=== PATIENT | female | born 1955 | race Caucasian/White ===

== ENCOUNTER 2020-08-05 10:15 | Observation (INO) | payer OTHER, SELFPAY ==
[2020-08-05] VITALS (14 sets, daily range): BP systolic 95–113; BP diastolic 49–69; PULSE 75–100; RESP 16–27; TEMP 36.4–37.1; O2SAT 91–97; BMI 23.6
--- NOTE | ~2020-08-05 | XR_ITS ---
EXAMINATION: XR chest 1V portable INDICATION: Shortness of breath, COVID 19 positive TECHNIQUE: Portable AP chest at 1047 hours COMPARISON: 10/23/2014 FINDINGS: There are patchy opacities of the lung bases and right midlung zone. No pleural effusion or pneumothorax is identified. The cardiomediastinal silhouette is normal. There is levocurvature of th e thoracic spine. IMPRESSION: 1. Patchy opacities of the lung bases and right midlung zone, consistent with pneumonia versus atelec tasis. Reviewed, dictated and finalized at location A. IMPRESSION: 1. Patchy opacities of the lung bases and right midlung zone, consistent with p neumonia versus atelectasis.
--- NOTE | ~2020-08-05 | XR_ITS ---
EXAMINATION: XR chest 1V portable DATE: 08/07/2020 08:29 INDICATION: COVID 19 infection TECHNIQUE: frontal view of the chest was obtained. COMPARISON: Chest radiograph dated 08/05/2020 FINDINGS: No interval change in mild opacities at the lung bases and at the lateral right midlung zone. No pulm onary edema, pleural effusion or pneumothorax. The cardiomediastinal silhouette is normal. Mild lower thoracic levoscoliosis. IMPRESSION: 1. Unchanged mild opacities at the bilateral lung bases and right midlung zone which could represent atelectasis or pneumonia. Reviewed, dictated and finalized at location A. ING TECHNICIAN
[2020-08-05 10:50] LABS: Basophils Percent Auto 0.4 % (0.2-1.2); Eosinophils Percent Auto 0.2 % (0-4.4); Hematocrit 24.1 % (37.0-47.0); Hemoglobin 7.4 g/dL (12.0-15.0); Immature Granulocyte Absolute 0.02 K/mm3 (0.00-0.031); Immature Granulocyte Percent A 0.4 % (0-0.5); Lymphocytes Absolute Auto 0.74 K/mm3 (0.9-3.2); Lymphocytes Percent Auto 14.3 % (18.3-44.2); Mean Corpuscular HGB Conc 30.7 g/dl (32-36); Mean Corpuscular Hemoglobin 33.8 pg (26-34); Mean Platelet Volume 12.7 fl (7.4-10.4); Monocytes Absolute Auto 0.4 K/mm3 (0.1-0.6); Monocytes Percent Auto 7.3 % (2.6-8.5); Neutrophils Percent Auto 77.4 % (45.5-73.1); Platelet Count Result 173 k/mm3 (150-375); Red Blood Count 2.19 M/mm3 (4.2-5.4); Red Cell Distribution Width 15.3 % (11.5-14.5); White Blood Count 5.2 K/mm3 (4.5-10.0)
[2020-08-05 11:01] LABS: INR 1.1; Prothrombin Time 14.1 Seconds (11.1-14.7)
[2020-08-05 11:02] LABS: Lactic Acid Reflex 1.7 mmol/L (0.7-2.1); Partial Thromboplastin Time 27.1 SECONDS (22.3-36.8)
[2020-08-05 11:06] LABS: Alanine Aminotransferase 83 U/L (4-35); Albumin Level 4.1 g/dL (3.5-5.1); Alkaline Phosphatase 68 U/L (38-126); Anion Gap 8 mmol/L (8-16); Aspartate Amino Transferase 102 U/L (14-36); Bilirubin,Total 3.2 mg/dL (0.2-1.3); Blood Urea Nitrogen 16 mg/dL (7-17); CRP 0.6 mg/dL (<1.0); Calcium 8.5 mg/dL (8.4-10.2); Carbon Dioxide 27 mmol/L (22-30); Chloride 101 mmol/L (98-107); Estimated Glomerular Filt Rate > 60; Glucose 118 mg/dL (65-105); Potassium 3.8 mmol/L (3.4-5.0); Sodium 136 mmol/L (137-145)
--- NOTE | 2020-08-05 11:35 | ED.GENADULT ---
HPI - General Adult General Chief complaint: Syncope <BHARAT English Last Filed: 08/05/20 12:27> Stated complaint: Weakness, covid-19 <BHARAT English Last Filed: 08/05/20 12:27> Time Seen by Provider: 08/05/20 10:18 <BHARAT English Last Filed: 08/05/20 12:27> Source: patient <BHARAT English Last Filed: 08/05/20 12:27> Mode of arrival: ambulatory <BHARAT English Last Filed: 08/05/20 12:27> Limitations: no limitations <BHARAT English Last Filed: 08/05/20 12:27> History of Present Illness HPI narrative: Patient is a 65-year-old female who presents to emergency department for evaluation of weakness secondary to COVID-19 positive diagnosis positive for several days has had increasing weakness worse with any movement or activity patient has tried cold medicines with minimal improvement patient on arrival is ill-appearing appears uncomfortable but in no distress patient denying any pain on arrival no she has had some diarrhea productive cough fever chills <BHARAT English Last Filed: 08/05/20 12:27> Related Data Home medications: Home Medications Medication Instructions Recorded Confirmed ferrous sulfate 325 mg PO DAILY 02/07/20 07/19/20 cyanocobalamin (vitamin B-12) 1,000 mcg PO DAILY 04/03/20 07/19/20 [Vitamin B-12] <BHARAT English Last Filed: 08/05/20 12:27> Allergies/adverse reactions: Allergies Allergy/AdvReac Type Severity Reaction Status Date / Time red dye Allergy Unknown Nausea Verified 08/05/20 11:40 sulfanilamide Allergy Unknown Nausea Verified 08/05/20 11:40 Sulfa (Sulfonamide AdvReac Mild NAUSEA Verified 08/05/20 11:40 Antibiotics) RED COATING ON ERYTHROMYCIN AdvReac Mild NAUSEA Uncoded 07/19/20 10:30 TAB <BHARAT English Last Filed: 08/05/20 12:27> Review of Systems Review of Systems: All systems reviewed & are unremarkable except as noted in HPI and below <BHARAT English Last Filed: 08/05/20 12:27> [facility] Past Medical History Medical History: Medical History (Updated 08/05/20 @ 12:26 by Dimitri Adkins PA-C) Anemia Body mass index (BMI) 24.0-24.9, adult (06/29/19) Encounter for screening colonoscopy Hereditary essential tremor Hypovitaminosis D MDS (myelodysplastic syndrome) <Dimitri Adkins PA-C - Last Filed: 08/05/20 12:27> Family History Family History: Family History (Updated 07/01/19 @ 16:25 by DOCTOR UNKNOWN) Mother Hypertension Family history of malignant neoplasm of stomach Grandparent Diabetes mellitus Father Family history of congestive heart failure <Dimitri Adkins PA-C - Last Filed: 08/05/20 12:27> Social History Social History: Social History Smoking status: Never smoker Alcohol intake: never Gender identity (if verbalized by the patient): Female Spiritual care concerns: No <Dimitri Adkins PA-C - Last Filed: 08/05/20 12:27> Exam Narrative: Exam Narrative: GENERAL: Ill-appearing, well-nourished, and in no acute distress. HEAD: Normocephalic, atraumatic. EYES: PERRLA and EOMI. ENT: Nares clear, no rhinorrhea or epistaxis. Mucous membranes moist. CHEST: Diminished on auscultation. No respiratory distress. Slight crackles in the lung bases HEART: Regular rate and rhythm. No murmur heard. EXTREMITIES: Normal range of motion. No edema. SKIN: Warm, dry, no rash. NEURO: No focal deficits. Alert and oriented x3. Cranial nerves II through XII grossly intact PSYCH: Normal mood and affect. <Dimitri Adkins PA-C - Last Filed: 08/05/20 12:27> Course Course Emergency Course: Patient in the room at this time resting has been hydrated will be transfused placed in hospital managed by the hospitalist team with her fixed assets accountant as a consult <Dimitri Adkins PA-C - Last Filed: 08/05/20 12:27> PRESIDENT & FOUNDER/PA Physician Oswald
[2020-08-05] MEDS: SODIUM CHLORIDE 0.9% IV 1,000 ML 999 ML IV CONT (11:58)
[2020-08-05] MEDS: FAMOTIDINE 20 MG/2 ML VIAL IV PUSH (11:58)
--- NOTE | 2020-08-05 13:20 | ECG_ITS ---
Measurements Intervals [place] Rate: 85 P: 71 CO: 132 QRS: 77 QRSD: 92 T: 64 QT: 369 QTc: 440 Interpretive Statements SINUS RHYTHM BASELINE ARTIFACT- I, II, III, AVR, AVL, AVF, V6 NORMAL ECG Electronically Signed On 08-05-2020 13:49:46 CDT by Mario Alberto Rios D.O.
--- NOTE | 2020-08-05 14:27 | PC.NURSE ---
blood ban released blood product prior to leaving ed started blood and observed pt for product reaction pt left dept at 1410
--- NOTE | 2020-08-05 14:29 | ADMGEN ---
This patient, Mel Rinaldi, was admitted to [facility] Surg Room 324-01. Patient/family oriented to hospital policies and general routines including ID bracelet, bed and alarms, visiting hours, pain management, procedures, bathroom and other care routines, personal items, smoking policy, room service/diet, and visiting hours. Information on how to activate the Rapid Response Team has been discussed. Patient/Family are encouraged to report perceived risks to care and to ask questions if they do not understand what they are told or what they should do.
[2020-08-05] MEDS: TUBING, BLOOD PLUM PUMP TUBING 1 EACH XX (16:14)
--- NOTE | 2020-08-05 21:15 | PM.IMHP ---
H&P: HPI History of Present Illness Date/Time: 08/05/20 21:15 Chief complaint: Weakness and syncope. Narrative: Mel Rinaldi is a pleasant 65-year-old female with myelodysplastic syndrome who presented to the emergency department earlier today from home for evaluation of increasing weakness and after a syncopal episode. She has not been feeling well for a little over a week, with dry hacking cough, headache, and fevers. She tested positive for COVID-19, I believe this past Friday, and she has been progressively weak since that time. Her appetite has been poor and has been having episodes of diarrhea, and now feels quite dehydrated. This morning when she got up from the couch she began feeling lightheaded and apparently lost consciousness for a brief second. She sustained no injury in the fall and denies head trauma. She denies anosmia, dysgeusia, chest pain (although she has discomfort in her ribs due to coughing), nausea, and vomiting. No palpitations. Her had similar symptoms, and he is also COVID positive, which she assumes she contracted while they were out at the loading dock in [place]. Review of Systems Review of Systems: Narrative: Twelve systems were reviewed with pertinent positives and negatives as per HPI. She has not been sleeping well due to the cough and headaches. No significant sore throat. She is not short of breath. Her urine has been a bit darker, which she thinks is due to dehydration. No dysuria. No hematemesis, melena, or hematochezia. Except as documented, all other systems were reviewed and are negative. [facility] Past Medical History Medical History (Updated 08/05/20 @ 23:24 by Princess Dick PA-C) Anemia Hereditary essential tremor Myelodysplastic syndrome Osteoarthritis Osteoporosis Vitamin D deficiency Surgical History Surgical History (Updated 08/05/20 @ 23:21 by Princess Dick PA-C) History of hysterectomy History of tonsillectomy Family History Family History Mother Hypertension Family history of malignant neoplasm of stomach Grandparent Diabetes mellitus Father Family history of congestive heart failure Social History Social History (Updated 08/05/20 @ 23:21 by Princess Dick PA-C) Social History: Surrogate decision maker: Alessandro Rinaldi, spouse. Code status: Full code. Smoking status: Never smoker Second hand tobacco smoke exposure: No Alcohol intake: former Substance use: never Additional living arrangements comments: Resides with her in [place]. Additional occupation/education comments: Retired. Gender identity (if verbalized by the patient): Female Sexual Orientation (if Verbalized by the Patient): Straight or Heterosexual Spiritual care concerns: No Meds Home Medications and Allergies Home Medications Medication Instructions Recorded Confirmed Type ferrous sulfate 325 mg PO DAILY 02/07/20 08/05/20 History cyanocobalamin (vitamin B-12) 1,000 mcg PO DAILY 04/03/20 08/05/20 History [Vitamin B-12] gabapentin 100 mg capsule 100 mg PO BID 90 Days #180 cap 07/13/20 08/05/20 Rx Allergies Allergy/AdvReac Type Severity Reaction Status Date / Time red dye Allergy Unknown Nausea Verified 08/05/20 14:43 sulfanilamide Allergy Unknown Nausea Verified 08/05/20 14:43 Sulfa (Sulfonamide AdvReac Mild NAUSEA Verified 08/05/20 14:43 Antibiotics) RED COATING ON ERYTHROMYCIN AdvReac Mild NAUSEA Uncoded 07/19/20 10:30 TAB Vital Signs Vital Signs - 24 hr 08/05/20 11:35 08/05/20 11:39 08/05/20 12:15 Temperature 98.7 F Pulse Rate 100 94 87 Respiratory Rate 17 16 Blood Pressure 103/51 L 105/49 L Pulse Oximetry 96 96 08/05/20 13:30 08/05/20 13:49 08/05/20 14:00 Temperature 97.5 F L Pulse Rate 95 88 86 Respiratory Rate 17 18 17 Blood Pressure 95/68 L 95/57 L 104/61 Pulse Oximetry 96 97 96 08/05/20 14:04 08/05/20 14:25 08/05/20 14
[2020-08-06] VITALS: BP 110/55; PULSE 75; PULSE 79; RESP 18; TEMP 36.9; O2SAT 95
--- NOTE | 2020-08-06 01:48 | PC.NURSE ---
Daylight Savings Time For Daylight Savings Time Ending in the Fall - Clocks are moved back. For Daylight Savings Time Beginning in the Spring - Clocks are moved ahead. For [facility], the time of change occurs at 0200 hrs. Time is taken from the seismic prospecting observer helper. This entry on the patient's chart recognizes the change in time reflected during documentation. Example: 2 entries for vital signs may be charted for 0200 hrs.
[2020-08-06 04:00] VITALS: BP 101/55; PULSE 75; RESP 18; TEMP 36.9; O2SAT 96
[2020-08-06 06:28] LABS: Basophils Percent Auto 0.6 % (0.2-1.2); Eosinophils Percent Auto 0.6 % (0-4.4); Immature Granulocyte Absolute 0.02 K/mm3 (0.00-0.031); Immature Granulocyte Percent A 0.6 % (0-0.5); Lymphocytes Absolute Auto 0.86 K/mm3 (0.9-3.2); Lymphocytes Percent Auto 26.8 % (18.3-44.2); Mean Corpuscular Hemoglobin 33.2 pg (26-34); Mean Corpuscular Volume 103.7 fl (80-100); Mean Platelet Volume 12.5 fl (7.4-10.4); Monocytes Absolute Auto 0.3 K/mm3 (0.1-0.6); Monocytes Percent Auto 10.6 % (2.6-8.5); Neutrophils Percent Auto 60.8 % (45.5-73.1); Platelet Count Result 159 k/mm3 (150-375); Red Blood Count 2.41 M/mm3 (4.2-5.4); Red Cell Distribution Width 17.3 % (11.5-14.5); White Blood Count 3.2 K/mm3 (4.5-10.0)
[2020-08-06 06:41] LABS: D Dimer 2.19 ug/mL (<0.48)
[2020-08-06 06:43] LABS: Anion Gap 5 mmol/L (8-16); Blood Urea Nitrogen 11 mg/dL (7-17); CRP 0.9 mg/dL (<1.0); Calcium 8.3 mg/dL (8.4-10.2); Carbon Dioxide 27 mmol/L (22-30); Chloride 106 mmol/L (98-107); Estimated CRCL calculation 79 ml/min; Estimated Glomerular Filt Rate > 60; Glucose 92 mg/dL (65-105); Lactate Dehydrogenase 907 U/L (313-618); Magnesium 2.3 mg/dL (1.6-2.3); Potassium 3.5 mmol/L (3.4-5.0); Sodium 138 mmol/L (137-145)
[2020-08-06 08:00] VITALS: BP 115/60; PULSE 74; PULSE 77; RESP 18; TEMP 36.8; O2SAT 94; O2SAT 95
[2020-08-06] MEDS: CYANOCOBALAMIN 1,000 MCG TABLET 1000 MCG PO (09:01)
[2020-08-06] MEDS: PANTOPRAZOLE SODIUM IV 40 MG VIAL IV PUSH (09:01)
[2020-08-06] MEDS: ENOXAPARIN 40 MG/0.4 ML SYRINGE SUB-Q (09:01)
[2020-08-06] MEDS: GABAPENTIN 100 MG CAPSULE PO ×2 (09:01→17:29)
[2020-08-06 12:00] VITALS: BP 103/59; PULSE 77; RESP 18; TEMP 36.8; O2SAT 92
[2020-08-06 12:33] LABS: Hematocrit 24.6 % (37.0-47.0); Hemoglobin 7.9 g/dL (12.0-15.0)
--- NOTE | 2020-08-06 13:54 | PM.IMPN ---
Progress Note: A&P Assessment and Plan (1) Pneumonia due to COVID-19 virus: Code(s): U07.1 - COVID-19; J12.89 - Other viral pneumonia Status: Acute Assessment and Plan: Tested positive for COVID-19 on 07/30/2020. Chest x-ray showed patchy opacities in the lung bases and right midlung zone. She has remained afebrile. She is maintaining adequate oxygenation on room air. She is not a candidate for dexamethasone or remdesivir at this time as she has no oxygen requirement Supplemental O2 as needed with goal saturation 92% or above Supportive care with bronchodilators, antipyretics, and expectorants Trend acute phase reactants Continue isolation precautions (2) Anemia: Qualifiers: Anemia type: other cause Other causes of anemia: other cause, not classified Qualified Code(s): D64.89 - Other specified anemias Code(s): D64.9 - Anemia, unspecified Status: Acute Assessment and Plan: Upon presentation, her H&H was lower than her baseline. She received 1 unit of pRBCs per recommendation of her word processor technician, Dr. Bilyl on 08/05. H&H improved modestly following transfusion and remaining stable. Monitor H&H closely Transfuse as needed with Hgb threshold <7.0 (3) Myelodysplastic syndrome: Code(s): D46.9 - Myelodysplastic syndrome, unspecified Status: Inactive Assessment and Plan: She is established with Dr. Billy. She obtains outpatient lab work every 2 weeks for monitoring. Monitor CBC (4) Syncope: Code(s): R55 - Syncope and collapse Status: Acute Assessment and Plan: Upon rising from the couch, she felt lightheaded and briefly lost consciousness. She did not sustain any injuries. Her blood pressures have been soft, and suspect this episode of syncope was related to orthostasis. She has had poor oral intake and diarrhea, and is likely dehydrated. She received IV fluid bolus in the ED. Telemetry shows normal sinus rhythm Monitor orthostatics Encourage adequate p.o. intake Continue to monitor on telemetry Initiate fall precautions Subjective Date/time seen: 08/06/20 13:54 Interval history: Date of service: 08/06/2020 Mel Rinaldi is a 65 old female with a history of myelodysplastic syndrome who is seen in follow-up for COVID pneumonia. She states that she is feeling ?miserable? today and that this is the worst she has ever felt in her life. Her biggest complaint at this time is an all over headache that was initially relieved by Tylenol but has returned. She complains of productive cough. She states that she is swallowing her sputum rather than coughing it up. She denies shortness of breath, QUIGLEY, or chest pain. She denies anosmia or dysgeusia. She denies abdominal pain, nausea, or vomiting. She does endorse poor appetite. She has been having diarrhea for several days, but feels that this is starting to improve. She endorses body aches. She denies fever or chills. She denies dizziness or lightheadedness. She reports feeling more energy after receiving a blood transfusion. Review of Systems Review of Systems: All systems reviewed & are unremarkable except as noted in HPI and below Exam Narrative: Exam Narrative: Ms. Rinaldi is a well-nourished, well-appearing 65 year old female who is lying supine in bed. She appears comfortable and is in NARD. HR 75, BP 101/75, RR 18, T 98.5?, 96% on room air Neuro: awake, alert and oriented x4, speech clear, no focal neuro deficits noted HEENMT: normocephalic, atraumatic, EOMI, sclerae anicteric, moist oral mucosa, tongue midline, nares patent Neck: supple, no lymphadenopathy Respiratory: clear to auscultation bilaterally, no crackles, wheezes, or rhonchi, nonlabored breathing Cardio: regular rate, regular rhythm with S1-S2 Abdomen: nondistended, normoactive bowel sounds, soft, nontender to palpation, no rigidity or guarding Extremities: no edema, erythema, cyanosis, c
[2020-08-06] MEDS: ACETAMINOPHEN 325 MG TABLET 650 MG PO ×2 (14:20→21:48)
[2020-08-06 16:00] VITALS: BP 110/53; PULSE 74; RESP 16; TEMP 36.4; O2SAT 96
[2020-08-06 20:00] VITALS: BP 101/54; PULSE 81; PULSE 87; RESP 18; TEMP 37; O2SAT 93
[2020-08-06] MEDS: guaiFENesin 12 HR 600 MG TABCR PO (21:48)
[2020-08-07] VITALS: BP 103/54; PULSE 77; PULSE 84; RESP 18; TEMP 37.3; O2SAT 94
[2020-08-07 04:00] VITALS: BP 120/59; PULSE 77; PULSE 79; RESP 18; TEMP 36.6; O2SAT 93
[2020-08-07] MEDS: ACETAMINOPHEN 325 MG TABLET 650 MG PO (04:58)
[2020-08-07 06:34] LABS: Basophils Percent Auto 0.2 % (0.2-1.2); Hematocrit 25.8 % (37.0-47.0); Hemoglobin 8.2 g/dL (12.0-15.0); Immature Granulocyte Absolute 0.01 K/mm3 (0.00-0.031); Immature Granulocyte Percent A 0.2 % (0-0.5); Lymphocytes Percent Auto 16.5 % (18.3-44.2); Mean Corpuscular HGB Conc 31.8 g/dl (32-36); Mean Corpuscular Hemoglobin 33.3 pg (26-34); Mean Corpuscular Volume 104.9 fl (80-100); Mean Platelet Volume 12.1 fl (7.4-10.4); Monocytes Absolute Auto 0.3 K/mm3 (0.1-0.6); Monocytes Percent Auto 7.8 % (2.6-8.5); Neutrophils Absolute Auto 3.2 K/mm3 (1.3-6.7); Neutrophils Percent Auto 75.3 % (45.5-73.1); Platelet Count Result 196 k/mm3 (150-375); Red Blood Count 2.46 M/mm3 (4.2-5.4); Red Cell Distribution Width 16.9 % (11.5-14.5); White Blood Count 4.2 K/mm3 (4.5-10.0)
[2020-08-07 06:50] LABS: Alanine Aminotransferase 60 U/L (4-35); Albumin Level 3.6 g/dL (3.5-5.1); Alkaline Phosphatase 63 U/L (38-126); Anion Gap 7 mmol/L (8-16); Aspartate Amino Transferase 48 U/L (14-36); Blood Urea Nitrogen 11 mg/dL (7-17); CRP 1.4 mg/dL (<1.0); Calcium 8.5 mg/dL (8.4-10.2); Carbon Dioxide 28 mmol/L (22-30); Chloride 100 mmol/L (98-107); Estimated CRCL calculation 96 ml/min; Estimated Glomerular Filt Rate > 60; Glucose 104 mg/dL (65-105); Lactate Dehydrogenase 883 U/L (313-618); Potassium 3.3 mmol/L (3.4-5.0); Sodium 135 mmol/L (137-145)
[2020-08-07 08:00] VITALS: BP 128/54; PULSE 66; PULSE 75; RESP 22; TEMP 36.4; O2SAT 98
[2020-08-07] MEDS: GABAPENTIN 100 MG CAPSULE PO (08:10)
[2020-08-07] MEDS: CYANOCOBALAMIN 1,000 MCG TABLET 1000 MCG PO (08:10)
[2020-08-07] MEDS: PANTOPRAZOLE SODIUM IV 40 MG VIAL IV PUSH (08:10)
[2020-08-07] MEDS: ENOXAPARIN 40 MG/0.4 ML SYRINGE SUB-Q (08:10)
--- NOTE | 2020-08-07 11:00 | PM.DS ---
DS: Admitting Diagnosis Admitting Diagnosis Admitting Diagnosis: Weakness and syncope. Patient had been tested positive for Covid was feeling very weak was having dry hacking cough, poor appetite, had syncopal episode for which she presented to ED. Patient had lung opacities found on chest xr. She was placed on airborne isolation and monitored with tele bed. She was successfully weaned off of oxygen and remained on room air for the rest of her hospital stay. Inflammatory markers were downtrending. Repeat chest xr did not showed worsening of the lung infiltrates. Patient was discharged home in stable medical ondition. DS: Discharge Diagnosis Discharge Diagnosis (1) Elevated LFTs: Code(s): R79.89 - Other specified abnormal findings of blood chemistry Status: Acute Assessment and Plan: Likely secondary to Covid 19 infection Trending down (2) Anemia: Qualifiers: Anemia type: other cause Other causes of anemia: other cause, not classified Qualified Code(s): D64.89 - Other specified anemias Code(s): D64.9 - Anemia, unspecified Status: Acute Assessment and Plan: Patient known to have MDS Follows up in the outpatient setting with Hem/Onc (3) Pneumonia due to COVID-19 virus: Code(s): U07.1 - COVID-19; J12.89 - Other viral pneumonia Status: Acute Assessment and Plan: Stable Did not required supplemental O2. (4) Syncope: Code(s): R55 - Syncope and collapse Status: Acute Assessment and Plan: Likely secondary to dehydration and acute SIRS DS: Summary Time Spent with Patient Time attestation: Total time spent providing and/or coordinating discharge services: Exam Narrative: Exam Narrative: Well appearing, lying in bed. Const: General: cooperative, healthy appearing, comfortable, no acute distress, alert, awake, Physically active and well groomed Nutritional Appearance: average body habitus Orientation/consciousness: patient oriented x3 HENMT: Head: normal to inspection and normocephalic Ears: hearing grossly normal bilaterally General nose exam: Normal external nose present Face and sinus: normal facial exam Eyes: General: appearance normal, both eyes and all related structures EOM: EOMs intact bilaterally Neck: Neck: normal visual inspection, no lymphadenopathy and no JVD Resp: Effort & Inspection: normal respiratory effort Auscultation: clear to auscultation bilaterally Cardio: Jugular venous distension: no JVD Rate: regular rate Rhythm: regular rhythm Heart sounds: S1 normal heart sound present and S2 normal heart sound present GI: Inspection: normal to inspection GI Palp: Yes Soft to palpation and Yes No hepatosplenomegaly present Skin: General skin exam: normal color Lesions: no lesions Rashes: no rashes Wounds: no wounds Neuro: General: patient oriented x3 and CN's II-XI intact bilaterally Cranial nerves: Yes CN's II-XII intact bilaterally and Yes Equal, round and reactive pupils present Cognition (Neuro): normal cognition Speech: normal speech Gait exam (Neuro): Normal gait present Motor exam (neuro): 5/5 motor strength present throughout Extrem: General: normal to inspection and no pedal edema DS: Data Data Completed and Pending Labs on day of discharge: Labs from last 24 hours 08/07/20 08/07/20 08/07/20 06:19 06:19 06:19 WBC 4.2 L RBC 2.46 L Hgb 8.2 L Hct 25.8 L MCV 104.9 H MCH 33.3 MCHC 31.8 L RDW 16.9 H Plt Count 196 MPV 12.1 H Immature Gran % (Auto) 0.2 Neut % (Auto) 75.3 H Lymph % (Auto) 16.5 L [place] % (Auto) 7.8 Eos % (Auto) 0.0 Baso % (Auto) 0.2 Lymph # (Auto) 0.70 L [place] # (Auto) 0.3 Eos # (Auto) 0.0 Baso # (Auto) 0.0 Abs Immat Gran (auto) 0.01 Absolute Neuts (auto) 3.2 Absolute Nucleated RBC 0.0 Nucleated RBC % 0.0 Sodium 135 L Potassium 3.3 L Chloride 100 Carbon Dioxide 28 Anion Gap 7 L BUN
--- NOTE | 2020-08-07 12:20 | PC.NURSE ---
Pt is A&O x 4. Pt has been discharged. Pt had IV removed, tele removed, and discharge paperwork reviewed. pt Opportunities for questions provided. Pt exhibited good understanding of all discharge instructions. Pt was assisted to a wheelchair and taken to the front of the building by staff. pt was assisted to car, with no difficulties.
== END 2020-08-07 12:15 | disposition home or self-care (01) ==
LOC: ANHED 12:26 → ANH3MEDSUR 12:49
PROVIDERS: Emergency Medicine Emergency Medical Services; Physician Assistant; Admitting Provider Family Medicine; Emergency Provider Emergency Medicine; PCP Internal Medicine; Visit Provider Internal Medicine
DX: U07.1 COVID-19 (principal); J12.89 Other viral pneumonia; R55 Syncope and collapse; D46.9 Myelodysplastic syndrome, unspecified; R79.89 Other specified abnormal findings of blood chemistry
CPT/HCPCS: 36415; 36430; 71045; 80048; 80053; 82728; 83605; 83615; 83735; 85014; 85018; 85025; 85380; 85610; 85730; 86140; 86850; 86900; 86901; 86920; 87040; 93005; 96365; 96372; 96375; 96376; 99285; A9270; C9113; G0378; J0131; J1650; J7030; P9016

== ENCOUNTER 2020-09-20 12:27 | Outpatient (CLI) | payer OTHER, SELFPAY ==
--- NOTE | ~2020-09-20 | MM_ITS ---
EXAMINATION: MM screening nancy BI w pearl HISTORY: Screening mammogram TECHNIQUE: Craniocaudal and mediolateral oblique 3-D tomosynthesis images were obtained and synthetic 2-D images were generated. CAD analysis was submitted and interpreted. COMPARISON: No prior mammogram is available for comparison at this institution. BREAST PARENCHYMAL COMPOSITION: There are scattered areas of fibroglandular density. FINDINGS: There is no evidence of suspicious mass, calcification, or architectural distortion to sugg est malignancy in either breast. IMPRESSION: 1. No mammographic evidence of malignancy. 2. Recommend routine screening mammography in one year. BI-RADS Category 1: Negative Reviewed, dictated and finalized at location A. CITY ANALYST
== END 2020-09-20 12:28 | disposition home or self-care (01) ==
PROVIDERS: PCP Internal Medicine; Visit Provider Internal Medicine
DX: Z12.31 Encounter for screening mammogram for malignant neoplasm of breast (principal)
CPT/HCPCS: 77063; 77067

== ENCOUNTER 2020-10-09 09:14 | Outpatient (CLI) | payer OTHER, SELFPAY ==
--- NOTE | ~2020-10-09 | DEXA_ITS ---
Bone Density Report Name: Mel Rinaldi Age: 65 Sex: Female Ethnicity: White Date of : 1955 Indication: postmenopausal; prior fracture; Referring Provider: Francesco Vega Study: Bone densitometry was performed. Exam Date: October 09, 2020 Accession number: [id number] Bone Density: Region BMD T-score Z-score Classification AP Spine (L1-L4) 0.693 -3.2 -1.3 Osteoporosis Femoral Neck (Left) 0.598 -2.3 -0.6 Osteopenia Total Hip (Left) 0.730 -1.7 -0.4 Osteopenia Total Hip Bilateral Avg 0.736 -1.7 -0.4 Osteopenia Femoral Neck (Right) 0.577 -2.4 -0.8 Osteopenia Total Hip (Right) 0.741 -1.6 -0.3 Osteopenia World Health Organization criteria for BMD impression classify patients as: Normal (T-score at or above -1.0), Osteopenia (T-score between -1.0 and -2.5), or Osteoporosis (T-score at or below -2.5). 10-year Fracture Risk: FRAX not reported because: Some T-score for Spine Total or Hip Total or Femoral Neck at or below -2.5 Clinical Information Provided by Patient: Has had a low trauma fracture Has used the following medications: Vitamin D, Calcium Patient maximum height was 65 Menopause Age: 48 Does not regularly consume dairy products Onset of menses at age 11 Number of children 4 Impression: The patient has established osteoporosis, based on the Total Spine T-score and the existence of a prior fracture. The patient has risk factors, including: previous fracture. Discussion: HIGH RISK OF FRACTURE. BONE DENSITY IS UNDESIRABLY LOW AT ONE OR MORE SKELETAL SITES, CONSISTENT WITH POSTMENOPAUSAL OSTEOPOROSIS. This patient's lowest T-score, in a patient who has previously fractured, meets the World Health Organization's (WHO) criteria for severe osteoporosis. In untreated patients, the risk of osteoporotic fracture increases approximately two-fold for each 1.0 SD decrease in T-score. Low bone density is not the only risk factor for fracture; also consider factors such as patient's age, frailty or poor health, risk of falling, risk of injury, previous osteoporotic fracture, family history of osteoporosis, cigarette smoking, low body weight, etc. Not everyone with low bone mineral density has osteoporosis; osteomalacia and other metabolic bone disorders should also be considered. Patients who have osteoporosis should be evaluated for specific diseases and conditions (secondary causes) that may cause or contribute to bone loss. The [place] [employer] Endocrinologists (AACE) and National Osteoporosis Foundation (NOF) recommend pharmacologic intervention for all postmenopausal women whose T-score is in this range. The patient should follow a healthful lifestyle (good nutrition with adequate calcium and vitamin D, and appropriate weight-bearing exercise). Follow-Up: Consider a repeat BMD and Vertebral Fracture Assessme
== END 2020-10-09 09:15 | disposition home or self-care (01) ==
LOC: ANHIMG 09:18
PROVIDERS: PCP Internal Medicine
DX: N95.1 Menopausal and female climacteric states (principal); M85.89 Other specified disorders of bone density and structure, multiple sites; M81.0 Age-related osteoporosis without current pathological fracture
CPT/HCPCS: 77080

== ENCOUNTER 2021-01-09 11:38 | Outpatient (CLI) | payer OTHER, SELFPAY ==
[2021-01-09 12:24] LABS: Basophils Absolute Auto 0.1 K/mm3 (0.0-0.1); Basophils Percent Auto 1.4 % (0.2-1.2); Eosinophils Percent Auto 1.1 % (0-4.4); Hematocrit 33.9 % (37.0-47.0); Hemoglobin 10.3 g/dL (12.0-15.0); Lymphocytes Absolute Auto 1.86 K/mm3 (0.9-3.2); Lymphocytes Percent Auto 52.4 % (18.3-44.2); Mean Corpuscular HGB Conc 30.4 g/dl (32-36); Mean Corpuscular Hemoglobin 36.7 pg (26-34); Mean Corpuscular Volume 120.6 fl (80-100); Mean Platelet Volume 12.2 fl (7.4-10.4); Monocytes Absolute Auto 0.3 K/mm3 (0.1-0.6); Neutrophils Absolute Auto 1.4 K/mm3 (1.3-6.7); Neutrophils Percent Auto 38.1 % (45.5-73.1); Platelet Count Result 227 k/mm3 (150-375); Red Blood Count 2.81 M/mm3 (4.2-5.4); Red Cell Distribution Width 15.4 % (11.5-14.5); White Blood Count 3.6 K/mm3 (4.5-10.0)
[2021-01-09 12:28] LABS: Calcium 9.2 mg/dL (8.4-10.2)
[2021-01-09 13:37] LABS: Folic Acid > 20.0 ng/mL (2.76->20)
[2021-01-09 13:43] LABS: Iron 99 ug/dL (37-170)
[2021-01-09 13:46] LABS: Vitamin D 25 Hydroxy 47.2 ng/mL
[2021-01-09 13:52] LABS: Percent Iron Saturation 31 % (20-50)
== END 2021-01-09 11:39 | disposition home or self-care (01) ==
PROVIDERS: PCP Internal Medicine; Visit Provider Internal Medicine
DX: E55.9 Vitamin D deficiency, unspecified (principal); M81.0 Age-related osteoporosis without current pathological fracture; D64.9 Anemia, unspecified
CPT/HCPCS: 36415; 82306; 82310; 82607; 82728; 82746; 83540; 83550; 85025

== ENCOUNTER 2021-06-13 12:24 | Inpatient (IN) | payer OTHER, SELFPAY ==
--- NOTE | ~2021-06-13 | US_ITS ---
US abdomen limited INDICATION: Abdominal pain and vomiting PROCEDURE: Realtime right upper abdominal ultrasound. COMPARISON: No prior studies for comparison. FINDINGS: The pancreas is normal without focal mass or pancreatic ductal dilation. Liver echotexture is normal without focal mass or intrahepatic biliary dilatation. There is normal directional flow i n the portal vein. There is gallbladder wall thickening. There are gallbladder polyps measuring up to 6 mm. Common bile duct measures 8 mm. No sonographic Diamond's sign. There is a right renal cyst. IMPRESSION: 1: Gallbladder distention with wall thickening and gallbladder polyps. Mild biliary dilatation. No de finite gallstones. Consider acalculous cholecystitis in the appropriate clinical setting. Reviewed, dictated and finalized at location A. IMPRESSION: 1: Gallbladder distention with wall thickening and gallbladder polyps. Mild yue iary dilatation. No definite gallstones. Consider acalculous cholecystitis in t he appropriate clinical setting.
--- NOTE | ~2021-06-13 | CT_ITS ---
EXAMINATION: CT chest abdomen pelvis w con EXAM DATE: 06/13/2021 13:58 INDICATION: Severe chest pain, abd pain,jaundiced;cholangitis? TECHNIQUE: Spiral CT of the chest, abdomen and pelvis was performed following intravenous injection o f 100 mL Omnipaque 350. Axial, coronal and sagittal images chest, abdomen and pelvis were reviewed. Coronal maximum intensity pixel images of chest reviewed. The dose-length product (DLP) for this ex amination was 404.79 mGy-cm. The exposure was tailored according to patient size (auto mA exposure c ontrol), and iterative reconstruction (ASIR) was used as additional dose reduction technique. There is no prior study for comparison. FINDINGS: CHEST: There is mild emphysema. No central pulmonary emboli. Subsegmental dependent atelectasis. The re is no focal acute air space disease. There are no pleural or pericardial effusions. Tracheobr onchial tree is patent. There is no mediastinal, hilar or axillary lymphadenopathy. There is no p neumothorax. Heart normal in size. There is mild coronary arterial calcification, arterial sclero sis. ABDOMEN PELVIS: Gallbladder is distended with thickened wall and probably small pericholecystic fluid , appearance is consistent with acute cholecystitis. No calcified cholelithiasis or gallbladder emphy sema. Common bile duct measures 8 mm in diameter, mildly dilated. The liver, spleen, adrenal glands and pancreas are unremarkable. Portal and splenic veins are patent . Kidneys enhance symmetrically. There is no hydronephrosis. Bilateral renal lesions consistent wit h cysts, largest on the left measuring 4.5 cm. No obstructive nephropathy. The uterus is retroverted and morphologically normal. The bladder is unremarkable. There is no retroperitoneal or pelvic ly mphadenopathy. The appendix is not positively visualized. There is no pericecal inflammatory change to suggest appe ndicitis. The stomach and small bowel are unremarkable. There is expected amount of colonic stool. No free intraperitoneal gas. There are no osteoblastic or osteolytic lesions identified. IMPRESSION: Acute cholecystitis. Reviewed, dictated and finalized at location A. IMPRESSION: Acute cholecystitis.
--- NOTE | ~2021-06-13 | MR_ITS ---
EXAMINATION: MR MRCP wo/w con/w 3D wo ind DATE: 06/14/2021 09:50 INDICATION: Cholecystitis, hyperbilirubinemia TECHNIQUE: Magnetic resonance imaging (MRI) of the abdomen was performed without and with intravenous contrast. Sequences included coronal T2-weighted SS-FSE ARC, coronal T2-weighted FS SS-FSE, coronal T2-weighted 2D FS FIESTA, Water:Coronal LAVA-Flex, sagittal T2-weighted SS-FSE ARC, axial SSFSE ARC, axial 3D DualEcho, axial DWI B=600, axial T1-weighted LAVA, FAT:Coronal LAVA-Flex, and coronal in and opposed phase LAVA-Flex. Thick-slab T2-weighted FRFSE-XL images were obtained for magnetic resonance cholangiopancreatography (MRCP). Maximum intensity projection 3-D reconstructions of the volumetric data were created by the technologist. Postcontrast sequences included a time course of axial T1-weig hted LAVA, FAT:Coronal LAVA-Flex, coronal in and opposed phase LAVA-Flex, and Water:Coronal LAVA-Flex . COMPARISON: CT and ultrasound from yesterday CONTRAST: Multihance, 12 cc FINDINGS: ABDOMEN MRI: The spleen, and adrenal glands are normal. There is a 6 mm arterial enhancing lesion in liver segment which effaces isointense on rest weight only postcontrast images, consistent with a flash filling hemangioma or focal nodular hyperplasia. Cysts of the kidneys measure up to 4.4 cm on t he left. There are peripelvic cysts in both kidneys, left greater than right. The gallbladder is dist ended. There is a small amount of pericholecystic fluid. Gallbladder wall thickening is noted. There appears to be a 2 mm stone in the gallbladder near the neck. There are no pathologically enlarged abd ominal lymph nodes. There are no dilated loops of bowel. ABDOMEN MRCP: There is no intrahepatic or extrahepatic biliary dilatation. No biliary stones or stric ture are identified. Pancreas divisum is noted. The pancreas is otherwise unremarkable. IMPRESSION: 1. Findings consistent with acute cholecystitis. Possible small stone in the gallbladder. 2. No intrahepatic or extrahepatic biliary dilatation, stones, or stricture. Reviewed, dictated and finalized at location B. IMPRESSION: 1. Findings consistent with acute cholecystitis. Possible small stone in the ga llbladder. 2. No intrahepatic or extrahepatic biliary dilatation, stones, or stricture.
--- NOTE | ~2021-06-13 | XR_ITS ---
EXAMINATION: XR chest 2V DATE: 06/13/2021 13:30 INDICATION: Chest pain TECHNIQUE: PA and lateral views of the chest are obtained. COMPARISON: 08/07/2020 FINDINGS: The lungs are free of acute opacities. There is no pleural effusion or pneumothorax. The ca rdiomediastinal silhouette is normal. There is mild thoracic spondylosis. IMPRESSION: 1. No acute cardiopulmonary abnormality. Reviewed, dictated and finalized at location B.
--- NOTE | ~2021-06-13 | MR_ITS ---
EXAMINATION: MR MRCP wo/w con/w 3D wo ind DATE: 06/17/2021 07:30 INDICATION: Elevated liver enzymes. Jaundice. TECHNIQUE: Magnetic resonance imaging (MRI) of the abdomen was performed without and with 12 mL Multi marcela intravenous contrast. Sequences included coronal T2-weighted SS-FSE, coronal T2-weighted FS SS- FSE, coronal T2-weighted FS FIESTA, axial T2-weighted FS FIESTA, axial T2-weighted FIESTA, sagittal T 2-weighted SS-FSE, axial T1-weighted dual-echo FSPGR, axial T2-weighted SS-FSE, axial T1-weighted LAV A, axial T2-weighted STIR FSE. Thick-slab T2-weighted FRFSE-XL images were obtained for magnetic reso nance cholangiopancreatography (MRCP). Rotating maximum intensity projection 3-D reconstructions of [facility] volumetric data were created by the technologist. Postcontrast sequences included a time course of axial T1-weighted LAVA. COMPARISON: 06/14/2021 FINDINGS: ABDOMEN MRI: Small bilateral posteriorly layering pleural effusions with dependent consolidation in the bilateral lower lobes which could represent compressive atelectasis, aspiration or pneumonia. Heart size is nor mal. No pericardial effusion. Again seen is a 5 mm T2 hyperintense arterially enhancing lesion in seg ment 6 of the liver most likely a flash filling hemangioma or less likely focal nodular hyperplasia. There is both mild intrahepatic biliary ductal dilation as well as some periportal edema throughout [facility] liver. Gallbladder is no longer visualized consistent with provided history of interval cholecyste ctomy. There is stranding and edema in the fat, small amount of free fluid at the gallbladder fossa a nd in the region of the foramen of Maricel. Pancreas, spleen and bilateral adrenal glands are normal. There are parenchymal, exophytic and peripelvic cysts at both kidneys, the largest measuring up to 4 .8 cm maximal diameter on the left and 3.3 cm on the right. No hydronephrosis. Mild bilateral nonspec ific perirenal stranding. Visualized portions of the bowels are unremarkable with no obstruction. The dome of the bladder and fundus of uterus are seen on the sagittal image and appear normal. Additiona l small amount of ascites in the pelvis. No pathologically enlarged abdominal or upper pelvic lymphad enopathy. There is body wall edema. Visualized bones are unremarkable with normal marrow signal throu ghout. ABDOMEN MRCP: The common bile duct is dilated to 11 mm in maximal diameter which tapers in the distal duct with no evident stricture, choledocholithiasis or other obstructing lesions. IMPRESSION: 1. Postoperative changes consistent with recent cholecystectomy with edema and small amount of free f luid in the right upper quadrant centered at the gallbladder fossa. 2. Common bile duct dilated to 11 mm with no evident choledocholithiasis. 3. Additional small amount of ascites in the pelvis. 4. Small bilateral pleural effusions with dependent atelectasis and/or pneumonia bilateral lower lobe s. Reviewed, dictated and finalized at location A. IMPRESSION: 1. Postoperative changes consistent with recent cholecystectomy with edema and small amount of free fluid in the right upper quadrant centered at the gallblad jose manuel fossa. 2. Common bile duct dilated to 11 mm with no evident choledocholithiasis. 3. Additional small amount of ascites in the pelvis. 4. Small bilateral pleural effusions with dependent atelectasis and/or pneumoni a bilateral lower lobes.
[2021-06-13 12:28] VITALS: BP 125/45; PULSE 70; RESP 18; TEMP 36.5; O2SAT 100
--- NOTE | 2021-06-13 12:33 | ECG_ITS ---
Measurements Intervals [place] Rate: 69 P: 72 DE: 146 QRS: 81 QRSD: 89 T: 73 QT: 404 QTc: 434 Interpretive Statements SINUS RHYTHM BASELINE ARTIFACT- I, II, III, AVR, AVF, V1, V3-V6 NORMAL ECG Electronically Signed On 06-13-2021 13:56:18 CDT by Mario Alberto Rios D.O.
--- NOTE | 2021-06-13 12:37 | PC.NURSE ---
, pt daughter waiting in preethi Rinaldi
--- NOTE | 2021-06-13 12:41 | ED.WEAKNESS ---
HPI - Weakness General Chief complaint: Weakness Stated complaint: CP/Abd Pain /Vomiting/Diarrhea Time Seen by Provider: 06/13/21 12:41 Source: patient Mode of arrival: ambulatory Limitations: no limitations History of Present Illness HPI Narrative: Patient is a 66-year-old female who presents for evaluation of multiple complaints. Patient reports feeling unwell since very early this morning, approximately 2:58 in the morning she began to have sharp upper abdominal pain described as stabbing in nature. Radiation of pain to the middle back. She has associated discomfort in her chest which is described as a pressure in the chest. No associated jaw pain, shoulder pain or arm pain. No current shortness of breath. No cough. No neck pain. Also reporting nausea, vomiting and diarrhea. No flank pain. No dysuria or hematuria. Patient states symptoms occurred previously 2 weeks ago but then resolved overnight and patient felt well the next morning. Patient does report history of mild dysplasia, states that she is monitored by a oncologist at [facility], is not currently undergoing any treatment. She has a history of Covid in July 2020, did require a short hospitalization for her symptoms, but has no longstanding symptoms at this point. She denies any fever with her symptoms, does report chills. She denies rhinorrhea, congestion, loss of sense of taste or smell. Patient is vaccinated. She denies any rash. No recent travel. Related Data Home Medications Medication Instructions Recorded Confirmed cyanocobalamin (vitamin B-12) 1,000 mcg PO DAILY 04/03/20 03/14/21 [Vitamin B-12] zinc 100 mg PO DAILY 10/11/20 03/14/21 ferrous sulfate 325 mg PO BID 12/06/20 03/14/21 Allergies Allergy/AdvReac Type Severity Reaction Status Date / Time red dye Allergy Unknown Nausea Verified 03/14/21 14:56 sulfanilamide Allergy Unknown Nausea Verified 03/14/21 14:56 Sulfa (Sulfonamide AdvReac Mild NAUSEA Verified 03/14/21 14:56 Antibiotics) RED COATING ON ERYTHROMYCIN AdvReac Mild NAUSEA Uncoded 03/14/21 14:56 TAB Review of Systems Review of Systems: CONSTITUTIONAL: Reports fever and chills EYES: Denies visual changes, redness, or discharge. ENT: Denies rhinorrhea, congestion, sore throat, or otalgia. CARDIOVASCULAR: Reports chest pain without palpitations RESPIRATORY: Denies cough or dyspnea. GASTROINTESTINAL: Reports abdominal pain, nausea, vomiting and diarrhea GENITOURINARY: Denies dysuria or hematuria. SKIN: Denies rash or itching. MUSCULOSKELETAL: Denies back pain, joint pain, or myalgia. NEUROLOGIC: Denies headache, numbness, or weakness. PSYCHIATRIC: Denies anxiety or depression. [facility] Past Medical History Medical History Anemia Hereditary essential tremor Myelodysplastic syndrome Osteoarthritis Osteoporosis Vitamin D deficiency Surgical History Surgical History History of hysterectomy History of tonsillectomy Family History Family History Mother Hypertension Family history of malignant neoplasm of stomach Grandparent Diabetes mellitus Father Family history of congestive heart failure Social History Social History Social History: Surrogate decision maker: Alessandro Gentry, spouse. Code status: Full code. Second hand tobacco smoke exposure: No Alcohol intake: former Substance use: never Additional living arrangements comments: Resides with her in [place]. Additional occupation/education comments: Retired. Gender identity (if verbalized by the patient): Female Sexual Orientation (if Verbalized by the Patient): Straight or Heterosexual Spiritual care concerns: No Exam Narrative: GENERAL: Awake, alert, conversant, ill-appearing HEAD: Normocephalic,
[2021-06-13] MEDS: ASPIRIN 81 MG CHEWABLE TABLET 324 MG PO (13:18)
[2021-06-13] MEDS: MORPHINE SULFATE (*CRX) 4 MG/ML INJ IV PUSH (13:19)
[2021-06-13] MEDS: ONDANSETRON INJ 4 MG/2 ML VIAL IV PUSH (13:20)
[2021-06-13 13:25] LABS: Basophils Percent Auto 0.4 % (0.2-1.2); Eosinophils Percent Auto 0.2 % (0-4.4); Hematocrit 26.5 % (37.0-47.0); Hemoglobin 8.2 g/dL (12.0-15.0); Immature Granulocyte Absolute 0.02 K/mm3 (0.00-0.031); Immature Granulocyte Percent A 0.4 % (0-0.5); Lymphocytes Absolute Auto 0.54 K/mm3 (0.9-3.2); Lymphocytes Percent Auto 11.4 % (18.3-44.2); Mean Corpuscular HGB Conc 30.9 g/dl (32-36); Mean Corpuscular Hemoglobin 37.3 pg (26-34); Mean Corpuscular Volume 120.5 fl (80-100); Mean Platelet Volume 12.6 fl (7.4-10.4); Monocytes Absolute Auto 0.3 K/mm3 (0.1-0.6); Monocytes Percent Auto 6.1 % (2.6-8.5); Neutrophils Absolute Auto 3.9 K/mm3 (1.3-6.7); Neutrophils Percent Auto 81.5 % (45.5-73.1); Platelet Count Result 195 k/mm3 (150-375); Red Cell Distribution Width 15.9 % (11.5-14.5); White Blood Count 4.8 K/mm3 (4.5-10.0)
[2021-06-13 13:38] LABS: Alanine Aminotransferase 286 U/L (4-35); Alkaline Phosphatase 78 U/L (38-126); Anion Gap 5 mmol/L (8-16); Aspartate Amino Transferase 426 U/L (14-36); Bilirubin,Total 6.8 mg/dL (0.2-1.3); Blood Urea Nitrogen 13 mg/dL (7-17); Calcium 8.3 mg/dL (8.4-10.2); Carbon Dioxide 25 mmol/L (22-30); Chloride 105 mmol/L (98-107); Estimated CRCL calculation 69 ml/min; Estimated Glomerular Filt Rate > 60; Glucose 103 mg/dL (65-110); Potassium 3.8 mmol/L (3.4-5.0); Sodium 135 mmol/L (137-145)
[2021-06-13 13:43] LABS: Lactic Acid Reflex 0.8 mmol/L (0.7-2.1)
[2021-06-13 13:47] LABS: Add Urine Microscopic? YES; Appearance Urine Clear (Clear); Bilirubin Urine 1+ (Negative); Color Urine Amber (Yellow); Glucose Urine UA Negative (Negative); Ketones Urine 1+ mg/dL (Negative); Leukocyte Esterase Ur 1+ LEU/UL (Negative); Mucus Urine Heavy /lpf; Nitrate Urine Negative (Negative); Protein Urine 1+ mg/dL (Negative); Specific Grav Ur 1.023 (1.001-1.035); Squamous Epithelial Cell Urine Few /hpf (Few)
[2021-06-13 13:48] LABS: Troponin I < 0.012 ng/mL (0.000-0.034)
[2021-06-13 13:49] LABS: Blood Urine Negative (Negative)
[2021-06-13 13:52] LABS: INR 0.9; Prothrombin Time 12.5 Seconds (11.1-14.7)
[2021-06-13 13:53] LABS: Partial Thromboplastin Time 29.1 SECONDS (22.3-36.8)
[2021-06-13 14:57] LABS: Lipase 80 U/L (23-300)
[2021-06-13 15:00] VITALS: BP 120/50; PULSE 72; RESP 18; O2SAT 95
--- NOTE | 2021-06-13 15:02 | PM.CNGS ---
Assessment and Plan Assessment and plan (1) Choledocholithiasis with acute cholecystitis: Code(s): K80.42 - Calculus of bile duct with acute cholecystitis without obstruction Status: Acute Assessment and Plan: will get MRCP for further eval of CBD, get GI consult, NPO, IV abx, will need interval cholecystectomy (2) Myelodysplastic syndrome: Code(s): D46.9 - Myelodysplastic syndrome, unspecified Status: Acute Assessment and Plan: following oncologist at [facility] History of Present Illness Consult details Consult date: 06/13/21 Reason for consult: gallstones Requesting physician: Manju Mireles MD Narrative: Pt is a 66 y/o F presenting to ED c/o severe upper abd pain waking her from sleep this am. Pt reports pain is severe in RUQ/epigastrium c radiation up to her chest. Pt reports associated N/V, diarrhea. Pt reports she has had previous symptoms but not this severe or long-lasting. Pt is also noted to be quite jaundiced. Review of Systems Constitutional: Constitutional: Reports anorexia, Denies chills, Reports fatigue, Denies fever(s), Denies headache(s), Denies lethargy, Reports malaise, Reports poor appetite, Denies weakness, Denies weight gain and Denies weight loss Eyes: Eyes: Reports no additional eye complaints ENT: Reports system reviewed and no additional complaints, except as documented Cardiovascular: Cardiovascular: Reports no additional cardiovascular complaints Respiratory: Respiratory: Reports no additional respiratory complaints Gastrointestinal: Gastrointestinal: Reports as per HPI, Reports abdominal pain, Reports bloating, Reports early satiety, Reports heartburn, Reports diarrhea, Reports loose stools, Reports nausea and Reports vomiting Genitourinary: Genitourinary: Reports no additional female genitourinary complaints Musculoskeletal: Musculoskeletal: Reports no additional musculoskeletal complaints Integumentary/Breasts: Skin/Breast: Reports system reviewed and no additional complaints, except as docu Neurologic: Reports system reviewed and no additional complaints, except as documented Psychiatric: Psychiatric: Reports no additional psychiatric complaints Endocrine: Endocrine: Reports no additional endocrine complaints Hematologic/Lymphatic: Hematologic/Lymphatic: Reports no additional hematologic/lymphatic complaints Allergic/Immunologic: Allergic/Immunologic: Reports no additional allergic/immunologic complaints [facility] Past Medical History Medical History Anemia Hereditary essential tremor Myelodysplastic syndrome Osteoarthritis Osteoporosis Vitamin D deficiency Surgical History Surgical History History of hysterectomy History of tonsillectomy Family History Family History Mother Hypertension Family history of malignant neoplasm of stomach Grandparent Diabetes mellitus Father Family history of congestive heart failure Social History Social History Social History: Surrogate decision maker: Alessandro Gentry, spouse. Code status: Full code. Second hand tobacco smoke exposure: No Alcohol intake: former Substance use: never Additional living arrangements comments: Resides with her in [place]. Additional occupation/education comments: Retired. Gender identity (if verbalized by the patient): Female Sexual Orientation (if Verbalized by the Patient): Straight or Heterosexual Spiritual care concerns: No Meds Home Medications and Allergies Home Medications Medication Instructions Recorded Confirmed Type cyanocobalamin (vitamin B-12) 1,000 mcg PO DAILY 04/03/20 03/14/21 History [Vitamin B-12] zinc 100 mg PO DAILY 10/11/20 03/14/21 History ferrous sulfate 325 mg PO BID 12/06/20 03/14/21 Histor
--- NOTE | 2021-06-13 16:00 | PM.IMHP ---
H&P: HPI History of Present Illness Date/Time: 06/13/21 16:00 Chief Complaint: Chest and abdominal pain. Narrative: This is a very pleasant 66-year-old female with mild dysplastic syndrome and essential tremor who presented to the emergency department earlier today from home for evaluation of chest and abdominal pain. She was wakened from sleep at 03:00 with sudden, severe pain from her mid chest down to the periumbilical region. The pain is described as sharp and stabbing in nature and radiated somewhat into the middle of the back. She also felt as though she had some pressure up in her chest. Additionally she had pretty significant nausea with several episodes of emesis and diarrhea. She had similar symptoms several weeks ago which resolved within several hours but unfortunately today her pain remained and she came in for evaluation. Labs done in the emergency department showed elevated bilirubin, AST, and ALT at 6.8, 42.6, and [address] of the chest, abdomen, and pelvis showed findings of acute cholecystitis and abdominal ultrasound showed mild biliary dilatation and she is being admitted in this setting. She is much more comfortable now after receiving morphine. She denies fever, chills, and sweats. She has not had exertional chest pain or shortness of breath. No hematemesis, melena, or hematochezia. Review of Systems Review of Systems: Twelve systems were reviewed with pertinent positives and negatives as per HPI. No recent cold or flu symptoms. She had COVID in July 2020 and was vaccinated for the same. She has never had exertional chest pain or shortness of breath. Except as documented, all other systems were reviewed and are negative. [facility] Past Medical History Medical History (Updated 06/13/21 @ 23:53 by Princess Dick PA-C) Anemia COVID-19 (07/2020) Hereditary essential tremor Myelodysplastic syndrome Followed by claim benefit specialist at [facility]. Osteoarthritis Osteoporosis Vitamin D deficiency Surgical History Surgical History History of hysterectomy History of tonsillectomy Family History Family History Mother Hypertension Family history of malignant neoplasm of stomach Grandparent Diabetes mellitus Father Family history of congestive heart failure Social History Social History (Updated 06/13/21 @ 23:54 by Princess Dick PA-C) Social History: Surrogate decision maker: Alessandro Rinaldi, spouse. Code status: Full code. Smoking status: Never smoker Second hand tobacco smoke exposure: No Alcohol intake: former Substance use: never Additional living arrangements comments: Resides with her in [place]. They enjoy [employer] baseball and work the [employer] on game days. Additional occupation/education comments: Retired. Meds Home Medications and Allergies Home Medications Medication Instructions Recorded Confirmed Type cyanocobalamin (vitamin B-12) 1,000 mcg PO DAILY 04/03/20 06/13/21 History [Vitamin B-12] zinc 100 mg PO DAILY 10/11/20 06/13/21 History ferrous sulfate 325 mg PO BID 12/06/20 06/13/21 History propranolol 40 mg PO Q12H 06/13/21 06/13/21 History Allergies Allergy/AdvReac Type Severity Reaction Status Date / Time red dye Allergy Unknown Nausea Verified 03/14/21 14:56 sulfanilamide Allergy Unknown Nausea Verified 03/14/21 14:56 Sulfa (Sulfonamide AdvReac Mild NAUSEA Verified 03/14/21 14:56 Antibiotics) RED COATING ON ERYTHROMYCIN AdvReac Mild NAUSEA Uncoded 03/14/21 14:56 TAB Vital Signs Vital Signs - 24 hr 06/13/21 12:28 06/13/21 15:00 06/13/21 17:19 Temperature 97.7 F 97.8 F Pulse Rate 70 72 64 Respiratory Rate 18 18 18 Blood Pressure 125/45 L 120/50 L 104/46 L Pulse Oximetry 100 95 98 06/13/21 20:00 06/13/21 20:22 Temperature 97.2 F L Pulse Rate 66 67 Respiratory Rate 18 Blood Pressure 93/48
[2021-06-13 16:30] LABS: Troponin I < 0.012 ng/mL (0.000-0.034)
[2021-06-13 16:55] LABS: CRP < 0.5 mg/dL (<1.0)
[2021-06-13 17:19] VITALS: BP 104/46; PULSE 64; RESP 18; TEMP 36.6; O2SAT 98
--- NOTE | 2021-06-13 17:22 | ADMGEN ---
This patient, Mel Rinaldi, was admitted to Medical Room 349-01. Patient/family oriented to hospital policies and general routines including ID bracelet, bed and alarms, visiting hours, pain management, procedures, bathroom and other care routines, personal items, smoking policy, room service/diet, and visiting hours. Information on how to activate the Rapid Response Team has been discussed. Patient/Family are encouraged to report perceived risks to care and to ask questions if they do not understand what they are told or what they should do.
[2021-06-13 17:23] VITALS: BMI 23.1
[2021-06-13] MEDS: SODIUM CHLORIDE 0.9% IV 1,000 ML 125 ML IV CONT (17:36)
[2021-06-13 18:56] LABS: Troponin I < 0.012 ng/mL (0.000-0.034)
[2021-06-13 20:00] VITALS: PULSE 66
[2021-06-13 20:22] VITALS: BP 93/48; PULSE 67; RESP 18; TEMP 36.2; O2SAT 95
[2021-06-14] VITALS (24 sets, daily range): BP systolic 95–120; BP diastolic 49–62; PULSE 56–88; RESP 12–18; TEMP 36.6–36.9; O2SAT 92–100
[2021-06-14] MEDS: SODIUM CHLORIDE 0.9% IV 1,000 ML 75 ML IV CONT (03:47)
[2021-06-14 06:56] LABS: Hematocrit 26.4 % (37.0-47.0); Hemoglobin 7.7 g/dL (12.0-15.0); Mean Corpuscular HGB Conc 29.2 g/dl (32-36); Mean Corpuscular Hemoglobin 36.7 pg (26-34); Mean Corpuscular Volume 125.7 fl (80-100); Mean Platelet Volume 12.7 fl (7.4-10.4); Platelet Count Result 167 k/mm3 (150-375); White Blood Count 5.2 K/mm3 (4.5-10.0)
[2021-06-14 07:04] LABS: INR 1.1; Prothrombin Time 13.8 Seconds (11.1-14.7)
[2021-06-14 07:05] LABS: Partial Thromboplastin Time 28.6 SECONDS (22.3-36.8)
[2021-06-14 07:44] LABS: Alanine Aminotransferase 302 U/L (4-35); Albumin Level 3.5 g/dL (3.5-5.1); Alkaline Phosphatase 76 U/L (38-126); Anion Gap 7 mmol/L (8-16); Aspartate Amino Transferase 236 U/L (14-36); Bilirubin,Total 3.5 mg/dL (0.2-1.3); Blood Urea Nitrogen 7 mg/dL (7-17); Calcium 7.4 mg/dL (8.4-10.2); Carbon Dioxide 21 mmol/L (22-30); Chloride 110 mmol/L (98-107); Estimated CRCL calculation 69 ml/min; Estimated Glomerular Filt Rate > 60; Glucose 106 mg/dL (65-110); Magnesium 2.1 mg/dL (1.6-2.3); Potassium 3.3 mmol/L (3.4-5.0); Sodium 138 mmol/L (137-145)
--- NOTE | 2021-06-14 08:52 | PM.PNGS ---
Progress Note: A&P Assessment and Plan (1) Choledocholithiasis with acute cholecystitis: Code(s): K80.42 - Calculus of bile duct with acute cholecystitis without obstruction Status: Acute Assessment and Plan: better, LFTs trending down, will get MRCP to further eval CBD, cont Zosyn, will need interval cholecystectomy Subjective Subjective Date/Time Seen: 06/14/21 08:52 feels better this am, reports minimal to no pain, hungry Review of Systems Review of Systems: All systems reviewed & are unremarkable except as noted in HPI and below Exam Const: General: cooperative, comfortable and no acute distress Nutritional Appearance: average body habitus Orientation/consciousness: patient oriented x3 Resp: Effort & Inspection: normal respiratory effort Auscultation: clear to auscultation bilaterally Cardio: Rate: regular rate Rhythm: regular rhythm GI: Inspection: normal to inspection and non-distended GI Palp: Yes Soft to palpation, No Tenderness to palpation present (GI) and No Guarding due to palpation present (GI) Objective Data Vital Signs Vital Signs: Vital Signs - 24 hr 06/13/21 12:28 06/13/21 15:00 06/13/21 17:19 Temperature 36.5 C 36.6 C Pulse Rate 70 72 64 Respiratory Rate 18 18 18 Blood Pressure 125/45 L 120/50 L 104/46 L Pulse Oximetry 100 95 98 06/13/21 20:00 06/13/21 20:22 06/14/21 00:00 Temperature 36.2 C L Pulse Rate 66 67 70 Respiratory Rate 18 Blood Pressure 93/48 L Pulse Oximetry 95 06/14/21 04:13 06/14/21 05:29 Temperature 36.8 C Pulse Rate 71 78 Respiratory Rate 18 Blood Pressure 103/49 L Pulse Oximetry 98 Intake/Output Intake/Output: Intake & Output 06/11/21 06/12/21 06/13/21 06/14/21 23:59 23:59 23:59 23:59 Intake Total 2050 1200 Output Total 300 150 Balance 1750 1050 Meds/Results Medications: Active Medications Generic Name Dose Route Start Last Admin Trade Name Freq PRN Reason Stop Dose Admin Ferrous Sulfate 324 mg 06/14/21 08:00 Ferrous Sulfate 324 Mg Tablet PO BIDWM YARON Sodium Chloride 1,000 mls @ 75 mls/hr 06/13/21 15:10 06/14/21 05:54 Normal Saline Iv IV CONT 75 mls/hr .[id number] YARON Infusion Piperacillin/Tazobactam/Dextrose 3.375 gm in 50 mls @ 100 mls/hr 06/14/21 00:00 06/14/21 05:54 Zosyn 3.375 Gm/D5w 50ml Pm IVPB Infused Q6H YARON Infusion Morphine Sulfate 4 mg 06/13/21 15:07 Morphine Sulfate (*Crx) 4 Mg/Ml Inj IV PUSH Q2H PRN Pain Rated 7-10 Ondansetron HCl 4 mg 06/13/21 15:07 Ondansetron Inj 4 Mg/2 Ml Vial IV PUSH Q4H PRN Nausea Propranolol HCl 40 mg 06/14/21 09:00 Propranolol Hcl 40 Mg Tablet PO Q12HR [facility] Radiology Results: ITS Impressions Chest X-Ray 06/13/21 13:31 IMPRESSION: 1. No acute cardiopulmonary abnormality. Chest/Abdomen/Pelvis CT 06/13/21 14:10 IMPRESSION: Acute cholecystitis. Abdomen Ultrasound 06/13/21 14:52 IMPRESSION: 1: Gallbladder distention with wall thickening and gallbladder polyps. Mild biliary dilatation. No definite gallstones. Consider acalculous cholecystitis in the appropriate clinical setting. Labs Labs: Laboratory Results - last 24 hr 06/13/21 06/13/21 06/13/21 13:05 13:05 13:05 WBC 4.8 RBC 2.20 L Hgb 8.2 L Hct 26.5 L MCV 120.5 H MCH 37.3 H MCHC 30.9 L RDW 15.9 H Plt Count 195 MPV 12.6 H Immature Gran % (Auto) 0.4 Neut % (Auto) 81.5 H Lymph % (Auto) 11.4 L [place] % (Auto) 6.1 Eos % (Auto) 0.2 Baso % (Auto) 0.4 Lymph # (Auto) 0.54 L [place] # (Auto) 0.3 Eos # (Auto) 0.0 Baso # (Auto) 0.0 Abs Immat Gran (auto) 0.02 Absolute Neuts (auto) 3.9 Absolute Nucleated RBC 0.0 Nucleated RBC % 0.0 PT Cancelled INR Cancelled APTT Sodium Potassium Chloride Carbon Dioxide Anion Gap BUN Creatinine Estim Creat Clear Calc Estimated GFR Glucose
[2021-06-14] MEDS: FERROUS SULFATE 324 MG TABLET PO ×2 (10:23→17:13)
[2021-06-14] MEDS: PROPRANOLOL HCL 40 MG TABLET PO ×2 (10:23→21:23)
--- NOTE | 2021-06-14 11:42 | WPDGICN ---
Assessment and Plan Assessment and plan (1) Cholecystitis: Code(s): K81.9 - Cholecystitis, unspecified Status: Acute Assessment and Plan: here with acute cholecystitis, also noted elevated liver enzymes, wonder if she could have choledocholithiasis but bili down today, could have passed stone but we need to await on final MRCP- if stones in bile duct then ercp, if clear then will need lap iram surgery on board, also antibiotics (2) Transaminitis: Code(s): R74.01 - Elevation of levels of liver transaminase levels Status: Acute Assessment and Plan: continue to monitor (3) Hyperbilirubinemia: Code(s): E80.6 - Other disorders of bilirubin metabolism Status: Acute (4) Myelodysplastic syndrome: Code(s): D46.9 - Myelodysplastic syndrome, unspecified Status: Acute (5) Upper abdominal pain: Code(s): R10.10 - Upper abdominal pain, unspecified Status: Acute Assessment and Plan: better with medical management GI Consult Note Consult date/time: 06/14/21 11:42 Reason for consult: upper abdominal pain, n/v, elevated liver enzymes, cholecystitis HPI: Mel Rinaldi is a 66 year old female with history of myelodysplastic syndrome who about 2 weeks ago had upper abdominal pain and diarrhea that resolved but day before admission with much worse pain with nausea and vomiting, again had diarrhea, finally came to ER. Had elevated liver enzymes with bilirubin 6.8, transaminases 300-400. A CT of the chest, abdomen, and pelvis reviewed and showed findings of acute cholecystitis then had abdominal ultrasound that showed gallbladder distention with wall thickening and gallbladder polyps. Mild biliary dilatation. No definite gallstones. Pain is better after meds. Bili today down to 3.5. Denies alcohol use, history of hepatitis. MRCP done this morning. Review of Systems Constitutional: Constitutional: Denies chills Eyes: Eyes: Denies blurry vision ENT: Reports Normal hearing present Cardiovascular: Cardiovascular: Reports chest pain Respiratory: Respiratory: Denies dyspnea Gastrointestinal: Gastrointestinal: Reports abdominal pain, Reports nausea and Reports vomiting Genitourinary: Genitourinary: Denies hematuria Musculoskeletal: Musculoskeletal: Denies neck pain Integumentary/Breasts: Skin/Breast: Reports system reviewed and no additional complaints, except as docu Neurologic: Denies confusion Psychiatric: Psychiatric: Denies behavioral changes [facility] Past Medical History Medical History (Updated 06/14/21 @ 11:48 by Jayson Smith MD) Anemia Cholecystitis COVID-19 (07/2020) Hereditary essential tremor Myelodysplastic syndrome Followed by layout former at [facility]. Osteoarthritis Osteoporosis Upper abdominal pain Vitamin D deficiency Surgical History Surgical History History of hysterectomy History of tonsillectomy Family History Family History Mother Hypertension Family history of malignant neoplasm of stomach Grandparent Diabetes mellitus Father Family history of congestive heart failure Social History Social History (Updated 06/13/21 @ 23:54 by Princess Dick PA-C) Social History: Surrogate decision maker: Alessandro Rinaldi, spouse. Code status: Full code. Smoking status: Never smoker Second hand tobacco smoke exposure: No Alcohol intake: former Substance use: never Additional living arrangements comments: Resides with her in [place]. They enjoy [employer] baseball and work the [employer] on game days. Additional occupation/education comments: Retired. Meds Home Medications and Allergies Home Medications Medication Instructions Recorded Confirmed Type cyanocobalamin (vitamin B-12) 1,000 mcg PO DAILY 04/03/20 06/13/21 History [Vitamin B-12] zinc 100 mg PO YADIRA
--- NOTE | 2021-06-14 11:49 | WPDHPUPDATE1 ---
History and Physical Update Update Date/Time: 06/14/21 11:49 History and Physical has been reviewed, including an updated exam of the patient. There are NO changes in the patient's condition. Risks, benefits, and alternatives have been discussed and questions answered. Patient agrees to proceed with procedure. After reviewing labs and MRCP, decision to proceed with interval cholecystectomy.
--- NOTE | 2021-06-14 12:54 | PC.NURSE ---
pt down in OR
--- NOTE | 2021-06-14 13:01 | WPDANESEPPF ---
Anes - Initial Pre Proc Eval Procedure: Operation Date: 06/14/21 14:00 Proposed Procedures p Laparoscopic Cholecystectomy - Kay Murguia MD Date/Time: 06/14/21 13:01 Surgeon: Florence Marmolejo MD Pre Op Diagnosis: cholangitis Patient Data Age: 66 Gender: F Height: 1.65 m Weight: 58.4 kg Last Vital Signs Temp 36.8 C 06/14/21 05:29 Pulse 66 06/14/21 10:23 Resp 18 06/14/21 05:29 BP 103/49 L 06/14/21 05:29 Pulse Ox 98 06/14/21 05:29 Allergies Allergy/AdvReac Type Severity Reaction Status Date / Time red dye Allergy Unknown Nausea Verified 03/14/21 14:56 sulfanilamide Allergy Unknown Nausea Verified 03/14/21 14:56 Sulfa (Sulfonamide AdvReac Mild NAUSEA Verified 03/14/21 14:56 Antibiotics) RED COATING ON ERYTHROMYCIN AdvReac Mild NAUSEA Uncoded 03/14/21 14:56 TAB Home Medications Medication Instructions Recorded Confirmed Type cyanocobalamin (vitamin B-12) 1,000 mcg PO DAILY 04/03/20 06/13/21 History [Vitamin B-12] zinc 100 mg PO DAILY 10/11/20 06/13/21 History ferrous sulfate 325 mg PO BID 12/06/20 06/13/21 History propranolol 40 mg PO Q12H 06/13/21 06/13/21 History Laboratory Tests 06/13/21 06/13/21 06/13/21 13:05 13:05 13:05 WBC 4.8 K/mm3 K/mm3 (4.5-10.0) RBC 2.20 M/mm3 L M/mm3 (4.2-5.4) Hgb 8.2 g/dL L g/dL (12.0-15.0) Hct 26.5 % L % (37.0-47.0) MCV 120.5 fl H fl (80-100) MCH 37.3 pg H pg (26-34) MCHC 30.9 g/dl L g/dl (32-36) RDW 15.9 % H % (11.5-14.5) Plt Count 195 k/mm3 k/mm3 (150-375) MPV 12.6 fl H fl (7.4-10.4) Immature Gran % (Auto) 0.4 % % (0-0.5) Neut % (Auto) 81.5 % H % (45.5-73.1) Lymph % (Auto) 11.4 % L % (18.3-44.2) [place] % (Auto) 6.1 % % (2.6-8.5) Eos % (Auto) 0.2 % % (0-4.4) Baso % (Auto) 0.4 % % (0.2-1.2) Lymph # (Auto) 0.54 K/mm3 L K/mm3 (0.9-3.2) [place] # (Auto) 0.3 K/mm3 K/mm3 (0.1-0.6) Eos # (Auto) 0.0 K/mm3 K/mm3 (0-0.3) Baso # (Auto) 0.0 K/mm3 K/mm3 (0.0-0.1) Abs Immat Gran (auto) 0.02 K/mm3 K/mm3 (0.00-0.031) Absolute Neuts (auto) 3.9 K/mm3 K/mm3 (1.3-6.7) Absolute Nucleated RBC 0.0 K/mm3 K/mm3 (0.0-0.012) Nucleated RBC % 0.0 % % (0.0-0.2) PT Cancelled INR Cancelled APTT Sodium Potassium Chloride Carbon Dioxide Anion Gap BUN Creatinine Estim Creat Clear Calc Estimated GFR Glucose Lactic Acid Calcium Magnesium Total Bilirubin AST ALT Alkaline Phosphatase Troponin I < 0.012 ng/mL ng/mL (0.000-0.034) C-Reactive Protein Total Protein Albumin Lipase Urine Color Urine Appearance Urine pH Ur Specific [place] Urine Protein Urine Glucose (UA) Urine Ketones Ur Blood (Man) Urine Nitrate Urine Bilirubin Urine Urobilinogen Leukocyte Esterase Rfl Urine RBC Urine WBC Ur Squamous Epith Cells Urine Mucus Blood Type Antibody Screen 06/13/21 06/13/21 06/13/21 13:05 13:05 13:05 WBC RBC Hgb Hct MCV MCH MCHC RDW Plt Count MPV Immature Gran % (Auto) Neut % (Auto) Lymph % (Auto) [place] % (Auto) Eos % (Auto) Baso % (Auto) Lymph # (Auto) [place] # (Aut
[2021-06-14] MEDS: LACTATED RINGERS 1,000 ML 30 ML IV CONT (13:15)
--- NOTE | 2021-06-14 14:03 | PM.IMPN ---
Progress Note: A&P Assessment and Plan (1) Choledocholithiasis with acute cholecystitis: Code(s): K80.42 - Calculus of bile duct with acute cholecystitis without obstruction Status: Acute Assessment and Plan: Sudden onset of pain noted on 06/13/2021 [address] of chest abdomen pelvis showed acute cholecystitis with the common bile duct of 8 mm ERCP did show acute cholecystitis with possible small stone obstruction Dr. Pickard consulted appreciate your recommendations Dr. Murguia consulted from General surgery appreciate your recommendations Cholecystectomy to be managed by surgery Post care to be managed by surgery (2) Transaminitis: Code(s): R74.01 - Elevation of levels of liver transaminase levels Status: Acute Assessment and Plan: AST/ALT 426/286 upon admission Trending downward Abdominal ultrasound shows cholecystitis with wall thickening Liver enzymes trending down Cholecystectomy planned and scheduled Continue to trend (3) Myelodysplastic syndrome: Code(s): D46.9 - Myelodysplastic syndrome, unspecified Status: Acute Assessment and Plan: H/H 7.7/26.4 Trend H&H H&H in the a.m. Transfuse if below 7 Continue ferrous sulfate 325 b.i.d. when patient able to take p.o. (4) Hereditary essential tremor: Code(s): G25.0 - Essential tremor Status: Acute Assessment and Plan: Monitor (5) Cholecystitis: Code(s): K81.9 - Cholecystitis, unspecified Status: Acute Time Spent With Patient Time with patient: 25 - 35 minutes Subjective Date/time seen: 06/14/21 10;35 Interval history: Patient is a 66 year old female here for acute cholecystectomy. Patient states that she is feeling better and that her pain has reduced significantly since she has been here. She does have a headache that started this morning and she currently has an ice pack on it which she says is helping. She is weak and fatigued. She did denied nausea, vomiting, shortness of breath, chest pain, cough. She also had a BM yesterday which she said was fine. She also mentioned that she is ready for a surgical procedure to get the gallbladder taken out. She did have an MRCP to done today which just showed possible stone but did show acute cholecystitis. Review of Systems Review of Systems: All systems reviewed & are unremarkable except as noted in HPI and below Exam Const: General: cooperative, healthy appearing, comfortable, no acute distress, well developed, alert, awake, ill appearing and tired appearing Nutritional Appearance: well nourished Orientation/consciousness: oriented to person, oriented to place, oriented to time and patient oriented x3 Limitations: no limitations HENMT: Head: normal to inspection Ears: hearing grossly normal bilaterally General nose exam: Normal external nose present Mouth: Yes Normal oral and palatal mucosa present, Yes lip normal and Yes tongue normal Teeth and gingiva: abnormal tooth and associated gingiva and poor dentition Eyes: General: appearance normal, both eyes and all related structures Neck: Neck: normal visual inspection, full ROM, trachea midline and supple Chest: Chest palpation & inspection: normal inspection of the chest Resp: Effort & Inspection: normal respiratory effort and able to speak in complete sentences Auscultation: clear to auscultation bilaterally Cardio: Jugular venous distension: no JVD Rate: regular rate Rhythm: regular rhythm Heart sounds: S1 normal heart sound present and S2 normal heart sound present Peripheral pulses: Peripheral pulses 2+ throughout GI: Inspection: normal to inspection GI Palp: Yes Soft to palpation and No Tenderness to palpation present (GI) Auscultation: normal bowel sounds Skin: General skin exam: normal color and no rashes or lesions noted Lesions: no lesions Rashes: no rashes Trauma: no lacerations or abrasions Wounds: no w
--- NOTE | 2021-06-14 14:21 | P.OP_ITS ---
Procedure Note - Detailed Date of Procedure 06/14/21 Pre-op Diagnosis choledocholithiasis with acute cholecystitis Post-op Diagnosis same Procedure Performed laparoscopic cholecystectomy Surgeon Kay Murguia MD Anesthesia general Indications 66 y/o F presenting c choledocholithiasis c acute cholecystitis confirmed by labs and imaging. Pt c transient passage of CBD stone per MRCP and trending of LFTs. Pt now setup for urgent cholecystectomy. Findings acute cholecystitis Description of Procedure The patient was taken to the operating room placed in the supine position. After adequate induction of general anesthesia, the patient was prepped and draped in normal sterile fashion. A time-out was then performed to verify the patient's identity as well as the procedure being performed. I then made a 5 mm incision in the infraumbilical region. Through this, a Veress needle was placed into the peritoneal cavity and CO2 gas was then insufflated. After adequate pneumoperitoneum was achieved, the Veress needle was removed and a 5 mm optiview trocar was placed through this incision under direct visualization. I then placed the laparoscope through this trocar site and under direct visualization placed a further 12 mm subxiphoid port as well as 2 additional 5 mm ports in the right upper abdomen. The gallbladder was then identified and was noted to be very inflamed and distended. I was able to place a grasper at the dome of the gallbladder and this was retracted anterior and cephalad up over the liver. A 2nd retractor was then placed at the infundibulum and retracted laterally, this allowed visualization of the triangle of [place]. I then was able to visualize the cystic duct in its entirety from its proximal insertion into the gallbladder, to its distal junction with the common hepatic/common bile duct junction. At this point, I carefully skeletonized the proximal cystic duct with the [place] dissector. I then clipped and transected the proximal cystic duct. Next I visualized the cystic artery. Again the artery was skeletonized, clipped, and transected. I then used the Bovie cautery to take down the peritoneal attachments of the gallbladder off the liver bed. This was somewhat difficult given the amount of inflammation in the posterior space. Once the gallbladder specimen was completely detached, an endo-pouch was placed through the 12 mm port site. I then placed the gallbladder specimen into the Endo pouch and removed the endo-pouch from the 12 mm port site. The specimen will now be sent to pathology for further review. I then copiously irrigated the right up per quadrant. Hemostasis was noted in the liver bed, the clips were noted to be in good position on both the cystic duct stump and the cystic artery stump. No other pathology was noted in the right upper quadrant. I then moved the laparoscope to the subxiphoid port. No iatrogenic injury or other pathology was noted in the lower abdomen. I then closed the 12 mm trocar site under direct visualization using the Max cone and 0 Vicryl suture. At this point, the abdomen was desufflated and all ports removed. All port sites were then closed with 4.O Monocryl subcuticular sutures. Dermabond was placed on each incision. The patient tolerated the procedure well, was extubated in the operating room postoperative and will be transferred to the recovery room in stable condition Estimated Blood Loss 10 Urine Output 150 Drains No Packing No Pathology yes Complications No immediate complications Condition stable Disposition PACU
[2021-06-14] MEDS: HYDROcodone/acetaminophen (*CRX) 5-325 MG TABLET 1 TAB PO (17:12)
[2021-06-14] MEDS: DOCUSATE SODIUM 100 MG CAPSULE PO (21:24)
[2021-06-14] MEDS: MORPHINE SULFATE (*CRX) 4 MG/ML INJ IV PUSH (21:24)
[2021-06-15] VITALS (18 sets, daily range): BP systolic 98–128; BP diastolic 48–68; PULSE 63–78; RESP 14–18; TEMP 36.1–36.8; O2SAT 93–100
[2021-06-15] MEDS: SODIUM CHLORIDE 0.9% IV 1,000 ML 75 ML IV CONT ×2 (01:45→21:49)
[2021-06-15 06:10] LABS: Basophils Percent Auto 0.2 % (0.2-1.2); Eosinophils Percent Auto 0.2 % (0-4.4); Hematocrit 24.3 % (37.0-47.0); Hemoglobin 7.2 g/dL (12.0-15.0); Immature Granulocyte Absolute 0.03 K/mm3 (0.00-0.031); Immature Granulocyte Percent A 0.5 % (0-0.5); Lymphocytes Absolute Auto 0.63 K/mm3 (0.9-3.2); Lymphocytes Percent Auto 11.4 % (18.3-44.2); Mean Corpuscular HGB Conc 29.6 g/dl (32-36); Mean Corpuscular Hemoglobin 36.7 pg (26-34); Mean Platelet Volume 12.4 fl (7.4-10.4); Monocytes Absolute Auto 0.5 K/mm3 (0.1-0.6); Monocytes Percent Auto 8.9 % (2.6-8.5); Neutrophils Absolute Auto 4.4 K/mm3 (1.3-6.7); Neutrophils Percent Auto 78.8 % (45.5-73.1); Platelet Count Result 189 k/mm3 (150-375); Red Blood Count 1.96 M/mm3 (4.2-5.4); Red Cell Distribution Width 16.1 % (11.5-14.5); White Blood Count 5.5 K/mm3 (4.5-10.0)
[2021-06-15 06:22] LABS: Alanine Aminotransferase 589 U/L (4-35); Albumin Level 3.5 g/dL (3.5-5.1); Alkaline Phosphatase 145 U/L (38-126); Anion Gap 6 mmol/L (8-16); Aspartate Amino Transferase 585 U/L (14-36); Bilirubin,Total 10.1 mg/dL (0.2-1.3); Blood Urea Nitrogen 7 mg/dL (7-17); Calcium 7.1 mg/dL (8.4-10.2); Carbon Dioxide 23 mmol/L (22-30); Chloride 107 mmol/L (98-107); Estimated CRCL calculation 69 ml/min; Estimated Glomerular Filt Rate > 60; Glucose 118 mg/dL (65-110); Magnesium 2.2 mg/dL (1.6-2.3); Potassium 3.8 mmol/L (3.4-5.0); Sodium 136 mmol/L (137-145)
[2021-06-15 07:55] LABS: Anisocytosis 1+ (NORMAL); Macrocytosis 1+ (NORMAL); Platelet Estimate Adequate (Adequate); Target Cells 1+ (NORMAL)
[2021-06-15] MEDS: FERROUS SULFATE 324 MG TABLET PO ×2 (09:22→17:56)
[2021-06-15] MEDS: PROPRANOLOL HCL 40 MG TABLET PO ×2 (09:22→21:49)
[2021-06-15] MEDS: DOCUSATE SODIUM 100 MG CAPSULE PO ×2 (09:23→21:49)
[2021-06-15] MEDS: HYDROcodone/acetaminophen (*CRX) 5-325 MG TABLET 1 TAB PO (10:10)
[2021-06-15] MEDS: ONDANSETRON INJ 4 MG/2 ML VIAL IV PUSH (10:18)
--- NOTE | 2021-06-15 10:31 | PM.PNGS ---
Progress Note: A&P Assessment and Plan (1) Cholecystitis: Code(s): K81.9 - Cholecystitis, unspecified Status: Acute Assessment and Plan: doing well, cont routine postop care, ADAT (2) Hyperbilirubinemia: Code(s): E80.6 - Other disorders of bilirubin metabolism Status: Acute Assessment and Plan: likely transient from surgery, will need to have repeat labs in am Subjective Subjective Date/Time Seen: 06/15/21 10:31 feels ok, some incisional pain Review of Systems Review of Systems: All systems reviewed & are unremarkable except as noted in HPI and below Exam Const: General: cooperative, comfortable and no acute distress Other: + jaundice Resp: Effort & Inspection: normal respiratory effort Auscultation: clear to auscultation bilaterally Cardio: Rate: regular rate Rhythm: regular rhythm GI: Inspection: normal to inspection, non-distended and incision GI Palp: Yes Soft to palpation and Yes Tenderness to palpation present (GI) Other: soft, sl dist, cristi TTP, incisions C/D/I Objective Data Vital Signs Vital Signs: Vital Signs - 24 hr 06/14/21 12:00 06/14/21 13:33 06/14/21 14:27 Temperature 36.6 C 36.7 C Pulse Rate 66 61 59 L Respiratory Rate 14 14 Blood Pressure 111/56 L 95/51 L Pulse Oximetry 96 99 06/14/21 14:35 06/14/21 14:39 06/14/21 14:45 Temperature Pulse Rate 59 L 58 L 57 L Respiratory Rate 14 12 15 Blood Pressure 97/53 L 97/53 L 105/62 Pulse Oximetry 100 100 100 06/14/21 14:50 06/14/21 15:00 06/14/21 15:10 Temperature Pulse Rate 57 L 59 L 56 L Respiratory Rate 14 14 14 Blood Pressure 108/60 110/59 L 109/57 L Pulse Oximetry 96 96 96 06/14/21 15:20 06/14/21 15:30 06/14/21 15:50 Temperature 36.7 C Pulse Rate 58 L 57 L 58 L Respiratory Rate 14 14 14 Blood Pressure 110/56 L 105/57 L 106/51 L Pulse Oximetry 97 94 93 06/14/21 16:00 06/14/21 16:06 06/14/21 16:36 Temperature 36.7 C 36.6 C Pulse Rate 58 L 59 L 62 Respiratory Rate 14 16 Blood Pressure 109/55 L 115/52 L Pulse Oximetry 93 93 06/14/21 17:30 06/14/21 20:10 06/14/21 21:21 Temperature 36.9 C 36.6 C Pulse Rate 66 68 68 Respiratory Rate 16 18 Blood Pressure 120/56 L 110/58 L Pulse Oximetry 92 92 06/14/21 21:23 06/15/21 00:00 06/15/21 04:15 Temperature Pulse Rate 88 65 71 Respiratory Rate Blood Pressure Pulse Oximetry 06/15/21 05:41 06/15/21 08:00 06/15/21 09:22 Temperature 36.6 C Pulse Rate 66 63 66 Respiratory Rate 14 Blood Pressure 108/48 L Pulse Oximetry 93 Intake/Output Intake/Output: Intake & Output 06/12/21 06/13/21 06/14/21 06/15/21 23:59 23:59 23:59 23:59 Intake Total 2050 1900 1220 Output Total 300 800 350 Balance 1750 1100 870 Meds/Results Medications: Active Medications Generic Name Dose Route Start Last Admin Trade Name Freq PRN Reason Stop Dose Admin Hydrocodone Bitart/Acetaminophen 1 tab 06/14/21 15:33 06/15/21 10:10 Hydrocodone/Acetaminophen (*Crx) 5-325 Mg Tablet PO 1 tab Q4H PRN Administration Pain Rated 4-6 Docusate Sodium 100 mg 06/14/21 21:00 06/15/21 09:23 Docusate Sodium 100 Mg Capsule PO 100 mg Q12HR YARON Administration Ferrous Sulfate 324 mg 06/14/21 08:00 06/15/21 09:22 Ferrous Sulfate 324 Mg Tablet PO 324 mg BIDWM YARON Administration Sodium Chloride 1,000 mls @ 75 mls/hr 06/13/21 15:10 06/15/21 01:46 Normal Saline Iv IV CONT Not Given .[id number] YARON Morphine Sulfate 4 mg 06/13/21 15:07 06/14/21 21:24 Morphine Sulfate (*Crx) 4 Mg/Ml Inj IV PUSH 4 mg Q2H PRN Administration Pain Rated 7-10 Ondansetron HCl 4 mg 06/13/21 15:07 06/15/21 10:18 Ondansetron Inj 4 Mg/2 Ml Vial IV PUSH 4 mg Q4H PRN Administration Nausea Ondansetron HCl 4 mg 06/14/21 14:07 Ondansetron Inj 4 Mg/2 Ml Vial IV PUSH ONCE PRN Nausea Propranolol HCl 40 mg 06/14/21 09:00 06/15/21 09:22 Propranolol Hcl 40 Mg
--- NOTE | 2021-06-15 14:35 | WPDGIPROGNO ---
Progress Note: A&P Assessment and Plan (1) Cholecystitis: Code(s): K81.9 - Cholecystitis, unspecified Status: Acute Assessment and Plan: lap iram yesterday but noted today even more elevated bilirubin however recent MRCP showed normal bile duct repeat again tomorrow, if going up or still significantly elevated may need to repeat another MRCP with possibility to do ERCP (discussed with Dr Murguia) (2) Upper abdominal pain: Code(s): R10.10 - Upper abdominal pain, unspecified Status: Acute Assessment and Plan: better but not gone surgical care supportive care (3) Hyperbilirubinemia: Code(s): E80.6 - Other disorders of bilirubin metabolism Status: Acute Assessment and Plan: repeat cmp in am (4) Transaminitis: Code(s): R74.01 - Elevation of levels of liver transaminase levels Status: Acute Subjective Date/time seen: 06/15/21 14:35 Interval history: had lap iram yesterday, still with abdominal pain but improved since admission but not back to herself Review of Systems Review of Systems: All systems reviewed & are unremarkable except as noted in HPI and below Exam Const: General: cooperative, comfortable and no acute distress Other: + jaundice HENMT: General nose exam: Normal nares present Eyes: Pupils: Equal, round and reactive pupils present Neck: Neck: supple Resp: Effort & Inspection: normal respiratory effort Auscultation: clear to auscultation bilaterally Cardio: Rate: regular rate Rhythm: regular rhythm GI: Inspection: normal to inspection, non-distended and incision GI Palp: Yes Soft to palpation and Yes Tenderness to palpation present (GI) Auscultation: normal bowel sounds Other: soft, sl dist, cristi TTP, incisions C/D/I Skin: Other: jaundice Neuro: Speech: normal speech Motor exam (neuro): Normal motor muscle tone present throughout Extrem: General: normal to inspection Psych: Mental Status: mental status grossly normal Objective Data Vital Signs Vital Signs: Vital Signs - 24 hr 06/14/21 14:39 06/14/21 14:45 06/14/21 14:50 Temperature Pulse Rate 58 L 57 L 57 L Respiratory Rate 12 15 14 Blood Pressure 97/53 L 105/62 108/60 Pulse Oximetry 100 100 96 06/14/21 15:00 06/14/21 15:10 06/14/21 15:20 Temperature Pulse Rate 59 L 56 L 58 L Respiratory Rate 14 14 14 Blood Pressure 110/59 L 109/57 L 110/56 L Pulse Oximetry 96 96 97 06/14/21 15:30 06/14/21 15:50 06/14/21 16:00 Temperature 98.0 F Pulse Rate 57 L 58 L 58 L Respiratory Rate 14 14 Blood Pressure 105/57 L 106/51 L Pulse Oximetry 94 93 06/14/21 16:06 06/14/21 16:36 06/14/21 17:30 Temperature 98.0 F 97.9 F 98.4 F Pulse Rate 59 L 62 66 Respiratory Rate 14 16 16 Blood Pressure 109/55 L 115/52 L 120/56 L Pulse Oximetry 93 93 92 06/14/21 20:10 06/14/21 21:21 06/14/21 21:23 Temperature 97.8 F Pulse Rate 68 68 88 Respiratory Rate 18 Blood Pressure 110/58 L Pulse Oximetry 92 06/15/21 00:00 06/15/21 04:15 06/15/21 05:41 Temperature 97.9 F Pulse Rate 65 71 66 Respiratory Rate 14 Blood Pressure 108/48 L Pulse Oximetry 93 06/15/21 08:00 06/15/21 09:22 Temperature Pulse Rate 63 66 Respiratory Rate Blood Pressure Pulse Oximetry Intake/Output Intake/Output: Intake & Output 06/12/21 06/13/21 06/14/21 06/15/21 23:59 23:59 23:59 23:59 Intake Total 2050 1900 1340 Output Total 300 800 350 Balance 1750 1100 990 Meds/Results Medications: Active Medications Generic Name Dose Route Start Last Admin Trade Name Freq PRN Reason Stop Dose Admin Hydrocodone Bitart/Acetaminophen 1 tab 06/14/21 15:33 06/15/21 10:10 Hydrocodone/Acetaminophen (*Crx) 5-325 Mg Tablet PO 1 tab Q4H PRN Administration Pain Rated 4-6 Docusate Sodium 100 mg 06/14/21 21:00 06/15/21 09:23 Docusate Sodium 100 Mg Capsule PO 100 mg Q12HR YARON Administration Ferrous Sulfate 324 mg 06/14/21 08:00
--- NOTE | 2021-06-15 15:19 | PM.IMPN ---
Progress Note: A&P Assessment and Plan (1) Choledocholithiasis with acute cholecystitis: Code(s): K80.42 - Calculus of bile duct with acute cholecystitis without obstruction Status: Acute Assessment and Plan: Sudden onset of pain noted on 06/13/2021 and [address] of chest abdomen pelvis showed acute cholecystitis with the common bile duct of 8 mm ERCP did show acute cholecystitis with possible small stone obstruction Dr. Pickard consulted appreciate your recommendations Dr. Murguia consulted from General surgery appreciate your recommendations Cholecystectomy to be managed by surgery Post care to be managed by surgery (2) Transaminitis: Code(s): R74.01 - Elevation of levels of liver transaminase levels Status: Acute Assessment and Plan: AST/ALT 426/286 upon admission up right now AST is 585 ALT is 589 Abdominal ultrasound shows cholecystitis with wall thickening Liver enzymes trending down Cholecystectomy On 06/14/2021 Continue to trend (3) Myelodysplastic syndrome: Code(s): D46.9 - Myelodysplastic syndrome, unspecified Status: Acute Assessment and Plan: H/H 7.2/24.3 Trend H&H H&H in the a.m. Transfuse if below 7 Continue ferrous sulfate 325 b.i.d. when patient able to take p.o. will transfuse one unit (4) Hereditary essential tremor: Code(s): G25.0 - Essential tremor Status: Acute Assessment and Plan: Monitor Subjective Date/time seen: 06/15/21 15:00 Interval history: Patient is a 66-year-old female who is here for acute cholecystitis. Patient went down had her surgery done yesterday. Today patient states she is very weak tired she has a headache. She is also very pale. She also has a lot of nausea and vomiting. She stated everything she tries to eat comes right back up after she eats it. Patient denies chest pain, shortness of breath, fevers, sweats chills. Patient does look very pale and jaundice hemoglobin came back today at 7.2 AST is elevated at 585 ALT is elevated at 589. Will give the patient 1 unit of blood and see if that helps with her weakness and fatigue. Will treat continue to trend monitor H&H and liver enzymes. Review of Systems Review of Systems: All systems reviewed & are unremarkable except as noted in HPI and below Exam Const: General: cooperative, healthy appearing, comfortable, no acute distress, well developed, alert, awake, ill appearing and tired appearing Nutritional Appearance: well nourished Orientation/consciousness: oriented to person, oriented to place, oriented to time and patient oriented x3 Limitations: no limitations HENMT: Head: normal to inspection Ears: hearing grossly normal bilaterally General nose exam: Normal external nose present Mouth: Yes Normal oral and palatal mucosa present, Yes lip normal and Yes tongue normal Teeth and gingiva: abnormal tooth and associated gingiva and poor dentition Eyes: General: appearance normal, both eyes and all related structures Neck: Neck: normal visual inspection, full ROM, trachea midline and supple Chest: Chest palpation & inspection: normal inspection of the chest Resp: Effort & Inspection: normal respiratory effort and able to speak in complete sentences Auscultation: clear to auscultation bilaterally Cardio: Jugular venous distension: no JVD Rate: regular rate Rhythm: regular rhythm Heart sounds: S1 normal heart sound present and S2 normal heart sound present Peripheral pulses: Peripheral pulses 2+ throughout GI: Inspection: normal to inspection Auscultation: normal bowel sounds Skin: General skin exam: no rashes or lesions noted and pallor Lesions: no lesions Rashes: no rashes Trauma: no lacerations or abrasions Wounds: wounds noted (from surgery) Hair: normal Nails: normal Neuro: General: oriented to person, oriented to place, oriented to time, patient oriented x3, moves all extrem
[2021-06-15] MEDS: SODIUM CHLORIDE 0.9% IV 250 ML 30 ML IV CONT (17:03)
[2021-06-16] VITALS (11 sets, daily range): BP systolic 114–123; BP diastolic 55–62; PULSE 58–77; RESP 16–18; TEMP 35.7–36.6; O2SAT 90–100
[2021-06-16 05:51] LABS: Basophils Percent Auto 0.4 % (0.2-1.2); Eosinophils Percent Auto 0.5 % (0-4.4); Hematocrit 28.2 % (37.0-47.0); Hemoglobin 8.6 g/dL (12.0-15.0); Immature Granulocyte Absolute 0.06 K/mm3 (0.00-0.031); Immature Granulocyte Percent A 0.8 % (0-0.5); Lymphocytes Absolute Auto 1.26 K/mm3 (0.9-3.2); Lymphocytes Percent Auto 16.5 % (18.3-44.2); Mean Corpuscular HGB Conc 30.5 g/dl (32-36); Mean Corpuscular Hemoglobin 36.1 pg (26-34); Mean Corpuscular Volume 118.5 fl (80-100); Mean Platelet Volume 12.2 fl (7.4-10.4); Monocytes Absolute Auto 0.7 K/mm3 (0.1-0.6); Monocytes Percent Auto 9.4 % (2.6-8.5); Neutrophils Absolute Auto 5.5 K/mm3 (1.3-6.7); Neutrophils Percent Auto 72.4 % (45.5-73.1); Nucleated Red Blood Cells Perc 0.3 % (0.0-0.2); Platelet Count Result 168 k/mm3 (150-375); Red Blood Count 2.38 M/mm3 (4.2-5.4); White Blood Count 7.6 K/mm3 (4.5-10.0)
[2021-06-16 06:00] LABS: Alanine Aminotransferase 685 U/L (4-35); Albumin Level 3.4 g/dL (3.5-5.1); Alkaline Phosphatase 182 U/L (38-126); Anion Gap 11 mmol/L (8-16); Aspartate Amino Transferase 540 U/L (14-36); Bilirubin Direct 5.8 mg/dL (0-0.3); Blood Urea Nitrogen 7 mg/dL (7-17); Calcium 7.3 mg/dL (8.4-10.2); Carbon Dioxide 22 mmol/L (22-30); Chloride 107 mmol/L (98-107); Estimated CRCL calculation 81 ml/min; Estimated Glomerular Filt Rate > 60; Glucose 100 mg/dL (65-110); Lipase 44 U/L (23-300); Magnesium 2.4 mg/dL (1.6-2.3); Phosphorus 1.3 mg/dL (2.5-4.5); Potassium 3.4 mmol/L (3.4-5.0); Sodium 140 mmol/L (137-145)
[2021-06-16] MEDS: DOCUSATE SODIUM 100 MG CAPSULE PO ×2 (08:37→20:50)
[2021-06-16] MEDS: PROPRANOLOL HCL 40 MG TABLET PO ×2 (08:37→20:49)
[2021-06-16] MEDS: FERROUS SULFATE 324 MG TABLET PO (08:37)
[2021-06-16] MEDS: SODIUM CHLORIDE 0.9% IV 1,000 ML 75 ML IV CONT (08:44)
[2021-06-16] MEDS: ONDANSETRON INJ 4 MG/2 ML VIAL IV PUSH (10:46)
[2021-06-16] MEDS: HYDROcodone/acetaminophen (*CRX) 5-325 MG TABLET 1 TAB PO ×3 (12:05→22:38)
[2021-06-16] MEDS: POTASSIUM PHOS,M-BASIC-D-BASIC 40 MMOL in SODIUM CHLORIDE 0.9% IV 250 ML 43.89 MMOL IVPB (12:25)
--- NOTE | 2021-06-16 12:46 | PM.PNGS ---
Progress Note: A&P Assessment and Plan (1) Cholecystitis: Code(s): K81.9 - Cholecystitis, unspecified Status: Acute Assessment and Plan: doing well except for mild nausea and the elevated LFTs. cont routine postop care, ADAT (2) Hyperbilirubinemia: Code(s): E80.6 - Other disorders of bilirubin metabolism Status: Acute Assessment and Plan: will need to have repeat labs in am As per GI note from yesterday and as Dr. Madrigal and Dr. Pickard agreed will proceed to MRCP today if possible to look for the possibility of a retained bile duct stone. Additional Plan Discussed with hospitalist KASANDRA Gaines. Patient also had me talk to her on the phone. He understands that we are proceeding with further studies and she may need further intervention if the common bile duct stone is seen. She also has a history of Myelodysplasia and if necessary we will involve Dr. Billy who is her director of physician practices. Subjective Subjective Date/Time Seen: 06/16/21 12:46 Post Op day: 2 (Status post laparoscopic cholecystectomy) Patient reports: no new complaints, bowel movement and nausea Interval history: patient states she was able to eat some christie and some hot cereal this morning. However afterwards she did become somewhat nauseated. She has been passing flatus. Review of Systems Constitutional: Constitutional: Reports no additional constitutional complaints ENT: Reports other (Mucous Membranes moist.) Cardiovascular: Cardiovascular: Denies dyspnea Respiratory: Respiratory: Denies pain on inspiration and Denies dyspnea Gastrointestinal: Gastrointestinal: Denies abdominal pain, Reports early satiety and Reports nausea Genitourinary: Genitourinary: Reports no additional female genitourinary complaints Musculoskeletal: Musculoskeletal: Reports other (No calf swelling or edema) Integumentary/Breasts: Skin/Breast: Reports system reviewed and no additional complaints, except as docu Exam Const: General: cooperative, comfortable, no acute distress, acute distress mild, ill appearing and tired appearing Nutritional Appearance: average body habitus Orientation/consciousness: patient oriented x3 Limitations: no limitations Other: + jaundice Eyes: Eyelids: eyelids normal Sclera: scleral abnormality ( Scleral icterus present.) bilateral Pupils: Equal, round and reactive pupils present Resp: Effort & Inspection: normal respiratory effort Auscultation: clear to auscultation bilaterally GI: Inspection: normal to inspection and incision ( clean and dry with surgical glue in place) GI Palp: No Tenderness to palpation present (GI) Other: soft, sl dist, cristi TTP, incisions C/D/I Psych: Appearance: grossly normal Objective Data Vital Signs Vital Signs: Vital Signs - 24 hr 06/15/21 15:40 06/15/21 15:49 06/15/21 16:00 Temperature 36.8 C Pulse Rate 69 69 Respiratory Rate 18 Blood Pressure 103/55 L Pulse Oximetry 95 95 06/15/21 16:58 06/15/21 17:17 06/15/21 18:17 Temperature 36.3 C L 36.4 C 36.4 C L Pulse Rate 69 67 64 Respiratory Rate 14 16 16 Blood Pressure 116/55 L 108/50 L 106/51 L Pulse Oximetry 95 95 99 06/15/21 18:34 06/15/21 19:17 06/15/21 20:00 Temperature 36.4 C Pulse Rate 66 68 Respiratory Rate 16 Blood Pressure 118/56 L Pulse Oximetry 93 100 06/15/21 20:17 06/15/21 21:17 06/15/21 21:49 Temperature 36.4 C 36.1 C L Pulse Rate 69 70 78 Respiratory Rate 16 18 Blood Pressure 98/68 L 126/65 Pulse Oximetry 96 98 06/16/21 00:48 06/16/21 04:07 06/16/21 04:49 Temperature 36.6 C Pulse Rate 59 L 58 L 71 Respiratory Rate 16 Blood Pressure 123/55 L Pulse Oximetry 100 06/16/21 08:00 06/16/21 08:37 Temperature Pulse Rate 72 77 Respiratory Rate Blood Pressure Pulse Oximetry Intake/Output Intake/Output: Intake & Output 06/13/21 06/14/21 06/15/21 06/16/21 23:59 23:59 23:59 23:59 Intake Total 20490 3170 1350 Output Total
--- NOTE | 2021-06-16 15:50 | P.PNIM_ITS ---
Progress Note: A&P Assessment and Plan (1) Choledocholithiasis with acute cholecystitis: Code(s): K80.42 - Calculus of bile duct with acute cholecystitis without obstruction Status: Acute Assessment and Plan: * Sudden onset of pain noted on 06/13/2021 and 2 weeks prior * CT of chest abdomen pelvis showed acute cholecystitis with the common bile duct of 8 mm * ERCP did show acute cholecystitis with possible small stone obstruction 06/14/21 * MRCP ordered and pending * Dr. Pickard consulted appreciate your recommendations * Dr. Murguia consulted from General surgery appreciate your recommendations * Cholecystectomy to be managed by surgery * Post care to be managed by surgery (2) Transaminitis: Code(s): R74.01 - Elevation of levels of liver transaminase levels Status: Acute Assessment and Plan: * AST/ALT 426/286 upon admission * up right now AST is 540 ALT is 685 * Abdominal ultrasound shows cholecystitis with wall thickening 06/13/21 * Liver enzymes trending up * MRCP ordered, and pending * Cholecystectomy On 06/14/2021 * Continue to trend (3) Myelodysplastic syndrome: Code(s): D46.9 - Myelodysplastic syndrome, unspecified Status: Acute Assessment and Plan: * H/H 8.6/28.2 * Trend H&H * H&H in the a.m. * Transfuse if below 7 * Continue ferrous sulfate 325 b.i.d. when patient able to take p.o. * transfuse one unit 06/15/21 * Dr. Billy was contacted on 06/15/21 which stated that treatment was appropriate at this time * Consider consulting Dr. Billy if H/H remains unstable (4) Hereditary essential tremor: Code(s): G25.0 - Essential tremor Status: Acute Assessment and Plan: * Monitor Time Spent With Patient Time with patient: Greater than 35 minutes Subjective Date/time seen: 06/16/21 14:00 Interval history: Patient is a 66 year old female here for acute cholecys tectomy. Today she stated that she was a little better. Her H/H is better today. She is still jaundice. She stated that he headache is better. She also stated that she was not having any nausea or vomiting. She denies sweats, fevers, or chills. She did complain of weakness and fatigue. She denies having any pain. Dr. Gates agrees that the patient should have an MRCP which has been ordered. Patient's bilirubin is trending up along with ast/alt. Dr. Billy has been contacted about patient drop in H/H. Which he agrees with getting blood. He may need to be consulted if it continues to not remain stable. Review of Systems Review of Systems: All systems reviewed & are unremarkable except as noted in HPI and below Exam Const: General: cooperative, healthy appearing, comfortable, no acute distress, well developed, alert, awake, ill appearing and tired appearing Nutritional Appearance: well nourished Orientation/consciousness: oriented to person, oriented to place, oriented to time and patient oriented x3 Limitations: no limitations HENMT: Head: normal to inspection Ears: hearing grossly normal bilaterally General nose exam: Normal external nose present Mouth: Yes Normal oral and palatal mucosa present, Yes lip normal and Yes tongue normal Teeth and gingiva: abnormal tooth and associated gingiva and poor dentition Eyes: General: appearance normal, both eyes and all related structures Neck: Neck: normal visual inspection, full ROM, trachea midline and supple Chest: Chest palpation & in
--- NOTE | 2021-06-16 15:50 | PM.IMPN ---
Progress Note: A&P Assessment and Plan (1) Choledocholithiasis with acute cholecystitis: Code(s): K80.42 - Calculus of bile duct with acute cholecystitis without obstruction Status: Acute Assessment and Plan: Sudden onset of pain noted on 06/13/2021 and [address] of chest abdomen pelvis showed acute cholecystitis with the common bile duct of 8 mm ERCP did show acute cholecystitis with possible small stone obstruction 06/14/21 MRCP ordered and pending Dr. Pickard consulted appreciate your recommendations Dr. Murguia consulted from General surgery appreciate your recommendations Cholecystectomy to be managed by surgery Post care to be managed by surgery (2) Transaminitis: Code(s): R74.01 - Elevation of levels of liver transaminase levels Status: Acute Assessment and Plan: AST/ALT 426/286 upon admission up right now AST is 540 ALT is 685 Abdominal ultrasound shows cholecystitis with wall thickening 06/13/21 Liver enzymes trending up MRCP ordered, and pending Cholecystectomy On 06/14/2021 Continue to trend (3) Myelodysplastic syndrome: Code(s): D46.9 - Myelodysplastic syndrome, unspecified Status: Acute Assessment and Plan: H/H 8.6/28.2 Trend H&H H&H in the a.m. Transfuse if below 7 Continue ferrous sulfate 325 b.i.d. when patient able to take p.o. transfuse one unit 06/15/21 Dr. Billy was contacted on 06/15/21 which stated that treatment was appropriate at this time Consider consulting Dr. Billy if H/H remains unstable (4) Hereditary essential tremor: Code(s): G25.0 - Essential tremor Status: Acute Assessment and Plan: Monitor Time Spent With Patient Time with patient: Greater than 35 minutes Subjective Date/time seen: 06/16/21 14:00 Interval history: Patient is a 66 year old female here for acute cholecystectomy. Today she stated that she was a little better. Her H/H is better today. She is still jaundice. She stated that he headache is better. She also stated that she was not having any nausea or vomiting. She denies sweats, fevers, or chills. She did complain of weakness and fatigue. She denies having any pain. Dr. Gates agrees that the patient should have an MRCP which has been ordered. Patient's bilirubin is trending up along with ast/alt. Dr. Billy has been contacted about patient drop in H/H. Which he agrees with getting blood. He may need to be consulted if it continues to not remain stable. Review of Systems Review of Systems: All systems reviewed & are unremarkable except as noted in HPI and below Exam Const: General: cooperative, healthy appearing, comfortable, no acute distress, well developed, alert, awake, ill appearing and tired appearing Nutritional Appearance: well nourished Orientation/consciousness: oriented to person, oriented to place, oriented to time and patient oriented x3 Limitations: no limitations HENMT: Head: normal to inspection Ears: hearing grossly normal bilaterally General nose exam: Normal external nose present Mouth: Yes Normal oral and palatal mucosa present, Yes lip normal and Yes tongue normal Teeth and gingiva: abnormal tooth and associated gingiva and poor dentition Eyes: General: appearance normal, both eyes and all related structures Neck: Neck: normal visual inspection, full ROM, trachea midline and supple Chest: Chest palpation & inspection: normal inspection of the chest Resp: Effort & Inspection: normal respiratory effort and able to speak in complete sentences Auscultation: clear to auscultation bilaterally Cardio: Jugular venous distension: no JVD Rate: regular rate Rhythm: regular rhythm Heart sounds: S1 normal heart sound present and S2 normal heart sound present Peripheral pulses: Peripheral pulses 2+ throughout GI: Inspection: normal to inspection Auscultation: normal bowel sounds Skin: General skin exam:
[2021-06-17] VITALS (17 sets, daily range): BP systolic 119–131; BP diastolic 56–74; PULSE 57–88; RESP 16–18; TEMP 35.9–37; O2SAT 93–100
[2021-06-17 06:25] LABS: Basophils Percent Auto 0.7 % (0.2-1.2); Eosinophils Absolute Auto 0.1 K/mm3 (0-0.3); Eosinophils Percent Auto 1.6 % (0-4.4); Hematocrit 26.2 % (37.0-47.0); Hemoglobin 7.9 g/dL (12.0-15.0); Immature Granulocyte Absolute 0.03 K/mm3 (0.00-0.031); Immature Granulocyte Percent A 0.7 % (0-0.5); Lymphocytes Absolute Auto 1.15 K/mm3 (0.9-3.2); Lymphocytes Percent Auto 27.1 % (18.3-44.2); Mean Corpuscular HGB Conc 30.2 g/dl (32-36); Mean Corpuscular Hemoglobin 35.7 pg (26-34); Mean Corpuscular Volume 118.6 fl (80-100); Mean Platelet Volume 12.6 fl (7.4-10.4); Monocytes Absolute Auto 0.5 K/mm3 (0.1-0.6); Monocytes Percent Auto 12.7 % (2.6-8.5); Neutrophils Absolute Auto 2.4 K/mm3 (1.3-6.7); Neutrophils Percent Auto 57.2 % (45.5-73.1); Nucleated Red Blood Cells Perc 0.5 % (0.0-0.2); Platelet Count Result 151 k/mm3 (150-375); Red Blood Count 2.21 M/mm3 (4.2-5.4); Red Cell Distribution Width 22.2 % (11.5-14.5); White Blood Count 4.3 K/mm3 (4.5-10.0)
--- NOTE | 2021-06-17 06:48 | PC.NURSE ---
PT OFF FLOOR TO RADIOLOGY
[2021-06-17] MEDS: PROPRANOLOL HCL 40 MG TABLET PO ×2 (08:54→21:03)
[2021-06-17] MEDS: FERROUS SULFATE 324 MG TABLET PO ×2 (08:54→17:08)
[2021-06-17] MEDS: DOCUSATE SODIUM 100 MG CAPSULE PO ×2 (08:54→21:03)
--- NOTE | 2021-06-17 09:32 | PM.IMPN ---
Progress Note: A&P Assessment and Plan (1) Choledocholithiasis with acute cholecystitis: Code(s): K80.42 - Calculus of bile duct with acute cholecystitis without obstruction Status: Acute Assessment and Plan: Sudden onset of pain noted on 06/13/2021 and [address] of chest abdomen pelvis showed acute cholecystitis with the common bile duct of 8 mm ERCP did show acute cholecystitis with possible small stone obstruction 06/14/[address] Pickard consulted appreciate your recommendations Dr. Murguia consulted from General surgery appreciate your recommendations Cholecystectomy to be managed by surgery Post care to be managed by surgery (2) Transaminitis: Code(s): R74.01 - Elevation of levels of liver transaminase levels Status: Acute Assessment and Plan: AST/ALT 426/286 upon admission continues to trend up AST is 420 ALT is 647 Abdominal ultrasound shows cholecystitis with wall thickening 06/13/21 MRCP Pending Cholecystectomy On 06/14/2021 Continue to trend (3) Myelodysplastic syndrome: Code(s): D46.9 - Myelodysplastic syndrome, unspecified Status: Acute Assessment and Plan: H/H 7.9/26.2 Trend H&H seems baseline is above slightly above 9 H&H in the a.m. Transfuse if below 7 Continue ferrous sulfate 325 b.i.d. when patient able to take p.o. transfuse one unit 06/15/21, will transfuse another unit today (06/17/21) anemia labs: Iron 40, TIBC is 267,% saturation 15%, transferrin 167, ferritin 431, B12 is greater than a 1000 folate is greater than [address] Billy was contacted on 06/15/21 which stated that treatment was appropriate at this time Consult Dr. Billy for further recommendation (4) Hereditary essential tremor: Code(s): G25.0 - Essential tremor Status: Acute Assessment and Plan: Monitor Subjective Date/time seen: 06/17/21 09:32 Interval history: 06/16/21 14:30 Patient is a 66 year old female here for acute cholecystectomy. Today she stated that she was a little better. Her H/H is better today. She is still jaundice. She stated that he headache is better. She also stated that she was not having any nausea or vomiting. She denies sweats, fevers, or chills. She did complain of weakness and fatigue. She denies having any pain. Dr. Gates agrees that the patient should have an MRCP which has been ordered. Patient's bilirubin is trending up along with ast/alt. Dr. Billy has been contacted about patient drop in H/H. Which he agrees with getting blood. He may need to be consulted if it continues to not remain stable. 06/17/21 09:30 Today patient states she is feeling will better however she is concerned about what is going on with her. She has about the results of the MRCP which I explained to her would not be read tomorrow. It was also brought to our attention that the patient is lactose and gluten free at home. She stated that when she eats food here that she gets diarrhea and nausea. that is when we found out she had these dietary restrictions. She does have some pain in the right upper quadrant where the incision is. AST and ALT are slightly down from yesterday. The bilirubin is up by 1 today. H&H is trending down and was 7.9 today she was transfused 1 unit of blood. Patient is jaundice. Patient denies chest pain, shortness of breath, constipation, fevers, sweats, chills. patient was also concerned about her need for oxygen patient is currently satting 94% on 2 L. Review of Systems Review of Systems: All systems reviewed & are unremarkable except as noted in HPI and below Exam Const: General: cooperative, healthy appearing, comfortable, no acute distress, well developed, alert, awake, ill appearing and tired appearing Nutritional Appearance: well nourished Orientation/consciousness: oriented to person, oriented to place, oriented to time and patie
--- NOTE | 2021-06-17 09:58 | PM.PNGS ---
Progress Note: A&P Assessment and Plan (1) Cholecystitis: Code(s): K81.9 - Cholecystitis, unspecified Status: Acute Assessment and Plan: doing well except for mild nausea and the elevated LFTs. --- Two days still pending at this time. cont routine postop care, ADAT. But stick with a low-fat for now. because of her concerns convert to gluten free (2) Hyperbilirubinemia: Code(s): E80.6 - Other disorders of bilirubin metabolism Status: Acute Assessment and Plan: As per GI note from Friday and as Dr. Murguia and Dr. Pickard agreed will proceed to MRCP today if possible to look for the possibility of a retained bile duct stone. To my reading no enlarged common bile duct or intrahepatic radicles. However, final report from Radiology not yet completed. Additional Plan Discussed with hospitalist KASANDRA Gaines. She also has a history of Myelodysplasia and if necessary we will involve Dr. Billy who is her manager creative services. We noticed on her labs from today that everything is slightly low including hemoglobin hematocrit white cell count and platelets. Therefore Dr. Billy will be consulted. Subjective Subjective Date/Time Seen: 06/17/21 09:58 Patient reports: no new complaints, feels better and nausea (Still mild after eating.) Interval history: Patient states she has a known intolerance an wishes to be gluten free. She thinks maybe this is why she is getting nauseated after eating. She did fine through the MRCP but report is not yet back. Review of Systems Review of Systems: All systems reviewed & are unremarkable except as noted in HPI and below Constitutional: Constitutional: Reports no additional constitutional complaints, Denies chills, Reports fatigue, Denies fever(s), Denies headache(s), Denies lethargy, Reports poor appetite, Reports weakness (some), Denies weight gain and Denies weight loss Eyes: Eyes: Reports no additional eye complaints ENT: Reports system reviewed and no additional complaints, except as documented, Denies headache(s) and Reports other (Mucous Membranes moist.) Cardiovascular: Cardiovascular: Reports no additional cardiovascular complaints and Denies dyspnea Respiratory: Respiratory: Reports no additional respiratory complaints, Denies pain on inspiration and Denies dyspnea Gastrointestinal: Gastrointestinal: Reports as per HPI, Denies abdominal pain, Reports bloating, Reports early satiety, Reports loose stools, Reports nausea and Denies vomiting Genitourinary: Genitourinary: Reports no additional female genitourinary complaints Musculoskeletal: Musculoskeletal: Reports no additional musculoskeletal complaints and Reports other (No calf swelling or edema) Integumentary/Breasts: Skin/Breast: Reports system reviewed and no additional complaints, except as docu Neurologic: Reports system reviewed and no additional complaints, except as documented, Denies headache(s) and Denies weakness Psychiatric: Psychiatric: Reports no additional psychiatric complaints Endocrine: Endocrine: Reports no additional endocrine complaints and Reports fatigue Hematologic/Lymphatic: Hematologic/Lymphatic: Reports no additional hematologic/lymphatic complaints Allergic/Immunologic: Allergic/Immunologic: Reports no additional allergic/immunologic complaints Exam Const: General: cooperative, comfortable, no acute distress, acute distress mild, ill appearing and tired appearing Nutritional Appearance: average body habitus Orientation/consciousness: patient oriented x3 Limitations: no limitations Other: + jaundice HENMT: Head: normal to inspection, normocephalic and atraumatic Ears: hearing grossly normal bilaterally General nose exam: Normal external nose present Face and sinus: normal facial exam Mouth: Yes Normal oral and palatal mucosa present and Yes moist mucous membranes Eyes: General: appearance normal, both eyes and all related structures Eyelids: eyelids normal Sclera
[2021-06-17 10:00] LABS: Alanine Aminotransferase 647 U/L (4-35); Alkaline Phosphatase 193 U/L (38-126); Anion Gap 6 mmol/L (8-16); Aspartate Amino Transferase 420 U/L (14-36); Blood Urea Nitrogen 5 mg/dL (7-17); Calcium 6.9 mg/dL (8.4-10.2); Carbon Dioxide 24 mmol/L (22-30); Chloride 109 mmol/L (98-107); Estimated CRCL calculation 98 ml/min; Estimated Glomerular Filt Rate > 60; Glucose 81 mg/dL (65-110); Lipase 29 U/L (23-300); Magnesium 2.3 mg/dL (1.6-2.3); Phosphorus 1.8 mg/dL (2.5-4.5); Potassium 3.4 mmol/L (3.4-5.0); Sodium 139 mmol/L (137-145)
[2021-06-17 10:01] LABS: Immature Reticulocyte Fraction 31.1 % (3.0-15.9); Reticulocyte Hemoglobin Conten 38.4 pg (28.2-35.7); Reticulocyte Percent 13.33 % (0.7-4.3); Reticulocytes Absolute 0.29 B/L (32.2-175.7)
[2021-06-17 10:03] LABS: Lactate Dehydrogenase 750 U/L (313-618)
[2021-06-17 10:11] LABS: Transferrin 167 mg/dL (206-381)
[2021-06-17] MEDS: ONDANSETRON INJ 4 MG/2 ML VIAL IV PUSH (11:21)
[2021-06-17] MEDS: SODIUM CHLORIDE 0.9% IV 250 ML 30 ML IV CONT (11:22)
[2021-06-17 11:25] LABS: Iron 40 ug/dL (37-170)
[2021-06-17 11:30] LABS: Folic Acid > 20.0 ng/mL (2.76->20); Vitamin B12 > 1000.0 pg/mL (239-931)
[2021-06-17 11:35] LABS: Percent Iron Saturation 15 % (20-50)
--- NOTE | 2021-06-17 13:12 | PCPTNOTE ---
Attempted PT evaluation. Pt getting blood; RN requested to hold until tomorrow. Will attempt eval at a later date/time.
--- NOTE | 2021-06-17 13:47 | PCOTNOTE ---
Attempted OT evaluation. Pt getting blood and RN requests to hold until tomorrow. Will continue to attempt.
[2021-06-17 14:22] LABS: IFOB Positive Control Positive; Immunochemical Fecal Occult Bl Negative (N)
[2021-06-17] MEDS: POTASSIUM PHOS,M-BASIC-D-BASIC 40 MMOL in SODIUM CHLORIDE 0.9% IV 250 ML 43.89 MMOL IVPB (17:08)
[2021-06-17 17:43] LABS: Hematocrit 30.3 % (37.0-47.0); Hemoglobin 9.4 g/dL (12.0-15.0)
[2021-06-18] VITALS (12 sets, daily range): BP systolic 123–136; BP diastolic 65–72; PULSE 55–76; RESP 18; TEMP 36.2–37.2; O2SAT 94–97
[2021-06-18] MEDS: SODIUM CHLORIDE 0.9% IV 1,000 ML 75 ML IV CONT (03:24)
[2021-06-18 06:34] LABS: Alanine Aminotransferase 515 U/L (4-35); Albumin Level 3.3 g/dL (3.5-5.1); Alkaline Phosphatase 193 U/L (38-126); Anion Gap 6 mmol/L (8-16); Aspartate Amino Transferase 180 U/L (14-36); Bilirubin,Total 4.2 mg/dL (0.2-1.3); Blood Urea Nitrogen 2 mg/dL (7-17); Calcium 7.2 mg/dL (8.4-10.2); Carbon Dioxide 24 mmol/L (22-30); Chloride 109 mmol/L (98-107); Estimated CRCL calculation 98 ml/min; Estimated Glomerular Filt Rate > 60; Glucose 97 mg/dL (65-110); Lipase 58 U/L (23-300); Magnesium 2.2 mg/dL (1.6-2.3); Potassium 3.6 mmol/L (3.4-5.0); Sodium 139 mmol/L (137-145)
[2021-06-18 06:43] LABS: Basophils Percent Auto 0.8 % (0.2-1.2); Eosinophils Absolute Auto 0.1 K/mm3 (0-0.3); Eosinophils Percent Auto 1.8 % (0-4.4); Hematocrit 30.6 % (37.0-47.0); Hemoglobin 9.4 g/dL (12.0-15.0); Immature Granulocyte Absolute 0.02 K/mm3 (0.00-0.031); Immature Granulocyte Percent A 0.4 % (0-0.5); Lymphocytes Absolute Auto 0.99 K/mm3 (0.9-3.2); Lymphocytes Percent Auto 19.5 % (18.3-44.2); Mean Corpuscular HGB Conc 30.7 g/dl (32-36); Mean Corpuscular Hemoglobin 34.1 pg (26-34); Mean Corpuscular Volume 110.9 fl (80-100); Mean Platelet Volume 12.5 fl (7.4-10.4); Monocytes Absolute Auto 0.4 K/mm3 (0.1-0.6); Monocytes Percent Auto 8.5 % (2.6-8.5); Neutrophils Absolute Auto 3.5 K/mm3 (1.3-6.7); Platelet Count Result 156 k/mm3 (150-375); Red Blood Count 2.76 M/mm3 (4.2-5.4); White Blood Count 5.1 K/mm3 (4.5-10.0)
[2021-06-18] MEDS: FERROUS SULFATE 324 MG TABLET PO ×2 (09:20→18:18)
[2021-06-18] MEDS: PROPRANOLOL HCL 40 MG TABLET PO ×2 (09:20→20:49)
[2021-06-18] MEDS: DOCUSATE SODIUM 100 MG CAPSULE PO ×2 (09:20→20:49)
[2021-06-18 09:26] LABS: Platelet Estimate Adequate (Adequate)
[2021-06-18 09:27] LABS: Anisocytosis 2+ (NORMAL); Hypochromasia 1+ (NORMAL); Large Platelets Present; Macrocytosis 1+ (NORMAL); Microcytosis 2+ (NORMAL)
--- NOTE | 2021-06-18 10:47 | PM.PNGS ---
Progress Note: A&P Assessment and Plan (1) Cholecystitis: Code(s): K81.9 - Cholecystitis, unspecified Status: Acute Assessment and Plan: POD#4 and improving. Total bilirubin trending down from 13 to 4.2 today. MRCP shows no choledocholithiasis with mild CBD dilatation. Okay to advance patient to low fat diet if okay with other services. Continue routine post-op care. Okay from a surgical standpoint to discharge the patient when okay with other services. F/u in [address] Murguia. (2) Hyperbilirubinemia: Code(s): E80.6 - Other disorders of bilirubin metabolism Status: Acute Assessment and Plan: MRCP with no evident choledocholithiasis. Tbili down to 4.2 today. Hematology/Oncology consulted today d/t her hx of myelodysplasia. Additional Plan I have discussed the patient's case and plan of care with Dr. Murguia. Subjective Subjective Date/Time Seen: 06/18/21 10:47 Post Op day: 4 Patient reports: feels better and bowel movement Interval history: Patient reports that she is feeling well today. Denies nausea or vomiting. Reports incisional pain is controlled. Bowels are moving normally over the past 24 hours. No other complaints at this time. Review of Systems Constitutional: Constitutional: Denies chills and Denies fever(s) Gastrointestinal: Gastrointestinal: Reports as per HPI, Reports no additional gastrointestinal complaints, Denies change in bowel habits, Denies nausea and Denies vomiting Exam Const: General: cooperative, no acute distress and alert Orientation/consciousness: patient oriented x3 Resp: Auscultation: clear to auscultation bilaterally Cardio: Rate: regular rate Rhythm: regular rhythm Peripheral pulses: dorsalis pedis present GI: Inspection: normal to inspection and incision (Incisions clean/dry, minimal bruising) GI Palp: Yes abdominal tenderness (incisional), Yes Soft to palpation and No Guarding due to palpation present (GI) Auscultation: normal bowel sounds Skin: General skin exam: jaundice, no petechiae and no purpura Extrem: General: normal to inspection and no edema Psych: Mental Status: mental status grossly normal Insight: Good insight present (Psych) Judgement: Good judgement present (Psych) Objective Data Vital Signs Vital Signs: Vital Signs - 24 hr 06/17/21 12:00 06/17/21 13:10 06/17/21 13:25 Temperature 97.9 F 97.6 F Pulse Rate 61 70 64 Respiratory Rate 16 16 Blood Pressure 129/61 121/67 Pulse Oximetry 95 95 06/17/21 14:00 06/17/21 14:25 06/17/21 15:25 Temperature 98.1 F 98.1 F 98.6 F Pulse Rate 67 67 60 Respiratory Rate 18 18 18 Blood Pressure 119/63 119/63 131/65 Pulse Oximetry 94 93 94 06/17/21 16:00 06/17/21 16:05 06/17/21 20:00 Temperature 98 F Pulse Rate 62 78 60 Respiratory Rate 16 Blood Pressure 125/74 Pulse Oximetry 100 06/17/21 20:53 06/17/21 21:03 06/17/21 21:10 Temperature 96.7 F L Pulse Rate 63 70 Respiratory Rate 18 Blood Pressure 129/69 Pulse Oximetry 97 97 06/18/21 00:00 06/18/21 04:00 06/18/21 05:47 Temperature 97.1 F L Pulse Rate 64 62 65 Respiratory Rate 18 Blood Pressure 130/70 Pulse Oximetry 97 06/18/21 06:52 06/18/21 09:20 Temperature Pulse Rate 55 L Respiratory Rate Blood Pressure Pulse Oximetry 96 Intake/Output Intake/Output: Intake & Output 06/15/21 06/16/21 06/17/21 06/18/21 23:59 23:59 23:59 23:59 Intake Total 3170 1600 2450 200 Output Total 550 650 3 Balance 2620 950 2447 200 Meds/Results Medications: Active Medications Generic Name Dose Route Start Last Admin Trade Name Freq PRN Reason Stop Dose Admin Hydrocodone Bitart/Acetaminophen 1 tab 06/14/21 15:33 06/16/21 22:38 Hydrocodone/Acetaminophen (*Crx) 5-325 Mg Tablet PO 1 tab Q4H PRN Administration Pain Rated 4-6 Docusate Sodium 100 mg 06/14/21 21:00 06/18/21 09:20 Docusate Sodium 100 Mg Capsule PO 100 mg Q12HR YARON Administration F
[2021-06-18 12:01] LABS: Reticulocyte Hemoglobin Conten 37.8 pg (28.2-35.7); Reticulocyte Percent 11.34 % (0.7-4.3); Reticulocytes Absolute 0.32 B/L (32.2-175.7)
[2021-06-18 12:17] LABS: Lactate Dehydrogenase 566 U/L (313-618)
--- NOTE | 2021-06-18 14:19 | PCDIET ---
Dietitian consult for low fat,gluten free, lactose free diet. See Nutritional Teaching Intervention. Thank you for the consult.
--- NOTE | 2021-06-18 14:46 | WPDGIPROGNO ---
Progress Note: A&P Assessment and Plan (1) Cholecystitis: Code(s): K81.9 - Cholecystitis, unspecified Status: Acute Assessment and Plan: repeat MRCP yesterday reviewed, no signs of leak or choledocholithiasis bili today trending down and could be multifactorial from recent cholecystitis and surgery, also ? component of hemolysis (had elevated ldh, worsening anemia and retic) in a patient with underlying myelodysplastic syndrome (hematology to see)- pending hemolysis work up and trend lft's she is recovering from cholecystitis ok to advance low fat diet (2) Hyperbilirubinemia: Code(s): E80.6 - Other disorders of bilirubin metabolism Status: Acute Assessment and Plan: trending down continue to monitor (3) Transaminitis: Code(s): R74.01 - Elevation of levels of liver transaminase levels Status: Acute (4) Acute on chronic anemia: Code(s): D64.9 - Anemia, unspecified Status: Acute Assessment and Plan: ? hemolysis, etc no signs of gib (5) Myelodysplastic syndrome: Code(s): D46.9 - Myelodysplastic syndrome, unspecified Status: Acute (6) Elevated LFTs: Code(s): R79.89 - Other specified abnormal findings of blood chemistry Status: Acute Subjective Date/time seen: 06/18/21 14:46 Interval history: she did not have a good weekend but today feeling much better, less nausea Review of Systems Review of Systems: All systems reviewed & are unremarkable except as noted in HPI and below Exam Const: General: cooperative, no acute distress, alert and other (appears mildly jaundiced ) HENMT: General nose exam: Normal nares present Eyes: Other: icteric sclerae Neck: Neck: supple Resp: Auscultation: clear to auscultation bilaterally Cardio: Rate: regular rate Rhythm: regular rhythm Peripheral pulses: dorsalis pedis present GI: Inspection: normal to inspection and incision (All appear to be healing well without erythema or edema; some bruising) GI Palp: Yes abdominal tenderness (around incision sites ), Yes Soft to palpation, No Tenderness to palpation present (GI) and No Guarding due to palpation present (GI) Auscultation: normal bowel sounds Skin: General skin exam: jaundice (mild), no petechiae and no purpura Neuro: Speech: normal speech Motor exam (neuro): Normal motor muscle tone present throughout Extrem: General: normal to inspection and no edema Psych: Mental Status: mental status grossly normal Insight: Good insight present (Psych) Judgement: Good judgement present (Psych) Objective Data Vital Signs Vital Signs: Vital Signs - 24 hr 06/17/21 15:25 06/17/21 16:00 06/17/21 16:05 Temperature 98.6 F 98 F Pulse Rate 60 62 78 Respiratory Rate 18 16 Blood Pressure 131/65 125/74 Pulse Oximetry 94 100 06/17/21 20:00 06/17/21 20:53 06/17/21 21:03 Temperature 96.7 F L Pulse Rate 60 63 70 Respiratory Rate 18 Blood Pressure 129/69 Pulse Oximetry 97 06/17/21 21:10 06/18/21 00:00 06/18/21 04:00 Temperature Pulse Rate 64 62 Respiratory Rate Blood Pressure Pulse Oximetry 97 06/18/21 05:47 06/18/21 06:52 06/18/21 08:00 Temperature 97.1 F L Pulse Rate 65 66 Respiratory Rate 18 Blood Pressure 130/70 Pulse Oximetry 97 96 06/18/21 09:20 06/18/21 12:00 06/18/21 14:26 Temperature 98.7 F Pulse Rate 55 L 76 64 Respiratory Rate 18 Blood Pressure 123/65 Pulse Oximetry 96 94 Intake/Output Intake/Output: Intake & Output 06/15/21 06/16/21 06/17/21 06/18/21 23:59 23:59 23:59 23:59 Intake Total 3170 1600 2450 440 Output Total 550 650 3 Balance 2620 950 2447 440 Meds/Results Medications: Active Medications Generic Name Dose Route Start Last Admin Trade Name Freq PRN Reason Stop Dose Admin Hydrocodone Bitart/Acetaminophen 1 tab 06/14/21 15:33 06/16/21 22:38 Hydrocodone/Acetaminophen (*Crx) 5-325 Mg Tablet PO 1 tab Q4H PRN Administration
--- NOTE | 2021-06-18 16:15 | P.PNIM_ITS ---
Progress Note: A&P Assessment and Plan (1) Choledocholithiasis with acute cholecystitis: Code(s): K80.42 - Calculus of bile duct with acute cholecystitis without obstruction Status: Acute Assessment and Plan: * Sudden onset of pain noted on 06/13/2021 and 2 weeks prior * CT of chest abdomen pelvis showed acute cholecystitis with the common bile duct of 8 mm * ERCP did show acute cholecystitis with possible small stone obstruction 06/14/21 * MRCP surgical changes noted with Common bile duct dilated to 11 mm with no evident choledocholithiasis. * Dr. Pickard consulted appreciate your recommendations * Dr. Murguia consulted from General surgery appreciate your recommendations * Cholecystectomy to be managed by surgery * Post care to be managed by surgery (2) Transaminitis: Code(s): R74.01 - Elevation of levels of liver transaminase levels Status: Acute Assessment and Plan: * AST/ALT 426/286 upon admission * continues to trend up AST is 180 ALT is 515 * Abdominal ultrasound shows cholecystitis with wall thickening 06/13/21 * MRCP surgical changes noted with Common bile duct dilated to 11 mm with no evident choledocholithiasis. * Cholecystectomy On 06/14/2021 * Continue to trend (3) Myelodysplastic syndrome: Code(s): D46.9 - Myelodysplastic syndrome, unspecified Status: Acute Assessment and Plan: * H/H 9.4/38.6 * Trend H&H * seems baseline is above slightly above 9 * H&H in the a.m. * Transfuse if below 7 * Continue ferrous sulfate 325 b.i.d. when patient able to take p.o. * transfuse one unit 06/15/21, will transfuse another unit today (06/17/21) * anemia labs: Iron 40, TIBC is 267,% saturation 15%, transferrin 167, ferritin 431, B12 is greater than a 1000 folate is greater than 20 TSH is 3.61 0 * Dr. Billy was contacted on 06/15/21 which stated that treatment was appropriate at this time * Consult Dr. Billy for further recommendation (4) Hereditary essential tremor: Code(s): G25.0 - Essential tremor Status: Acute Assessment and Plan: * Monitor Subjective Date/time seen: 06/18/21 16:00 Interval history: 06/16/21 14:30 Patient is a 66 year old female here for acute cholecystectomy. Today she stated that she was a little better. Her H/H is better today. She is still jaundice. She stated that he headache is better. She also stated that she was not having any nausea or vomiting. She denies sweats, fevers, or chills. She did complain of weakness and fatigue. She denies having any pain. Dr. Gates agrees that the patient should have an MRCP which has been ordered. Patient's bilirubin is trending up along with ast/alt. Dr. Billy has been contacted about patient drop in H/H. Which he agrees with getting blood. He may need to be consulted if it continues to not remain stable. 06/17/21 09:30 Today patient states she is feeling will better however she is concerned about what is going on with her. She has about the results of the MRCP which I explained to her would not be read tomorrow. It was also brought to our attention that the patient is lactose and gluten free at home. She stated that when she eats food here that she gets diarrhea and nausea. that is when we found out she had these dietary restrictions. She does have some pain in the right upper quadrant where the incision is. AST and ALT are slightly down from yesterday. The bilirubin is up by 1 today. H&H is trending down and was 7.9 today she was transfused 1 unit of blood. P
--- NOTE | 2021-06-18 16:15 | PM.IMPN ---
Progress Note: A&P Assessment and Plan (1) Choledocholithiasis with acute cholecystitis: Code(s): K80.42 - Calculus of bile duct with acute cholecystitis without obstruction Status: Acute Assessment and Plan: Sudden onset of pain noted on 06/13/2021 and [address] of chest abdomen pelvis showed acute cholecystitis with the common bile duct of 8 mm ERCP did show acute cholecystitis with possible small stone obstruction 06/14/21 MRCP surgical changes noted with Common bile duct dilated to 11 mm with no evident choledocholithiasis. Dr. Pickard consulted appreciate your recommendations Dr. Murguia consulted from General surgery appreciate your recommendations Cholecystectomy to be managed by surgery Post care to be managed by surgery (2) Transaminitis: Code(s): R74.01 - Elevation of levels of liver transaminase levels Status: Acute Assessment and Plan: AST/ALT 426/286 upon admission continues to trend up AST is 180 ALT is 515 Abdominal ultrasound shows cholecystitis with wall thickening 06/13/21 MRCP surgical changes noted with Common bile duct dilated to 11 mm with no evident choledocholithiasis. Cholecystectomy On 06/14/2021 Continue to trend (3) Myelodysplastic syndrome: Code(s): D46.9 - Myelodysplastic syndrome, unspecified Status: Acute Assessment and Plan: H/H 9.4/38.6 Trend H&H seems baseline is above slightly above 9 H&H in the a.m. Transfuse if below 7 Continue ferrous sulfate 325 b.i.d. when patient able to take p.o. transfuse one unit 06/15/21, will transfuse another unit today (06/17/21) anemia labs: Iron 40, TIBC is 267,% saturation 15%, transferrin 167, ferritin 431, B12 is greater than a 1000 folate is greater than [address] Billy was contacted on 06/15/21 which stated that treatment was appropriate at this time Consult Dr. Billy for further recommendation (4) Hereditary essential tremor: Code(s): G25.0 - Essential tremor Status: Acute Assessment and Plan: Monitor Subjective Date/time seen: 06/18/21 16:00 Interval history: 06/16/21 14:30 Patient is a 66 year old female here for acute cholecystectomy. Today she stated that she was a little better. Her H/H is better today. She is still jaundice. She stated that he headache is better. She also stated that she was not having any nausea or vomiting. She denies sweats, fevers, or chills. She did complain of weakness and fatigue. She denies having any pain. Dr. Gates agrees that the patient should have an MRCP which has been ordered. Patient's bilirubin is trending up along with ast/alt. Dr. Billy has been contacted about patient drop in H/H. Which he agrees with getting blood. He may need to be consulted if it continues to not remain stable. 06/17/21 09:30 Today patient states she is feeling will better however she is concerned about what is going on with her. She has about the results of the MRCP which I explained to her would not be read tomorrow. It was also brought to our attention that the patient is lactose and gluten free at home. She stated that when she eats food here that she gets diarrhea and nausea. that is when we found out she had these dietary restrictions. She does have some pain in the right upper quadrant where the incision is. AST and ALT are slightly down from yesterday. The bilirubin is up by 1 today. H&H is trending down and was 7.9 today she was transfused 1 unit of blood. Patient is jaundice. Patient denies chest pain, shortness of breath, constipation, fevers, sweats, chills. patient was also concerned about her need for oxygen patient is currently satting 94% on 2 L. 06/18/21 1600 patient stated that she had a better day today. She did talk to the dietitian about her diet that she can have. She did say that she was feeling lot better and was ready to go home. surgery has okayed t
[2021-06-19] VITALS: PULSE 66
[2021-06-19] MEDS: SODIUM CHLORIDE 0.9% IV 1,000 ML 75 ML IV CONT ×2 (02:39→08:54)
[2021-06-19 04:00] VITALS: PULSE 69
[2021-06-19 05:44] VITALS: BP 131/64; PULSE 60; RESP 16; TEMP 36; O2SAT 95
[2021-06-19 06:08] LABS: Basophils Percent Auto 0.8 % (0.2-1.2); Eosinophils Absolute Auto 0.1 K/mm3 (0-0.3); Eosinophils Percent Auto 1.4 % (0-4.4); Hematocrit 30.9 % (37.0-47.0); Hemoglobin 9.4 g/dL (12.0-15.0); Immature Granulocyte Absolute 0.02 K/mm3 (0.00-0.031); Immature Granulocyte Percent A 0.4 % (0-0.5); Lymphocytes Percent Auto 17.8 % (18.3-44.2); Mean Corpuscular HGB Conc 30.4 g/dl (32-36); Mean Corpuscular Hemoglobin 33.5 pg (26-34); Mean Platelet Volume 12.5 fl (7.4-10.4); Monocytes Absolute Auto 0.4 K/mm3 (0.1-0.6); Monocytes Percent Auto 8.7 % (2.6-8.5); Neutrophils Absolute Auto 3.6 K/mm3 (1.3-6.7); Neutrophils Percent Auto 70.9 % (45.5-73.1); Platelet Count Result 165 k/mm3 (150-375); Red Blood Count 2.81 M/mm3 (4.2-5.4); White Blood Count 5.1 K/mm3 (4.5-10.0)
[2021-06-19 06:16] LABS: Alanine Aminotransferase 348 U/L (4-35); Albumin Level 3.2 g/dL (3.5-5.1); Alkaline Phosphatase 160 U/L (38-126); Anion Gap 7 mmol/L (8-16); Aspartate Amino Transferase 82 U/L (14-36); Bilirubin,Total 3.8 mg/dL (0.2-1.3); Blood Urea Nitrogen 3 mg/dL (7-17); Calcium 7.8 mg/dL (8.4-10.2); Carbon Dioxide 25 mmol/L (22-30); Chloride 108 mmol/L (98-107); Estimated CRCL calculation 98 ml/min; Estimated Glomerular Filt Rate > 60; Glucose 92 mg/dL (65-110); Magnesium 2.1 mg/dL (1.6-2.3); Potassium 3.4 mmol/L (3.4-5.0); Sodium 140 mmol/L (137-145)
[2021-06-19 07:42] LABS: Anisocytosis 1+ (NORMAL); Atypical Lymphocytes Present; Hypochromasia 1+ (NORMAL); Platelet Estimate Adequate (Adequate); Poikilocytosis 1+ (NORMAL)
[2021-06-19 08:00] VITALS: PULSE 71
[2021-06-19 08:54] VITALS: PULSE 71
[2021-06-19] MEDS: PROPRANOLOL HCL 40 MG TABLET PO (08:54)
[2021-06-19] MEDS: DOCUSATE SODIUM 100 MG CAPSULE PO (08:54)
[2021-06-19] MEDS: FERROUS SULFATE 324 MG TABLET PO (08:54)
--- NOTE | 2021-06-19 10:49 | PM.DS ---
DS: Admitting Diagnosis Discharge Date 06/19/21 Admitting Diagnosis Cholecystitis DS: Discharge Diagnosis Discharge Diagnosis (1) Myelodysplastic syndrome: Code(s): D46.9 - Myelodysplastic syndrome, unspecified Status: Acute (2) Hereditary essential tremor: Code(s): G25.0 - Essential tremor Status: Acute (3) Choledocholithiasis with acute cholecystitis: Code(s): K80.42 - Calculus of bile duct with acute cholecystitis without obstruction Status: Acute (4) Transaminitis: Code(s): R74.01 - Elevation of levels of liver transaminase levels Status: Acute DS: Summary Hospital Course Hospital Course: date of service June 19, 2021 Patient is a 66-year-old female who presented emergency room on June 13, 2021 for abdominal pain and fatigue. Vitals in the ER were temperature 36.5? C, pulse 70, respiratory 18, blood pressure 125/45, pulse ox 100 on room air. Initial white blood cell count 4.8, hemoglobin 8.2, hematocrit 26.5, platelets 195. BMP within normal limits. liver enzymes significantly elevated total bilirubin 6.8, AST 426, ALT to 86, alk phos 78. Abdominal ultrasound showed gallbladder distention with thickening and chest abdomen pelvis CT showed acute cholecystitis. she was admitted to the hospitalist service and underwent an MRCP which showed acute cholecystitis with possible small stone in the gallbladder but no intrahepatic or extrahepatic biliary dilation, stones or strictures. She underwent a cholecystectomy 06/14/2021 without any acute complications. the patient had a prolonged postoperative. Due to rising LFTs and bilirubin after surgery. MRCP was repeated 06/17/2021 which showed postop worsened changes with a dilated common bile duct but no evidence of choledocholithiasis. It also did show bilateral pleural effusions or pneumonia. The patient had absolutely no symptoms of pneumonia such as cough, shortness of breath, wheezing, fever or leukocytosis. I suspect this is likely pleural effusions from IV fluids and dependent atelectasis due to her prolonged hospital stay. The pt also has a hx of MDS and hgb was 8.2 on admission and dropped to 7.2 and she received 2 units of blood and her hgb was stable at d/c at 9.4. She has plans to f/u with Dr. Billy outpt later this week. No signs of blood loss. Dr. Billy was contacted on 06/15/21 by previous provider which stated that treatment was appropriate at this time and okay for follow up. Hemolytic anemia is to be considered if pt continues to have anemia. LDH was high on admission but normalized. No mccoy test was performed as pts hgb stabolized and she had f/u with Dr. billy. The day of discharge she was feeling much better and her liver enzymes had improved. She is going to follow up with her primary care physician next week and she will call them or come back to the ER if she has any signs or symptoms of pneumonia. I called 's office spoke to him about the repeat liver enzymes and he agreed to follow-up. Patient was discharged in stable condition Time Spent with Patient Time attestation: Total time spent providing and/or coordinating discharge services:38 min Exam Narrative: General: Well developed well nourished patient in NAD slightly jaundice on exam HEENT: normocephalic Neck: supple Neuro: Alert and oriented x4 CV:RRR Resp:Crackles to the bases Abd: Soft, non distended. incision sites clean and dry without discharge, dehiscence, or erythema. Extremities: No swelling, erythema, or pain to palpation. DS: Data Data Completed and Pending Completed studies during hospitalization: Pending at discharge 06/14/21 14:10 Surgical [PTH] Routine Labs on day of discharge: Labs from last 24 hours 06/19/21 06/19/21 06/18/21 05:34 05:34 11:53 WBC 5.1 RBC 2.81 L Hgb 9.4 L Hct 30.9 L MCV 110.0 H MCH 33.5 MCHC 30.4 L RDW TNP Plt Count 165 MPV 12.5 H Immature G
[2021-06-21 11:24] LABS: Haptoglobin 176 mg/dL (43-212)
== END 2021-06-19 11:49 | disposition home or self-care (01) | DRG 419 ==
LOC: ANHED 15:16 → ANH3MED 17:53
PROVIDERS: Internal Medicine Gastroenterology; Nurse Practitioner; Physician Assistant; Surgery; Admitting Provider Hospitalist; Emergency Provider Emergency Medicine; PCP Internal Medicine; Visit Provider Physician Assistant
PROC: 0FT44ZZ Resection of Gallbladder, Percutaneous Endoscopic Approach (ICD-10-PCS; CPT 47562; principal; 2021-06-14 14:00)
DX: K80.42 Calculus of bile duct with acute cholecystitis without obstruction (principal); G25.0 Essential tremor; D46.9 Myelodysplastic syndrome, unspecified; M19.90 Unspecified osteoarthritis, unspecified site; M81.0 Age-related osteoporosis without current pathological fracture; E55.9 Vitamin D deficiency, unspecified; Z86.16 Personal history of COVID-19; R51.9 Headache, unspecified; E80.6 Other disorders of bilirubin metabolism
CPT/HCPCS: 36415; 36430; 71046; 71260; 74177; 74183; 76376; 76705; 80053; 80069; 80076; 81001; 82248; 82607; 82728; 82746; 83010; 83540; 83550; 83605; 83615; 83690; 83735; 84100; 84443; 84466; 84484; 85014; 85018; 85025; 85027; 85046; 85610; 85730; 86140; 86850; 86900; 86901; 86920; 87040; 87086; 87088; 88304; 93005; 96361; 96365; 96375; 97161; 97165; 99285; A9270; A9577; G0378; J1100; J2001; J2270; J2405; J2543; J2704; J2710; J3010; J7030; J7050; J7120; P9016; Q9967

== ENCOUNTER 2021-06-26 12:05 | Outpatient (CLI) | payer OTHER, SELFPAY ==
[2021-06-26 12:29] LABS: Alanine Aminotransferase 79 U/L (4-35); Albumin Level 4.4 g/dL (3.5-5.1); Alkaline Phosphatase 111 U/L (38-126); Aspartate Amino Transferase 37 U/L (14-36); Bilirubin,Total 2.9 mg/dL (0.2-1.3)
== END 2021-06-26 12:06 | disposition home or self-care (01) ==
LOC: ANHLAB 12:07
PROVIDERS: PCP Internal Medicine; Visit Provider Internal Medicine
DX: R79.89 Other specified abnormal findings of blood chemistry (principal)
CPT/HCPCS: 36415; 80076

== ENCOUNTER 2022-02-26 14:17 | Outpatient (CLI) | payer OTHER, SELFPAY ==
--- NOTE | ~2022-02-26 | MM_ITS ---
EXAMINATION: MM screening nancy BI w [facility]l HISTORY: Screening mammogram TECHNIQUE: Craniocaudal and mediolateral oblique 3-D tomosynthesis images were obtained and synthetic 2-D images were generated. Bilateral rotated lateral CC views. CAD analysis was submitted and interp reted. COMPARISON: No prior mammogram is available for comparison at this institution. BREAST PARENCHYMAL COMPOSITION: There are scattered areas of fibroglandular density. FINDINGS: There is no evidence of suspicious mass, calcification, or architectural distortion to sugg est malignancy in either breast. There has been no suspicious interval change. IMPRESSION: 1. No mammographic evidence of malignancy. 2. Recommend routine screening mammography in one year. BI-RADS Category 1: Negative Reviewed, dictated and finalized at location A.
== END 2022-02-26 14:18 | disposition home or self-care (01) ==
PROVIDERS: PCP Internal Medicine; Visit Provider Internal Medicine
DX: Z12.31 Encounter for screening mammogram for malignant neoplasm of breast (principal)
CPT/HCPCS: 77063; 77067

== ENCOUNTER 2022-03-29 10:02 | Emergency (ER) | payer OTHER, SELFPAY ==
[2022-03-29 10:23] VITALS: BP 111/66; PULSE 75; RESP 17; TEMP 36.2; O2SAT 98
--- NOTE | 2022-03-29 11:00 | ED.URI ---
HPI - URI/Sore Throat General Chief Complaint: Upper Respiratory Infection Stated Complaint: cough,congestion Time Seen by Provider: 03/29/22 10:13 Source: patient and family Mode of arrival: ambulatory Limitations: no limitations History of Present Illness HPI Narrative: 58-year-old female presents to [facility] with complaints of productive cough of yellow-colored phlegm, nasal congestion, sinus pressure and intermittent diarrhea for the past 5 to 6 days. Patient has been taking [id number] Mucinex with minimal relief. Patient is non-smoker. Patient denies sick contacts. Patient denies recent travel. Patient reports that she did recently travel to [place]. Patient denies shortness of breath, wheezing, fever, bodies, chills, nausea or vomiting. MD elicited complaint: cough, nasal congestion and sinus pain Onset (ago): day(s) (6) Consistency: constant Able to tolerate fluids by mouth: Yes Relieving factors: nothing Treatments prior to arrival: cold medicine Related Data Home Medications Medication Instructions Recorded Confirmed darbepoetin adonay in polysorbat 500 1 syr DIRECTED 03/29/22 03/29/22 mcg/mL in polysorbate injection syringe (Aranesp) propranolol 40 mg tablet 40 tablet BID 03/29/22 03/29/22 Allergies Allergy/AdvReac Type Severity Reaction Status Date / Time red dye Allergy Unknown Nausea Verified 03/29/22 10:34 sulfanilamide Allergy Unknown Nausea Verified 03/29/22 10:34 Sulfa (Sulfonamide AdvReac Mild NAUSEA Verified 03/29/22 10:34 Antibiotics) RED COATING ON ERYTHROMYCIN AdvReac Mild NAUSEA Uncoded 03/29/22 10:34 TAB Review of Systems Constitutional: Constitutional: Denies chills, Denies fatigue, Denies fever(s) and Denies weakness ENT: Denies dysphagia, Denies vertigo, Denies dizziness and Reports nasal congestion Cardiovascular: Cardiovascular: Denies chest pain and Denies rapid heart rate Respiratory: Respiratory: Reports chest congestion, Reports cough, Denies dyspnea and Denies wheezing Gastrointestinal: Gastrointestinal: Denies abdominal pain, Denies bloating, Denies constipation and Denies heartburn Integumentary/Breasts: Skin/Breast: Denies rash PMFSH Past Medical History Medical History Acute cholangitis Acute on chronic anemia Anemia Cholecystitis Choledocholithiasis with acute cholecystitis COVID-19 (07/2020) Elevated LFTs Hereditary essential tremor Myelodysplastic syndrome Followed by chief physical therapist at [facility]. Osteoarthritis Osteoporosis Upper abdominal pain Vitamin D deficiency Surgical History Surgical History History of tonsillectomy Hx laparoscopic cholecystectomy 06/14/21 Family History Family History Mother Hypertension Family history of malignant neoplasm of stomach Grandparent Diabetes mellitus Father Family history of congestive heart failure Social History Social History Social History: Surrogate decision maker: Alessandro Rinaldi, spouse. Code status: Full code. Gluten Free and Lactose Free Smoking status: Never smoker Second hand tobacco smoke exposure: No Alcohol intake: current Substance use: never Additional living arrangements comments: Resides with her in [place]. They enjoy [employer] baseball and work the [employer] on game days. Additional occupation/education comments: Retired. Exam Const: General: healthy appearing, no acute distress and alert Nutritional Appearance: well nourished Orientation/consciousness: patient oriented x3 HENMT: Ears: external ears normal General nose exam: Normal external nose present and Normal nares present Face and sinus: sinus tenderness frontal Mouth: Yes lip normal and Yes moist mucous membranes Teeth and gingiva: dentition normal Throat: uvu
== END 2022-03-29 11:14 | disposition home or self-care (01) ==
PROVIDERS: Emergency Provider Nurse Practitioner Family; PCP Internal Medicine
DX: J06.9 Acute upper respiratory infection, unspecified (principal); Z20.822 Contact with and (suspected) exposure to COVID-19; M19.90 Unspecified osteoarthritis, unspecified site; M81.0 Age-related osteoporosis without current pathological fracture; D46.9 Myelodysplastic syndrome, unspecified; Z86.16 Personal history of COVID-19
CPT/HCPCS: 87426; 87804; 99213; C9803; G0463

== ENCOUNTER 2022-07-31 00:43 | Day surgery (SDC) | payer OTHER, SELFPAY ==
[2022-07-11 16:08] VITALS: BMI 24.0
--- NOTE | 2022-07-30 12:59 | PM.HPGS ---
History of Present Illness History of Present Illness Consent: Risks, benefits, and alternatives have been discussed and questions answered. Patient agrees to proceed with procedure. Chief complaint: neoplasm screening Narrative: Mel Rinaldi is a 67 year old female referred for colon cancer screening. Her last colonoscopy 10 years ago was unremarkable. 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 Osteoarthritis Osteoporosis Upper abdominal pain Vitamin D deficiency Surgical History Surgical History History of tonsillectomy Hx laparoscopic cholecystectomy 06/14/21 Family History Family History Mother Hypertension Family history of malignant neoplasm of stomach Grandparent Diabetes mellitus Father Family history of congestive heart failure Social History Social History Social History: Surrogate decision maker: Alessadnro Rinaldi, spouse. Code status: Full code. Gluten Free and Lactose Free Smoking status: Never smoker Second hand tobacco smoke exposure: No Alcohol intake: current Alcohol use details: occasional glass of wine Substance use: never Substance use type: does not use Living arrangements: with family Additional living arrangements comments: Resides with her in [place]. They enjoy [employer] baseball and work the [employer] on game days. Additional occupation/education comments: Retired. Spiritual care concerns: No Meds Home Medications and Allergies Home Medications Medication Instructions Recorded Confirmed Type darbepoetin adonay in polysorbat 500 1 syr DIRECTED 03/29/22 07/11/22 History mcg/mL in polysorbate injection syringe (Aranesp) cholestyramine-aspartame 4 gram 4 g PO DAILY #210 grams 07/22/22 07/31/22 Rx oral powder (Questran Light) propranolol 40 mg tablet 40 mg PO BID 90 days #180 tabs 07/22/22 07/31/22 Rx Allergies Allergy/AdvReac Type Severity Reaction Status Date / Time Sulfa (Sulfonamide AdvReac Mild NAUSEA Verified 07/31/22 08:58 Antibiotics) RED COATING ON ERYTHROMYCIN AdvReac Mild NAUSEA Uncoded 07/31/22 08:58 TAB Exam Resp: Auscultation: clear to auscultation bilaterally Cardio: Rate: regular rate Rhythm: regular rhythm GI: GI Palp: Yes Soft to palpation and No Tenderness to palpation present (GI) Assessment and Plan Assessment and plan (1) Colon cancer screening: Code(s): Z12.11 - Encounter for screening for malignant neoplasm of colon Status: Acute Assessment and Plan: Colonoscopy with possible biopsy or polypectomy or cautery or injection of substances.
[2022-07-31 09:00] VITALS: BP 127/59; PULSE 76; RESP 16; TEMP 36.2; O2SAT 98
--- NOTE | 2022-07-31 09:01 | WPDANESEPPF ---
Anes - Initial Pre Proc Eval Procedure: Operation Date: 07/31/22 10:00 Proposed Procedures p Screening Colonoscopy - Dannie Yi MD Date/Time: 07/31/22 09:01 Surgeon: Dannie Yi MD Pre Op Diagnosis: neoplasm screening Patient Data Age: 67 Gender: F Height: 1.63 m Weight: 66.1 kg Last Vital Signs Temp 97.2 F L 07/31/22 09:00 Pulse 76 07/31/22 09:00 Resp 16 07/31/22 09:00 BP 127/59 L 07/31/22 09:00 Pulse Ox 98 07/31/22 09:00 O2 Del Method Room Air 07/31/22 09:00 Allergies Allergy/AdvReac Type Severity Reaction Status Date / Time Sulfa (Sulfonamide AdvReac Mild NAUSEA Verified 07/31/22 08:58 Antibiotics) RED COATING ON ERYTHROMYCIN AdvReac Mild NAUSEA Uncoded 07/31/22 08:58 TAB Home Medications Medication Instructions Recorded Confirmed Type darbepoetin adonay in polysorbat 500 1 syr DIRECTED 03/29/22 07/11/22 History mcg/mL in polysorbate injection syringe (Aranesp) cholestyramine-aspartame 4 gram 4 g PO DAILY #210 grams 07/22/22 07/31/22 Rx oral powder (Questran Light) propranolol 40 mg tablet 40 mg PO BID 90 days #180 tabs 07/22/22 07/31/22 Rx Patient hx anesthesia problems: none Family hx anesthesia problems: none Results Review: All pre-operative results and documents have been reviewed as part of the pre-operative evaluation. [facility] Past Medical History Medical History Acute cholangitis Acute on chronic anemia Anemia Cholecystitis Choledocholithiasis with acute cholecystitis COVID-19 (07/2020) Elevated LFTs Hereditary essential tremor Myelodysplastic syndrome Followed by maxillofacial surgeon at [facility]. Osteoarthritis Osteoporosis Upper abdominal pain Vitamin D deficiency Surgical History Surgical History History of tonsillectomy Hx laparoscopic cholecystectomy 06/14/21 Family History Family History Mother Hypertension Family history of malignant neoplasm of stomach Grandparent Diabetes mellitus Father Family history of congestive heart failure Social History Social History Social History: Surrogate decision maker: Alessandro Rinaldi, spouse. Code status: Full code. Gluten Free and Lactose Free Smoking status: Never smoker Second hand tobacco smoke exposure: No Alcohol intake: current Alcohol use details: occasional glass of wine Substance use: never Substance use type: does not use Living arrangements: with family Additional living arrangements comments: Resides with her in [place]. They enjoy [employer] baseball and work the [employer] on game days. Additional occupation/education comments: Retired. Spiritual care concerns: No Anes - Eval Final PreProcedure Day of Procedure 07/31/22 09:01 Patient weight: normal Heart: regular rate and rhythm Lungs: clear to auscultation Airway: Mallampati scale class II Neurological: alert and oriented Last oral intake: >/= 8 hours ASA classification: II Emergent: no Anesthetic plan: proceed Anesthesia type and monitoring: general GIVS and standard monitoring Results Review: All pre-operative results and documents have been reviewed as part of the pre-operative evaluation. Informed Consent: The patient's anesthetic plan and its attendant risks and benefits were discussed with the patient/family/POA. Questions were solicited and answers provided to the satisfaction of the patient/family/POA.
[2022-07-31] MEDS: LACTATED RINGERS 1,000 ML 150 ML IV CONT (09:02)
[2022-07-31 09:52] VITALS: BP 99/59; PULSE 76; RESP 20; O2SAT 96
[2022-07-31 10:02] VITALS: BP 97/56; PULSE 68; RESP 20; O2SAT 96
[2022-07-31 10:12] VITALS: BP 115/71; PULSE 61; RESP 18; O2SAT 100
== END 2022-07-31 11:00 | disposition home or self-care (01) ==
PROVIDERS: PCP Internal Medicine; Visit Provider Internal Medicine Gastroenterology
PROC: 0DJD8ZZ Inspection of Lower Intestinal Tract, Via Natural or Artificial Opening Endoscopic (ICD-10-PCS; CPT 45378; principal; 2022-07-31 10:00)
DX: Z12.11 Encounter for screening for malignant neoplasm of colon (principal); K57.30 Diverticulosis of large intestine without perforation or abscess without bleeding; K64.8 Other hemorrhoids; D46.9 Myelodysplastic syndrome, unspecified; G25.0 Essential tremor; M81.0 Age-related osteoporosis without current pathological fracture
CPT/HCPCS: G0121; J2704; J7120

== ENCOUNTER 2022-10-14 08:48 | Outpatient (CLI) | payer OTHER, SELFPAY ==
--- NOTE | ~2022-10-14 | DEXA_ITS ---
Bone Density Report Name: LUCIANO CROCKER Age: 67 Sex: Female Ethnicity: White Date of : 1955 Indication: postmenopausal osteoporosis; monitoring treatment; prior fracture; Referring Provider: CRISTIANA CHAVIS Study: Bone densitometry was performed. Exam Date: October 14, 2022 Accession number: [id number] Bone Density: Region BMD T-score Z-score Classification AP Spine(L1-L4) 0.682 -3.3 -1.3 Osteoporosis Femoral Neck (Left) 0.632 -2.0 -0.2 Osteopenia Total Hip (Left) 0.703 -2.0 -0.5 Osteopenia Femoral Neck (Right) 0.606 -2.2 -0.4 Osteopenia Total Hip (Right) 0.731 -1.7 -0.3 Osteopenia Total Hip Mean 0.717 -1.9 -0.4 Osteopenia World Health Organization criteria for BMD impression classify patients as: Normal (T-score at or above -1.0), Osteopenia (T-score between -1.0 and -2.5), or Osteoporosis (T-score at or below -2.5). 10-year Fracture Risk: FRAX not reported because: Some T-score for Spine Total or Hip Total or Femoral Neck at or below -2.5 Treated for osteoporosis Previous Exams: Region Exam Age BMD T-score BMD Change BMD Change Date g/cm2 vs Baseline vs Previous AP Spine (L1-L4) 10/14/2022 67 0.682 -3.3 -0.011 (-1.6%) -0.011 (-1.6%) 10/09/2020 65 0.693 -3.2 Total Hip(Left) 10/14/2022 67 0.703 -2.0 -0.027 (-3.7%) -0.027 (-3.7%) 10/09/2020 65 0.730 -1.7 Total Hip(Right) 10/14/2022 67 0.731 -1.7 -0.010 (-1.4%) -0.010 (-1.4%) 10/09/2020 65 0.741 -1.6 *Denotes significance at 95% confidence level, LSC for AP Spine = 0.022 g/cm2, LSC for Total Hip = 0.027 g/cm2 # Denotes dissimilar scan types or analysis methods Clinical Information Provided by Patient: Has had a low trauma fracture Is being treated for osteoporosis Has used the following medications: Prolia (i.e. denosumab), Vitamin D, Calcium Patient maximum height was 64 Menopause Age: 48 Onset of menses at age 10 Number of children 4 Impression: The patient has established osteoporosis, based on the Total Spine T-score and the existence of a prior fracture. The patient has risk factors, including: previous fracture. No significant bone loss was observed. Discussion: PATIENT UNDER TREATMENT WITH NO SIGNIFICANT BMD LOSS SINCE LAST EXAM. In an untreated patient, BMD typically declines with age. A lack of decline or gain is usually a sign that treatment is efficacious and fracture risk is reduced. It is important to ask patients whether they are taking
== END 2022-10-14 08:49 | disposition home or self-care (01) ==
LOC: ANHIMG 08:58
PROVIDERS: PCP Internal Medicine; Visit Provider Internal Medicine Hematology & Oncology
DX: M81.0 Age-related osteoporosis without current pathological fracture (principal); M85.852 Other specified disorders of bone density and structure, left thigh; M85.851 Other specified disorders of bone density and structure, right thigh
CPT/HCPCS: 77080

== ENCOUNTER 2023-07-02 14:34 | Outpatient (CLI) | payer OTHER, SELFPAY ==
[2023-07-02 16:28] LABS: Cholesterol 159 mg/dL (0-200); HDL Direct 43 mg/dL; Triglycerides 189 mg/dL (<150)
[2023-07-02 16:40] LABS: LDL Cholesterol Direct 83 mg/dL
== END 2023-07-02 14:35 | disposition home or self-care (01) ==
LOC: ANHLAB 14:36
PROVIDERS: PCP Family Medicine; Visit Provider Internal Medicine Hematology & Oncology
DX: Z00.00 Encounter for general adult medical examination without abnormal findings (principal)
CPT/HCPCS: 36415; 80061

== ENCOUNTER 2023-10-22 15:17 | Outpatient (CLI) | payer OTHER, SELFPAY ==
--- NOTE | ~2023-10-22 | MM_ITS ---
EXAMINATION: MM screening [facility] BI w [facility]l HISTORY: Screening TECHNIQUE: Craniocaudal and mediolateral oblique 3-D tomosynthesis images were obtained and synthetic 2-D images were generated. CAD analysis was submitted and interpreted. COMPARISON: Comparison to multiple prior studies sequentially, with oldest reviewed study dated 09/05. BREAST PARENCHYMAL COMPOSITION: There are scattered areas of fibroglandular density. FINDINGS: There is no evidence of suspicious mass, calcification, or architectural distortion to sugg est malignancy in either breast. There has been no suspicious interval change. IMPRESSION: 1. No mammographic evidence of malignancy. 2. Recommend routine screening mammography in one year. BI-RADS Category 1: Negative Reviewed, dictated and finalized at location A. ING MACHINE FEEDER
== END 2023-10-22 15:18 | disposition home or self-care (01) ==
LOC: ANHIMG 15:18
PROVIDERS: PCP Family Medicine; Visit Provider Family Medicine
DX: Z12.31 Encounter for screening mammogram for malignant neoplasm of breast (principal)
CPT/HCPCS: 77063; 77067

== ENCOUNTER 2023-11-25 12:22 | Outpatient (CLI) | payer OTHER, SELFPAY ==
[2023-11-25 12:36] LABS: Basophils Absolute Auto 0.1 K/mm3 (0.0-0.1); Basophils Percent Auto 1.1 % (0.2-1.2); Eosinophils Absolute Auto 0.1 K/mm3 (0-0.3); Eosinophils Percent Auto 1.7 % (0-4.4); Hematocrit 31.5 % (37.0-47.0); Hemoglobin 9.5 g/dL (12.0-15.0); Immature Granulocyte Absolute 0.01 K/mm3 (0.00-0.031); Immature Granulocyte Percent A 0.2 % (0-0.5); Lymphocytes Absolute Auto 1.79 K/mm3 (0.9-3.2); Lymphocytes Percent Auto 38.2 % (18.3-44.2); Mean Corpuscular HGB Conc 30.2 g/dl (32-36); Mean Corpuscular Hemoglobin 35.7 pg (26-34); Mean Corpuscular Volume 118.4 fl (80-100); Mean Platelet Volume 10.9 fl (7.4-10.4); Monocytes Absolute Auto 0.3 K/mm3 (0.1-0.6); Monocytes Percent Auto 7.3 % (2.6-8.5); Neutrophils Absolute Auto 2.4 K/mm3 (1.3-6.7); Neutrophils Percent Auto 51.5 % (45.5-73.1); Platelet Count Result 252 k/mm3 (150-375); Red Blood Count 2.66 M/mm3 (4.2-5.4); Red Cell Distribution Width 15.3 % (11.5-14.5); White Blood Count 4.7 K/mm3 (4.5-10.0)
[2023-11-25 16:27] LABS: Iron 156 ug/dL (37-170)
[2023-11-25 16:40] LABS: Percent Iron Saturation 51 % (20-50)
== END 2023-11-25 12:23 | disposition home or self-care (01) ==
LOC: ANHLAB 12:24
PROVIDERS: PCP Family Medicine; Visit Provider Internal Medicine Hematology & Oncology
DX: D64.9 Anemia, unspecified (principal)
CPT/HCPCS: 36415; 82728; 83540; 83550; 85025

== ENCOUNTER 2023-12-15 13:48 | Outpatient (CLI) | payer OTHER, SELFPAY ==
[2023-12-15 14:01] LABS: Basophils Percent Auto 1.1 % (0.2-1.2); Eosinophils Percent Auto 1.1 % (0-4.4); Hematocrit 32.8 % (37.0-47.0); Lymphocytes Absolute Auto 1.49 K/mm3 (0.9-3.2); Lymphocytes Percent Auto 40.4 % (18.3-44.2); Mean Corpuscular HGB Conc 30.5 g/dl (32-36); Mean Corpuscular Hemoglobin 36.6 pg (26-34); Mean Corpuscular Volume 120.1 fl (80-100); Mean Platelet Volume 11.2 fl (7.4-10.4); Monocytes Absolute Auto 0.3 K/mm3 (0.1-0.6); Monocytes Percent Auto 8.7 % (2.6-8.5); Neutrophils Absolute Auto 1.8 K/mm3 (1.3-6.7); Neutrophils Percent Auto 48.7 % (45.5-73.1); Platelet Count Result 191 k/mm3 (150-375); Red Blood Count 2.73 M/mm3 (4.2-5.4); Red Cell Distribution Width 14.7 % (11.5-14.5); White Blood Count 3.7 K/mm3 (4.5-10.0)
== END 2023-12-15 13:49 | disposition home or self-care (01) ==
PROVIDERS: PCP Family Medicine; Visit Provider Internal Medicine Hematology & Oncology
DX: D64.9 Anemia, unspecified (principal)
CPT/HCPCS: 36415; 85025

== ENCOUNTER 2024-01-05 09:29 | Outpatient (CLI) | payer OTHER, SELFPAY ==
[2024-01-05 09:48] LABS: Basophils Percent Auto 0.9 % (0.2-1.2); Eosinophils Percent Auto 0.9 % (0-4.4); Hematocrit 31.3 % (37.0-47.0); Hemoglobin 9.5 g/dL (12.0-15.0); Immature Granulocyte Absolute 0.01 K/mm3 (0.00-0.031); Immature Granulocyte Percent A 0.3 % (0-0.5); Lymphocytes Absolute Auto 1.21 K/mm3 (0.9-3.2); Lymphocytes Percent Auto 37.6 % (18.3-44.2); Mean Corpuscular HGB Conc 30.4 g/dl (32-36); Mean Corpuscular Hemoglobin 36.5 pg (26-34); Mean Corpuscular Volume 120.4 fl (80-100); Mean Platelet Volume 11.3 fl (7.4-10.4); Monocytes Absolute Auto 0.3 K/mm3 (0.1-0.6); Monocytes Percent Auto 8.4 % (2.6-8.5); Neutrophils Absolute Auto 1.7 K/mm3 (1.3-6.7); Neutrophils Percent Auto 51.9 % (45.5-73.1); Platelet Count Result 186 k/mm3 (150-375); Red Cell Distribution Width 14.6 % (11.5-14.5); White Blood Count 3.2 K/mm3 (4.5-10.0)
== END 2024-01-05 09:30 | disposition home or self-care (01) ==
LOC: ANHLAB 09:32
PROVIDERS: PCP Family Medicine; Visit Provider Internal Medicine Hematology & Oncology
DX: D64.9 Anemia, unspecified (principal)
CPT/HCPCS: 36415; 84443; 85025

== ENCOUNTER 2024-02-05 09:40 | Outpatient (CLI) | payer OTHER, SELFPAY ==
--- NOTE | ~2024-02-05 | CT_ITS ---
Non-contrast Head CT History: Essential tremor Technique: Axial non-contrast imaging of the brain was performed. Dose reduction technique was used on this scan by utilizing automated exposure control and iterative reconstruction technique. The dose -length product (DLP) was 605.33 mGy-cm. Findings: There is no evidence of intracranial hemorrhage, mass lesion, or acute infarct. Brain par enchyma appears normal. The ventricles and subarachnoid spaces are normal in size. The calvarium ap pears normal. The visualized paranasal sinuses and mastoid air cells are clear. Impression: No significant abnormality seen. Reviewed, dictated and finalized at location . Impression: No significant abnormality seen.
== END 2024-02-05 09:41 | disposition home or self-care (01) ==
PROVIDERS: PCP Family Medicine; Visit Provider Family Medicine
DX: G25.0 Essential tremor (principal)
CPT/HCPCS: 36415; 70450

== ENCOUNTER 2024-11-05 11:15 | Emergency (ER) | payer OTHER, SELFPAY ==
--- OUTSIDE RECORDS SUMMARY | 2024-11-05 11:19 | XMS_ITS | Clinical Summary ---
[facility] Organization [facility] Address [address] [place] [address] Care Team Providers Care Salsa Dance Instructor Name Role Phone Zeyad Moreno MD Primary Care Provider [phone] Allergies Active Allergy Reactions Criticality Noted Date Comments Red Dye Unknown 08/05/2019 Red dye from erythromycin Sulfamethoxazole-Tr imethoprim Nausea and Vomiting Low 08/05/2019 Medications propranoloL (INDERAL) 40 mg tablet TAKE 1 TABLET BY MOUTH EVERY 12 HOURS 01/10/20 21 Active predniSONE (DELTASONE) 20 mg tablet TAKE 2 TABLETS BY MOUTH EVERY DAY FOR 5 DAYS 03/29/20 22 Active doxycycline hyclate (VIBRAMYCIN) 100 mg capsule TAKE 1 CAPSULE BY MOUTH TWICE A DAY FOR 10 DAYS 03/29/20 22 Active benzonatate (TESSALON) 100 mg capsule TAKE 1 CAPSULE BY MOUTH TWICE A DAY NEEDED FOR COUGH 03/29/20 22 Active temazepam (RESTORIL) 15 mg capsuleIndicat ions:Insomnia, unspecified type TAKE 1 CAPSULE BY MOUTH NIGHTLY NEEDED FOR INSOMNIA. 30 Capsule 09/25/20 23 Active carbidopa-levo dopa (SINEMET) 25-100 mg tablet Take 1 Tablet by mouth. 05/17/20 24 Active primidone (MYSOLINE) 50 mg tablet Take 50 mg by mouth. 05/17/20 24 Active darbepoetin adonay (Aranesp, Polysorbate,) 500 mcg/mL Syringe Inject 1 mL (500 mcg) by subcutaneous injection every 21 days. 5 mL 2 09/13/20 24 Active temazepam (RESTORIL) 15 mg capsuleIndicat ions:Insomnia, unspecified type TAKE 1 CAPSULE BY MOUTH NIGHTLY NEEDED FOR INSOMNIA. 30 Capsule 10/12/19 25 Active temazepam (RESTORIL) 15 mg capsuleIndicat ions:Insomnia, unspecified type TAKE 1 CAPSULE BY MOUTH NIGHTLY NEEDED FOR INSOMNIA. 30 Capsule 07/29/20 24 025 Discontinued Active Problems Problem Noted Date Diagnosed Date Myelodysplastic syndrome, low grade 09/09/2019 Macrocytic anemia 08/17/2019 Encounters Date Type Department Care Team Description 10/28/2024 External Device Data STL ABSTRACTION Provider, Abstract 10/13/2024 Orders Only [facility] [place] [address] [address] [place] [address] Lowell Billy MD 10/12/2024 Refill [facility] [address] [place] [address] Lowell Billy MD Insomnia, unspecified type 09/13/2024 11:00 AM ICT SUPPORT ENGINEER Office Visit [facility] [place] [address] [place] [address] Lowell Billy MD Chronic anemia (Primary Dx) 09/07/2024 Orders Only [facility] H[facility] [address] [place] [address] Lowell Billy MD 08/11/2024 Orders Only [facility] Hematology [place] [address] [address] [place] [address] Lowell Billy MD 08/10/2024 External Device Data STL ABSTRACTION Provider, Abstract from Last 3 Months Family History Medical History Relation Name Comments Heart Disease Father Cancer Mother Relation Name Status Comments Brother 1 Alive Brother 2 Alive Brother 3 Alive Father Mother Sister 1 Alive Sister 2 Alive Sister 3 Alive Social History Tobacco Use Types Packs/Day Years Used Date Smoking Tobacco: Never Smokeless Tobacco: Never Tobacco Cessation:Counseling Given: Not Answered Alcohol Use Standard Drinks/Week Comments Yes 0 (1 standard drink = 0.6 oz pur e alcohol) Comments No Sex and Gender Information Value Date Recorded Sex Assigned at Not on file Legal Sex Female 3:59 PM CDT Gender Identity Not on file Sexual Orientation Not on file Last Filed Vital Signs Vital Sign Reading Time Taken Comments Blood Pressure 129/75 09/13/2024 10:57 AM ICT SUPPORT ENGINEER Pulse 64 09/13/2024 10:57 AM ICT SUPPORT ENGINEER Temperature 36.6 ??C (97.8 ??F) 09/13/2024 10:[address] Respiratory Rate 16 09/13/2024 10:57 AM ICT SUPPORT ENGINEER Oxygen Saturation 95% 09/13/2024 10:57 AM ICT SUPPORT ENGINEER Inhaled Oxygen Concentration - - Weight 69.2 kg (152 lb 9.6 oz) 09/13/2024 10:57 AM ICT SUPPORT ENGINEER Height 162.6 cm (5' 4 ) 05/15/2022 9:40 AM CDT Body Mass Index 26.19 05/15/2022 9:40 AM CDT Plan of Treatment Upcoming Encounters Date Type Department Care Team (Late st Contact Info) Description 12/27/2024 9:45 AM CDT Office Visit [facility] - [place] [address] [place] [address] [address] [place] [address] Lowell Billy MD [address] [place] [address] Health Maintenance Due Date Last Done Comments DTAP/TDAP/TD VACCINES (1 - Tdap) 1972 COLORECTAL SCREENING 1998 Colorectal Cancer Screening 1998 FIT-DNA Q 3 years 1998 FIT/FOBT Q 1 year 1998 Flex Sig/CT Colonography Q 5 years 1998 PNEUMOCOCCAL VACCINE 65+ YEA RS (1 of 1 - PCV) 2003 ZOSTER VACCINE (1 of 2) 2003 OSTEOPOROSIS SCREENING 2018 BREAST CANCER SCREENING 08/11/2019 08/11/20 18, 07/28/2017, 07/18/2016, Additional history exists INFLUENZA VACCINE (#1) 2024 COVID-19 Vaccine (2 - 2023-2 5 season) 2024 10/10/2021 RSV VACCINE (60+ or ) (1 - 1-dose 75+ series) 2028 Procedures Procedure Name Priority Date/Time Associated Diagnosis Comments CBC WITH DIFFERENTIAL Routine 10/05/2024 4:22 PM ICT SUPPORT ENGINEER COMPREHENSIVE METABOLIC PANEL Routine 09/06/2024 11:43 AM ICT SUPPORT ENGINEER CBC WITH DIFFERENTIAL Routine 09/06/2024 11:08 AM ICT SUPPORT ENGINEER CBC WITH DIFFERENTIAL Routine 08/10/2024 8:50 AM ICT SUPPORT ENGINEER from Last 3 Months Results * CBC WITH DIFFERENTIAL (10/05/2024 4:22 PM ICT SUPPORT ENGINEER) Only the most recent of3 resultswithin the time period is included. Blood us Lowell Billy MD HEMATOLOGY ORDERABLES Final Res ult * COMPREHENSIVE METABOLIC PANEL (09/06/2024 11:43 AM ICT SUPPORT ENGINEER) Blood us Lowell Billy MD CHEMISTRY ORDERABLES Final Resu lt from Last 3 Months Insurance [facility] Address: [address] [address] Care Teams Salsa Dance Instructor Relationship Specialty Start Date End Date Zeyad Moreno MD PCP - General Family Practice 02/26/23
--- OUTSIDE RECORDS SUMMARY | 2024-11-05 11:19 | XMS_ITS | Encounter Summary ---
Author Organization [facility] Address [address] [facility] [place] [address] Care Team Providers Care Patient Access Name Role Phone Darian Cueto MD Primary Care Provider Zeyad Moreno MD Primary Care Provider [phone] Encounter Details Date Type Department Care Team (Late st Contact Info) Description 08/30/2019 Lab Requisition [facility]ology [facility] [address] [place] [address] Romero Barraza MD [address] [address] Social History Tobacco Use Types Packs/Day Years Used Date Smoking Tobacco: Never Assessed Sex and Gender Information Value Date Recorded Sex Assigned at Not on file Gender Identity Not on file Sexual Orientation Not on file documented as of this encounter Plan of Treatment Upcoming Encounters Date Type Department Care Team (Late Contact Info) Description 03/17/2025 9:00 AM CDT Office Visit [facility] - Neurology [address] [facility], [place] [address] Brandyn Fischer APRN-ASHLEY [address] [place] [address] documented as of this encounter Procedures Procedure Name Priority Date/Time Associated Diagnosis Comments BONE MARROW BIOPSY (STL) Routine 08/26/2019 10:00 AM LOSS CONTROL REPRESENTATIVE documented in this encounter Results * BONE MARROW BIOPSY (STL) (08/26/2019 10:00 AM LOSS CONTROL REPRESENTATIVE) Case Report Bone Marrow Patholog y Report ?Case: [id number] ? Authorizing Provider: ??Romero Barraza MD ?Collected: ? 08/26/2019 10:00 AM ? Ordering Location: ? [facility] Care Pathology [facility] ? Received: ?08/30/2019 10:08 AM ? Pathologist: ? Crissy Carlson MD ? Specimens: ?? A) - Bone Marrow Core, [id number] ? B) - Bone Marrow Clot, [id number] ? C) - Blood Peripheral, [id number] ? D) - Bone Marrow Aspirate, [id number] ? 08/30/2019 3:12 PM [facility] Final Diagnosis Bone marrow, aspirate, clot section, and core biopsy: - Hypercellular marrow with maturing trilineage hematopoiesis and trilineage dyspoiesis - No evidence of lymphoma or high-grade myeloid neoplasm. - See description. Peripheral blood smear: - Leukopenia. - Hypochromic, macrocytic anemia. - See description. 08/30/2019 3:12 PM [facility] Comment Overall, the bone marrow is hypercellular with trilineage hematopoiesis and trilineage dyspoiesis with no increased blasts both by morphology and concurrent flow cytometry ([id number]). In the correct clinical context it could represent low grade Myelodysplastic syndrome (MDS), however rule out other causes of dyspoiesis such as infection, vitamin deficiency and medication induced toxicity is ruled out. Correlation with clinical findings and any previous bone marrow biopsy results is required. AQ/NK 08/30/2019 3:12 PM [facility] Peripheral Smear Description Manual Differential Count (100 cells): 48 % neutrophils, 44 % lymphocytes, 3 % metamyelocytes, 2 % bands. 1 nRBCs / 100 WBCs. Leukocyte number: decreased. Granulocyte morphology: mild shift to immaturity. Lymphocyte morphology: normal. Erythrocyte number: decreased. Erythrocyte morphology: macrocytic. Anisopoikilocytosis: mild. Polychromasia: not significant. Platelet number: normal. Platelet morphology: normal. 08/30/2019 3:12 PM [facility] Bone Marrow Aspirate Differential count (200 cells): 1 % blasts, 38 % maturing myeloid precursors, 34 % erythroid progenitors, 1 % eosinophils, 15.5 % lymphocytes, 10.5 % neutrophils. Specimen quality: adequate. Spicules: present. Trilineage Hematopoiesis: present. Myeloid:Erythroid ratio: mildly decreased (1.4:1). Myeloid Maturation: dyspoietic (large azurophilic granules seen in myeloid cells). Erythroid Maturation: dyspoietic (binucleate and megaloblastic erythroid cells). Megakaryocyte morphology: hypolobate. Storage iron (by special stain): decreased. Sideroblastic iron (by special stain): decreased, no ring sideroblasts seen. Controls worked appropriately. 08/30/2019 3:12 PM [facility] Bone Marrow Core Biopsy and Clot Section Description Specimen quality: adequate. Cellularity: 60 %, hypercellular Trilineage Hematopoiesis: adequate. Myeloid to Erythroid ratio: mildly decreased (1.4:1). Myeloid maturation and localization: normal Erythroid maturation and localization: normal Megakaryocyte number: dyspoietic (hypolobate megakaryocytes). Megakaryocyte distribution: normal. Lymphoid aggregates: absent. Bone trabeculae: normal. Blood vessels: normal. Clot section marrow particles: present. Clot section morphology: similar to core biopsy. Iron stain performed on clot section shows adequate reticuloendothelial storage iron 08/30/2019 3:12 PM [facility] Clinical History 08/30/2019 3:12 PM [facility] Materials Received Received are 15 slides and 2 blocks labeled as [id number] along with the outside pathology report. [place] [address]. All materials are returned to the referring institution, along with a copy of our final report. 08/30/2019 3:12 PM [facility] Disclaimer The performance characteristics of all immunohistochemical and indirect immunofluorescence stains (if any) cited in this report were determined by the Histopathology Laboratory of [facility]. Some of these tests were developed by our own laboratory and have not been cleared or approved by the US Food and Drug Administration. The FDA does not require this test to go through premarket FDA review. These tests are used for clinical purposes. They should not be regarded as investigational or for research. This laboratory is certified under the Clinical Laboratory Improvement Amendments (CLIA) as qualified to perform high complexity clinical laboratory testing. This case has been personally reviewed and interpreted by the attending (teaching) pathologist. 08/30/2019 3:12 PM [facility] Embedded Images 08/30/2019 3:12 PM [facility] Pathology/Cytology SPECIMEN FROM BONE MARROW OBTAINED BY ASPIRATION / Unknown 08/26/2019 10:00 AM LOSS CONTROL REPRESENTATIVE 08/30/2019 10:08 AM LOSS CONTROL REPRESENTATIVE Miscellaneous samples (specimen) BONE MARROW CLOT SPECIMEN / Unknown 08/26/2019 10:00 AM LOSS CONTROL REPRESENTATIVE 08/30/2019 10:08 AM LOSS CONTROL REPRESENTATIVE Miscellaneous samples (specimen) PERIPHERAL BLOOD / Unknown 08/26/2019 10:00 AM LOSS CONTROL REPRESENTATIVE 08/30/2019 10:08 AM LOSS CONTROL REPRESENTATIVE Miscellaneous samples (specimen) SPECIMEN FROM BONE MARROW OBTAINED BY ASPIRATION / Unknown 08/26/2019 10:00 AM LOSS CONTROL REPRESENTATIVE 08/30/2019 10:08 AM LOSS CONTROL REPRESENTATIVE Romero Barraza MD LAB - PATHOLOGY/CYTO LOGY ORDERABLES Performing Organization Address City/State/[facility] Co de Phone Number [facility] [address] [phone] documented in this encounter Visit Diagnoses Not on filedocumented in this encounter Care Teams Patient Access Relationship Specialty Start Date End Date Darian Cueto MD [address] [place] [place] [id number] PCP - General 06/22/21 06/15/24 Zeyad Moreno MD [address] [id number] PCP - General Family Medicine 06/16/24 documented as of this encounter
--- OUTSIDE RECORDS SUMMARY | 2024-11-05 11:19 | XMS_ITS | Encounter Summary ---
Author Organization [facility] Address [address] [facility] [place] [address] Care Team Providers Care Inspector Repairer Sandstone Name Role Phone Darian Cueto MD Primary Care Provider [phone] Zeyad Moreno MD Primary Care Provider [phone] Encounter Details Date Type Department Care Team (Late st Contact Info) Description 08/26/2019 Lab Requisition [facility] Pathology Lab [address] [place] [address] Romero Barraza MD [address] [address] Anemia, unspecified Social History Tobacco Use Types Packs/Day Years [...] Visit [facility] - Neurology [address] [facility], [place] [phone] Brandyn Fischer APRN-ASHLEY [address] [place] [address] [place] [phone] documented as of this encounter Procedures Procedure Name Priority Date/Time Associated Diagnosis Comments FLOW CYTOMETRY BONE MARROW Routine 08/26/2019 9:00 AM BUSINESS DEVELOPMENT CONSULTANT Anemia, unspecified documented in this encounter Results * FLOW CYTOMETRY BONE MARROW (08/26/2019 9:00 AM [facility]) Case Report Flow Cytometry ?Case: [id number] ? Authorizing Provider: ??Romero Barraza MD ?Collected: ? 08/26/2019 09:00 AM ? Ordering Location: ? [facility] Pathology [facility] ? Received: ?08/26/2019 01:26 PM ? Pathologist: ? Millicent Dawson Mai, DO ? Specimen: ?Bone Marrow ? 08/26/2019 6:38 PM [facility] Final Diagnosis Bone marrow, flow cytometric immunophenotypic analysis: - No evidence of non-Hodgkin lymphoma or high-grade myeloid neoplasm. - See interpretation. 08/26/2019 6:38 PM [facility] Flow Cytometry Interpretation The bone marrow specimen has a viability of 97%. The lymphocyte, dim CD45, monocyte, and granulocyte newell are normal in relative proportion. Within the lymphocyte gate, there is no monotypic B-cell population identified (kappa: lambda ratio= 1.2:1). There is no expanded T-cell population seen. By CD34, 1.9% of all events analyzed are blasts and B-hematogones. A bone marrow aspirate smear prepared from the flow cytometry specimen is reviewed for senior quality assurance engineer purposes. The bone marrow aspirate specimen shows no evidence of involvement by non-Hodgkin lymphoma or a high-grade myeloid neoplasm. Correlation with clinical findings, the concurrent bone marrow core biopsy, and relevant cytogenetic/molecu lar studies is required. 08/26/2019 6:38 PM [facility] Flow Cytometry Results Differential Result Comment Flow Cell Count /uL 10,800 Total Viability % 97.0 Lymphocytes % 38 Dim CD45 Region % 8 Monocytes % 5 Granulocytes % 48 08/26/2019 6:38 PM [facility] Reason for test Anemia, unspecified 285.9 08/26/2019 6:38 PM [facility] Client Specimen ID # [id number] 08/26/2019 6:38 PM [facility] Number of markers 10 were performed. A-2 Flow CD10 A-3 Flow CD13 A-5 Flow CD20 A-1 Flow CD5 A-4 Flow CD19 A-6 Flow CD33 A-7 Flow CD34 A-8 Flow CD45 A-9 Lucan+CD19+ A-10 Lambda+CD19+ 08/26/2019 6:38 PM [facility] Disclaimer Test performed at [facility], [address] [place] [address], [id number]. *The established laboratory minimum viability is 70%. Values below the minimum may result in the failure to find an abnormal population of cells. This test was developed and its performance characteristics determined by the Flow Cytometry Laboratory. It has not been cleared by the [place] Food and Drug Administration (FDA). The FDA has determined that such clearance or approval is not necessary. This test is used for clinical purposes. It should not be regarded as investigational or for research. This laboratory is regulated under the Clinical Laboratory Improvement Amendments of 1998 (CLIA) as a qualified to perform high complexity clinical testing. 08/26/2019 6:38 PM [facility] Embedded Images 9 6:38 PM [facility] Pathology/Cytolo gy BONE MARROW SPECIMEN / Unknown 08/26/2019 9:00 AM BUSINESS DEVELOPMENT CONSULTANT 08/26/2019 1:26 PM BUSINESS DEVELOPMENT CONSULTANT Romero Barraza MD LAB - PATHOLOGY/CYTO LOGY ORDERABLES [facility] [address] [phone] documented in this encounter Visit Diagnoses Diagnosis Anemia, unspecified documented in this encounter Care Teams Inspector Repairer Sandstone Relationship Specialty Start Date End Date Darian Cueto MD [address] [place] [phone] PCP - General 06/22/21 06/15/24 Zeyad Moreno MD [address] [place] [address] PCP - General Family Medicine 06/16/24 documented as of this encounter
--- OUTSIDE RECORDS SUMMARY | 2024-11-05 11:19 | XMS_ITS | Patient Health Summary ---
Author Organization [facility] Address [address] [place] [address] Care Team Providers Care [employer] Science Teacher Name Role Phone Zeyad Moreno MD Primary Care Provider [phone] [facility],non-owned Affiliates and Associated Physician Practices is amultiple site organization consisting of ambulatory clinics and hospital sitesin [place], [place], [place] and [place]. This disclosure is being madepursuant to the Care Everywhere program and may not contain all information available regarding this patient. Last updated 18.[facility] Allergies * Red Dye(Unknown) * Sulfamethoxazole W-Trimethoprim(Nausea and/or Vomiting) -Low Criticality Medications * Be aware that medications may not be up to date on this document. Alwaysverify current medications with the patient. * temazepam (Restoril) 15 MG capsule(Started 09/25/2023) Take 1 (one) capsule by mouth nightly as needed * propranolol (Inderal) 40 MG tablet(Started 12/26/2023) TAKE 1 TABLET BY MOUTH TWICE A DAY FOR 90 DAYS * cholestyramine light (Questran Light) 4 GM/DOSE powder(Started 04/06/2024) PLEASE SEE ATTACHED FOR DETAILED DIRECTIONS * Aranesp, Albumin Free, 500 MCG/ML prefilled syringe(Started 09/11/2023) INJECT 500MCG SUBCUTANEOUSLY EVERY 3 WEEKS * primidone (Mysoline) 50 MG tablet(Started 05/17/2024) Take 1 (one) tablet by mouth at bedtime 3 refills by 05/17/2025 * carbidopa-levodopa (Sinemet) 25-100 MG tablet(Started 05/17/2024) Take 1 (one) tablet by mouth 3 times daily 3 refills by 05/17/2025 Active Problems No known active problems Social History Tobacco Use Types Packs/Day Years Used Date Smoking Tobacco: Never Assessed Sex and Gender Information Value Date Recorded Sex Assigned at Not on file Gender Identity Not on file Sexual Orientation Not on file Last Filed Vital Signs Vital Sign Reading Time Taken Comments Blood Pressure 139/73 09/16/2024 8:57 AM TESTS SUPERINTENDENT Pulse 76 09/16/2024 8:57 AM TESTS SUPERINTENDENT Temperature 35.8 ??C (96.5 ??F) 05/17/2024 8:07 AM CD T Respiratory Rate - - Oxygen Saturation 95% 06/16/2024 1:37 PM CDT Inhaled Oxygen Concentration - - Weight 68 kg (150 lb) 09/16/2024 8:57 AM TESTS SUPERINTENDENT Height 162.6 cm (5' 4 ) 06/16/2024 1:37 PM CDT Body Mass Index 25.75 06/16/2024 1:37 PM CDT Procedures * NM BRAIN IMAGING JORGE L SCAN(Performed 06/16/2024) Performed for Tremor, essential, Preop examination * CT HEAD WO CONTRAST(Performed 06/16/2024) Performed for Tremor, essential, Preop examination * MRI BRAIN WWO CONTRAST(Performed 06/14/2024) Performed for Tremor, essential, Preop examination * CREATININE - POCT INTERFACED(Performed 06/14/2024) * BONE MARROW BIOPSY (STL)(Performed 08/26/2019) * FLOW CYTOMETRY BONE MARROW(Performed 08/26/2019) Performed for Anemia, unspecified Results * NM Brain Imaging Jorge L Scan (06/16/2024 1:45 PM CDT) Anatomical Region Laterality Modality Head Nuclear Medicine 06/16/2024 11:2 8 AM CDT Impressions 06/16/2024 5:09 PM CDT Impression: Normal DaTscan study, ??findings not supportive of parkinsonian syndromes. > Dictated by Surjit Faust MD (Conference Service Coordinator) 06/16/2024 11:28 AM Venkat Oliva DO have personally reviewed and interpreted this examination/study. > Interpreting Provider: Venkat Huynh DO on 06/16/2024 5:09 PM Narrative 06/16/2024 5:09 PM CDT PROCEDURE: ??NM BRAIN IMAGING JORGE L SCAN DATE/TIME OF EXAM: ??06/16/2024 9:20 AM CLINICAL INFORMATION: None relevant/not provided if blank. Indication: G25.0: Tremor, essential Z01.818: Preop examination Procedure: Dopamine transporter (DaTscan) brain SPECT/CT History: 69-year-old female patient presented with tremors involving the upper extremity. Technique: 45 minutes after oral administration of SSKI for thyroid blockade, 5.5 mCi I-123 Ioflupane was administered intravenously. Three hours later, tomographic whole brain SPECT/CT imaging was performed. Patient's BMI is25.4 kg/m??. Findings: ??No prior study is available for comparison. Uptake in the striatum appears as follows: Left caudate nucleus head: Normal Right caudate nucleus head: Normal Left putamen: Normal Right putamen: Normal Procedure Note Venkat Huynh DO - 06/16/2024 PROCEDURE: NM BRAIN IMAGING JORGE L SCAN DATE/TIME OF EXAM: 06/16/2024 9:20 AM CLINICAL INFORMATION: None relevant/not provided if blank. Indication: G25.0: Tremor, essential Z01.818: Preop examination Procedure: Dopamine transporter (DaTscan) brain SPECT/CT History: 69-year-old female patient presented with tremors involving the upper extremity. Technique: 45 minutes after oral administration of SSKI for thyroid blockade, 5.5 mCi I-123 Ioflupane was administered intravenously. Three hours later, tomographic whole brain SPECT/CT imaging was performed. Patient's BMI is25.4 kg/m??. Findings: No prior study is available for comparison. Uptake in the striatum appears as follows: Left caudate nucleus head: Normal Right caudate nucleus head: Normal Left putamen: Normal Right putamen: Normal Impression: Normal DaTscan study, findings not supportive of parkinsonian syndromes. > Dictated by Surjit Faust MD (Conference Service Coordinator) 06/16/2024 11:28AM Venkat Oliva DO have personally reviewed and interpreted this examination/study. > Interpreting Provider: Venkat Huynh DO on 06/16/2024 5:09 PM Brandyn Fischer APRN-[employer] NM ORDERABLES * CT HEAD STEREOTACTIC WO CONTRAST (06/16/2024 7:24 AM CDT) Anatomical Region Laterality Modality Head Computed Tomogra phy 06/16/2024 9:36 AM CDT Impressions 06/16/2024 10:56 AM CDT IMPRESSION: 1. CT performed for stereotactic localization purpose. > Dictated by Deo Wall MD, (pharmacy resident). I, Gustavo Brooks MD have personally reviewed and interpreted this examination/study. > Interpreting Provider: Gustavo Brooks MD on 06/16/2024 10:56 AM Narrative 06/16/2024 10:56 AM CDT PROCEDURE: ??CT HEAD WO CONTRAST DATE/TIME OF EXAM: ??06/16/2024 7:24 AM CLINICAL INFORMATION: None relevant/not provided if blank. Indication: G25.0: Tremor, essential Z01.818: Preop examination Additional History: 69-year-old woman with Parkinson's preop evaluation for deep brain stimulator placement. TECHNIQUE: CT of the head was performed without contrast according to stereotactic protocol. COMPARISON: MRI brain 06/14/2024. FINDINGS: No acute intracranial hemorrhage or intra- or extra-axial fluid collections are identified. There is mild cerebral volume loss with associated ex vacuo ventricular dilatation. The basal cisterns are patent. No mass effect or midline shift is seen. The maddox-white matter differentiation is normal. There is vascular calcification of the carotid siphons. Mild opacification of the left greater than right mastoid air cells, the otherwise visualized portions of the orbits and paranasal sinuses appear normal. No acute calvarial fracture is identified. Procedure Note Gustavo Brooks MD - 06/16/2024 PROCEDURE: CT HEAD WO CONTRAST DATE/TIME OF EXAM: 06/16/2024 7:24 AM CLINICAL INFORMATION: None relevant/not provided if blank. Indication: G25.0: Tremor, essential Z01.818: Preop examination Additional History: 69-year-old woman with Parkinson's preop evaluationfor deep brain stimulator placement. TECHNIQUE: CT of the head was performed without contrast according to stereotactic protocol. COMPARISON: MRI brain 06/14/2024. FINDINGS: No acute intracranial hemorrhage or intra- or extra-axial fluidcollections are identified. There is mild cerebral volume loss with associated exvacuo ventricular dilatation. The basal cisterns are patent. No mass effect or midline shift is seen. The maddox-white matter differentiation is normal. There is vascular calcification of the carotid siphons. Mild opacification of the left greater than right mastoid air cells, the otherwise visualized portions of the orbits and paranasal sinuses appear normal. No acute calvarial fracture is identified. IMPRESSION: 1. CT performed for stereotactic localization purpose. > Dictated by Deo Wall MD, (pharmacy resident). I, Gustavo Brooks MD have personally reviewed and interpreted this examination/study. > Interpreting Provider: Gustavo Brooks MD on 06/16/2024 10:56 AM Tiprameshharjinder Aaliyah [employer]-[facility] CT ORDERABLES * MRI Brain Wwo Contrast (06/14/2024 5:24 PM CDT) Anatomical Region Laterality Modality Head Magnetic Resonan ce 06/17/2024 2:04 PM CDT Impressions 06/17/2024 2:08 PM CDT IMPRESSION: 1. No acute intracranial process. Specifically, no acute infarct or acute intracranial hemorrhage. 2. Incidental note is of a small developmental venous anomaly in the anterior left base ganglia/montes de oca radiata. > Interpreting Provider: Gustavo Brooks MD on 06/17/2024 2:08 PM Narrative 06/17/2024 2:08 PM CDT PROCEDURE: ??MRI BRAIN WWO CONTRAST, DATE/TIME OF EXAM: ??06/14/2024 5:25 PM, LOCATION ??[facility] INDICATION: G25.0: Tremor, essential Z01.818: Preop examination ADDITIONAL CLINICAL INFORMATION: Ordering Provider Reason For Exam: ??[facility] Protocol Technologist Note: Additional: TECHNIQUE: MRI of the brain was performed without and with intravenous contrast according to standard protocol. CONTRAST: GADOBUTROL 1 MMOL/ML IV SSM SO:6 mL COMPARISON: No prior study is available for comparison at the time of this dictation. FINDINGS: No evidence of acute cerebral infarction is seen. No evidence of acute or chronic hemorrhage is identified. There is mild cerebral volume loss with associated ex vacuo ventricular dilatation. No mass effect or midline shift is seen. A small focus of FLAIR hyperintensity in the left side of the andrea is a nonspecific finding that could represent chronic small vessel ischemic disease. A small developmental venous anomaly in the anterior left base ganglia/montes de oca radiata. No other enhancing lesions are identified. The corpus callosum and sella appear normal. The posterior fossa, brainstem, and craniocervical junction appear normal. The visualized portions of the orbits, paranasal sinuses, and mastoids appear normal. Normal flow voids are demonstrated in the carotid arteries and basilar artery. The calvarium and visualized cervical spine appear normal. Procedure Note Gustavo Brooks MD - 06/17/2024 PROCEDURE: MRI BRAIN WWO CONTRAST, DATE/TIME OF EXAM: 06/14/2024 5:25PM, LOCATION [facility] INDICATION: G25.0: Tremor, essential Z01.818: Preop examination ADDITIONAL CLINICAL INFORMATION: Ordering Provider Reason For Exam: DBS Protocol Technologist Note: Additional: TECHNIQUE: MRI of the brain was performed without and with intravenous contrast according to standard protocol. CONTRAST: GADOBUTROL 1 MMOL/ML IV SSM SO:6 mL COMPARISON: No prior study is available for comparison at the time ofthis dictation. FINDINGS: No evidence of acute cerebral infarction is seen. No evidence of acuteor chronic hemorrhage is identified. There is mild cerebral volume losswith associated ex vacuo ventricular dilatation. No mass effect or midlineshift is seen. A small focus of FLAIR hyperintensity in the left side of thepons is a nonspecific finding that could represent chronic small vesselischemic disease. A small developmental venous anomaly in the anterior left base ganglia/montes de oca radiata. No other enhancing lesions are identified. The corpus callosum and sella appear normal. The posterior fossa, brainstem, and craniocervical junction appear normal. The visualized portions of the orbits, paranasal sinuses, and mastoids appear normal. Normal flow voids are demonstrated in the carotidarteries and basilar artery. The calvarium and visualized cervical spine appear normal. IMPRESSION: 1. No acute intracranial process. Specifically, no acute infarct oracute intracranial hemorrhage. 2. Incidental note is of a small developmental venous anomaly in the anterior left base ganglia/montes de oca radiata. > Interpreting Provider: Gustavo Brooks MD on 06/17/2024 2:08 PM Brandyn Fischer [employer] MR ORDERABLES * (ABNORMAL) CREATININE - POCT INTERFACED (06/14/2024 4:31 PM CDT) [facility] Creatinine POCT 0.77 0.30 - 1.30 mg/dL 06/14/2024 4:33 PM CDT [facility] eGFR 82(L) >=90 mL/min/1.7 3 m2 06/14/2024 4:33 PM CDT [facility] Blood BLOOD SPECIMEN / Unknown 06/14/2024 4:31 PM CDT 06/14/2024 4:33 PM CDT Brandyn Fischer [employer] [facility] - POINT OF C ARE ORDERABLES Performing Organization Address [facility] Co de Phone Number [facility] [address] [place] [id number], [facility] [phone] * BONE MARROW BIOPSY (STL) (08/26/2019 10:00 AM TESTS SUPERINTENDENT) [facility] Case Report Bone Marrow Patholog y Report ?Case: [id number] ? Authorizing Provider: ??Romero Barraza MD ?Collected: ? 08/26/2019 10:00 AM ? Ordering Location: ? [facility] ? Received: ?08/30/2019 10:08 AM ? Pathologist: ? Crissy Carlson MD ? Specimens: ?? A) - Bone Marrow Core, [id number] ? B) - Bone Marrow Clot, [id number] ? C) - Blood Peripheral, [id number] ? D) - Bone Marrow Aspirate, [id number] ? 08/30/2019 3:12 PM [facility] Final Diagnosis Bone marrow, aspirate, clot section, and core biopsy: - Hypercellular marrow with maturing trilineage hematopoiesis and trilineage dyspoiesis - No evidence of lymphoma or high-grade myeloid neoplasm. - See description. Peripheral blood smear: - Leukopenia. - Hypochromic, macrocytic anemia. - See description. 08/30/2019 3:12 PM [facility] Comment Overall, the bone marrow is hypercellular with trilineage hematopoiesis and trilineage dyspoiesis with no increased blasts both by morphology and concurrent flow cytometry ([id number]). In the correct clinical context it could represent low grade Myelodysplastic syndrome (MDS), however rule out other causes of dyspoiesis such as infection, vitamin deficiency and medication induced toxicity is ruled out. Correlation with clinical findings and any previous bone marrow biopsy results is required. AQ/NK 08/30/2019 3:12 PM [facility] Peripheral Smear Description Manual Differential Count (100 cells): 48 % neutrophils, 44 % lymphocytes, 3 % metamyelocytes, 2 % bands. 1 nRBCs / 100 WBCs. Leukocyte number: decreased. Granulocyte morphology: mild shift to immaturity. Lymphocyte morphology: normal. Erythrocyte number: decreased. Erythrocyte morphology: macrocytic. Anisopoikilocytosis: mild. Polychromasia: not significant. Platelet number: normal. Platelet morphology: normal. 08/30/2019 3:12 PM [facility] Bone Marrow Aspirate Differential count [...] seen. Controls worked appropriately. 08/30/2019 3:12 PM [facility] Bone Marrow Core Biopsy and [...] adequate reticuloendothelial storage iron 08/30/2019 3:12 PM [facility] Clinical History 08/30/2019 3:12 PM [facility] Materials Received Received are 15 slides and 2 blocks labeled as [id number] along with the outside pathology report. [place] [address]. All materials are returned to the referring institution, along with a copy of our final report. 08/30/2019 3:12 PM [facility] Disclaimer The performance characteristics of all immunohistochemical and indirect immunofluorescence stains (if any) cited in this report were determined by the Histopathology Laboratory of [facility]. Some of these tests were developed by [...] the attending (teaching) pathologist. 08/30/2019 3:12 PM [facility] Embedded Images 08/30/2019 3:12 PM [facility] Pathology/Cytology SPECIMEN FROM BONE MARROW OBTAINED BY ASPIRATION / Unknown 08/26/2019 10:00 AM TESTS SUPERINTENDENT 08/30/2019 10:08 AM TESTS SUPERINTENDENT Miscellaneous samples (specimen) BONE MARROW CLOT SPECIMEN / Unknown 08/26/2019 10:00 AM TESTS SUPERINTENDENT 08/30/2019 10:08 AM TESTS SUPERINTENDENT Miscellaneous samples (specimen) PERIPHERAL BLOOD / Unknown 08/26/2019 10:00 AM TESTS SUPERINTENDENT 08/30/2019 10:08 AM TESTS SUPERINTENDENT Miscellaneous samples (specimen) SPECIMEN FROM BONE MARROW OBTAINED BY ASPIRATION / Unknown 08/26/2019 10:00 AM TESTS SUPERINTENDENT 08/30/2019 10:08 AM TESTS SUPERINTENDENT Romero Barraza MD LAB - PATHOLOGY/CYTO LOGY ORDERABLES Performing Organization Address [facility] Co de Phone Number [facility] [address] [phone] * FLOW CYTOMETRY BONE MARROW (08/26/2019 9:00 AM TESTS SUPERINTENDENT) Case Report Flow Cytometry ?Case: [id number] ? Authorizing Provider: ??Romero Barraza MD ?Collected: ? 08/26/2019 09:00 AM ? Ordering Location: ? [facility] ? Received: ?08/26/2019 01:26 PM ? Pathologist: ? Millicent Dawson Mai, DO ? Specimen: ?Bone Marrow ? 08/26/2019 6:38 PM [facility] Final Diagnosis Bone marrow, flow cytometric immunophenotypic analysis: - No evidence of non-Hodgkin lymphoma or high-grade myeloid neoplasm. - See interpretation. 08/26/2019 6:38 PM [facility] Flow Cytometry Interpretation The bone [...] the flow cytometry specimen is reviewed for training and quality manager purposes. The bone marrow aspirate specimen shows no evidence of involvement by non-Hodgkin lymphoma or a high-grade myeloid neoplasm. Correlation with clinical findings, the concurrent bone marrow core biopsy, and relevant cytogenetic/molecu lar studies is required. 08/26/2019 6:38 PM [facility] Flow Cytometry Results Differential Result Comment Flow Cell Count /uL 10,800 Total Viability % 97.0 Lymphocytes % 38 Dim CD45 Region % 8 Monocytes % 5 Granulocytes % 48 08/26/2019 6:[address] [facility] Reason for test Anemia, unspecified 285.9 08/26/2019 6:38 PM [facility] Client Specimen ID # [id number] 08/26/2019 6:38 PM [facility] Number of markers 10 were performed. A-2 Flow CD10 A-3 Flow CD13 A-5 Flow CD20 A-1 Flow CD5 A-4 Flow CD19 A-6 Flow CD33 A-7 Flow CD34 A-8 Flow CD45 A-9 Rampart+CD19+ A-10 Lambda+CD19+ 08/26/2019 6:38 PM [facility] Disclaimer Test performed at [facility], [address] [place] [address], [facility]. *The established laboratory minimum viability is 70%. [...] high complexity clinical testing. 08/26/2019 6:38 PM [facility] Embedded Images 6:38 PM [facility] Pathology/Cytolo gy BONE MARROW SPECIMEN / Unknown 08/26/2019 9:00 AM TESTS SUPERINTENDENT 08/26/2019 1:26 PM TESTS SUPERINTENDENT Romero Barraza MD LAB - PATHOLOGY/CYTO LOGY ORDERABLES [facility] [address] [place] [address] Care Teams [employer] Science Teacher Relationship Specialty Start Date End Date Zeyad Moreno MD [address] [place] [address] PCP - General Family Medicine 06/16/24
--- OUTSIDE RECORDS SUMMARY | 2024-11-05 11:19 | XMS_ITS | Clinical Summary ---
Author Organization [facility] Address [address] [place] [address] Care Team Providers Care Type Copyist Name Role Phone Unavailable Primary Care Provider Unavailabl e Immunizations Immunization Administration Dates Next Due Covid-19, Mrna, Lnp-s, Pf, 30 Mcg/0.3 Ml Dose (P fizer) 10/10/2021 Social History Tobacco Use Types Packs/Day Years Used Date Smoking Tobacco: Never Assessed Comments Unknown Sex and Gender Information Value Date Recorded Sex Assigned at Not on file Legal Sex Female 7:11 PM PHLEBOTOMY TECH Gender Identity Not on file Sexual Orientation Not on file Plan of Treatment Health Maintenance Due Date Last Done Comments DEXA Bone Density 1955 Hepatitis C Virus (HCV) Screening 1955 TdaP Immunization 1955 Colonoscopy 1998 Colorectal Cancer Screening 1998 Cologuard 2003 Immunochemical Fecal Occult Blood 2003 Mammogram 2003 Pneumococcal Immunization (5 0+ years) (1 of 1 - PCV) 2003 Zoster Immunization (1 of 2) 2003 Influenza Immunization (#1) 2024 SARS-COV-2 Immunization (2023- season) 2024 10/10/2021, 12/21/2020, 11/28/2020 Respiratory Syncytial Virus (RSV) Immunization (Adult) (1 - 1-dose 75+ series) 2028 Hepatitis B Immunization Aged Out No longer eligible based on patient's age to complete this topic Meningococcal Immunization (ACWY) Aged Out No longer eligible b ased on patient's age to complete this topic Rotavirus Immunization Aged Out No lo nger eligible based on patient's age to complete this topic
--- OUTSIDE RECORDS SUMMARY | 2024-11-05 11:19 | XMS_ITS | Clinical Summary ---
Author Organization [facility] Address [address] [place] [address] Care Team Providers Care Hook And Eye Machine Operator Name Role Phone Zeyad Moreno MD Primary Care Provider [phone] Source Comments [facility],non-owned Affiliates and Associated Physician Practices is amultiple site organization consisting of ambulatory clinics and hospital sitesin [place], [place], [place] and [place]. This disclosure is being madepursuant to the Care Everywhere program and may not contain all information available regarding this patient. Last updated 18.[facility] Allergies Active Allergy Reactions Criticality Noted Date Comments Red Dye Unknown 08/05/2019 Red dye from erythromycin Sulfamethoxazole W-Trimethoprim Nausea and/or Vomiting Low 08/05/2019 Medications * Be aware that medications may not be up to date on this document. Alwaysverify current medications with the patient. Medication Sig Dispensed Refills Start Date End Date Status temazepam (Restoril) 15 MG capsule Take 1 (one) capsule by mouth nightly as needed 09/25/2023 Active propranolol (Inderal) 40 MG tablet TAKE 1 TABLET BY MOUTH TWICE A DAY FOR 90 DAYS 12/26/2023 Active cholestyramine light (Questran Light) 4 GM/DOSE powder PLEASE SEE ATTACHED FOR DETAILED DIRECTIONS 04/06/2024 Active Aranesp, Albumin Free, 500 MCG/ML prefilled syringe INJECT 500MCG SUBCUTANEOUSLY EVERY 3 WEEKS 09/11/2023 Active primidone (Mysoline) 50 MG tabletIndications :Tremor, essential Take 1 (one) tablet by mouth at bedtime 270 tablet 3 05/17/2024 Active carbidopa-levodop a (Sinemet) 25-100 MG tabletIndications :Tremor, essential Take 1 (one) tablet by mouth 3 times daily 270 tablet 3 05/17/2024 Active Additional Information Patient not taking.Reported on 06/16/2024 Active Problems No known active problems Encounters Date Type Department Care Team Description 09/16/2024 9:00 AM ENDOSCOPY RN Office Visit [facility] - Neurology [address] [place] [phone] Brandyn Fischer APRN-CNP Tremor, essential (Primary Dx) 09/16/2024 Travel from Last 3 Months Social History Tobacco Use Types Packs/Day Years Used Date Smoking Tobacco: Never Assessed Sex and Gender Information Value Date Recorded Sex Assigned at Not on file Gender Identity Not on file Sexual Orientation Not on file Last Filed Vital Signs Vital Sign Reading Time Taken Comments Blood Pressure 139/73 09/16/2024 8:57 AM ENDOSCOPY RN Pulse 76 09/16/2024 8:57 AM ENDOSCOPY RN Temperature 35.8 ??C (96.5 ??F) 05/17/2024 8:07 AM CD T Respiratory Rate - - Oxygen Saturation 95% 06/16/2024 1:37 PM CDT Inhaled Oxygen Concentration - - Weight 68 kg (150 lb) 09/16/2024 8:57 AM ENDOSCOPY RN Height 162.6 cm (5' 4 ) 06/16/2024 1:37 PM CDT Body Mass Index 25.75 06/16/2024 1:37 PM CDT Plan of Treatment Upcoming Encounters Date Type Department Care Team (Late st Contact Info) Description 03/17/2025 9:00 AM CDT Office Visit [facility] - Neurology [address] [place] [phone] Brandyn Fischer APRN-CNP [address] [place] [phone] Health Maintenance Due Date Last Done Comments BONE DENSITY TESTING 1955 COLOGUARD (AGES 45-75) - COL ON CA SCREENING 1953 COLON MONITORING 1953 COLONOSCOPY - COLON CA SCREENING 1953 CT COLONOGRAPHY - COLON CA SCREENING 1955 Colorectal Cancer Screening 1955 FIT - COLON CA SCREENING 1953 FLEX SIG - COLON CA SCREENING 1953 LIPID TESTING 1953 MAMMOGRAM 1953 HEPATITIS C SCREENING 05/03/1971 DTAP/TDAP/TD VACCINES (1 - Tdap) 1972 PNEUMOCOCCAL VACCINE 50+ (1 of 1 - PCV) 2003 ZOSTER VACCINE (1 of 2) 2003 COVID-19 VACCINE (2 - 2023-2 5 season) 2024 10/10/2021 INFLUENZA VACCINE (#1) 2024 DEPRESSION SCREENING 10/06/2024 MEDICARE AWV ? CALENDAR YEAR 2024 Respiratory Syncytial Virus (RSV) Vaccine Pt: or over 60 yrs (1 - 1-dose 75+ series) 2028 HEPATITIS B VACCINE Aged Out No longe r eligible based on patient's age to complete this topic HIB VACCINE Aged Out No longer eligi ble based on patient's age to complete this topic HPV VACCINE Aged Out No longer eligi ble based on patient's age to complete this topic MENINGOCOCCAL (Group B) VACCINE Aged Out No longer eligible based on patient's age to complete this topic MENINGOCOCCAL VACCINE Aged Out No bj brendon eligible based on patient's age to complete this topic Care Teams Hook And Eye Machine Operator Relationship Specialty Start Date End Date Zeyad Moreno MD [address] [place] [address] PCP - General Family Medicine 06/16/24
--- OUTSIDE RECORDS SUMMARY | 2024-11-05 11:19 | XMS_ITS | Referral Summary ---
Author Organization [facility] Address [address] [facility] [place] [address] Care Team Providers Care Manager Therapy Name Role Phone Zeyad Moreno MD Primary Care Provider [phone] Source Comments [facility],non-owned Affiliates and Associated Physician Practices is amultiple site organization consisting of ambulatory clinics and hospital sitesin [place], [place], [place]. This disclosure is being madepursuant to the Care Everywhere program and may not contain all information available regarding this patient. 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 Office Visit [facility] - Neurology [address] [place] [phone] Brandyn Fischer APRN-CNP Tremor, essential (Primary Dx) from Last 3 Months Allergies Active Allergy Reactions Criticality Noted Date [...] 06/16/2024 Active Problems No known active problems Social History Tobacco Use Types Packs/Day Years Used Date Smoking Tobacco: Never Assessed Sex and Gender Information Value Date Recorded Sex Assigned at Not on file Gender Identity Not on file Sexual Orientation Not on file Last Filed Vital Signs Vital Sign Reading Time Taken Comments Blood Pressure 139/73 09/16/2024 8:57 AM 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 [place] [phone] Brandyn Fischer APRN-ASHLEY [address] [place] [phone] Care Teams Manager Therapy Relationship Specialty Start Date End Date Zeyad Moreno MD [address] [place] [address] PCP - General Family Medicine 06/16/24
--- NOTE | 2024-11-05 11:23 | ED.GENADULT ---
HPI - General Adult General Chief complaint: Upper Respiratory Infection Stated complaint: lethargic, no appetite, and sore throat Time Seen by Provider: 11/05/24 11:31 Source: patient, RN notes reviewed and old records reviewed Mode of arrival: ambulatory Limitations: no limitations History of Present Illness HPI narrative: 69-year-old female presents to the [facility] with complaints of increased fatigue, generalized weakness, no appetite, generalized body aches, abnormal sleep patterns. Had done a virtual visit with her primary care provider on 12 October, was prescribed antibiotics. States the symptoms have never improved, reports that the antibiotics just gave her diarrhea. Has been reports symptoms just have gradually gotten worse. History of myelodysplastic syndrome, anemia. Per medical record last labs were done on the 05 of October. Does receive Aranesp. Onset (ago): week(s) (3.5) Treatments prior to arrival: other (Antibiotics) Related Data Home Medications ?Medication ?Instructions ?Recorded ?Confirmed ?Last Taken ?Type darbepoetin adonay in polysorbat 500 1 syr DIRECTED 03/29/22 10/12/24 Unknown History mcg/mL in polysorbate injection syringe (Aranesp) carbidopa 25 mg-levodopa 100 mg tablet PO 09/07/24 10/12/24 Unknown History tablet primidone 50 mg tablet mg PO 09/07/24 10/12/24 Unknown History Allergies Allergy/AdvReac Type Severity Reaction Status Date / Time Sulfa (Sulfonamide AdvReac Mild NAUSEA Verified 11/05/24 12:11 Antibiotics) RED COATING ON ERYTHROMYCIN AdvReac Mild NAUSEA Uncoded 11/05/24 12:11 TAB Review of Systems Review of Systems: All systems reviewed & are unremarkable except as noted in HPI and below Constitutional: Constitutional: Reports as per HPI, Reports body ache(s), Reports fatigue, Reports lethargy, Reports malaise, Reports poor appetite and Reports weakness ENT: Reports system reviewed and no additional complaints, except as documented Cardiovascular: Cardiovascular: Reports no additional cardiovascular complaints, Denies chest pain and Denies dyspnea Respiratory: Respiratory: Reports no additional respiratory complaints, Denies chest congestion, Denies cough and Denies dyspnea Musculoskeletal: Musculoskeletal: Reports no additional musculoskeletal complaints Integumentary/Breasts: Skin/Breast: Reports system reviewed and no additional complaints, except as docu PMFSH Past Medical History Medical History Essential tremor Acute on chronic anemia Upper abdominal pain Cholecystitis Choledocholithiasis with acute cholecystitis Acute cholangitis Age related osteoporosis Elevated LFTs Osteoporosis Osteoarthritis Myelodysplastic syndrome Followed by career services representative at [facility]. Vitamin D deficiency COVID-19 (07/2020) Anemia Hereditary essential tremor Surgical History Surgical History Hx laparoscopic cholecystectomy 06/14/21 History of tonsillectomy Family History Family History Mother Hypertension Family history of malignant neoplasm of stomach Grandparent Diabetes mellitus Father Family history of congestive heart failure Social History Social History Social History: Surrogate decision maker: Alessandro Rinaldi, spouse. Code status: Full code. Gluten Free and Lactose Free Smoking status: Never smoker Second hand tobacco smoke exposure: No Alcohol intake: current Alcohol use details: occasional glass of wine Substance use: never Substance use type: does not use Lack of Transportation: No Lack of Food: Never True Current Housing: I Have Housing Concerned About Future Housing: No Difficulty Paying Gas/Electric Bills: No Difficulty Paying for Meds: No Currently Unemployed: No Living arrangements: with family Additional living arrangements comments: Resides with her in [place]. They enjoy [employer] baseball and work the [employer] on game days. Additional occupation/education comments: Retired. Spiritual care concerns: No Comments At the time of my signature, I reviewed and agree with the nursing past medical, surgical, social, and family history. There is no relevant family history pertinent to the patient complaint. Exam Const: General: cooperative, no acute distress, well developed, alert, ill appearing chronically, tired appearing, uncomfortable and well nourished Orientation/consciousness: patient oriented x3 Limitations: no limitations HENMT: Head: normal to inspection Mouth: Yes dry mucous membranes Eyes: General: appearance normal, both eyes and all related structures Alignment and Position: alignment normal Neck: Neck: normal visual inspection, full ROM, no lymphadenopathy and no meningeal signs Chest: Chest palpation & inspection: normal inspection of the chest Resp: Effort & Inspection: normal respiratory effort and able to speak in complete sentences Cardio: Rate: regular rate Skin: General skin exam: no rashes or lesions noted, dry skin and pallor Neuro: General: patient oriented x3, gait normal, moves all extremities and no meningeal signs Cognition (Neuro): normal cognition Speech: normal speech Gait exam (Neuro): Normal gait present Extrem: General: normal to inspection, full ROM, capillary refill normal and normal gait Psych: Appearance: grossly normal and well kempt Mental Status: mental status grossly normal Speech and movement: Normal speech and movement present and Clear speech present Affect: normal affect Attitude: cooperative Course Course Level of Care: Express Care Visit Vital Signs Vital signs: Vital Signs Temperature 98.3 F 11/05/24 11:25 Pulse Rate 69 11/05/24 11:25 Respiratory Rate 16 11/05/24 11:25 Blood Pressure 108/53 L 11/05/24 11:25 Pulse Oximetry 100 11/05/24 11:25 Oxygen Delivery Room Air 11/05/24 11:25 Temperature 98.3 F 11/05/24 11:25 Pulse Rate 69 11/05/24 11:25 Respiratory Rate 16 11/05/24 11:25 Blood Pressure 108/53 L 11/05/24 11:25 Pulse Oximetry 100 11/05/24 11:25 Oxygen Delivery Room Air 11/05/24 11:25 Reviewed Transfer Transfered to: [place] Transportation: Other (POV, being driven by ) Transfer rationale: Patient with a history of MDS, anemia presents with increasing fatigue, pale, generalized weakness. Symptoms for over 3 weeks that have progressively getting worse. Had been treated for pneumonia with antibiotics, states symptoms got worse Accepting physician: Dr Palmer Medical Decision Making [facility] Narrative Medical decision making narrative: Patient sitting in exam room. Has been by her side. Patient appears tired, chronically ill, pale Patient presents with increasing symptoms of generalized weakness for over 3 weeks. Had been evaluated by PCM on 12 October via telehealth,, was prescribed antibiotics. Patient symptoms no improvement. Rapid flu, rapid COVID negative in clinic Referring patient for higher level of care rule out anemia. Transfer instructions reviewed with patient to go directly to the ER. Also discussed with . will drive All questions have been answered, and the patient deny any further questions Some parts of this dictation were generated by voice recognition software and may contain typographical and/or grammatical inaccuracies. Differential Diagnosis Differential Diagnosis: Anemia, chronic illness, T, URI, flu, COVID Medical Records Medical records reviewed: Yes I reviewed the external patient's medical records. Vital Signs Vital Signs: Vital Signs Temperature 98.3 F 11/05/24 11:25 Pulse Rate 69 11/05/24 11:25 Respiratory Rate 16 11/05/24 11:25 Blood Pressure 108/53 L 11/05/24 11:25 Pulse Oximetry 100 11/05/24 11:25 Oxygen Delivery Room Air 11/05/24 11:25 Temperature 98.3 F 11/05/24 11:25 Pulse Rate 69 11/05/24 11:25 Respiratory Rate 16 11/05/24 11:25 Blood Pressure 108/53 L 11/05/24 11:25 Pulse Oximetry 100 11/05/24 11:25 Oxygen Delivery Room Air 11/05/24 11:25 Reviewed Lab Data Lab results reviewed: Yes I reviewed the patient's lab results. Labs: Lab Results 11/05/24 11/05/24 Range/Units 11:48 11:49 POC Influenza A Ag Negative (Negative) POC Influenza B Ag Negative (Negative) POC SARS CoV-2 Ag Negative (Negative) Reviewed Critical Care Time Critical Care Time Critical Care Time: No Discharge Plan Discharge Clinical Impression: Generalized weakness Patient Disposition: Acute Care Hospital Condition: Stable Patient Language: Trinidadian Prescriptions: No Action Aranesp (in polysorbate) 500 mcg/mL syringe 1 syr DIRECTED Rx Instructions: every 3 weeks carbidopa-levodopa 25-100 mg tablet PO primidone 50 mg tablet PO temazepam 15 mg capsule 15 mg PO QHS Qty: 30 0RF propranolol 60 mg tablet See Rx Instructions .ROUTE .COMPLEX Qty: 180 1RF Dose Instruction: 60 MG ORALLY EVERY 12 HOURS Rx Instructions: 60 MG ORALLY EVERY 12 HOURS Follow-up/Referrals: Zeyad Moreno MD [Primary Care Provider] -
[2024-11-05 11:25] VITALS: BP 108/53; PULSE 69; RESP 16; TEMP 36.8; O2SAT 100
[2024-11-05 11:51] LABS: EDCOVIDSCREEN Negative (Negative)
[2024-11-05 11:51] LABS: EDINFLUASCREEN Negative (Negative); EDINFLUBSCREEN Negative (Negative)
== END 2024-11-05 11:49 | disposition short-term general hospital (02) ==
PROVIDERS: Emergency Provider Nurse Practitioner; PCP Family Medicine
DX: R53.1 Weakness (principal); Z20.822 Contact with and (suspected) exposure to COVID-19; M81.0 Age-related osteoporosis without current pathological fracture; D46.9 Myelodysplastic syndrome, unspecified
CPT/HCPCS: 87426; 87804; 99212; G0463

== ENCOUNTER 2024-11-05 12:09 | Emergency (ER) | payer OTHER, SELFPAY ==
--- NOTE | ~2024-11-05 | XR_ITS ---
EXAMINATION: XR chest 2V 11/05/2024 14:01 INDICATION: Weakness PROCEDURE: 2 view chest COMPARISON: Comparison to multiple prior studies sequentially, with oldest reviewed study dated 10/23. FINDINGS: The lungs are clear. The cardiomediastinal silhouette is within normal limits. There are no pleural effusions. There is no pneumothorax suspected. IMPRESSION: 1: NO ACUTE CARDIOPULMONARY DISEASE. Reviewed, dictated and finalized at location A. WARE DESIGN ENGINEER
[2024-11-05 12:32] VITALS: BP 120/52; PULSE 80; RESP 16; TEMP 36.8; O2SAT 97
--- NOTE | 2024-11-05 13:48 | ED_ITS ---
HPI - Weakness General Chief complaint: Weakness <Nabila Colin PA-C - Last Filed: 11/06/24 16:31> Stated complaint: weakness, no appetite <Nabila Colin PA-C - Last Filed: 11/06/24 16:31> Time Seen by Provider: 11/05/24 13:48 <Nabila Colin PA-C - Last Filed: 11/06/24 16:31> Focused HPI: This is a 69 year old female that presents to the ER for generalized weakness. Reports no energy. Reports chills, decreased appetite. Ongoing over the last several days. GENERAL: Well-appearing, well-nourished, and in no acute distress. HEAD: Normocephalic, atraumatic. CHEST: Clear to auscultation. ?No respiratory distress. HEART: Regular rate and rhythm.? NEURO: ?Alert and oriented x3. Patient screened in triage and initial orders placed.? ?Additional care and disposition to be based upon?diagnostic testing and treatment. <Nabila Colin PA-C - Last Filed: 11/06/24 16:31> History of Present Illness HPI Narrative: Agree with the above note. Patient reports decreased appetite, abnormal sleep patterns, increased sleepiness during the day with inability to sleep at night, generalized weakness. States she had a cough several weeks ago but this is has since resolved after using Mucinex. She denies current cough, chest pain or shortness of breath, abdominal pain, N/V/D, dysuria or hematuria. She has a history of myelodysplastic syndrome and follows with Dr. Billy. She has been taking her medications as directed. She is endorsing some lightheadedness when going from sitting to standing position. Denies melena or hematochezia. <Nadege Rodriguez PA-C - Last Filed: 11/05/24 21:55> Related Data Home medications: Home Medications ?Medication ?Instructions ?Recorded ?Confirmed ?Last Taken ?Type darbepoetin adonay in polysorbat 500 1 syr DIRECTED 03/29/22 10/12/24 Unknown History mcg/mL in polysorbate injection syringe (Aranesp) carbidopa 25 mg-levodopa 100 mg tablet PO 09/07/24 10/12/24 Unknown History tablet primidone 50 mg tablet mg PO 09/07/24 10/12/24 Unknown History <Nabila Colin PA-C - Last Filed: 11/06/24 16:31> Allergies/Adverse reactions: Allergies Allergy/AdvReac Type Severity Reaction Status Date / Time red dye AdvReac Mild Nausea Verified 11/05/24 12:28 Sulfa (Sulfonamide AdvReac Mild NAUSEA Verified 11/05/24 12:11 Antibiotics) <Nabila Colin PA-C - Last Filed: 11/06/24 16:31> Review of Systems 2 Review of Systems: All systems reviewed & are unremarkable except as noted in HPI and below <Nadege Rodriguez PA-C - Last Filed: 11/05/24 21:55> [facility] Past Medical History Medical History: Medical History Essential tremor Acute on chronic anemia Upper abdominal pain Cholecystitis Choledocholithiasis with acute cholecystitis Acute cholangitis Age related osteoporosis Elevated LFTs Osteoporosis Osteoarthritis Myelodysplastic syndrome Followed by government instructor at [facility]. Vitamin D deficiency COVID-19 (07/2020) Anemia Hereditary essential tremor <Nabila Colin PA-C - Last Filed: 11/06/24 16:31> Surgical History Surgical History: Surgical History Hx laparoscopic cholecystectomy 06/14/21 History of tonsillectomy <Nabila Colin PA-C - Last Filed: 11/06/24 16:31> Family History Family History: Family History Mother Hypertension Family history of malignant neoplasm of stomach Grandparent Diabetes mellitus Father Family history of congestive heart failure <Nabila Colin PA-C - Last Filed: 11/06/24 16:31> Social History Social History: Social History Social History: Surrogate decision maker: Alessandro Rinaldi, spouse. Code status: Full code. Gluten Free and Lactose Free Smoking status: Never smoker Second hand tobacco smoke exposure: No Alcohol intake: current Alcohol use details: occasional glass of wine Substance use: never Substance use type: does not use Lack of Transportation: No Lack of Food: Never True Current Housing: I Have Housing Concerned About Future Housing: No Difficulty Paying Gas/Electric Bills: No Difficulty Paying for Meds: No Currently Unemployed: No Living arrangements: with family Additional living arrangements comments: Resides with her in [place]. They enjoy [employer] baseball and work the [employer] on game days. Additional occupation/education comments: Retired. Spiritual care concerns: No <Nabila Colin PA-C - Last Filed: 11/06/24 16:31> Exam 2 Narrative: GENERAL: Well-appearing, well-nourished, and in no acute distress. HEAD: Normocephalic, atraumatic. EYES: EOMI. ENT: Nares clear, no rhinorrhea or epistaxis. Mucous membranes moist. NECK: Supple. CHEST: Clear to auscultation. No respiratory distress. HEART: Regular rate and rhythm. No murmur heard. Normal peripheral pulses. ABDOMEN: Soft, nontender, nondistended, normal active bowel sounds. No rebound, guarding or rigidity. No CVA tenderness EXTREMITIES: Normal range of motion. No edema. SKIN: Warm, dry, no rash. NEURO: No focal deficits. Alert and oriented x3 <Nadege Rodriguez PA-C - Last Filed: 11/05/24 21:55> Course Vital Signs Vital signs: Vital Signs Temperature 98.2 F 11/05/24 12:32 Pulse Rate 80 11/05/24 12:32 Respiratory Rate 16 11/05/24 12:32 Blood Pressure 120/52 L 11/05/24 12:32 Pulse Oximetry 97 11/05/24 12:32 Oxygen Delivery Room Air 11/05/24 12:32 Temperature 97.9 F 11/05/24 22:20 Pulse Rate 70 11/05/24 22:20 Respiratory Rate 18 11/05/24 22:20 Blood Pressure 131/78 11/05/24 22:20 Pulse Oximetry 98 11/05/24 22:20 Oxygen Delivery Room Air 11/05/24 12:32 <BHARAT Nassar Last Filed: 11/06/24 16:31> Vital Signs Temperature 98.2 F 11/05/24 12:32 Pulse Rate 80 11/05/24 12:32 Respiratory Rate 16 11/05/24 12:32 Blood Pressure 120/52 L 11/05/24 12:32 Pulse Oximetry 97 11/05/24 12:32 Oxygen Delivery Room Air 11/05/24 12:32 Temperature 97.9 F 11/05/24 22:20 Pulse Rate 70 11/05/24 22:20 Respiratory Rate 18 11/05/24 22:20 Blood Pressure 131/78 11/05/24 22:20 Pulse Oximetry 98 11/05/24 22:20 Oxygen Delivery Room Air 11/05/24 12:32 <Nadege Rodriguez PA-C - Last Filed: 11/05/24 21:55> MDM - Weakness MDM Narrative Medical decision making narrative: 69-year-old female with history of myelodysplastic syndrome presents to the ED for generalized weakness, decreased appetite, increased daytime sleepiness for the past few days. Vitals are stable. Exam significant for the above. Lab work shows no leukocytosis. Patient has chronic anemia with hemoglobin of 8.5 and a MCV of 124.7, this is consistent with prior labs. Chemistries reveal chronic hyperbilirubinemia, otherwise unremarkable. BNP within normal limits when age adjusted. COVID, flu RSV are negative. Chest x-ray shows no acute cardiopulmonary findings. EKG reveals normal sinus rhythm with rate of 66 ppm, normal WI interval, normal QRS duration, normal QTC, no ischemic changes. Troponin is undetectable. Urinalysis consistent with UTI with 20-50 wbc's, 2+ leuk esterase, 610 RBCs. Urine culture pending. Patient and at bedside updated on workup. Suspect symptoms secondary to UTI. She was started on Keflex in the ED. She received IV fluids and is ambulatory and feels significantly better. She is requesting to be discharged home. Advised rest, increase fluid intake and follow-up with PCP. Return precautions discussed. She and her are agreeable with the plan verbalized understanding. Discharged in stable condition. <Nadege Rodriguez PA-C - Last Filed: 11/05/24 21:55> Lab Data Result diagrams: 11/05/24 15:37 11/05/24 15:37 <Nabila Colin PA-C - Last Filed: 11/06/24 16:31> Labs: Lab Results 11/05/24 11/05/24 11/05/24 Range/Units 15:37 15:37 19:56 WBC 5.4 (4.5-10.0) K/mm3 RBC 2.23 L (4.2-5.4) M/mm3 Hgb 8.5 L (12.0-15.0) g/dL Hct 27.8 L (37.0-47.0) % MCV 124.7 H (80-100) fl MCH 38.1 H (26-34) pg MCHC 30.6 L (32-36) g/dl RDW 17.3 H (11.5-14.5) % Plt Count 209 (150-375) k/mm3 MPV 12.1 H (7.4-10.4) fl Immature Gran % (Auto) 0.4 (0-0.5) % Neut % (Auto) 57.3 (45.5-73.1) % Lymph % (Auto) 33.3 (18.3-44.2) % [place] % (Auto) 7.4 (2.6-8.5) % Eos % (Auto) 0.7 (0-4.4) % Baso % (Auto) 0.9 (0.2-1.2) % Lymph # (Auto) 1.80 (0.9-3.2) K/mm3 [place] # (Auto) 0.4 (0.1-0.6) K/mm3 Eos # (Auto) 0.0 (0-0.3) K/mm3 Baso # (Auto) 0.1 (0.0-0.1) K/mm3 Abs Immat Gran (auto) 0.02 (0.00-0.031) K/mm3 Absolute Neuts (auto) 3.1 (1.3-6.7) K/mm3 Absolute Nucleated RBC 0.050 H (0.0-0.012) K/mm3 Nucleated RBC % 0.9 H (0.0-0.2) % Platelet Estimate Adequate (Adequate) Polychromasia 1+ Hypochromasia 1+ Macrocytosis 1+ (NORMAL) Schistocytes None seen Sodium 138 (137-145) mmol/L Potassium 3.8 (3.4-5.0) mmol/L Chloride 101 (98-107) mmol/L Carbon Dioxide 25 (22-30) mmol/L Anion Gap 12 (4-12) mmol/L BUN 12 (7-17) mg/dL Creatinine 0.69 L (0.7-1.0) mg/dL Estim Creat Clear Calc 56 ml/min Estimated GFR > 60 (59 - ) Glucose 130 H (65-110) mg/dL Calcium 9.6 (8.4-10.2) mg/dL Total Bilirubin 2.5 H (0.2-1.3) mg/dL AST 28 (14-36) U/L ALT 17 (6-35) U/L Alkaline Phosphatase 86 (38-126) U/L Troponin I < 0.012 (0.000-0.034) ng/mL NT-Pro-B Natriuret Pep 371 H (19.9-100) pg/mL Total Protein 8.0 (6.3-8.2) g/dL Albumin 4.3 (3.5-5.1) g/dL Urine Color (Yellow) Urine Appearance (Clear) Urine pH (5.0-9.0) Ur Specific [place] (1.001-1.035) Urine Protein (Negative) mg/dL Urine Glucose (UA) (Negative) mg/dL Urine Ketones (Negative) mg/dL Ur Blood (Man) (Negative) Urine Nitrate (Negative) Urine Bilirubin (Negative) Urine Urobilinogen (<2.0) mg/dL Add Ur Microanalysis Leukocyte Esterase Rfl (Negative) MELI/UL Urine RBC (0-2) /hpf Urine WBC (0-3) /hpf Ur Squamous Epith Cells (Few) /hpf Calcium Oxalate Crystal (None) /hpf Urine Bacteria /hpf Urine Casts Hyaline Casts (None) /lpf Urine Mucus /lpf Influenza A (RT-PCR) Negative (Negative) Influenza B (RT-PCR) Negative (Negative) RSV (RT-PCR) Cancelled Negative SARS-CoV-2 RNA (RT-PCR) Negative (Negative) 11/05/24 Range/Units 19:56 WBC (4.5-10.0) K/mm3 RBC (4.2-5.4) M/mm3 Hgb (12.0-15.0) g/dL Hct (37.0-47.0) % MCV (80-100) fl MCH (26-34) pg MCHC (32-36) g/dl RDW (11.5-14.5) % Plt Count (150-375) k/mm3 MPV (7.4-10.4) fl Immature Gran % (Auto) (0-0.5) % Neut % (Auto) (45.5-73.1) % Lymph % (Auto) (18.3-44.2) % [place] % (Auto) (2.6-8.5) % Eos % (Auto) (0-4.4) % Baso % (Auto) (0.2-1.2) % Lymph # (Auto) (0.9-3.2) K/mm3 [place] # (Auto) (0.1-0.6) K/mm3 Eos # (Auto) (0-0.3) K/mm3 Baso # (Auto) (0.0-0.1) K/mm3 Abs Immat Gran (auto) (0.00-0.031) K/mm3 Absolute Neuts (auto) (1.3-6.7) K/mm3 Absolute Nucleated RBC (0.0-0.012) K/mm3 Nucleated RBC % (0.0-0.2) % Platelet Estimate (Adequate) Polychromasia Hypochromasia Macrocytosis (NORMAL) Schistocytes Sodium (137-145) mmol/L Potassium (3.4-5.0) mmol/L Chloride (98-107) mmol/L Carbon Dioxide (22-30) mmol/L Anion Gap (4-12) mmol/L BUN (7-17) mg/dL Creatinine (0.7-1.0) mg/dL Estim Creat Clear Calc ml/min Estimated GFR (59 - ) Glucose (65-110) mg/dL Calcium (8.4-10.2) mg/dL Total Bilirubin (0.2-1.3) mg/dL AST (14-36) U/L ALT (6-35) U/L Alkaline Phosphatase (38-126) U/L Troponin I (0.000-0.034) ng/mL NT-Pro-B Natriuret Pep Cancelled (19.9-100) pg/mL Total Protein (6.3-8.2) g/dL Albumin (3.5-5.1) g/dL Urine Color Dark yellow (Yellow) Urine Appearance Cloudy H (Clear) Urine pH 5.0 (5.0-9.0) Ur Specific [place] 1.023 (1.001-1.035) Urine Protein Trace (Negative) mg/dL Urine Glucose (UA) Negative (Negative) mg/dL Urine Ketones Trace H (Negative) mg/dL Ur Blood (Man) Negative (Negative) Urine Nitrate Negative (Negative) Urine Bilirubin 1+ H (Negative) Urine Urobilinogen 0.2 (<2.0) mg/dL Add Ur Microanalysis Reviewed Leukocyte Esterase Rfl 2+ H (Negative) MELI/UL Urine RBC 6-10 H (0-2) /hpf Urine WBC 21-50 H (0-3) /hpf Ur Squamous Epith Cells Moderate (Few) /hpf Calcium Oxalate Crystal Present (None) /hpf Urine Bacteria None seen /hpf Urine Casts 6-10 Hyaline Casts Present (None) /lpf Urine Mucus Present /lpf Influenza A (RT-PCR) (Negative) Influenza B (RT-PCR) (Negative) RSV (RT-PCR) SARS-CoV-2 RNA (RT-PCR) (Negative) <Nabila Colin PA-C - Last Filed: 11/06/24 16:31> Lab Results 11/05/24 11/05/24 11/05/24 Range/Units 15:37 15:37 19:56 WBC 5.4 (4.5-10.0) K/mm3 RBC 2.23 L (4.2-5.4) M/mm3 Hgb 8.5 L (12.0-15.0) g/dL Hct 27.8 L (37.0-47.0) % MCV 124.7 H (80-100) fl MCH 38.1 H (26-34) pg MCHC 30.6 L (32-36) g/dl RDW 17.3 H (11.5-14.5) % Plt Count 209 (150-375) k/mm3 MPV 12.1 H (7.4-10.4) fl Immature Gran % (Auto) 0.4 (0-0.5) % Neut % (Auto) 57.3 (45.5-73.1) % Lymph % (Auto) 33.3 (18.3-44.2) % [place] % (Auto) 7.4 (2.6-8.5) % Eos % (Auto) 0.7 (0-4.4) % Baso % (Auto) 0.9 (0.2-1.2) % Lymph # (Auto) 1.80 (0.9-3.2) K/mm3 [place] # (Auto) 0.4 (0.1-0.6) K/mm3 Eos # (Auto) 0.0 (0-0.3) K/mm3 Baso # (Auto) 0.1 (0.0-0.1) K/mm3 Abs Immat Gran (auto) 0.02 (0.00-0.031) K/mm3 Absolute Neuts (auto) 3.1 (1.3-6.7) K/mm3 Absolute Nucleated RBC 0.050 H (0.0-0.012) K/mm3 Nucleated RBC % 0.9 H (0.0-0.2) % Platelet Estimate Adequate (Adequate) Polychromasia 1+ Hypochromasia 1+ Macrocytosis 1+ (NORMAL) Schistocytes None seen Sodium 138 (137-145) mmol/L Potassium 3.8 (3.4-5.0) mmol/L Chloride 101 (98-107) mmol/L Carbon Dioxide 25 (22-30) mmol/L Anion Gap 12 (4-12) mmol/L BUN 12 (7-17) mg/dL Creatinine 0.69 L (0.7-1.0) mg/dL Estim Creat Clear Calc 56 ml/min Estimated GFR > 60 (59 - ) Glucose 130 H (65-110) mg/dL Calcium 9.6 (8.4-10.2) mg/dL Total Bilirubin 2.5 H (0.2-1.3) mg/dL AST 28 (14-36) U/L ALT 17 (6-35) U/L Alkaline Phosphatase 86 (38-126) U/L Troponin I < 0.012 (0.000-0.034) ng/mL NT-Pro-B Natriuret Pep 371 H (19.9-100) pg/mL Total Protein 8.0 (6.3-8.2) g/dL Albumin 4.3 (3.5-5.1) g/dL Urine Color (Yellow) Urine Appearance (Clear) Urine pH (5.0-9.0) Ur Specific [place] (1.001-1.035) Urine Protein (Negative) mg/dL Urine Glucose (UA) (Negative) mg/dL Urine Ketones (Negative) mg/dL Ur Blood (Man) (Negative) Urine Nitrate (Negative) Urine Bilirubin (Negative) Urine Urobilinogen (<2.0) mg/dL Add Ur Microanalysis Leukocyte Esterase Rfl (Negative) MELI/UL Urine RBC (0-2) /hpf Urine WBC (0-3) /hpf Ur Squamous Epith Cells (Few) /hpf Calcium Oxalate Crystal (None) /hpf Urine Bacteria /hpf Urine Casts Hyaline Casts (None) /lpf Urine Mucus /lpf Influenza A (RT-PCR) Negative (Negative) Influenza B (RT-PCR) Negative (Negative) RSV (RT-PCR) Cancelled Negative SARS-CoV-2 RNA (RT-PCR) Negative (Negative) 11/05/24 Range/Units 19:56 WBC (4.5-10.0) K/mm3 RBC (4.2-5.4) M/mm3 Hgb (12.0-15.0) g/dL Hct (37.0-47.0) % MCV (80-100) fl MCH (26-34) pg MCHC (32-36) g/dl RDW (11.5-14.5) % Plt Count (150-375) k/mm3 MPV (7.4-10.4) fl Immature Gran % (Auto) (0-0.5) % Neut % (Auto) (45.5-73.1) % Lymph % (Auto) (18.3-44.2) % [place] % (Auto) (2.6-8.5) % Eos % (Auto) (0-4.4) % Baso % (Auto) (0.2-1.2) % Lymph # (Auto) (0.9-3.2) K/mm3 [place] # (Auto) (0.1-0.6) K/mm3 Eos # (Auto) (0-0.3) K/mm3 Baso # (Auto) (0.0-0.1) K/mm3 Abs Immat Gran (auto) (0.00-0.031) K/mm3 Absolute Neuts (auto) (1.3-6.7) K/mm3 Absolute Nucleated RBC (0.0-0.012) K/mm3 Nucleated RBC % (0.0-0.2) % Platelet Estimate (Adequate) Polychromasia Hypochromasia Macrocytosis (NORMAL) Schistocytes Sodium (137-145) mmol/L Potassium (3.4-5.0) mmol/L Chloride (98-107) mmol/L Carbon Dioxide (22-30) mmol/L Anion Gap (4-12) mmol/L BUN (7-17) mg/dL Creatinine (0.7-1.0) mg/dL Estim Creat Clear Calc ml/min Estimated GFR (59 - ) Glucose (65-110) mg/dL Calcium (8.4-10.2) mg/dL Total Bilirubin (0.2-1.3) mg/dL AST (14-36) U/L ALT (6-35) U/L Alkaline Phosphatase (38-126) U/L Troponin I (0.000-0.034) ng/mL NT-Pro-B Natriuret Pep Cancelled (19.9-100) pg/mL Total Protein (6.3-8.2) g/dL Albumin (3.5-5.1) g/dL Urine Color Dark yellow (Yellow) Urine Appearance Cloudy H (Clear) Urine pH 5.0 (5.0-9.0) Ur Specific [place] 1.023 (1.001-1.035) Urine Protein Trace (Negative) mg/dL Urine Glucose (UA) Negative (Negative) mg/dL Urine Ketones Trace H (Negative) mg/dL Ur Blood (Man) Negative (Negative) Urine Nitrate Negative (Negative) Urine Bilirubin 1+ H (Negative) Urine Urobilinogen 0.2 (<2.0) mg/dL Add Ur Microanalysis Reviewed Leukocyte Esterase Rfl 2+ H (Negative) MELI/UL Urine RBC 6-10 H (0-2) /hpf Urine WBC 21-50 H (0-3) /hpf Ur Squamous Epith Cells Moderate (Few) /hpf Calcium Oxalate Crystal Present (None) /hpf Urine Bacteria None seen /hpf Urine Casts 6-10 Hyaline Casts Present (None) /lpf Urine Mucus Present /lpf Influenza A (RT-PCR) (Negative) Influenza B (RT-PCR) (Negative) RSV (RT-PCR) SARS-CoV-2 RNA (RT-PCR) (Negative) <Nadege Rodriguez PA-C - Last Filed: 11/05/24 21:55> Imaging Data Radiologist's impression: ITS Impressions Chest X-Ray 11/05/24 14:02 IMPRESSION: 1: NO ACUTE CARDIOPULMONARY DISEASE. <Nabila Colin PA-C - Last Filed: 11/06/24 16:31> Critical Care Time Critical Care Time Critical Care Time: No <Nabila Colin PA-C - Last Filed: 11/06/24 16:31> Discharge Plan Discharge Clinical Impression: Anemia, macrocytic Urinary tract infection Qualifiers: Urinary tract infection type: acute cystitis Hematuria presence: without hematuria Qualified Code(s): N30.00 - Acute cystitis without hematuria <BHARAT Nassar Last Filed: 11/06/24 16:31> Patient Disposition: Home, Self-Care <BHARAT Nassar Last Filed: 11/06/24 16:31> Condition: Stable <BHARAT Nassar Last Filed: 11/06/24 16:31> Instructions: Antibiotic Form, Urinary Tract Infection in Women (DC) <BHARAT Nassar Last Filed: 11/06/24 16:31> Additional Instructions: Take antibiotics as directed. Rest, increase fluid intake. Follow up with her primary care provider. Return to the emergency department if you develop abdominal pain, fever, vomiting or other concerning symptoms. <Nabila Colin PA-C - Last Filed: 11/06/24 16:31> Patient Language: Spanish <BHARAT Nassar Last Filed: 11/06/24 16:31> Prescriptions: New cephalexin 500 mg capsule 500 mg PO Q6H Qty: 28 0RF No Action Aranesp (in polysorbate) 500 mcg/mL syringe 1 syr DIRECTED Rx Instructions: every 3 weeks carbidopa-levodopa 25-100 mg tablet PO primidone 50 mg tablet PO temazepam 15 mg capsule 15 mg PO QHS Qty: 30 0RF propranolol 60 mg tablet See Rx Instructions .ROUTE .COMPLEX Qty: 180 1RF Dose Instruction: 60 MG ORALLY EVERY 12 HOURS Rx Instructions: 60 MG ORALLY EVERY 12 HOURS <Nabila Colin PA-C - Last Filed: 11/06/24 16:31> Follow-up/Referrals: Zeyad Moreno MD [Primary Care Provider] - <Nabila Colin PA-C - Last Filed: 11/06/24 16:31>
--- NOTE | 2024-11-05 13:49 | ECG_ITS ---
Test Date: 2024-11-05 14:06:56 Measurements Intervals [place] Rate: 66 P: 58 [place]: 175 QRS: 48 QRSD: 86 T: 59 QT: 404 QTc: 426 Interpretive Statements SINUS RHYTHM No previous ECG available for comparison Electronically Signed On 11-05-2024 14:49:14 GRAVEDIGGER by Yolie Alvarado M.D.
--- OUTSIDE RECORDS SUMMARY | 2024-11-05 14:02 | XMS_ITS | Encounter Summary ---
Author Organization [facility] Address [address] [place] [address] Care Team Providers Care Finishing Range Supervisor Name Role Phone Darian Cueto MD Primary Care Provider [phone] Zeyad Moreno MD Primary Care Provider [phone] Encounter Details Date Type Department Care Team (Late st Contact Info) Description 08/30/2019 Lab Requisition [facility] Care Pathology Lab [address] [place] [address] Romero Barraza MD [id number] [address] Social History Tobacco Use Types [...] Visit [facility] - [facility]rology [address] [facility] [place] [address] Brandyn Fischer APRN-ASHLEY [address] [place] [address] documented as of this encounter Procedures Procedure Name Priority Date/Time Associated Diagnosis Comments BONE MARROW BIOPSY (STL) Routine 08/26/2019 10:00 AM [employer] EMPLOYMENT documented in this encounter Results * BONE MARROW BIOPSY (STL) (08/26/2019 10:00 AM DIRECTOR EMPLOYMENT) Case Report Bone Marrow Patholog y Report ?Case: [id number] ? Authorizing Provider: ??Romero Barraza MD ?Collected: ? 08/26/2019 10:00 AM ? Ordering Location: ? [facility] Care Pathology Lab ? Received: ?08/30/2019 10:08 AM ? Pathologist: ? Crissy Carlson MD ? Specimens: ?? A) - Bone Marrow Core, [id number] ? B) - Bone Marrow Clot, [id number] ? C) - Blood Peripheral, [id number] ? D) - Bone Marrow Aspirate, [id number] ? 08/30/2019 3:12 PM [facility] Final Diagnosis Bone marrow, aspirate, clot section, and core biopsy: - Hypercellular marrow with maturing trilineage hematopoiesis and trilineage dyspoiesis - No evidence of lymphoma or high-grade myeloid neoplasm. - See description. Peripheral blood smear: - Leukopenia. - Hypochromic, macrocytic anemia. - See description. 08/30/2019 3:12 PM [facility] Comment Overall, the bone marrow is hypercellular with trilineage hematopoiesis and trilineage dyspoiesis with no increased blasts both by morphology and concurrent flow cytometry ([id number]). In the correct clinical context it could represent low grade Myelodysplastic syndrome (MDS), however rule out other causes of dyspoiesis such as infection, vitamin deficiency and medication induced toxicity is ruled out. Correlation with clinical findings and any previous bone marrow biopsy results is required. AQ/NK 08/30/2019 3:12 PM [facility] Peripheral Smear Description Manual Differential Count (100 cells): 48 % neutrophils, 44 % lymphocytes, 3 % metamyelocytes, 2 % bands. 1 nRBCs / 100 WBCs. Leukocyte number: decreased. Granulocyte morphology: mild shift to immaturity. Lymphocyte morphology: normal. Erythrocyte number: decreased. Erythrocyte morphology: macrocytic. Anisopoikilocytosis: mild. Polychromasia: not significant. Platelet number: normal. Platelet morphology: normal. 08/30/2019 3:12 PM [facility] Bone Marrow Aspirate Differential [...] seen. Controls worked appropriately. 08/30/2019 3:12 PM [facility] Bone Marrow Core Biopsy [...] adequate reticuloendothelial storage iron 08/30/2019 3:12 PM [facility] Clinical History 08/30/2019 3:12 PM [facility] Materials Received Received are 15 slides and 2 blocks labeled as [id number] along with the outside pathology report. [place] [address]. All materials are returned to the referring institution, along with a copy of our final report. 08/30/2019 3:12 PM [facility] Disclaimer The performance characteristics of all immunohistochemical and indirect immunofluorescence stains (if any) cited in this report were determined by the Histopathology Laboratory of [facility]. Some of these tests were developed by [...] the attending (teaching) pathologist. 08/30/2019 3:12 PM [facility] Embedded Images 08/30/2019 3:12 PM [facility] Pathology/Cytology SPECIMEN FROM BONE MARROW OBTAINED BY ASPIRATION / Unknown 08/26/2019 10:00 AM DIRECTOR EMPLOYMENT 08/30/2019 10:08 AM DIRECTOR EMPLOYMENT Miscellaneous samples (specimen) BONE MARROW CLOT SPECIMEN / Unknown 08/26/2019 10:00 AM DIRECTOR EMPLOYMENT 08/30/2019 10:08 AM DIRECTOR EMPLOYMENT Miscellaneous samples (specimen) PERIPHERAL BLOOD / Unknown 08/26/2019 10:00 AM DIRECTOR EMPLOYMENT 08/30/2019 10:08 AM DIRECTOR EMPLOYMENT Miscellaneous samples (specimen) SPECIMEN FROM BONE MARROW OBTAINED BY ASPIRATION / Unknown 08/26/2019 10:00 AM DIRECTOR EMPLOYMENT 08/30/2019 10:08 AM DIRECTOR EMPLOYMENT Romero Barraza MD LAB - PATHOLOGY/CYTO LOGY ORDERABLES Performing Organization Address City/State/[facility] Co de Phone Number [facility] [address] [phone] documented in this encounter Visit Diagnoses Not on filedocumented in this encounter Care Teams Finishing Range Supervisor Relationship Specialty Start Date End Date Darian Cueto MD [address] [place] [id number] PCP - General 06/22/21 06/15/24 Zeyad Moreno MD [address] [id number] PCP - General Family Medicine 06/16/24 documented as of this encounter
--- OUTSIDE RECORDS SUMMARY | 2024-11-05 14:02 | XMS_ITS | Patient Health Summary ---
Author Organization [facility] [employer] Address [address] [place] [address] Care Team Providers Care Head Golf Professional Name Role Phone Zeyad Moreno MD Primary Care Provider [phone] Note from [facility],non-owned Affiliates and Associated Physician Practices is amultiple site organization consisting of ambulatory clinics and hospital sitesin [place], [place], [place] and [place]. This disclosure is being madepursuant to the Care Everywhere program and may not contain all information available regarding this patient. Last updated 18.[facility] [employer] Allergies * Red Dye(Unknown) * Sulfamethoxazole W-Trimethoprim(Nausea [...] Comments Blood Pressure 139/73 09/16/2024 8:57 AM TECHNOLOGY RISK INTERN Pulse 76 09/16/2024 8:57 AM TECHNOLOGY RISK INTERN Temperature 35.8 ??C (96.5 ??F) 05/17/2024 8:07 AM CD T Respiratory Rate - - Oxygen Saturation 95% 06/16/2024 1:37 PM CDT Inhaled Oxygen Concentration - - Weight 68 kg (150 lb) 09/16/2024 8:57 AM TECHNOLOGY RISK INTERN Height 162.6 cm (5' 4 ) 06/16/2024 [...] syndromes. > Dictated by Surjit Faust MD (Tromper) 06/16/2024 11:28 AM Venkat Oliva DO have [...] syndromes. > Dictated by Surjit Faust MD (Tromper) 06/16/2024 11:28AM Venkat Oliva DO have personally reviewed and interpreted this examination/study. > Interpreting Provider: Venkat Huynh DO on 06/16/2024 5:09 PM Brandyn Fischer APRN-HEAVY DUTY MECHANIC NM ORDERABLES * CT HEAD STEREOTACTIC WO CONTRAST (06/16/2024 7:24 AM CDT) Anatomical Region Laterality Modality Head Computed Tomogra phy 06/16/2024 9:36 AM CDT Impressions 06/16/2024 10:56 AM CDT IMPRESSION: 1. CT performed for stereotactic localization purpose. > Dictated by Deo Wall MD, (executive vice president and chief financial officer). I, Gustavo Brooks MD have personally reviewed [...] purpose. > Dictated by Deo Wall MD, (executive vice president and chief financial officer). I, Gustavo Brooks MD have personally reviewed and interpreted this examination/study. > Interpreting Provider: Gustavo Brooks MD on 06/16/2024 10:56 AM Tiprameshharjinder Aaliyah [facility] CT ORDERABLES * MRI Brain Wwo [...] DATE/TIME OF EXAM: ??06/14/2024 5:25 PM, LOCATION ??[facility] INDICATION: G25.0: Tremor, essential Z01.818: Preop examination ADDITIONAL CLINICAL INFORMATION: Ordering Provider Reason For Exam: ??[facility] Protocol Technologist Note: Additional: TECHNIQUE: MRI of [...] CONTRAST, DATE/TIME OF EXAM: 06/14/2024 5:25PM, LOCATION [facility] INDICATION: G25.0: Tremor, essential Z01.818: Preop examination [...] MD on 06/17/2024 2:08 PM Brandyn Fischer [employer]-HEAVY DUTY MECHANIC MR ORDERABLES * (ABNORMAL) CREATININE - POCT INTERFACED (06/14/2024 4:31 PM CDT) [facility] Creatinine POCT 0.77 0.30 - 1.30 mg/dL 06/14/2024 4:33 PM CDT [facility] eGFR 82(L) >=90 mL/min/1.7 3 m2 06/14/2024 4:33 PM CDT [facility] Blood BLOOD SPECIMEN / Unknown 06/14/2024 4:31 PM CDT 06/14/2024 4:33 PM CDT Brandyn Fischer [employer]-HEAVY DUTY MECHANIC LAB - POINT OF C ARE ORDERABLES Performing Organization Address [facility] Co de Phone Number [facility] [address] [place] [phone], [facility] [phone] * BONE MARROW BIOPSY (STL) (08/26/2019 10:00 AM TECHNOLOGY RISK INTERN) [facility] Case Report Bone Marrow Patholog y Report ?Case: [id number] ? Authorizing Provider: ??Romero Barraza MD ?Collected: ? 08/26/2019 10:00 AM ? Ordering Location: ? [facility] ? Received: ?08/30/2019 10:08 AM ? Pathologist: ? Crissy Carlson MD ? Specimens: ?? A) - Bone Marrow Core, [id number] ? B) - Bone Marrow Clot, [id number] ? C) - Blood Peripheral, [id number] ? D) - Bone Marrow Aspirate, [id number] ? 08/30/2019 3:[address] [facility] Final Diagnosis Bone marrow, aspirate, clot section, and core biopsy: - Hypercellular marrow with maturing trilineage hematopoiesis and trilineage dyspoiesis - No evidence of lymphoma or high-grade myeloid neoplasm. - See description. Peripheral blood smear: - Leukopenia. - Hypochromic, macrocytic anemia. - See description. 08/30/2019 3:[address] [facility] Comment Overall, the bone marrow is hypercellular with trilineage hematopoiesis and trilineage dyspoiesis with no increased blasts both by morphology and concurrent flow cytometry ([id number]). In the correct clinical context it could represent low grade Myelodysplastic syndrome (MDS), however rule out other causes of dyspoiesis such as infection, vitamin deficiency and medication induced toxicity is ruled out. Correlation with clinical findings and any previous bone marrow biopsy results is required. AQ/NK 08/30/2019 3:[address] [facility] Peripheral Smear Description Manual Differential Count (100 cells): 48 % neutrophils, 44 % lymphocytes, 3 % metamyelocytes, 2 % bands. 1 nRBCs / 100 WBCs. Leukocyte number: decreased. Granulocyte morphology: mild shift to immaturity. Lymphocyte morphology: normal. Erythrocyte number: decreased. Erythrocyte morphology: macrocytic. Anisopoikilocytosis: mild. Polychromasia: not significant. Platelet number: normal. Platelet morphology: normal. 08/30/2019 3:[address] [facility] Bone Marrow Aspirate [...] seen. Controls worked appropriately. 08/30/2019 3:[address] [facility] Bone Marrow Core [...] adequate reticuloendothelial storage iron 08/30/2019 3:[address] [facility] Clinical History 08/30/2019 3:[address] [facility] Materials Received Received are 15 slides and 2 blocks labeled as [id number] along with the outside pathology report. [place] [address]. All materials are returned to the referring institution, along with a copy of our final report. 08/30/2019 3:[address] [facility] Disclaimer The performance characteristics of all immunohistochemical and indirect immunofluorescence stains (if any) cited in this report were determined by the [facility]. Some of these tests were developed [...] the attending (teaching) pathologist. 08/30/2019 3:[address] [facility] Embedded Images 08/30/2019 3:[address] [facility] Pathology/Cytology SPECIMEN FROM BONE MARROW OBTAINED BY ASPIRATION / Unknown 08/26/2019 10:00 AM TECHNOLOGY RISK INTERN 08/30/2019 10:08 AM TECHNOLOGY RISK INTERN Miscellaneous samples (specimen) BONE MARROW CLOT SPECIMEN / Unknown 08/26/2019 10:00 AM TECHNOLOGY RISK INTERN 08/30/2019 10:08 AM TECHNOLOGY RISK INTERN Miscellaneous samples (specimen) PERIPHERAL BLOOD / Unknown 08/26/2019 10:00 AM TECHNOLOGY RISK INTERN 08/30/2019 10:08 AM TECHNOLOGY RISK INTERN Miscellaneous samples (specimen) SPECIMEN FROM BONE MARROW OBTAINED BY ASPIRATION / Unknown 08/26/2019 10:00 AM TECHNOLOGY RISK INTERN 08/30/2019 10:08 AM TECHNOLOGY RISK INTERN Romero Barraza MD LAB - PATHOLOGY/CYTO LOGY ORDERABLES Performing Organization Address [facility] Co de Phone Number [facility] [address] [phone] * FLOW CYTOMETRY BONE MARROW (08/26/2019 9:00 AM TECHNOLOGY RISK INTERN) Case Report Flow Cytometry ?Case: [id number] ? Authorizing Provider: ??Romero Barraza MD ?Collected: ? 08/26/2019 09:00 AM ? Ordering Location: ? [facility] ? Received: ?08/26/2019 01:26 PM ? Pathologist: ? Millicent Dawson Mai, DO ? Specimen: ?Bone Marrow ? 08/26/2019 6:[address] [facility] Final Diagnosis Bone marrow, flow cytometric immunophenotypic analysis: - No evidence of non-Hodgkin lymphoma or high-grade myeloid neoplasm. - See interpretation. 08/26/2019 6:[address] [facility] Flow Cytometry Interpretation The [...] the flow cytometry specimen is reviewed for quality assurance nurse purposes. The bone marrow aspirate specimen shows no evidence of involvement by non-Hodgkin lymphoma or a high-grade myeloid neoplasm. Correlation with clinical findings, the concurrent bone marrow core biopsy, and relevant cytogenetic/molecu lar studies is required. 08/26/2019 6:[address] [facility] Flow Cytometry Results Differential Result Comment Flow Cell Count /uL 10,800 Total Viability % 97.0 Lymphocytes % 38 Dim CD45 Region % 8 Monocytes % 5 Granulocytes % 48 08/26/2019 6:38 PM [facility] Reason for test Anemia, unspecified 285.9 08/26/2019 6:[address] [facility] Client Specimen ID # [id number] 08/26/2019 6:[address] [facility] Number of markers 10 were performed. A-2 Flow CD10 A-3 Flow CD13 A-5 Flow CD20 A-1 Flow CD5 A-4 Flow CD19 A-6 Flow CD33 A-7 Flow CD34 A-8 Flow CD45 A-9 [place]+CD19+ A-10 Lambda+CD19+ 08/26/2019 6:[address] [facility] Disclaimer Test performed at [facility], [address] [place] [address], [facility]. *The established laboratory minimum viability is 70%. [...] high complexity clinical testing. 08/26/2019 6:[address] [facility] Embedded Images 6:[address] [facility] Pathology/Cytolo gy BONE MARROW SPECIMEN / Unknown 08/26/2019 9:00 AM TECHNOLOGY RISK INTERN 08/26/2019 1:26 PM TECHNOLOGY RISK INTERN Romero Barraza MD LAB - PATHOLOGY/CYTO LOGY ORDERABLES [facility] [address] [place] [address] Care Teams Head Golf Professional Relationship Specialty Start Date End Date Zeyad Moreno MD [address] [place] [address] PCP - General Family Medicine 06/16/24
--- OUTSIDE RECORDS SUMMARY | 2024-11-05 14:02 | XMS_ITS | Referral Summary ---
Author Organization [facility] [employer] Address [address] [place] [address] Care Team Providers Care Bead Maker Name Role Phone Zeyad Moreno MD Primary Care Provider [phone] Source Comments [facility] [employer],non-owned Affiliates and Associated Physician Practices is amultiple site organization consisting of ambulatory clinics and hospital sitesin [place], [place], [place]. This disclosure is being madepursuant to the Care Everywhere program and may not contain all information available regarding this patient. Last updated 18.[facility] [employer] Encounters Date Type Department Care Team Description 09/16/2024 Travel 09/16/2024 9:00 AM SCARF GLUER Office Visit [facility] - Neurology [address] [place] [phone] Brandyn Fischer APRN-CNP Tremor, essential (Primary Dx) [...] Comments Blood Pressure 139/73 09/16/2024 8:57 AM SCARF GLUER Pulse 76 09/16/2024 8:57 AM SCARF GLUER Temperature 35.8 ??C (96.5 ??F) 05/17/2024 8:07 AM CD T Respiratory Rate - - Oxygen Saturation 95% 06/16/2024 1:37 PM CDT Inhaled Oxygen Concentration - - Weight 68 kg (150 lb) 09/16/2024 8:57 AM SCARF GLUER Height 162.6 cm (5' 4 ) 06/16/2024 1:37 PM CDT Body Mass Index 25.75 06/16/2024 1:37 PM CDT Plan of Treatment Upcoming Encounters Date Type Department Care Team (Late st Contact Info) Description 03/17/2025 9:00 AM CDT Office Visit [facility]rology [facility] [facility], [place] [phone] Brandyn Fischer APRN-ASHLEY [address] [place] [phone] Care Teams Bead Maker Relationship Specialty Start Date End Date Zeyad Moreno MD [address] [place] [address] PCP - General Family Medicine 06/16/24
--- OUTSIDE RECORDS SUMMARY | 2024-11-05 14:02 | XMS_ITS | Clinical Summary ---
Author Organization [facility] Address [address] [place] [address] Care Team Providers Care Cap Jewel Plate Assembler Name Role Phone Unavailable Primary Care Provider Unavailabl e Immunizations Immunization Administration Dates Next Due Covid-19, Mrna, Lnp-s, Pf, 30 Mcg/0.3 Ml Dose (P fizer) 10/10/2021 Social History Tobacco Use Types Packs/Day Years Used Date Smoking Tobacco: Never Assessed Comments Unknown Sex and Gender Information Value Date Recorded Sex Assigned at Not on file Legal Sex Female 7:11 PM CORSAGE MAKER Gender Identity Not on file Sexual Orientation [...]
--- OUTSIDE RECORDS SUMMARY | 2024-11-05 14:02 | XMS_ITS | Encounter Summary ---
Author Organization [facility] Address [address] [place] [address] Care Team Providers Care Health Analyst Name Role Phone Darian Cueto MD Primary Care Provider [phone] Zeyad Moreno MD Primary Care Provider [phone] Encounter Details Date Type Department Care Team (Late st Contact Info) Description 08/26/2019 Lab Requisition [facility] [address] [place] [address] Romero Barraza MD [address] [address] Anemia, unspecified Social History Tobacco [...] Visit [facility] - Neurology [address] [facility], [place] [phone] Brandyn Fischer APRN-ASHLEY [address] [place] [address] [place] [phone] documented as of this encounter Procedures Procedure Name Priority Date/Time Associated Diagnosis Comments FLOW CYTOMETRY BONE MARROW Routine 08/26/2019 9:00 AM OFFICE CLIN ASST Anemia, unspecified documented in this encounter Results * FLOW CYTOMETRY BONE MARROW (08/26/2019 9:00 AM [facility] Case Report Flow Cytometry ?Case: [id number] ? Authorizing Provider: ??Romero Barraza MD ?Collected: ? 08/26/2019 09:00 AM ? Ordering Location: ? [facility] ? Received: ?08/26/2019 01:26 PM ? Pathologist: ? Millicent Dawson Mai, DO ? Specimen: ?Bone Marrow ? 08/26/2019 6:38 PM [facility] Final Diagnosis Bone marrow, flow cytometric immunophenotypic analysis: - No evidence of non-Hodgkin lymphoma or high-grade myeloid neoplasm. - See interpretation. 08/26/2019 6:38 PM [facility] Flow Cytometry Interpretation [...] the flow cytometry specimen is reviewed for chemistry quality control technician purposes. The bone marrow aspirate specimen shows no evidence of involvement by non-Hodgkin lymphoma or a high-grade myeloid neoplasm. Correlation with clinical findings, the concurrent bone marrow core biopsy, and relevant cytogenetic/molecu lar studies is required. 08/26/2019 6:38 PM [facility] Flow Cytometry Results Differential Result Comment Flow Cell Count /uL 10,800 Total Viability % 97.0 Lymphocytes % 38 Dim CD45 Region % 8 Monocytes % 5 Granulocytes % 48 08/26/2019 6:38 PM [facility] Reason for test Anemia, unspecified 285.9 08/26/2019 6:38 PM [facility] Client Specimen ID # [id number] 08/26/2019 6:38 PM [facility] Number of markers 10 were performed. A-2 Flow CD10 A-3 Flow CD13 A-5 Flow CD20 A-1 Flow CD5 A-4 Flow CD19 A-6 Flow CD33 A-7 Flow CD34 A-8 Flow CD45 A-9 [place]+CD19+ A-10 Lambda+CD19+ 08/26/2019 6:38 PM [facility] Disclaimer Test performed at [facility], [address] [place] [address], [id number]. *The established laboratory minimum viability is 70%. [...] high complexity clinical testing. 08/26/2019 6:38 PM [facility] Embedded Images 9 6:38 PM [facility] Pathology/Cytolo gy BONE MARROW SPECIMEN / Unknown 08/26/2019 9:00 AM OFFICE CLIN ASST 08/26/2019 1:26 PM OFFICE CLIN ASST Romero Barraza MD LAB - PATHOLOGY/CYTO LOGY ORDERABLES [facility] [address] [phone] documented in this encounter Visit Diagnoses Diagnosis Anemia, unspecified documented in this encounter Care Teams Health Analyst Relationship Specialty Start Date End Date Darian Cueto MD [address] [place] [phone] PCP - General 06/22/21 06/15/24 Zeyad Moreno MD [address] [place] [address] PCP - General Family Medicine 06/16/24 documented as of this encounter
--- OUTSIDE RECORDS SUMMARY | 2024-11-05 14:02 | XMS_ITS | Clinical Summary ---
Author Organization [facility] [employer] Address [address] [facility] [place] [address] Care Team Providers Care Cement Fittings Maker Name Role Phone Zeyad Moreno MD Primary Care Provider [phone] Source Comments [facility] [employer],non-owned Affiliates and Associated Physician Practices is amultiple site organization consisting of ambulatory clinics and hospital sitesin [place], [place], [place] and [place]. This disclosure is being madepursuant to the Care Everywhere program and may not contain all information available regarding this patient. Last updated 18.[facility] [employer] Allergies Active Allergy Reactions Criticality Noted Date [...] Department Care Team Description 09/16/2024 9:00 AM DIE OPERATOR [facility] [address] [place] [phone] Brandyn Fischer APRN-CNP Tremor, essential (Primary Dx) [...] Comments Blood Pressure 139/73 09/16/2024 8:57 AM DIE OPERATOR Pulse 76 09/16/2024 8:57 AM DIE OPERATOR Temperature 35.8 ??C (96.5 ??F) 05/17/2024 8:07 AM CD T Respiratory Rate - - Oxygen Saturation 95% 06/16/2024 1:37 PM CDT Inhaled Oxygen Concentration - - Weight 68 kg (150 lb) 09/16/2024 8:57 AM DIE OPERATOR Height 162.6 cm (5' 4 ) 06/16/2024 1:37 PM CDT Body Mass Index 25.75 06/16/2024 1:37 PM CDT Plan of Treatment Upcoming Encounters Date Type Department Care Team (Late st Contact Info) Description 03/17/2025 9:00 AM CDT Office Visit [facility] - Neurology [address] [place] [phone] Brandyn Fischer APRN-CNP [address] [place] [phone] Health Maintenance Due Date Last Done Comments [...] age to complete this topic Care Teams Cement Fittings Maker Relationship Specialty Start Date End Date Zeyad Moreno MD [address] [place] [id number] PCP - General Family Medicine 06/16/24
--- OUTSIDE RECORDS SUMMARY | 2024-11-05 14:02 | XMS_ITS | Clinical Summary ---
Author Organization [facility] Address [address] [place] [address] Care Team Providers Care Slipman Name Role Phone Zeyad Moreno MD Primary Care Provider [phone] Allergies Active Allergy Reactions Criticality Noted Date [...] STL ABSTRACTION Provider, Abstract 10/13/2024 Orders Only [facility] Oncology and Hematology [place] [address] [place] [address] Lowell Billy MD 10/12/2024 Refill [facility] Oncology and Hematology [facility] [address] [place] [address] Lowell Billy MD Insomnia, unspecified type 09/13/2024 11:00 AM FINANCIAL REPORT SERVICE SALES AGENT Office Visit [facility] Oncology and Hematology [place] [address] [place] [address] Lowell Billy MD Chronic anemia (Primary Dx) 09/07/2024 Orders Only [facility] Oncology and Hematology [facility] [address] [place] [address] Lowell Billy MD 08/11/2024 Orders Only [facility] Oncology [facility] Hematology [place] [address] [address] [place] [address] Lowell Billy MD 08/10/2024 External Device Data [...] Comments Blood Pressure 129/75 09/13/2024 10:57 AM FINANCIAL REPORT SERVICE SALES AGENT Pulse 64 09/13/2024 10:57 AM FINANCIAL REPORT SERVICE SALES AGENT Temperature 36.6 ??C (97.8 ??F) 09/13/2024 10:[address] Respiratory Rate 16 09/13/2024 10:57 AM FINANCIAL REPORT SERVICE SALES AGENT Oxygen Saturation 95% 09/13/2024 10:57 AM FINANCIAL REPORT SERVICE SALES AGENT Inhaled Oxygen Concentration - - Weight 69.2 kg (152 lb 9.6 oz) 09/13/2024 10:57 AM FINANCIAL REPORT SERVICE SALES AGENT Height 162.6 cm (5' 4 ) 05/15/2022 9:40 AM CDT Body Mass Index 26.19 05/15/2022 9:40 AM CDT Plan of Treatment Upcoming Encounters Date Type Department Care Team (Late st Contact Info) Description 12/27/2024 9:45 AM CDT Office Visit [facility] Oncology and Hematology [place] [address] [place] [address] [address] [place] [address] Lowell Billy MD [address] [facility] [facility] [address] [place] [address] Health Maintenance Due Date Last [...] CBC WITH DIFFERENTIAL Routine 10/05/2024 4:22 PM FINANCIAL REPORT SERVICE SALES AGENT COMPREHENSIVE METABOLIC PANEL Routine 09/06/2024 11:43 AM FINANCIAL REPORT SERVICE SALES AGENT CBC WITH DIFFERENTIAL Routine 09/06/2024 11:08 AM FINANCIAL REPORT SERVICE SALES AGENT CBC WITH DIFFERENTIAL Routine 08/10/2024 8:50 AM FINANCIAL REPORT SERVICE SALES AGENT from Last 3 Months Results * CBC WITH DIFFERENTIAL (10/05/2024 4:22 PM FINANCIAL REPORT SERVICE SALES AGENT) Only the most recent of3 resultswithin the time period is included. Blood us Lowell Billy MD HEMATOLOGY ORDERABLES Final Res ult * COMPREHENSIVE METABOLIC PANEL (09/06/2024 11:43 AM FINANCIAL REPORT SERVICE SALES AGENT) Blood us Lowell Billy MD CHEMISTRY ORDERABLES Final Resu lt from Last 3 Months Insurance [facility] MCR Care Teams Slipman Relationship Specialty Start Date End Date Zeyad Moreno MD PCP - General Family Practice 02/26/23
[2024-11-05 15:45] LABS: Basophils Absolute Auto 0.1 K/mm3 (0.0-0.1); Basophils Percent Auto 0.9 % (0.2-1.2); Eosinophils Percent Auto 0.7 % (0-4.4); Hematocrit 27.8 % (37.0-47.0); Hemoglobin 8.5 g/dL (12.0-15.0); Immature Granulocyte Absolute 0.02 K/mm3 (0.00-0.031); Immature Granulocyte Percent A 0.4 % (0-0.5); Lymphocytes Percent Auto 33.3 % (18.3-44.2); Mean Corpuscular HGB Conc 30.6 g/dl (32-36); Mean Corpuscular Hemoglobin 38.1 pg (26-34); Mean Corpuscular Volume 124.7 fl (80-100); Mean Platelet Volume 12.1 fl (7.4-10.4); Monocytes Absolute Auto 0.4 K/mm3 (0.1-0.6); Monocytes Percent Auto 7.4 % (2.6-8.5); Neutrophils Absolute Auto 3.1 K/mm3 (1.3-6.7); Neutrophils Percent Auto 57.3 % (45.5-73.1); Nucleated Red Blood Cells Perc 0.9 % (0.0-0.2); Platelet Count Result 209 k/mm3 (150-375); Red Blood Count 2.23 M/mm3 (4.2-5.4); Red Cell Distribution Width 17.3 % (11.5-14.5); White Blood Count 5.4 K/mm3 (4.5-10.0)
[2024-11-05 15:58] LABS: Alanine Aminotransferase 17 U/L (6-35); Albumin Level 4.3 g/dL (3.5-5.1); Alkaline Phosphatase 86 U/L (38-126); Anion Gap 12 mmol/L (4-12); Aspartate Amino Transferase 28 U/L (14-36); Bilirubin,Total 2.5 mg/dL (0.2-1.3); Blood Urea Nitrogen 12 mg/dL (7-17); Calcium 9.6 mg/dL (8.4-10.2); Carbon Dioxide 25 mmol/L (22-30); Chloride 101 mmol/L (98-107); Estimated CRCL calculation 56 ml/min; Estimated Glomerular Filt Rate > 60; Glucose 130 mg/dL (65-110); Potassium 3.8 mmol/L (3.4-5.0); Sodium 138 mmol/L (137-145)
[2024-11-05 16:19] LABS: Macrocytosis 1+ (NORMAL); Platelet Estimate Adequate (Adequate)
[2024-11-05 16:20] LABS: Hypochromasia 1+; Polychromasia 1+; Schistocytes None Seen
[2024-11-05 16:30] LABS: Influenza A QL RT-PCR Negative (Negative); Influenza B QL RT-PCR Negative (Negative); RSV RNA, RT-PCR Negative (Negative); SARS-CoV-2 RNA PCR Negative (Negative)
[2024-11-05 19:46] VITALS: BP 115/71; PULSE 73; RESP 20; O2SAT 97
[2024-11-05] MEDS: SODIUM CHLORIDE 0.9% IV 1,000 ML 999 ML IV CONT (19:54)
[2024-11-05 20:28] LABS: Add Urine Microscopic? YES; Appearance Urine Cloudy (Clear); Bacteria Urine None Seen /hpf; Bilirubin Urine 1+ (Negative); Blood Urine Negative (Negative); Calcium Oxalate Crystals Urine Present /hpf; Color Urine Dark Yellow (Yellow); Glucose Urine UA Negative (Negative); Hyaline Casts Urine Present /lpf; Ketones Urine Trace mg/dL (Negative); Leukocyte Esterase Ur 2+ LEU/UL (Negative); Mucus Urine Present /lpf; Need Manual Microscopic Reviewed; Nitrate Urine Negative (Negative); Protein Urine Trace mg/dL (Negative); Specific Grav Ur 1.023 (1.001-1.035); Squamous Epithelial Cell Urine Moderate /hpf (Few); Urobilinogen Urine 0.2 mg/dL (<2.0); WBC Urine 21-50 /hpf (0-3)
[2024-11-05 20:33] LABS: NT Pro B Type Natriuretic Pept 371 pg/mL (19.9-100); Troponin I < 0.012 ng/mL (0.000-0.034)
[2024-11-05 22:20] VITALS: BP 131/78; PULSE 70; RESP 18; TEMP 36.6; O2SAT 98
[2024-11-05] MEDS: CEPHALEXIN 500 MG CAPSULE PO (22:23)
== END 2024-11-05 22:28 | disposition home or self-care (01) ==
PROVIDERS: Physician Assistant; Emergency Provider Physician Assistant; PCP Family Medicine
DX: D64.9 Anemia, unspecified (principal); N30.00 Acute cystitis without hematuria; M81.0 Age-related osteoporosis without current pathological fracture; E55.9 Vitamin D deficiency, unspecified; Z20.822 Contact with and (suspected) exposure to COVID-19
CPT/HCPCS: 36415; 71046; 80053; 81001; 83880; 84484; 85025; 87426; 87637; 87804; 93005; 96360; 99284; A9270; J7030

== ENCOUNTER 2024-11-22 10:56 | Outpatient (CLI) | payer OTHER, SELFPAY ==
[2024-11-22 11:31] LABS: Add Urine Microscopic? YES; Appearance Urine Clear (Clear); Bilirubin Urine Negative (Negative); Blood Urine Negative (Negative); Glucose Urine UA Negative (Negative); Ketones Urine Negative (Negative); Leukocyte Esterase Ur 1+ LEU/UL (Negative); Nitrate Urine Negative (Negative); Protein Urine Negative (Negative); Urobilinogen Urine 0.2 mg/dL (<2.0); pH Urine 5.5 (5.0-9.0)
[2024-11-22 11:33] LABS: Color Urine Dark Yellow (Yellow)
[2024-11-22 11:52] LABS: Bacteria Urine None Seen /hpf; Mucus Urine Present /lpf; Need Manual Microscopic Reviewed; RBC Urine 0-2 /hpf (0-2); Squamous Epithelial Cell Urine Occasional /hpf (Few)
--- OUTSIDE RECORDS SUMMARY | 2024-11-22 14:02 | XMS_ITS | Clinical Summary ---
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
--- OUTSIDE RECORDS SUMMARY | 2024-11-22 14:02 | XMS_ITS | Encounter Summary ---
Author Organization [facility] Address [address] [facility] [place] [address] Care Team Providers Care Oil Burner Technician Name Role Phone Darian Cueto MD Primary Care Provider [phone] Zeyad Moreno MD Primary Care Provider [phone] Encounter Details Date Type Department Care Team (Late st Contact Info) Description 08/30/2019 Lab Requisition [facility] [address] [place] [address] Romero Barraza MD [address] [address] Social History Tobacco Use Types [...] Visit [facility] - Neurology [address] [facility], [place] [address] Brandyn Fischer APRN-ASHLEY [address] [place] [address] documented as of this encounter Procedures Procedure Name Priority Date/Time Associated Diagnosis Comments BONE MARROW BIOPSY (STL) Routine 08/26/2019 10:00 AM LEASING COORDINATOR documented in this encounter Results * BONE MARROW BIOPSY (STL) (08/26/2019 10:00 AM [facility]) Case Report Bone Marrow Patholog y Report Case: [id number] Authorizing Provider: Romero Barraza MD Collected: 08/26/2019 10:00 AM Ordering Location: [facility] Lab Received: 08/30/2019 10:08 AM Pathologist: Crissy Carlson MD Specimens: A) - Bone Marrow Core, AB19-46 B) - Bone Marrow Clot, AB19-46 C) - Blood Peripheral, AB19-46 D) - Bone Marrow Aspirate, AB 19-46 08/30/2019 3:12 PM [facility] Final Diagnosis Bone marrow, aspirate, clot section, and core biopsy: - Hypercellular marrow with maturing trilineage hematopoiesis and trilineage dyspoiesis - No evidence of lymphoma or high-grade myeloid neoplasm. - See description. Peripheral blood smear: - Leukopenia. - Hypochromic, macrocytic anemia. - See description. 08/30/2019 3:12 PM [facility] Comment Overall, the bone marrow is hypercellular with trilineage hematopoiesis and trilineage dyspoiesis with no increased blasts both by morphology and concurrent flow cytometry ([id number]). In the correct clinical context it could represent low grade Myelodysplastic syndrome (MDS), however rule out other causes of dyspoiesis such as infection, vitamin deficiency and medication induced toxicity is ruled out. Correlation with clinical findings and any previous bone marrow biopsy results is required. AQ/NK 08/30/2019 3:12 PM [facility] Peripheral Smear Description Manual Differential Count (100 cells): 48 % neutrophils, 44 % lymphocytes, 3 % metamyelocytes, 2 % bands. 1 nRBCs / 100 WBCs. Leukocyte number: decreased. Granulocyte morphology: mild shift to immaturity. Lymphocyte morphology: normal. Erythrocyte number: decreased. Erythrocyte morphology: macrocytic. Anisopoikilocytosis: mild. Polychromasia: not significant. Platelet number: normal. Platelet morphology: normal. 08/30/2019 3:12 PM [facility] Bone Marrow Aspirate [...] seen. Controls worked appropriately. 08/30/2019 3:12 PM [facility] Bone Marrow Core [...] adequate reticuloendothelial storage iron 08/30/2019 3:12 PM [facility] Clinical History 08/30/2019 3:12 PM [facility] Materials Received Received are 15 slides and 2 blocks labeled as [id number] along with the outside pathology report. [place] [address]. All materials are returned to the referring institution, along with a copy of our final report. 08/30/2019 3:12 PM [facility] Disclaimer The performance characteristics of all immunohistochemical and indirect immunofluorescence stains (if any) cited in this report were determined by the Histopathology Laboratory of [facility]. Some of these tests [...] the attending (teaching) pathologist. 08/30/2019 3:12 PM LEASING COORDINATOR [facility] Embedded Images 08/30/2019 3:12 PM LEASING COORDINATOR [facility] Pathology/Cytology SPECIMEN FROM BONE MARROW OBTAINED BY ASPIRATION / Unknown 08/26/2019 10:00 AM LEASING COORDINATOR 08/30/2019 10:08 AM LEASING COORDINATOR Miscellaneous samples (specimen) BONE MARROW CLOT SPECIMEN / Unknown 08/26/2019 10:00 AM LEASING COORDINATOR 08/30/2019 10:08 AM LEASING COORDINATOR Miscellaneous samples (specimen) PERIPHERAL BLOOD / Unknown 08/26/2019 10:00 AM LEASING COORDINATOR 08/30/2019 10:08 AM LEASING COORDINATOR Miscellaneous samples (specimen) SPECIMEN FROM BONE MARROW OBTAINED BY ASPIRATION / Unknown 08/26/2019 10:00 AM LEASING COORDINATOR 08/30/2019 10:08 AM LEASING COORDINATOR Romero Barraza MD LAB - PATHOLOGY/CYTO LOGY ORDERABLES Performing Organization Address City/State/[facility] de Phone Number [facility] [address] [phone] documented in this encounter Visit Diagnoses Not on filedocumented in this encounter Care Teams Oil Burner Technician Relationship Specialty Start Date End Date Darian Cueto MD [address] [place] [phone] PCP - General 06/22/21 06/15/24 Zeyad Moreno MD [address] [place] [address] PCP - General Family Medicine 06/16/24 documented as of this encounter
--- OUTSIDE RECORDS SUMMARY | 2024-11-22 14:02 | XMS_ITS | Clinical Summary ---
Author Organization [facility] Address [address] [place] [address] Care Team Providers Care Construction Equipment Mechanic Helper Name Role Phone Zeyad Moreno MD Primary Care Provider [phone] Allergies Active Allergy Reactions Criticality Noted Date Comments Red Dye Unknown 08/05/2019 Red dye from erythromycin Sulfamethoxazole-Tr imethoprim Nausea and Vomiting Low 08/05/2019 Medications propranoloL (INDERAL) 40 mg tablet TAKE 1 TABLET BY MOUTH EVERY 12 HOURS 1 Active predniSONE (DELTASONE) 20 mg tablet TAKE 2 TABLETS BY MOUTH EVERY DAY FOR 5 DAYS 2 Active doxycycline hyclate (VIBRAMYCIN) 100 mg capsule TAKE 1 CAPSULE BY MOUTH TWICE A DAY FOR 10 DAYS 2 Active benzonatate (TESSALON) 100 mg capsule TAKE 1 CAPSULE BY MOUTH TWICE A DAY NEEDED FOR COUGH 2 Active temazepam (RESTORIL) 15 mg capsuleIndicati ons:Insomnia, unspecified type TAKE 1 CAPSULE BY MOUTH NIGHTLY NEEDED FOR INSOMNIA. 30 Capsule 3 Active carbidopa-levod opa (SINEMET) 25-100 mg tablet Take 1 Tablet by mouth. 4 Active primidone (MYSOLINE) 50 mg tablet Take 50 mg by mouth. 4 Active darbepoetin adonay (Aranesp, Polysorbate,) 500 mcg/mL Syringe Inject 1 mL (500 mcg) by subcutaneous injection every 21 days. 5 mL 2 4 Active temazepam (RESTORIL) 15 mg capsuleIndicati ons:Insomnia, unspecified type TAKE 1 CAPSULE BY MOUTH NIGHTLY NEEDED FOR INSOMNIA. 30 Capsule 5 Active zolpidem (AMBIEN) 5 mg tabletIndicatio ns:Insomnia, unspecified type Take 1 Tablet (5 mg) by mouth nightly as needed for Insomnia. 30 Tablet 5 Active Active Problems Problem Noted Date Diagnosed Date Myelodysplastic syndrome, low grade 09/09/2019 Macrocytic anemia 08/17/2019 Encounters Date Type Department Care Team Description 11/10/2024 Telephone [facility] Oncology and Hematology [facility] Essence Keller [address] Lowell Billy MD Medication Problem 11/09/2024 Orders Only [facility] Oncology and Hematology [facility] Essence [facility] [address] [place] [phone] Lowell Billy MD Insomnia, unspecified type (Primary Dx) 10/28/2024 External Device Data STL ABSTRACTION Provider, Abstract 10/13/2024 Orders Only [facility] Oncology and Hematology [facility] Essence [address] [place] [address] Lowell Billy MD 10/12/2024 Refill [facility] Oncology and Hematology [facility] Essence Keller [address] [place] [phone] Lowell Billy MD Insomnia, unspecified type 09/13/2024 11:00 AM RACING SECRETARY Office Visit [facility] Oncology and Hematology [facility] Essence Keller [address] [place] [address] Lowell Billy MD Chronic anemia (Primary Dx) 09/07/2024 Orders Only [facility] Oncology and Hematology [facility] Essence Keller [address] Lowell Billy MD from Last 3 Months Family History Medical [...] Comments Blood Pressure 129/75 09/13/2024 10:57 AM RACING SECRETARY Pulse 64 09/13/2024 10:57 AM RACING SECRETARY Temperature 36.6 C (97.8 F) 09/13/2024 10:57 AM RACING SECRETARY Respiratory Rate 16 09/13/2024 10:57 AM RACING SECRETARY Oxygen Saturation 95% 09/13/2024 10:57 AM RACING SECRETARY Inhaled Oxygen Concentration - - Weight 69.2 kg (152 lb 9.6 oz) 09/13/2024 10:57 AM RACING SECRETARY Height 162.6 cm (5' 4 ) 05/15/2022 9:40 AM CDT Body Mass Index 26.19 05/15/2022 9:40 AM CDT Plan of Treatment Upcoming Encounters Date Type Department Care Team (Late st Contact Info) Description 12/27/2024 9:45 AM CDT Office Visit [facility] Oncology and Hematology - [place] [address] [facility] [address] [place] [address] Lowell Billy MD [address] [facility] [address] [place] [address] Health Maintenance Due Date Last [...] (2 - 2023-2 5 season) 2024 10/10/2021 Medicare [place] ([place]) Preventative Visit/Annual Wellness Visit 10/06/2024 RSV VACCINE (60+ or ) (1 - 1-dose 75+ series) 2028 Procedures Procedure Name Priority Date/Time Associated Diagnosis Comments CBC WITH DIFFERENTIAL Routine 10/05/2024 4:22 PM RACING SECRETARY COMPREHENSIVE METABOLIC PANEL Routine 09/06/2024 11:43 AM RACING SECRETARY CBC WITH DIFFERENTIAL Routine 09/06/2024 11:08 AM RACING SECRETARY from Last 3 Months Results * CBC WITH DIFFERENTIAL (10/05/2024 4:22 PM RACING SECRETARY) Only the most recent of2 resultswithin the time period is included. Blood us Lowell Billy MD HEMATOLOGY ORDERABLES Final Res ult * COMPREHENSIVE METABOLIC PANEL (09/06/2024 11:43 AM RACING SECRETARY) Blood us Lowell Billy MD CHEMISTRY ORDERABLES Final Resu lt from Last 3 Months Insurance [facility] Address: [address] [address] Care Teams Construction Equipment Mechanic Helper Relationship Specialty Start Date End Date Zeyad Moreno MD PCP - General Family Practice 5/24/23
--- OUTSIDE RECORDS SUMMARY | 2024-11-22 14:02 | XMS_ITS | Patient Health Summary ---
Author Organization [facility] Address [address] [place] [address] Care Team Providers Care Building Mechanic Name Role Phone Zeyad Moreno MD Primary Care Provider [phone] Note from [facility],non-owned Affiliates and Associated Physician Practices is amultiple site organization consisting of ambulatory clinics and hospital sitesin [place], [place], [place] and [place]. This disclosure is being madepursuant to the Care Everywhere program and may not contain all information available regarding this patient. Last updated 18.[facility] Allergies * Red Dye(Unknown) * Sulfamethoxazole W-Trimethoprim(Nausea [...] Comments Blood Pressure 139/73 09/16/2024 8:57 AM ROUNDHOUSE FIRER/FIREMAN Pulse 76 09/16/2024 8:57 AM ROUNDHOUSE FIRER/FIREMAN Temperature 35.8 C (96.5 F) 05/17/2024 8:07 AM CDT Respiratory Rate - - Oxygen Saturation 95% 06/16/2024 1:37 PM CDT Inhaled Oxygen Concentration - - Weight 68 kg (150 lb) 09/16/2024 8:57 AM ROUNDHOUSE FIRER/FIREMAN Height 162.6 cm (5' 4 ) 06/16/2024 1:37 PM CDT Body Mass Index 25.75 06/16/2024 1:37 PM CDT Procedures * NM BRAIN IMAGING JAYCE SCAN(Performed 06/16/2024) Performed for Tremor, essential, Preop examination * CT HEAD WO CONTRAST(Performed 06/16/2024) Performed for Tremor, essential, Preop examination * MRI BRAIN WWO CONTRAST(Performed 06/14/2024) Performed for Tremor, essential, Preop examination * CREATININE - POCT INTERFACED(Performed 06/14/2024) * BONE MARROW BIOPSY (STL)(Performed 08/26/2019) * FLOW CYTOMETRY BONE MARROW(Performed 08/26/2019) Performed for Anemia, unspecified Results * NM Brain Imaging Jayce Scan (06/16/2024 1:45 PM CDT) Anatomical Region Laterality Modality Head Nuclear Medicine 06/16/2024 11:2 8 AM CDT Impressions 06/16/2024 5:09 PM CDT Impression: Normal DaTscan study, findings not supportive of parkinsonian syndromes. > Dictated by Surjit Faust MD (Olive Knocker) 06/16/2024 11:28 AM Venkat Oliva DO have personally reviewed and interpreted this examination/study. > Interpreting Provider: Venkat Huynh DO on 06/16/2024 5:09 PM Narrative 06/16/2024 5:09 PM CDT PROCEDURE: NM BRAIN IMAGING JAYCE SCAN DATE/TIME OF EXAM: 06/16/2024 9:20 AM [...] SPECT/CT imaging was performed. Patient's BMI is25.4 kg/m . Findings: No prior study is available for comparison. Uptake in the striatum appears as follows: Left caudate nucleus head: Normal Right caudate nucleus head: Normal Left putamen: Normal Right putamen: Normal Procedure Note Venkat Huynh DO - 06/16/2024 PROCEDURE: NM BRAIN IMAGING JAYCE SCAN DATE/TIME OF EXAM: 06/16/2024 9:20 AM [...] SPECT/CT imaging was performed. Patient's BMI is25.4 kg/m . Findings: No prior study is available for comparison. Uptake in the striatum appears as follows: Left caudate nucleus head: Normal Right caudate nucleus head: Normal Left putamen: Normal Right putamen: Normal Impression: Normal DaTscan study, findings not supportive of parkinsonian syndromes. > Dictated by Surjit Faust MD (Olive Knocker) 06/16/2024 11:28AM Venkat Oliva DO have personally reviewed and interpreted this examination/study. > Interpreting Provider: Venkat Huynh DO on 06/16/2024 5:09 PM Brandyn Fischer APRN-RESTAURANT FRONT MANAGER NM ORDERABLES * CT HEAD STEREOTACTIC WO CONTRAST (06/16/2024 7:24 AM CDT) Anatomical Region Laterality Modality Head Computed Tomogra phy 06/16/2024 9:36 AM CDT Impressions 06/16/2024 10:56 AM CDT IMPRESSION: 1. CT performed for stereotactic localization purpose. > Dictated by Deo Wall MD, (residential real estate assistant). I, Gustavo Brooks MD have personally reviewed and interpreted this examination/study. > Interpreting Provider: Gustavo Brooks MD on 06/16/2024 10:56 AM Narrative 06/16/2024 10:56 AM CDT PROCEDURE: CT HEAD WO CONTRAST DATE/TIME OF [...] purpose. > Dictated by Deo Wall MD, (residential real estate assistant). I, Gustavo Brooks MD have personally reviewed and interpreted this examination/study. > Interpreting Provider: Gustavo Brooks MD on 06/16/2024 10:56 AM Brandyn Fischer DIANETICIST-[facility] CT ORDERABLES * MRI Brain Wwo [...] PM Narrative 06/17/2024 2:08 PM CDT PROCEDURE: MRI BRAIN WWO CONTRAST, DATE/TIME OF EXAM: 06/14/2024 5:25 PM, LOCATION [facility] INDICATION: G25.0: Tremor, essential Z01.818: Preop examination ADDITIONAL CLINICAL INFORMATION: Ordering Provider Reason For Exam: [facility] Protocol Technologist Note: Additional: TECHNIQUE: MRI of [...] CONTRAST, DATE/TIME OF EXAM: 06/14/2024 5:25PM, LOCATION [facility] INDICATION: G25.0: Tremor, essential Z01.818: Preop [...] MD on 06/17/2024 2:08 PM Brandyn Fischer DIANETICIST-RESTAURANT FRONT MANAGER MR ORDERABLES * (ABNORMAL) CREATININE - POCT INTERFACED (06/14/2024 4:31 PM CDT) Creatinine POCT 0.77 0.30 - 1.30 mg/dL 06/14/2024 4:33 PM CDT [facility] eGFR 82(L) >=90 mL/min/1.7 3 m2 06/14/2024 4:33 PM CDT [facility] Blood BLOOD SPECIMEN / Unknown 06/14/2024 4:31 PM CDT 06/14/2024 4:33 PM CDT Brandyn Fischer DIANETICIST-RESTAURANT FRONT MANAGER LAB - POINT OF C ARE ORDERABLES [address] [address], [facility] [phone] * BONE MARROW BIOPSY (STL) (08/26/2019 10:00 AM ROUNDHOUSE FIRER/FIREMAN) Case Report Bone Marrow Patholog y Report Case: [id number] Authorizing Provider: Romero Barraza MD Collected: 08/26/2019 10:00 AM Ordering Location: [facility] Lab Received: 08/30/2019 10:08 AM Pathologist: Crissy Carlson MD Specimens: A) - Bone Marrow Core, AB19-46 B) - Bone Marrow Clot, AB19-46 C) - Blood Peripheral, AB19-46 D) - Bone Marrow Aspirate, AB 19-46 08/30/2019 3:12 PM ROUNDHOUSE FIRER/FIREMAN [facility] PATHOLOGY LAB Final Diagnosis Bone marrow, aspirate, clot section, and core biopsy: - Hypercellular marrow with maturing trilineage hematopoiesis and trilineage dyspoiesis - No evidence of lymphoma or high-grade myeloid neoplasm. - See description. Peripheral blood smear: - Leukopenia. - Hypochromic, macrocytic anemia. - See description. 08/30/2019 3:12 PM ROUNDHOUSE FIRER/FIREMAN [facility] Comment Overall, the bone marrow is hypercellular with trilineage hematopoiesis and trilineage dyspoiesis with no increased blasts both by morphology and concurrent flow cytometry ([id number]). In the correct clinical context it could represent low grade Myelodysplastic syndrome (MDS), however rule out other causes of dyspoiesis such as infection, vitamin deficiency and medication induced toxicity is ruled out. Correlation with clinical findings and any previous bone marrow biopsy results is required. AQ/NK 08/30/2019 3:12 PM [facility] Peripheral Smear Description Manual Differential Count (100 cells): 48 % neutrophils, 44 % lymphocytes, 3 % metamyelocytes, 2 % bands. 1 nRBCs / 100 WBCs. Leukocyte number: decreased. Granulocyte morphology: mild shift to immaturity. Lymphocyte morphology: normal. Erythrocyte number: decreased. Erythrocyte morphology: macrocytic. Anisopoikilocytosis: mild. Polychromasia: not significant. Platelet number: normal. Platelet morphology: normal. 08/30/2019 3:12 PM [facility] Bone Marrow Aspirate Differential count [...] seen. Controls worked appropriately. 08/30/2019 3:12 PM [facility] Bone Marrow Core Biopsy and [...] adequate reticuloendothelial storage iron 08/30/2019 3:12 PM [facility] Clinical History 08/30/2019 3:12 PM [facility] Materials Received Received are 15 slides and 2 blocks labeled as [id number] along with the outside pathology report. [place] [address]. All materials are returned to the referring institution, along with a copy of our final report. 08/30/2019 3:12 PM [facility] Disclaimer The performance characteristics of all immunohistochemical and indirect immunofluorescence stains (if any) cited in this report were determined by the Histopathology Laboratory of [facility]. Some of these tests were developed by [...] the attending (teaching) pathologist. 08/30/2019 3:12 PM [facility] Embedded Images 08/30/2019 3:12 PM [facility] Pathology/Cytology SPECIMEN FROM BONE MARROW OBTAINED BY ASPIRATION / Unknown 08/26/2019 10:00 AM ROUNDHOUSE FIRER/FIREMAN 08/30/2019 10:08 AM ROUNDHOUSE FIRER/FIREMAN Miscellaneous samples (specimen) BONE MARROW CLOT SPECIMEN / Unknown 08/26/2019 10:00 AM ROUNDHOUSE FIRER/FIREMAN 08/30/2019 10:08 AM ROUNDHOUSE FIRER/FIREMAN Miscellaneous samples (specimen) PERIPHERAL BLOOD / Unknown 08/26/2019 10:00 AM ROUNDHOUSE FIRER/FIREMAN 08/30/2019 10:08 AM ROUNDHOUSE FIRER/FIREMAN Miscellaneous samples (specimen) SPECIMEN FROM BONE MARROW OBTAINED BY ASPIRATION / Unknown 08/26/2019 10:00 AM ROUNDHOUSE FIRER/FIREMAN 08/30/2019 10:08 AM ROUNDHOUSE FIRER/FIREMAN Romero Barraza MD LAB - PATHOLOGY/CYTO LOGY ORDERABLES [facility] [address] [place], [place] [id number] [place] [address] * FLOW CYTOMETRY BONE MARROW (08/26/2019 9:00 AM ROUNDHOUSE FIRER/FIREMAN) Case Report Flow Cytometry Case: [id number] Authorizing Provider: Romero Barraza MD Collected: 08/26/2019 09:00 AM Ordering Location: [facility] Pathology Lab Received: 08/26/2019 01:26 PM Pathologist: Millicent Dawson Mai, DO Specimen: Bone Marrow 08/26/2019 6:38 PM [facility] Final Diagnosis Bone marrow, flow cytometric immunophenotypic analysis: - No evidence of non-Hodgkin lymphoma or high-grade myeloid neoplasm. - See interpretation. 08/26/2019 6:38 PM [facility] Flow Cytometry Interpretation The bone [...] flow cytometry specimen is reviewed for quality engineer medical device purposes. The bone marrow aspirate specimen shows no evidence of involvement by non-Hodgkin lymphoma or a high-grade myeloid neoplasm. Correlation with clinical findings, the concurrent bone marrow core biopsy, and relevant cytogenetic/molecu lar studies is required. 08/26/2019 6:38 PM [facility] Flow Cytometry Results Differential Result Comment Flow Cell Count /uL 10,800 Total Viability % 97.0 Lymphocytes % 38 Dim CD45 Region % 8 Monocytes % 5 Granulocytes % 48 08/26/2019 6:38 PM [facility] Reason for test Anemia, unspecified 285.9 08/26/2019 6:38 PM [facility] Client Specimen ID # [id number] 08/26/2019 6:38 PM [facility] Number of markers 10 were performed. A-2 Flow CD10 A-3 Flow CD13 A-5 Flow CD20 A-1 Flow CD5 A-4 Flow CD19 A-6 Flow CD33 A-7 Flow CD34 A-8 Flow CD45 A-9 Diamondhead+CD19+ A-10 Lambda+CD19+ 08/26/2019 6:38 PM [facility] Disclaimer Test performed at [facility], [address] [place] [address], [address]. *The established laboratory minimum viability is 70%. [...] high complexity clinical testing. 08/26/2019 6:38 PM ROUNDHOUSE FIRER/FIREMAN [facility] Embedded Images 9 6:38 PM ROUNDHOUSE FIRER/FIREMAN [facility] Pathology/Cytolo gy BONE MARROW SPECIMEN / Unknown 08/26/2019 9:00 AM ROUNDHOUSE FIRER/FIREMAN 08/26/2019 1:26 PM ROUNDHOUSE FIRER/FIREMAN Romero Barraza MD LAB - PATHOLOGY/CYTO LOGY ORDERABLES Performing Organization Address City/State/[place] de Phone Number [facility] [address] [phone] Care Teams Building Mechanic Relationship Specialty Start Date End Date Zeyad Moreno MD [address] [place] [address] PCP - General Family Medicine 06/16/24
--- OUTSIDE RECORDS SUMMARY | 2024-11-22 14:02 | XMS_ITS | Encounter Summary ---
Author Organization [facility] Address [address] [address] Care Team Providers Care Transmitter Engineer In Charge Name Role Phone Darian Cueto MD Primary Care Provider [phone] Zeyad Moreno MD Primary Care Provider [phone] Encounter Details Date Type Department Care Team (Late st Contact Info) Description 08/26/2019 Lab Requisition [facility] Pathology Lab [address] [place] [address] Romero Barraza MD [address] [address] Anemia, unspecified Social History Tobacco [...] Visit [facility] - Neurology [address] [facility], [place] [phone] Brandyn Fischer APRN-ASHLEY [address] [place] [address] [place] [phone] documented as of this encounter Procedures Procedure Name Priority Date/Time Associated Diagnosis Comments FLOW CYTOMETRY BONE MARROW Routine 08/26/2019 9:00 AM SYSTEMS SECURITY CONSULTANT Anemia, unspecified documented in this encounter Results * FLOW CYTOMETRY BONE MARROW (08/26/2019 9:00 AM [facility]) Case Report Flow Cytometry Case: [id number] Authorizing Provider: Romero Barraza MD Collected: 08/26/2019 09:00 AM Ordering Location: [facility] Pathology Lab Received: 08/26/2019 01:26 PM Pathologist: Millicent Dawson Mai, DO Specimen: Bone Marrow 08/26/2019 6:38 PM [facility] PATHOLOGY LAB Final Diagnosis Bone marrow, flow cytometric immunophenotypic analysis: - No evidence of non-Hodgkin lymphoma or high-grade myeloid neoplasm. - See interpretation. 08/26/2019 6:38 PM [facility] PATH[facility]Y [facility] Flow Cytometry Interpretation The bone [...] flow cytometry specimen is reviewed for quality control analyst purposes. The bone marrow aspirate specimen shows no evidence of involvement by non-Hodgkin lymphoma or a high-grade myeloid neoplasm. Correlation with clinical findings, the concurrent bone marrow core biopsy, and relevant cytogenetic/molecu lar studies is required. 08/26/2019 6:38 PM [facility]Y LAB Flow Cytometry Results Differential Result Comment Flow Cell Count /uL 10,800 Total Viability % 97.0 Lymphocytes % 38 Dim CD45 Region % 8 Monocytes % 5 Granulocytes % 48 08/26/2019 6:38 PM [facility] Reason for test Anemia, unspecified 285.9 08/26/2019 6:38 PM [facility] Client Specimen ID # [id number] 08/26/2019 6:38 PM [facility] Number of markers 10 were performed. A-2 Flow CD10 A-3 Flow CD13 A-5 Flow CD20 A-1 Flow CD5 A-4 Flow CD19 A-6 Flow CD33 A-7 Flow CD34 A-8 Flow CD45 A-9 Darling+CD19+ A-10 Lambda+CD19+ 08/26/2019 6:38 PM [facility] PATH[facility] LAB Disclaimer Test performed at [facility], [address] [facility], [place], [place], [address]. *The established laboratory minimum viability is 70%. [...] high complexity clinical testing. 08/26/2019 6:38 PM [facility] PATH[facility] LAB Embedded Images 9 6:38 PM [facility] LAB Pathology/Cytolo gy BONE MARROW SPECIMEN / Unknown 08/26/2019 9:00 AM SYSTEMS SECURITY CONSULTANT 08/26/2019 1:26 PM SYSTEMS SECURITY CONSULTANT Romero Barraza MD LAB - PATHOLOGY/CYTO LOGY ORDERABLES [facility] PATHOLOGY LAB [address] [facility] [phone] documented in this encounter Visit Diagnoses Diagnosis Anemia, unspecified documented in this encounter Care Teams Transmitter Engineer In Charge Relationship Specialty Start Date End Date Darian Cueto MD [address] [place] [phone] PCP - General 06/22/21 06/15/24 Zeyad Moreno MD [address] [place] [phone] PCP - General Family Medicine 06/16/24 documented as of this encounter
--- OUTSIDE RECORDS SUMMARY | 2024-11-22 14:02 | XMS_ITS | Clinical Summary ---
Author Organization [facility] Address [address] [facility] [place] [address] Care Team Providers Care Shoelace Tipping Machine Operator Name Role Phone Zeyad Moreno MD Primary Care Provider [phone] Source Comments [facility],non-owned Affiliates and Associated Physician Practices is amultiple site organization consisting of ambulatory clinics and hospital sitesin [place], [place], [place] and [place]. This disclosure is being madepursuant to the Care Everywhere program and may not contain all information available regarding this patient. Last updated 18.[facility] Allergies Active Allergy Reactions Criticality Noted Date [...] Department Care Team Description 09/16/2024 9:00 AM HEALTH CENTER ASSOCIATE Office Visit [facility] - Neurology [address] [place] [phone] Brandyn Fischer APRN-CNP Tremor, essential (Primary Dx) [...] Comments Blood Pressure 139/73 09/16/2024 8:57 AM HEALTH CENTER ASSOCIATE Pulse 76 09/16/2024 8:57 AM HEALTH CENTER ASSOCIATE Temperature 35.8 C (96.5 F) 05/17/2024 8:07 AM CDT Respiratory Rate - - Oxygen Saturation 95% 06/16/2024 1:37 PM CDT Inhaled Oxygen Concentration - - Weight 68 kg (150 lb) 09/16/2024 8:57 AM HEALTH CENTER ASSOCIATE Height 162.6 cm (5' 4 ) 06/16/2024 1:37 PM CDT Body Mass Index 25.75 06/16/2024 1:37 PM CDT Plan of Treatment Upcoming Encounters Date Type Department Care Team (Late st Contact Info) Description 03/17/2025 9:00 AM CDT Office Visit [facility] - Neurology [address] [place] [phone] Brandyn Fischer APRN-CNP [address] [place] [phone] Health Maintenance Due Date Last Done Comments [...] (#1) 2024 DEPRESSION SCREENING 10/06/2024 MEDICARE AWV CALENDAR YEAR 2024 Respiratory Syncytial Virus (RSV) [...] age to complete this topic Care Teams Shoelace Tipping Machine Operator Relationship Specialty Start Date End Date Zeyad Moreno MD [address] [place] [address] PCP - General Family Medicine 06/16/24
--- OUTSIDE RECORDS SUMMARY | 2024-11-22 14:02 | XMS_ITS | Referral Summary ---
Author Organization [facility] Address [address] [facility] [place] [address] Care Team Providers Care Rug Receiving Clerk Name Role Phone Zeyad Moreno MD Primary Care Provider Source Comments [facility],non-owned Affiliates and Associated Physician Practices is amultiple site organization consisting of ambulatory clinics and hospital sitesin [place], [place], [place] and [place]. This disclosure is being madepursuant to the Care Everywhere program and may not contain all information available regarding this patient. Last updated 18.[facility] Encounters Date Type Department Care Team Description 09/16/2024 Travel 09/16/2024 9:00 AM VIDEO ARCADE MANAGER Office Visit [facility] - Neurology [address] [place] [phone] Brandyn Fischer APRN-CNP Tremor, essential (Primary Dx) [...] Comments Blood Pressure 139/73 09/16/2024 8:57 AM VIDEO ARCADE MANAGER Pulse 76 09/16/2024 8:57 AM VIDEO ARCADE MANAGER Temperature 35.8 C (96.5 F) 05/17/2024 8:07 AM CDT Respiratory Rate - - Oxygen Saturation 95% 06/16/2024 1:37 PM CDT Inhaled Oxygen Concentration - - Weight 68 kg (150 lb) 09/16/2024 8:57 AM VIDEO ARCADE MANAGER Height 162.6 cm (5' 4 ) 06/16/2024 1:37 PM CDT Body Mass Index 25.75 06/16/2024 1:37 PM CDT Plan of Treatment Upcoming Encounters Date Type Department Care Team (Late st Contact Info) Description 03/17/2025 9:00 AM CDT Office Visit [facility] - Neurology [facility] [facility], [place] [phone] Brandyn Fischer APRN-COTTON OPENER [address] [place] [address] [place] [phone] Care Teams Rug Receiving Clerk Relationship Specialty Start Date End Date Zeyad Moreno MD [address] [place] [address] PCP - General Family Medicine 06/16/24
== END 2024-11-22 10:57 | disposition home or self-care (01) ==
LOC: ANHLAB 10:57
PROVIDERS: PCP Family Medicine; Visit Provider Family Medicine
DX: N30.01 Acute cystitis with hematuria (principal)
CPT/HCPCS: 81001; 87086

== ENCOUNTER 2024-12-21 14:39 | Outpatient (CLI) | payer OTHER, SELFPAY ==
--- NOTE | ~2024-12-21 | DEXA_ITS ---
Bone Density Report Name: LUCIANO CROCKER Age: 69 Sex: Female Ethnicity: White Date of : 1955 Indication: postmenopausal osteoporosis; monitoring treatment; prior fracture; Referring Provider: ALINE JOHNSON Study: Bone densitometry was performed. Exam Date: December 21, 2024 Accession number: [id number] Bone Density: Region BMD T-score Z-score Classification AP Spine(L1-L4) 0.707 -3.1 -0.9 Osteoporosis Femoral Neck (Left) 0.599 -2.3 -0.4 Osteopenia Total Hip (Left) 0.686 -2.1 -0.5 Osteopenia Femoral Neck (Right) 0.566 -2.5 -0.7 Osteoporosis Total Hip (Right) 0.703 -2.0 -0.4 Osteopenia Total Hip Mean 0.694 -2.1 -0.5 Osteopenia World Health Organization criteria for BMD impression classify patients as: Normal (T-score at or above -1.0), Osteopenia (T-score between -1.0 and -2.5), or Osteoporosis (T-score at or below -2.5). 10-year Fracture Risk: FRAX not reported because: Some T-score for Spine Total or Hip Total or Femoral Neck at or below -2.5 Treated for osteoporosis Previous Exams: Region Exam Age BMD T-score BMD Change BMD Change Date g/cm2 vs Baseline vs Previous AP Spine (L1-L4) 12/21/2024 69 0.707 -3.1 0.015 (2.1%) 0.025 (3.7%)# 10/14/2022 67 0.682 -3.3 -0.011 (-1.6%) -0.011 (-1.6%) 10/09/2020 65 0.693 -3.2 Total Hip(Left) 12/21/2024 69 0.686 -2.1 -0.044 (-6.0%) -0.017 (-2.4%) 10/14/2022 67 0.703 -2.0 -0.027 (-3.7%) -0.027 (-3.7%) 10/09/2020 65 0.730 -1.7 Total Hip(Right) 12/21/2024 69 0.703 -2.0 -0.038 (-5.2%) -0.028 (-3.9%) 10/14/2022 67 0.731 -1.7 -0.010 (-1.4%) -0.010 (-1.4%) 10/09/2020 65 0.741 -1.6 *Denotes significance at 95% confidence level, LSC for AP Spine = 0.022 g/cm2, LSC for Total Hip = 0.027 g/cm2 # Denotes dissimilar scan types or analysis methods Clinical Information Provided by Patient: Has had a low trauma fracture Is being treated for osteoporosis Has used the following medications: Prolia (i.e. denosumab), Vitamin D, Calcium Patient maximum height was 64 Menopause Age: 48 Onset of menses at age 10 Number of children 4 Impression: The patient has established osteoporosis, based on the Total Spine T-score and the existence of a prior fracture. The patient has risk factors, including: previous fracture. No significant bone loss was observed. Discussion: PATIENT UNDER TREATMENT WITH NO SIGNIFICANT BMD LOSS SINCE LAST EXAM. In an untreated patient, BMD typically declines with age. A lack of decline or gain is usually a sign that treatment is efficacious and fracture risk is reduced. It is important to ask patients whether they are taking their medications and to encourage continued and appropriate compliance with their osteoporosis therapies to reduce fracture risk. It is also important to review their risk factors and encourage appropriate calcium and vitamin D intakes, exercise, fall prevention and other lifestyle measures. Follow-Up: Consider a repeat BMD and Vertebral Fracture Assessment (VFA) exam in 2 years or sooner if medically necessary, to reassess this patient's status. Reported by: CARMEN on 12/21/2024 3:29:00 PM. Reviewed, dictated and finalized at location AJens MORAN
--- NOTE | ~2024-12-21 | MM_ITS ---
EXAMINATION: MM screening nancy BI w pearl HISTORY: Screening TECHNIQUE: Craniocaudal and mediolateral oblique 3-D tomosynthesis images were obtained and synthetic 2-D images were generated. CAD analysis was submitted and interpreted. COMPARISON: Comparison to multiple prior studies sequentially, with oldest reviewed study dated 09/05. BREAST PARENCHYMAL COMPOSITION: Not dense: There are scattered areas of fibroglandular density. FINDINGS: There is no evidence of suspicious mass, calcification, or architectural distortion to sugg est malignancy in either breast. There has been no suspicious interval change. IMPRESSION: 1. No mammographic evidence of malignancy. 2. Recommend routine screening mammography in one year. BI-RADS Category 1: Negative Reviewed, dictated and finalized at location B.
--- OUTSIDE RECORDS SUMMARY | 2024-12-21 16:31 | XMS_ITS | Encounter Summary ---
Author Organization [facility] Address [address] [address] [place] [address] Care Team Providers Care Machine Silver Stripper Name Role Phone Darian Cueto MD Primary Care Provider [phone] Zeyad Moreno MD Primary Care Provider [phone] Encounter Details Date Type Department Care Team (Late st Contact Info) Description 08/26/2019 Lab Requisition [facility] Pathology Lab [address] [place] [address] Romero Barraza MD [address] [address] Anemia, unspecified Social History Tobacco [...] Visit [facility] - [facility]rology [address] [facility], [place] [phone] Brandyn Fischer APRN-ASHLEY [address] [place] [address] [place] [phone] documented as of this encounter Procedures Procedure Name Priority Date/Time Associated Diagnosis Comments FLOW CYTOMETRY BONE MARROW Routine 08/26/2019 9:00 AM FUR REPAIR INSPECTOR Anemia, unspecified documented in this encounter Results * FLOW CYTOMETRY BONE MARROW (08/26/2019 9:00 AM [facility]) Case Report Flow Cytometry Case: [id number] Authorizing Provider: Romero Barraza MD Collected: 08/26/2019 09:00 AM Ordering Location: [facility] Pathology Lab Received: 08/26/2019 01:26 PM Pathologist: Millicent Dawson Mai, DO Specimen: Bone Marrow 08/26/2019 6:38 PM [facility] PATHOLOGY LAB Final Diagnosis Bone marrow, flow cytometric immunophenotypic analysis: - No evidence of non-Hodgkin lymphoma or high-grade myeloid neoplasm. - See interpretation. 08/26/2019 6:38 PM [facility] PATHOLOGY LAB Flow Cytometry Interpretation [...] cytometry specimen is reviewed for quality assurance group leader purposes. The bone marrow aspirate specimen shows no evidence of involvement by non-Hodgkin lymphoma or a high-grade myeloid neoplasm. Correlation with clinical findings, the concurrent bone marrow core biopsy, and relevant cytogenetic/molecu lar studies is required. 08/26/2019 6:38 PM [facility] PATH[facility] LAB Flow Cytometry Results Differential Result Comment Flow Cell Count /uL 10,800 Total Viability % 97.0 Lymphocytes % 38 Dim CD45 Region % 8 Monocytes % 5 Granulocytes % 48 08/26/2019 6:38 PM [facility] PATH[facility] LAB Reason for test Anemia, unspecified 285.9 08/26/2019 6:38 PM [facility] PATH[facility] LAB Client Specimen ID # [id number] 08/26/2019 6:38 PM [facility] LAB Number of markers 10 were performed. A-2 Flow CD10 A-3 Flow CD13 A-5 Flow CD20 A-1 Flow CD5 A-4 Flow CD19 A-6 Flow CD33 A-7 Flow CD34 A-8 Flow CD45 A-9 [facility]+CD19+ A-10 Lambda+CD19+ 08/26/2019 6:38 PM [facility] PATH[facility] LAB Disclaimer Test performed at [facility], [address] [facility], [place], [place], [address]. *The established laboratory minimum viability is 70%. [...] high complexity clinical testing. 08/26/2019 6:38 PM [facility] PATHOLOGY LAB Embedded Images 9 6:38 PM [facility] PATH[facility] LAB Pathology/Cytolo gy BONE MARROW SPECIMEN / Unknown 08/26/2019 9:00 AM FUR REPAIR INSPECTOR 08/26/2019 1:26 PM FUR REPAIR INSPECTOR Romero Barraza MD LAB - PATHOLOGY/CYTO LOGY ORDERABLES [facility] PATHOLOGY LAB [address] [facility]. [address] [place] [address] [phone] documented in this encounter Visit Diagnoses Diagnosis Anemia, unspecified documented in this encounter Care Teams Machine Silver Stripper Relationship Specialty Start Date End Date Darian Cueto MD [address] [place] [phone] PCP - General 06/22/21 06/15/24 Zeyad Moreno MD [address] [place] [phone] PCP - General Family Medicine 06/16/24 documented as of this encounter
--- OUTSIDE RECORDS SUMMARY | 2024-12-21 16:31 | XMS_ITS | Clinical Summary ---
Author Organization [facility] Address [address] [place] [address] Care Team Providers Care Fly Fishing Guide Name Role Phone Unavailable Primary Care Provider Unavailabl e Immunizations Immunization Administration Dates Next Due Covid-19, Mrna, Lnp-s, Pf, 30 Mcg/0.3 Ml Dose (P fizer) 10/10/2021 Social History Tobacco Use Types Packs/Day Years Used Date Smoking Tobacco: Never Assessed Comments Unknown Sex and Gender Information Value Date Recorded Sex Assigned at Not on file Legal Sex Female 7:11 PM ELECTRONICS TECH Gender Identity Not on file Sexual Orientation Not on file Plan of Treatment Health Maintenance Due Date Last Done Comments DEXA Bone Density 1955 Hepatitis C Virus (HCV) Screening 1955 Mammogram 1955 TdaP Immunization 1955 Colonoscopy 1998 Colorectal Cancer Screening 1998 Cologuard 2003 Immunochemical Fecal Occult Blood 2003 Pneumococcal Immunization (5 0+ years) (1 [...]
--- OUTSIDE RECORDS SUMMARY | 2024-12-21 16:31 | XMS_ITS | Clinical Summary ---
Author Organization [facility] Address [address] [facility] [place] [address] Care Team Providers Care Accident Examiner Name Role Phone Zeyad Moreno MD Primary Care Provider [phone] Source Comments [facility] [employer],non-owned Affiliates and Associated Physician Practices is amultiple site organization consisting of ambulatory clinics and hospital sitesin [place], [place], [place] and [place]. This disclosure is being madepursuant to the Care Everywhere program and may not contain all information available regarding this patient. Last updated 18.[facility] Allergies Active Allergy Reactions Criticality Noted Date [...] Comments Blood Pressure 139/73 09/16/2024 8:57 AM LEAD DATABASE ADMINISTRATOR Pulse 76 09/16/2024 8:57 AM LEAD DATABASE ADMINISTRATOR Temperature 35.8 C (96.5 F) 05/17/2024 8:07 AM CDT Respiratory Rate - - Oxygen Saturation 95% 06/16/2024 1:37 PM CDT Inhaled Oxygen Concentration - - Weight 68 kg (150 lb) 09/16/2024 8:57 AM LEAD DATABASE ADMINISTRATOR Height 162.6 cm (5' 4 ) 06/16/2024 1:37 PM CDT Body Mass Index 25.75 06/16/2024 1:37 PM CDT Plan of Treatment Upcoming Encounters Date Type Department Care Team (Late st Contact Info) Description 03/17/2025 9:00 AM CDT Office Visit [facility] - Neurology [address] [place] [address], [place] [phone] Brandyn Fischer APRN-BACK WINDER [address] [place] [address] [place] [phone] Health Maintenance Due Date Last Done Comments BONE DENSITY TESTING 1955 COLOGUARD (AGES 45-75) - COL ON CA SCREENING 1953 COLON MONITORING 1953 COLONOSCOPY - COLON CA SCREENING 1953 CT COLONOGRAPHY - COLON CA SCREENING 1953 Colorectal Cancer Screening 1953 FIT - COLON CA SCREENING 1953 FLEX SIG - COLON CA SCREENING 1953 LIPID TESTING 1953 MAMMOGRAM 1953 MEDICARE AWV 12 MONTHS 1953 HEPATITIS C SCREENING 05/03/1971 DTAP/TDAP/TD VACCINES [...] to complete this topic MENINGOCOCCAL (Group B) VACC INE SHARED DECISION-MAKING Aged Out No longer eligibl e based on patient's age to complete this topic MENINGOCOCCAL GROUPS A/C/Y/W VACCINE Aged Out No longer eligible b ased on patient's age to complete this topic Care Teams Accident Examiner Relationship Specialty Start Date End Date Zeyad Moreno MD [address] [place] [address] PCP - General Family Medicine 06/16/24
--- OUTSIDE RECORDS SUMMARY | 2024-12-21 16:31 | XMS_ITS | Clinical Summary ---
Author Organization [facility] Address [address] [place] [address] Care Team Providers Care Milieu Counselor Name Role Phone Zeyad Moreno MD Primary Care Provider [phone] Allergies Active Allergy Reactions Criticality Noted Date [...] Encounters Date Type Department Care Team Description 12/11/2024 External Device Data STL ABSTRACTION Provider, Abstract 12/10/2024 External Device Data STL ABSTRACTION Provider, Abstract 12/08/2024 External Device Data ST[facility] ABSTRACTION Provider, Abstract 11/24/2024 External Device Data STL ABSTRACTION Provider, Abstract 11/10/2024 Telephone [facility] Oncology and Hematology [facility] [address] [place] [address] Lowell Billy MD Medication Problem 11/09/2024 Orders Only [facility] Oncology and Hematology [facility] [address] [place] [address] Lowell Billy MD Insomnia, unspecified type (Primary Dx) 10/28/2024 External Device Data ST[facility] ABSTRACTION Provider, Abstract 10/13/2024 Orders Only [facility] Oncology and Hematology [facility] [address] [place] [address] Lowell Billy MD 10/12/2024 Refill [facility] Oncology [facility] Hematology [facility] [address] [place] [address] Lowell Billy MD Insomnia, unspecified type from Last 3 Months Family History Medical [...] Comments Blood Pressure 129/75 09/13/2024 10:57 AM READINESS PARAPROFESSIONAL Pulse 64 09/13/2024 10:57 AM READINESS PARAPROFESSIONAL Temperature 36.6 C (97.8 F) 09/13/2024 10:57 AM READINESS PARAPROFESSIONAL Respiratory Rate 16 09/13/2024 10:57 AM READINESS PARAPROFESSIONAL Oxygen Saturation 95% 09/13/2024 10:57 AM READINESS PARAPROFESSIONAL Inhaled Oxygen Concentration - - Weight 69.2 kg (152 lb 9.6 oz) 09/13/2024 10:57 AM READINESS PARAPROFESSIONAL Height 162.6 cm (5' 4 ) 05/15/2022 9:40 AM CDT Body Mass Index 26.19 05/15/2022 9:40 AM CDT Plan of Treatment Upcoming Encounters Date Type Department Care Team (Late st Contact Info) Description 12/27/2024 9:45 AM CDT Office Visit [facility] Oncology and Hematology - [place] [address] [place] [address] [facility] [address] [place] [address] Lowell Billy MD [address] [facility] [address] [place] [address] Health Maintenance Due Date Last Done Comments DTAP/TDAP/TD VACCINES (1 - Tdap) 1972 COLORECTAL SCREENING 1998 Colorectal Cancer Screening 1998 FIT-DNA Q 3 years 1998 FIT/FOBT Q 1 year 1998 Flex Sig/CT Colonography Q 5 years 1998 PNEUMOCOCCAL VACCINE 50+ YEA RS (1 of 1 - PCV) 2003 ZOSTER VACCINE (1 of 2) 2003 OSTEOPOROSIS SCREENING 2018 BREAST CANCER SCREENING 08/11/2019 08/11/20 18, 07/28/2017, 07/18/2016, Additional history exists INFLUENZA VACCINE (#1) 2024 COVID-19 Vaccine (2 - 2023-2 5 season) 2024 10/10/2021 Medicare [place] ([place]) Preventative Visit/Annual Wellness Visit 10/06/2024 RSV VACCINE (60+ or ) (1 - 1-dose 75+ series) 2028 Procedures Procedure Name Priority Date/Time Associated Diagnosis Comments CBC WITH DIFFERENTIAL Routine 10/05/2024 4:22 PM READINESS PARAPROFESSIONAL from Last 3 Months Results * CBC WITH DIFFERENTIAL (10/05/2024 4:22 PM READINESS PARAPROFESSIONAL) Blood us Lowell Billy MD HEMATOLOGY ORDERABLES Final Res ult from Last 3 Months Insurance [facility] Address: [place] [address] Care Teams Milieu Counselor Relationship Specialty Start Date End Date Zeyad Moreno MD PCP - General Family Practice 02/26/23
--- OUTSIDE RECORDS SUMMARY | 2024-12-21 16:31 | XMS_ITS | Encounter Summary ---
Author Organization [facility] Address [address] [place] [address] Care Team Providers Care Hand Packer Name Role Phone Darian Cueto MD Primary Care Provider [phone] Zeyad Moreno MD Primary Care Provider [phone] Encounter Details Date Type Department Care Team (Late st Contact Info) Description 08/30/2019 Lab Requisition [facility] Care Pathology Lab [address] [place] [address] Romero Barraza MD [address] [address] Social History Tobacco Use Types [...] Visit [facility] [address] [facility], [place] [address] Brandyn Fischer APRN-ASHLEY [address] [place] [address] documented as of this encounter Procedures Procedure Name Priority Date/Time Associated Diagnosis Comments BONE MARROW BIOPSY (STL) Routine 08/26/2019 10:00 AM SENIOR ACCOUNT REPRESENTATIVE documented in this encounter Results * BONE MARROW BIOPSY (STL) (08/26/2019 10:00 AM [facility]) Case Report Bone Marrow Patholog y Report Case: [id number] Authorizing Provider: Romero Barraza MD Collected: 08/26/2019 10:00 AM Ordering Location: [facility] Pathology Lab Received: 08/30/2019 10:08 AM Pathologist: Crissy Carlson MD Specimens: A) - Bone Marrow Core, [id number] B) - Bone Marrow Clot, [id number] C) - Blood Peripheral, [id number] D) - Bone Marrow Aspirate, [id number] 08/30/2019 3:12 PM [facility] PATHOLOG[facility] Final Diagnosis Bone marrow, aspirate, clot section, and core biopsy: - Hypercellular marrow with maturing trilineage hematopoiesis and trilineage dyspoiesis - No evidence of lymphoma or high-grade myeloid neoplasm. - See description. Peripheral blood smear: - Leukopenia. - Hypochromic, macrocytic anemia. - See description. 08/30/2019 3:12 PM [facility] Comment Overall, the bone marrow is hypercellular with trilineage hematopoiesis and trilineage dyspoiesis with no increased blasts both by morphology and concurrent flow cytometry ([id number]). In the correct clinical context it could represent low grade Myelodysplastic syndrome (MDS), however rule out other causes of dyspoiesis such as infection, vitamin deficiency and medication induced toxicity is ruled out. Correlation with clinical findings and any previous bone marrow biopsy results is required. AQ/NK 08/30/2019 3:12 PM [facility] Peripheral Smear Description Manual Differential Count (100 cells): 48 % neutrophils, 44 % lymphocytes, 3 % metamyelocytes, 2 % bands. 1 nRBCs / 100 WBCs. Leukocyte number: decreased. Granulocyte morphology: mild shift to immaturity. Lymphocyte morphology: normal. Erythrocyte number: decreased. Erythrocyte morphology: macrocytic. Anisopoikilocytosis: mild. Polychromasia: not significant. Platelet number: normal. Platelet morphology: normal. 08/30/2019 3:12 PM [facility] Bone Marrow Aspirate [...] seen. Controls worked appropriately. 08/30/2019 3:12 PM [facility] Bone Marrow Core [...] adequate reticuloendothelial storage iron 08/30/2019 3:12 PM [facility] Clinical History 08/30/2019 3:12 PM [facility] Materials Received Received are 15 slides and 2 blocks labeled as [id number] along with the outside pathology report. [place] [address]. All materials are returned to the referring institution, along with a copy of our final report. 08/30/2019 3:12 PM [facility] Disclaimer The performance characteristics of all immunohistochemical and indirect immunofluorescence stains (if any) cited in this report were determined by the Histopathology [facility] of [facility]. Some of these tests were developed by [...] the attending (teaching) pathologist. 08/30/2019 3:12 PM SENIOR ACCOUNT REPRESENTATIVE [facility] PATHOLOGY LAB Embedded Images 08/30/2019 3:12 PM SENIOR ACCOUNT REPRESENTATIVE [facility] PATH[facility] LAB Pathology/Cytology SPECIMEN FROM BONE MARROW OBTAINED BY ASPIRATION / Unknown 08/26/2019 10:00 AM SENIOR ACCOUNT REPRESENTATIVE 08/30/2019 10:08 AM SENIOR ACCOUNT REPRESENTATIVE Miscellaneous samples (specimen) BONE MARROW CLOT SPECIMEN / Unknown 08/26/2019 10:00 AM SENIOR ACCOUNT REPRESENTATIVE 08/30/2019 10:08 AM SENIOR ACCOUNT REPRESENTATIVE Miscellaneous samples (specimen) PERIPHERAL BLOOD / Unknown 08/26/2019 10:00 AM SENIOR ACCOUNT REPRESENTATIVE 08/30/2019 10:08 AM SENIOR ACCOUNT REPRESENTATIVE Miscellaneous samples (specimen) SPECIMEN FROM BONE MARROW OBTAINED BY ASPIRATION / Unknown 08/26/2019 10:00 AM SENIOR ACCOUNT REPRESENTATIVE 08/30/2019 10:08 AM SENIOR ACCOUNT REPRESENTATIVE Romero Barraza MD LAB - PATHOLOGY/CYTO LOGY ORDERABLES Performing Organization Address City/State/[facility] de Phone Number [facility] PATHOLOG[facility] LAB [address] [phone] documented in this encounter Visit Diagnoses Not on filedocumented in this encounter Care Teams Hand Packer Relationship Specialty Start Date End Date Darian Cueto MD [address] [place] [phone] PCP - General 06/22/21 06/15/24 Zeyad Moreno MD [address] [place] [address] PCP - General Family Medicine 06/16/24 documented as of this encounter
== END 2024-12-21 14:40 | disposition home or self-care (01) ==
PROVIDERS: PCP Family Medicine; Visit Provider Family Medicine
DX: Z12.31 Encounter for screening mammogram for malignant neoplasm of breast (principal); M81.0 Age-related osteoporosis without current pathological fracture
CPT/HCPCS: 77063; 77067; 77080

== ENCOUNTER 2025-03-14 09:46 | Outpatient (CLI) | payer OTHER, SELFPAY ==
--- OUTSIDE RECORDS SUMMARY | 2025-03-14 10:38 | XMS_ITS | Encounter Summary ---
Author Organization [facility] Address [facility] [place] [address] Care Team Providers Care Mandarin Tutor Name Role Phone Zeyad Moreno MD Primary Care Provider [phone] Reason for Visit * Reason Onset Date Comments MEDICATION REFILL 01/20/2025 Encounter Details Date Type Department Care Team (Late st Contact Info) Description 01/20/2025 Refill [facility] [address] [place] [phone] Brandyn Fischer APRN-SLOTTER OPERATOR [address] [facility] [address]L [place] [phone] MEDICATION REFILL Social History Tobacco Use Types Packs/Day Years Used Date Smoking Tobacco: Never Assessed Comments Unknown Sex and Gender Information Value Date Recorded Sex Assigned at Not on file Legal Sex Female 1:24 PM HELICOPTER DISPATCHER Gender Identity Not on file Sexual Orientation Not on file documented as of this encounter Plan of Treatment Upcoming Encounters Date Type Department Care Team (Late st Contact Info) Description 03/17/2025 9:00 AM CDT Office Visit [facility] [address] [place] [phone] Brandyn Fischer APRN-SLOTTER OPERATOR [facility] [facility] [address]L [place] [phone] documented as of this encounter Visit Diagnoses Diagnosis Tremor, essential Essential and other specified forms of tremor documented in this encounter Care Teams Mandarin Tutor Relationship Specialty Start Date End Date Zeyad Moreno MD [address] [place] [address] PCP - General Family Medicine 06/16/24 documented as of this encounter
--- OUTSIDE RECORDS SUMMARY | 2025-03-14 10:38 | XMS_ITS | Clinical Summary ---
Author Organization [facility] Address [address] [place] [address] Care Team Providers Care Report Analyst Name Role Phone Zeyad Moreno MD Primary Care Provider [phone] Source Comments [facility],non-owned Affiliates and Associated Physician Practices is amultiple site organization consisting of ambulatory clinics and hospital sitesin [place], [place], [place] and [place]. This disclosure is being madepursuant to the Care Everywhere program and may not contain all information available regarding this patient. Last updated 18.[facility] Allergies Active Allergy Reactions Criticality Noted Date Comments Red Dye Unknown 08/05/2019 Red dye from erythromycin Sulfamethoxazole W-Trimethoprim Nausea and/or Vomiting Low 08/05/2019 Medications * Be aware that medications may not be up to date on this document. Alwaysverify current medications with the patient. temazepam (Restoril) 15 MG capsule Take 1 (one) capsule by mouth nightly as needed 3 Active propranolol (Inderal) 40 MG tablet TAKE 1 TABLET BY MOUTH TWICE A DAY FOR 90 DAYS 4 Active cholestyramine light (Questran Light) 4 GM/DOSE powder PLEASE SEE ATTACHED FOR DETAILED DIRECTIONS 4 Active Aranesp, Albumin Free, 500 MCG/ML prefilled syringe INJECT 500MCG SUBCUTANEOUSLY EVERY 3 WEEKS 3 Active carbidopa-levo dopa (Sinemet) 25-100 MG tabletIndicati ons:Tremor, essential Take 1 (one) tablet by mouth 3 times daily 270 tablet 3 4 Active Additional Information Patient not taking.Reported on 06/16/2024 primidone (Mysoline) 50 MG tabletIndicati ons:Tremor, essential Take 1 (one) tablet by mouth at bedtime 90 tablet 3 Active Active Problems No known active problems Encounters Date Type Department Care Team Description 01/20/2025 Refill [facility]rology [address] [place] [phone] SettuBrandyn CLASSROOM COORDINATOR-GLOVE TURNER AND FORMER MEDICATION REFILL 01/20/2025 Refill [facility] [address] [place] [phone] SettuTippaharjinder, CLASSROOM COORDINATOR-GLOVE TURNER AND FORMER MEDICATION REFILL 01/20/2025 Refill [facility] - [facility] [address] [place] [phone] SettuBrandyn, CLASSROOM COORDINATOR-GLOVE TURNER AND FORMER MEDICATION REFILL from Last 3 Months Social History Tobacco Use Types Packs/Day Years Used Date Smoking Tobacco: Never Assessed Comments Unknown Sex and Gender Information Value Date Recorded Sex Assigned at Not on file Legal Sex Female 1:24 PM REPRODUCTIVE ENDOCRINOLOGIST Gender Identity Not on file Sexual Orientation Not on file Last Filed Vital Signs Vital Sign Reading Time Taken Comments Blood Pressure 139/73 09/16/2024 8:57 AM REPRODUCTIVE ENDOCRINOLOGIST Pulse 76 09/16/2024 8:57 AM REPRODUCTIVE ENDOCRINOLOGIST Temperature 35.8 C (96.5 F) 05/17/2024 8:07 AM CDT Respiratory Rate - - Oxygen Saturation 95% 06/16/2024 1:37 PM CDT Inhaled Oxygen Concentration - - Weight 68 kg (150 lb) 09/16/2024 8:57 AM REPRODUCTIVE ENDOCRINOLOGIST Height 162.6 cm (5' 4) 06/16/2024 1:37 PM CDT Body Mass Index 25.75 06/16/2024 1:37 PM CDT Plan of Treatment Upcoming Encounters Date Type Department Care Team (Late st Contact Info) Description 03/17/2025 9:00 AM CDT Office Visit [facility] - [facility]rology [address] [place] [phone] SettuBrandyn, CLASSROOM COORDINATOR-GLOVE TURNER AND FORMER [address] [place] [address] [place] [phone] Health Maintenance Due Date Last Done Comments [...] (2 - 2023-2 5 season) 2024 10/10/2021 DEPRESSION SCREENING 10/06/2024 INFLUENZA VACCINE (Season Ended) 2025 Respiratory Syncytial Virus (RSV) Vaccine Pt: or [...] on patient's age to complete this topic Insurance [employer] MEDICARE [facility] MEDICARE Care Teams Report Analyst Relationship Specialty Start Date End Date Zeyad Moreno MD [address] [place] [address] PCP - General Family Medicine 06/16/24
--- OUTSIDE RECORDS SUMMARY | 2025-03-14 10:38 | XMS_ITS | Clinical Summary ---
Author Organization [facility] Address [address] [place] [address] Care Team Providers Care Rn Testing Name Role Phone Unavailable Primary Care Provider Unavailabl e Immunizations Immunization Administration Dates Next Due Covid-19, Mrna, Lnp-s, Pf, 30 Mcg/0.3 Ml Dose (P fizer) 10/10/2021 Social History Tobacco Use Types Packs/Day Years Used Date Smoking Tobacco: Never Assessed Comments Unknown Sex and Gender Information Value Date Recorded Sex Assigned at Not on file Legal Sex Female 7:11 PM SUCCESSFACTORS CONSULTANT Gender Identity Not on file Sexual Orientation Not on file Plan of Treatment Health Maintenance Due Date Last Done Comments Hepatitis C Virus (HCV) Screening 1955 TdaP Immunization 1955 Colonoscopy 1998 Colorectal Cancer Screening 1998 Cologuard 2003 Immunochemical Fecal Occult Blood 2003 Pneumococcal Immunization (5 0+ years) (1 of 1 - PCV) 2003 Zoster Immunization (1 of 2) 2003 SARS-COV-2 Immunization ( - season) 2024 10/10/2021, 12/21/2020, 11/28/2020 Influenza Immunization (Seas on Ended) 2025 Respiratory Syncytial Virus (RSV) Immunization (Adult) (1 - 1-dose 75+ series) 2028 Hepatitis B Immunization Aged Out No longer eligible based on patient's age to complete this topic Human Papillomavirus (HPV) Immunization Aged Out No longer eligible b ased on patient's age to complete this topic Meningococcal Immunization (ACWY) Aged Out No longer eligible b ased on patient's age to complete this topic Rotavirus Immunization Aged Out No lo nger eligible based on patient's age to complete this topic
--- OUTSIDE RECORDS SUMMARY | 2025-03-14 10:38 | XMS_ITS | Encounter Summary ---
Author Organization [facility] Address [facility] [place] [address] Care Team Providers Care Residential Real Estate Agent Name Role Phone Zeyad Moreno MD Primary Care Provider [phone] Reason for Visit * Reason Onset Date Comments MEDICATION REFILL 01/20/2025 Encounter Details Date Type Department Care Team (Late st Contact Info) Description 01/20/2025 Refill [facility] [address] [place] [phone] Brandyn Fischer APRN-WATER PIPE INSTALLER [address] [facility] [address]L [place] [phone] MEDICATION REFILL Social History Tobacco Use Types Packs/Day Years Used Date Smoking Tobacco: Never Assessed Comments Unknown Sex and Gender Information Value Date Recorded Sex Assigned at Not on file Legal Sex Female 1:24 PM BARREL CHARRER HELPER Gender Identity Not on file Sexual Orientation Not on file documented as of this encounter Plan of Treatment Upcoming Encounters Date Type Department Care Team (Late st Contact Info) Description 03/17/2025 9:00 AM CDT Office Visit [facility] [address] [place] [phone] Brandyn Fischer APRN-WATER PIPE INSTALLER [facility] [address]L [place] [phone] documented as of this encounter Visit Diagnoses Diagnosis Tremor, essential Essential and other specified forms of tremor documented in this encounter Care Teams Residential Real Estate Agent Relationship Specialty Start Date End Date Zeyad Moreno MD [address] [place] [address] PCP - General Family Medicine 06/16/24 documented as of this encounter
--- OUTSIDE RECORDS SUMMARY | 2025-03-14 10:38 | XMS_ITS | Encounter Summary ---
Author Organization [facility] Address [address] [facility] [place] [address] Care Team Providers Care Senior Inspector Name Role Phone Darian Cueto MD Primary Care Provider [phone] Zeyad Moreno MD Primary Care Provider [phone] Encounter Details Date Type Department Care Team (Late Contact Info) Description 08/26/2019 Lab Requisition [facility] Care Pathology Lab [address] [place] [address] Romero Barraza MD [address] [address] Anemia, unspecified Social History Tobacco Use Types Packs/Day Years Used Date Smoking Tobacco: Never Assessed Comments Unknown Sex and Gender Information Value Date Recorded Sex Assigned at Not on file Legal Sex Female 1:24 PM INSIDE PHONE SALES Gender Identity Not on file Sexual Orientation Not on file documented as of this encounter Plan of Treatment Upcoming Encounters Date Type Department Care Team (Late Contact Info) Description 03/17/2025 9:00 AM CDT Office Visit [facility] [address] [facility], [place] [phone] Brandyn Fischer APRN-ASHLEY [address] [place] [address] [place] [phone] documented as of this encounter Procedures Procedure Name Priority Date/Time Associated Diagnosis Comments FLOW CYTOMETRY BONE MARROW Routine 08/26/2019 9:00 AM INSIDE PHONE SALES Anemia, unspecified documented in this encounter Results * FLOW CYTOMETRY BONE MARROW (08/26/2019 9:[address] [facility]) Case Report Flow Cytometry Case: [id number] Authorizing Provider: Romero Barraza MD Collected: 08/26/2019 09:00 AM Ordering Location: [facility] Pathology Lab Received: 08/26/2019 01:26 PM Pathologist: Millicent Dawson Mai, DO Specimen: Bone Marrow 08/26/2019 6:38 PM [facility] Final Diagnosis Bone marrow, flow cytometric immunophenotypic analysis: - No evidence of non-Hodgkin lymphoma or high-grade myeloid neoplasm. - See interpretation. 08/26/2019 6:38 PM [facility] PATH[facility] LAB at [address]38 INSIDE PHONE SALES Flow Cytometry Interpretation The bone marrow specimen [...] flow cytometry specimen is reviewed for quality project manager purposes. The bone marrow aspirate specimen shows no evidence of involvement by non-Hodgkin lymphoma or a high-grade myeloid neoplasm. Correlation with clinical findings, the concurrent bone marrow core biopsy, and relevant cytogenetic/molecu lar studies is required. 08/26/2019 6:38 PM [facility] Flow Cytometry Results Differential Result Comment Flow Cell Count /uL 10,800 Total Viability % 97.0 Lymphocytes % 38 Dim CD45 Region % 8 Monocytes % 5 Granulocytes % 48 08/26/2019 6:38 PM [facility] Reason for test Anemia, unspecified 285.9 08/26/2019 6:38 PM [facility] Client Specimen ID # [id number] 08/26/2019 6:38 PM [facility] Number of markers 10 were performed. A-2 Flow CD10 A-3 Flow CD13 A-5 Flow CD20 A-1 Flow CD5 A-4 Flow CD19 A-6 Flow CD33 A-7 Flow CD34 A-8 Flow CD45 A-9 Dendron+CD19+ A-10 Lambda+CD19+ 08/26/2019 6:38 PM [facility] Disclaimer Test performed at [facility], [address] [place], [place], [address]. *The established laboratory minimum viability is 70%. [...] high complexity clinical testing. 08/26/2019 6:38 PM [facility] Embedded Images 9 6:38 PM [facility] Pathology/Cytolo gy BONE MARROW SPECIMEN / Unknown 08/26/2019 9:00 AM INSIDE PHONE SALES 08/26/2019 1:26 PM INSIDE PHONE SALES us Romero Barraza MD LAB - PATHOLOGY/CYTOLOGY ORDER NIMO Final Result [facility] PATHOLOGY LAB [facility]. [address] [phone] documented in this encounter Visit Diagnoses Diagnosis Anemia, unspecified documented in this encounter Care Teams Senior Inspector Relationship Specialty Start Date End Date Darian Cueto MD [address] [place] [phone] PCP - General 06/22/21 06/15/24 Zeyad Moreno MD [address] [place] [phone] PCP - General Family Medicine 06/16/24 documented as of this encounter
--- OUTSIDE RECORDS SUMMARY | 2025-03-14 10:38 | XMS_ITS | Clinical Summary ---
Author Organization [facility] Sharif rasmussen [facility] Address [address] [place] [address] Care Team Providers Care Associate Team Physician Name Role Phone Zeyad Moreno MD Primary Care Provider [phone] Allergies Active Allergy Reactions Criticality Noted Date [...] 50 mg by mouth. 05/17/20 24 Active temazepam (RESTORIL) 15 mg capsuleIndicat ions:Insomnia, unspecified type TAKE 1 CAPSULE BY MOUTH NIGHTLY NEEDED FOR INSOMNIA. 30 Capsule 10/12/19 25 Active darbepoetin adonay (ARANESP) 500 mcg/mL SyringeIndicat ions:Myelodysp lastic syndrome, low grade (CMS/HCC) Inject 1 mL (500 mcg) by subcutaneous injection every 14 days. 6 mL 02/15/20 25 Active zolpidem (AMBIEN) 5 mg tabletIndicati ons:Insomnia, unspecified type TAKE 1 TABLET BY MOUTH NIGHTLY NEEDED FOR INSOMNIA. 30 Tablet 02/18/20 25 Active zolpidem (AMBIEN) 5 mg tabletIndicati ons:Insomnia, unspecified type TAKE 1 TABLET BY MOUTH NIGHTLY NEEDED FOR INSOMNIA. 30 Tablet 12/24/19 25 025 Discontinued Hospital, Clinic, or Other Facility Administered Medication Ordered Dose Route Frequency Start Date End Date Status darbepoetin adonay (ARANESP) 500 mcg/mL injection 500 mcgIndications:Myelo dysplastic syndrome, low grade (CMS/HCC) 500 mcg subCUT EVERY TWO WEEKS 12/27/2024 03/21/2025 Active Active Problems Problem Noted Date Diagnosed Date Myelodysplastic syndrome, low grade 09/09/2019 Macrocytic anemia 08/17/2019 Encounters Date Type Department Care Team Description 02/24/2025 External Device Data STL ABSTRACTION Provider, Abstract 02/23/2025 External Device Data STL ABSTRACTION Provider, Abstract 02/22/2025 External Device Data STL ABSTRACTION Provider, Abstract 02/17/2025 Refill [facility] Oncology and Hematology [facility] [address] [place] [address] Lowell Billy MD Insomnia, unspecified type 02/14/2025 Refill [facility] Oncology and Hematology [place] [address] [place] [address] Lowell Billy MD Myelodysplastic syndrome, low grade (CMS/HCC) (Primary Dx) 02/08/2025 Orders Only [facility] Oncology and Hematology [place] [address] [place] [address] Lowell Billy MD 12/27/2024 9:45 AM CDT Office Visit [facility] Oncology and Hematology [facility] [address] [place] [address] Lowell Billy MD Myelodysplastic syndrome, low grade (CMS/HCC) (Primary Dx) 12/23/2024 Refill [facility] Oncology and Hematology - [place] [address] [place] [address] Lowell Billy MD Insomnia, unspecified type 12/22/2024 External Device Data STL ABSTRACTION Provider, Abstract [...] Sign Reading Time Taken Comments Blood Pressure 109/75 12/27/2024 9:41 AM CDT Pulse 80 12/27/2024 9:41 AM CDT Temperature 36.3 C (97.3 F) 12/27/2024 9:41 AM CDT Respiratory Rate 15 12/27/2024 9:41 AM CDT Oxygen Saturation 95% 12/27/2024 9:41 AM CDT Inhaled Oxygen Concentration - - Weight 68.4 kg (150 lb 12.8 oz) 12/27/2024 9:41 AM CDT Height 162.6 cm (5' 4) 05/15/2022 9:40 AM CDT Body Mass Index 25.88 05/15/2022 9:40 AM CDT Plan of Treatment Upcoming Encounters Date Type Department Care Team (Late st Contact Info) Description 03/23/2025 9:45 AM CDT Office Visit [facility] Oncology and Hematology - [place] [address] [place] [address] Lowell Billy MD 6 [facility] [employer] [address] [place] [address] Health Maintenance Due Date Last [...] 2023-2 5 season) 2024 10/10/2021 Medicare Advantage (ID) Preventative Visit/Annual Wellness Visit 10/06/2024 RSV VACCINE (60+ or ) (1 - 1-dose 75+ series) 2028 Procedures Procedure Name Priority Date/Time Associated Diagnosis Comments CBC WITH DIFFERENTIAL Routine 02/08/2025 4:22 PM CDT from Last 3 Months Results * CBC WITH DIFFERENTIAL (02/08/2025 4:22 PM CDT) Blood Lowell Billy MD HEMATOLOGY ORDERABLES Final Res ult from Last 3 Months [facility] Care Teams Associate Team Physician Relationship Specialty Start Date End Date Zeyad Moreno MD PCP - General Family Practice 02/26/23
--- OUTSIDE RECORDS SUMMARY | 2025-03-14 10:38 | XMS_ITS | Encounter Summary ---
Author Organization [facility] Address [address] [place] [address] Care Team Providers Care Regional Telecommunications Specialist Name Role Phone Darian Cueto MD Primary Care Provider [phone] Zeyad Moreno MD Primary Care Provider [phone] Encounter Details Date Type Department Care Team (Late st Contact Info) Description 08/30/2019 Lab Requisition [facility] Care Pathology Lab [address] [place] [address] Romero Barraza MD [address] [address] Social History Tobacco Use Types Packs/Day Years Used Date Smoking Tobacco: Never Assessed Comments Unknown Sex and Gender Information Value Date Recorded Sex Assigned at Not on file Legal Sex Female 1:24 PM VETERINARY TECHNICIAN ASSISTANT Gender Identity Not on file Sexual Orientation Not on file documented as of this encounter Plan of Treatment Upcoming Encounters Date Type Department Care Team (Late Contact Info) Description 03/17/2025 9:00 AM CDT Office Visit [facility] - Neurology [address] [facility] [place] [address] Brandyn Fischer APRN-ASHLEY [address] [place] [address] [place] [phone] documented as of this encounter Procedures Procedure Name Priority Date/Time Associated Diagnosis Comments BONE MARROW BIOPSY (STL) Routine 08/26/2019 10:00 AM VETERINARY TECHNICIAN ASSISTANT documented in this encounter Results * BONE MARROW BIOPSY (STL) (08/26/2019 10:00 AM VETERINARY TECHNICIAN ASSISTANT) Case Report Bone Marrow Patholog y Report Case: [id number] Authorizing Provider: Romero Barraza MD Collected: 08/26/2019 10:00 AM Ordering Location: [facility] Pathology Lab Received: 08/30/2019 10:08 AM Pathologist: Crissy Carlson MD Specimens: A) - Bone Marrow Core, AB19-46 B) - Bone Marrow Clot, AB19-46 C) - Blood Peripheral, [id number] D) - Bone Marrow Aspirate, AB 19-46 08/30/2019 3:12 PM VETERINARY TECHNICIAN ASSISTANT [facility] PATHOLOGY LAB Final Diagnosis Bone marrow, aspirate, clot section, and core biopsy: - Hypercellular marrow with maturing trilineage hematopoiesis and trilineage dyspoiesis - No evidence of lymphoma or high-grade myeloid neoplasm. - See description. Peripheral blood smear: - Leukopenia. - Hypochromic, macrocytic anemia. - See description. 08/30/2019 3:12 PM [facility] PATHOLOGY LAB at 1512 VETERINARY TECHNICIAN ASSISTANT AP Comment Overall, the bone marrow is hypercellular with trilineage hematopoiesis and trilineage dyspoiesis with no increased blasts both by morphology and concurrent flow cytometry ([id number]). In the correct clinical context it could represent low grade Myelodysplastic syndrome (MDS), however rule out other causes of dyspoiesis such as infection, vitamin deficiency and medication induced toxicity is ruled out. Correlation with clinical findings and any previous bone marrow biopsy results is required. AQ/NK 08/30/2019 3:12 PM VETERINARY TECHNICIAN ASSISTANT [facility] PATHOLOGY LAB Peripheral Smear Description Manual Differential Count (100 cells): 48 % neutrophils, 44 % lymphocytes, 3 % metamyelocytes, 2 % bands. 1 nRBCs / 100 WBCs. Leukocyte number: decreased. Granulocyte morphology: mild shift to immaturity. Lymphocyte morphology: normal. Erythrocyte number: decreased. Erythrocyte morphology: macrocytic. Anisopoikilocytosis: mild. Polychromasia: not significant. Platelet number: normal. Platelet morphology: normal. 08/30/2019 3:12 PM VETERINARY TECHNICIAN ASSISTANT [facility] PATHOLOGY LAB Bone Marrow Aspirate Differential [...] seen. Controls worked appropriately. 08/30/2019 3:12 PM [facility] PATHOLOGY LAB Bone Marrow Core [...] adequate reticuloendothelial storage iron 08/30/2019 3:12 PM [facility] PATH[facility] LAB Clinical History 08/30/2019 3:12 PM [facility] PATHOLOGY LAB Materials Received Received are 15 slides and 2 blocks labeled as [id number] along with the outside pathology report. [place] [address]. All materials are returned to the referring institution, along with a copy of our final report. 08/30/2019 3:12 PM [facility] PATHOLOGY LAB Disclaimer The performance characteristics of all immunohistochemical and indirect immunofluorescence stains (if any) cited in this report were determined by the Histopathology Laboratory of [facility]. Some of these tests were developed by [...] the attending (teaching) pathologist. 08/30/2019 3:12 PM VETERINARY TECHNICIAN ASSISTANT [facility] PATHOLOGY LAB Embedded Images 08/30/2019 3:12 PM VETERINARY TECHNICIAN ASSISTANT [facility] PATHOLOGY LAB Pathology/Cytology SPECIMEN FROM BONE MARROW OBTAINED BY ASPIRATION / Unknown 08/26/2019 10:00 AM VETERINARY TECHNICIAN ASSISTANT 08/30/2019 10:08 AM VETERINARY TECHNICIAN ASSISTANT Miscellaneous samples (specimen) BONE MARROW CLOT SPECIMEN / Unknown 08/26/2019 10:00 AM VETERINARY TECHNICIAN ASSISTANT 08/30/2019 10:08 AM VETERINARY TECHNICIAN ASSISTANT Miscellaneous samples (specimen) PERIPHERAL BLOOD / Unknown 08/26/2019 10:00 AM VETERINARY TECHNICIAN ASSISTANT 08/30/2019 10:08 AM VETERINARY TECHNICIAN ASSISTANT Miscellaneous samples (specimen) SPECIMEN FROM BONE MARROW OBTAINED BY ASPIRATION / Unknown 08/26/2019 10:00 AM VETERINARY TECHNICIAN ASSISTANT 08/30/2019 10:08 AM VETERINARY TECHNICIAN ASSISTANT Romero Barraza MD LAB - PATHOLOGY/CYTOLOGY ORDER NIMO Final Result Performing Organization Address City/State/[facility] Co de Phone Number [facility] PATHOLOGY LAB [address] [phone] documented in this encounter Visit Diagnoses Not on filedocumented in this encounter Care Teams Regional Telecommunications Specialist Relationship Specialty Start Date End Date Darian Cueto MD [address] [place] [address] PCP - General 06/22/21 06/15/24 Zeyad Moreno MD [address] [place] [address] PCP - General Family Medicine 06/16/24 documented as of this encounter
[2025-03-14 11:14] LABS: Alanine Aminotransferase 11 U/L (6-35); Albumin Level 4.5 g/dL (3.5-5.1); Alkaline Phosphatase 88 U/L (38-126); Anion Gap 8 mmol/L (4-12); Aspartate Amino Transferase 50 U/L (14-36); Bilirubin,Total 2.6 mg/dL (0.2-1.3); Blood Urea Nitrogen 21 mg/dL (7-17); Calcium 9.5 mg/dL (8.4-10.2); Carbon Dioxide 28 mmol/L (22-30); Chloride 103 mmol/L (98-107); Estimated Glomerular Filt Rate > 60; Glucose 89 mg/dL (65-110); Potassium 4.7 mmol/L (3.4-5.0); Sodium 139 mmol/L (137-145); Total Protein 7.5 g/dL (6.3-8.2)
[2025-03-14 11:27] LABS: Vitamin D 25 Hydroxy 36.7 ng/mL
== END 2025-03-14 09:47 | disposition home or self-care (01) ==
LOC: ANHLAB 09:47
PROVIDERS: PCP Family Medicine; Visit Provider Family Medicine
DX: G25.0 Essential tremor (principal); M81.0 Age-related osteoporosis without current pathological fracture; E80.6 Other disorders of bilirubin metabolism; R74.01 Elevation of levels of liver transaminase levels; D64.9 Anemia, unspecified; R55 Syncope and collapse
CPT/HCPCS: 36415; 80053; 82306; 82607; 84443

== ENCOUNTER 2025-03-28 12:46 | Outpatient (CLI) | payer OTHER, SELFPAY | END 2025-03-28 12:47 | disposition home or self-care (01) | LOC: ANHAUDIO 12:46 | PROVIDERS: PCP Family Medicine; Visit Provider Family Medicine | DX: H90.0 Conductive hearing loss, bilateral (principal); H61.21 Impacted cerumen, right ear; H93.8X3 Other specified disorders of ear, bilateral | CPT/HCPCS: 92557; 92567 ==

== ENCOUNTER 2025-08-18 08:02 | Outpatient (CLI) | payer OTHER, SELFPAY ==
--- NOTE | ~2025-08-18 | US_ITS ---
EXAMINATION: US aorta [facility] scrn DATE: 08/18/2025 09:20 INDICATION: Familial ischemic heart disease TECHNIQUE: Grayscale, color Doppler, and pulsed Doppler images of the aorta and common iliac arteries were obtained. COMPARISON: None. FINDINGS: The proximal aorta measures 2.6 cm. The mid aorta measures 1.7 cm. The distal aorta measures 1.6 cm. The right common iliac artery measures 1.3 cm. The left common iliac artery measures 1.4 cm. There are normal triphasic arterial waveforms throughout. IMPRESSION: 1. Normal caliber abdominal aorta. Reviewed, dictated and finalized at location A. TIONS SPECIALIST
--- OUTSIDE RECORDS SUMMARY | 2025-08-18 08:06 | XMS_ITS | Clinical Summary ---
Author Organization [facility] Address [address] [place] [address] Care Team Providers Care Water Softener Servicer And Installer Name Role Phone Zeyad Moreno MD Primary Care Provider [phone] Source Comments [facility],non-owned Affiliates and Associated Physician Practices is amultiple site organization consisting of ambulatory clinics and hospital sitesin [place], [place] and [place]. This disclosure is being madepursuant to the Care Everywhere program and may not contain all information available regarding this patient. Last updated 18.[facility] Allergies Active Allergy Reactions Criticality Noted Date [...] 500MCG SUBCUTANEOUSLY EVERY 3 WEEKS 3 Active primidone (Mysoline) 50 MG tabletIndicati ons:Tremor, essential Take 1 (one) tablet by mouth at bedtime 90 tablet 3 5 Active carbidopa-levo dopa (Sinemet) 25-100 MG tabletIndicati ons:Tremor, essential,Idio pathic Parkinson's disease (HCC) Take 2 (two) tablets by mouth 3 times daily 540 tablet 3 Active Active Problems No known active problems Social History Tobacco Use Types Packs/Day Years Used Date Smoking Tobacco: Never Assessed Comments Unknown Sex and Gender Information Value Date Recorded Sex Assigned at Not on file Legal Sex Female 1:24 PM SUPERVISOR SPINNING Gender Identity Not on file Sexual Orientation Not on file Last Filed Vital Signs Vital Sign Reading Time Taken Comments Blood Pressure 103/68 03/17/2025 9:30 AM CDT Pulse 94 03/17/2025 9:30 AM CDT Temperature 35.8 C (96.5 F) 05/17/2024 8:07 AM CDT Respiratory Rate - - Oxygen Saturation 95% 06/16/2024 1:37 PM CDT Inhaled Oxygen Concentration - - Weight 65.3 kg (144 lb) 03/17/2025 9:30 AM CDT Height 162.6 cm (5' 4) 03/17/2025 9:30 AM CDT Body Mass Index 24.72 03/17/2025 9:30 AM CDT Plan of Treatment Upcoming Encounters Date Type Department Care Team (Late st Contact Info) Description 09/16/2025 2:00 PM SUPERVISOR SPINNING Office Visit [facility] - Neurology [address] [place] [phone] rBandyn Fischer APRN-TECHNICIAN PLANT AND MAINTENANCE [address] [place] [address] [place] [phone] Health Maintenance Due Date Last Done Comments [...] 2003 ZOSTER VACCINE (1 of 2) 2003 DEPRESSION SCREENING 10/06/2024 COVID-19 VACCINE (2 - 2024-2 6 season) 2025 10/10/2021 INFLUENZA VACCINE (#1) 2025 Respiratory Syncytial Virus (RSV) Vaccine Pt: [...] to complete this topic Insurance [employer] E[employer]ENCE MEDICARE Care Teams Water Softener Servicer And Installer Relationship Specialty Start Date End Date Zeyad Moreno MD [address] [place] [address] PCP - General Family Medicine 06/16/24
--- OUTSIDE RECORDS SUMMARY | 2025-08-18 08:06 | XMS_ITS | Encounter Summary ---
Author Organization [facility] Address [address] [place] [address] Care Team Providers Care Business Support Coordinator Name Role Phone Darian Cueto MD Primary Care Provider [phone] Zeyad Moreno MD Primary Care Provider [phone] Encounter Details Date Type Department Care Team (Late st Contact Info) Description 08/30/2019 Lab Requisition [facility] Care Pathology Lab [address] [place] [address] Romero Barraza MD [address] [address] Social History Tobacco Use Types Packs/Day Years Used Date Smoking Tobacco: Never Assessed Comments Unknown Sex and Gender Information Value Date Recorded Sex Assigned at Not on file Legal Sex Female 1:24 PM MEDIA LIBRARIAN Gender Identity Not on file Sexual Orientation Not on file documented as of this encounter Plan of Treatment Upcoming Encounters Date Type Department Care Team (Late Contact Info) Description 09/16/2025 2:00 PM MEDIA LIBRARIAN Office Visit [facility] - Neurology [address] [facility] [place] [address] Brandyn Fischer APRN-ASHLEY [address] [place] [address] [place] [phone] documented as of this encounter Procedures Procedure Name Priority Date/Time Associated Diagnosis Comments BONE MARROW BIOPSY (STL) Routine 08/26/2019 10:00 AM MEDIA LIBRARIAN documented in this encounter Results * BONE MARROW BIOPSY (STL) (08/26/2019 10:00 AM MEDIA LIBRARIAN) Case Report Bone Marrow Patholog y Report Case: [id number] Authorizing Provider: Romero Barraza MD Collected: 08/26/2019 10:00 AM Ordering Location: [facility] Pathology Lab Received: 08/30/2019 10:08 AM Pathologist: Crissy Carlson MD Specimens: A) - Bone Marrow Core, AB19-46 B) - Bone Marrow Clot, [id number] C) - Blood Peripheral, [id number] D) - Bone Marrow Aspirate, AB 19-46 08/30/2019 3:12 PM [facility] PATHOLOGY LAB Final Diagnosis Bone marrow, aspirate, clot section, and core biopsy: - Hypercellular marrow with maturing trilineage hematopoiesis and trilineage dyspoiesis - No evidence of lymphoma or high-grade myeloid neoplasm. - See description. Peripheral blood smear: - Leukopenia. - Hypochromic, macrocytic anemia. - See description. 08/30/2019 3:12 PM [facility] PATHOLOGY LAB at 1512 MEDIA LIBRARIAN AP Comment Overall, the bone marrow is hypercellular with trilineage hematopoiesis and trilineage dyspoiesis with no increased blasts both by morphology and concurrent flow cytometry ([id number]). In the correct clinical context it could represent low grade Myelodysplastic syndrome (MDS), however rule out other causes of dyspoiesis such as infection, vitamin deficiency and medication induced toxicity is ruled out. Correlation with clinical findings and any previous bone marrow biopsy results is required. AQ/NK 08/30/2019 3:12 PM [facility] PATH[facility] Peripheral Smear Description Manual Differential Count (100 cells): 48 % neutrophils, 44 % lymphocytes, 3 % metamyelocytes, 2 % bands. 1 nRBCs / 100 WBCs. Leukocyte number: decreased. Granulocyte morphology: mild shift to immaturity. Lymphocyte morphology: normal. Erythrocyte number: decreased. Erythrocyte morphology: macrocytic. Anisopoikilocytosis: mild. Polychromasia: not significant. Platelet number: normal. Platelet morphology: normal. 08/30/2019 3:12 PM [facility] Bone Marrow Aspirate Differential count [...] seen. Controls worked appropriately. 08/30/2019 3:12 PM [facility] Bone Marrow Core Biopsy and [...] adequate reticuloendothelial storage iron 08/30/2019 3:12 PM [facility] PATH[facility] Clinical History 08/30/2019 3:12 PM [facility] PATH[facility] Materials Received Received are 15 slides and 2 blocks labeled as [id number] along with the outside pathology report. [place] [address]. All materials are returned to the referring institution, along with a copy of our final report. 08/30/2019 3:12 PM [facility] PATH[facility] Disclaimer The performance characteristics of all immunohistochemical and indirect immunofluorescence stains (if any) cited in this report were determined by the Histopathology Laboratory of [facility]. Some of these tests were [...] the attending (teaching) pathologist. 08/30/2019 3:12 PM MEDIA LIBRARIAN [facility] PATHOLOGY LAB Embedded Images 08/30/2019 3:12 PM MEDIA LIBRARIAN [facility] PATHOLOGY LAB Pathology/Cytology SPECIMEN FROM BONE MARROW OBTAINED BY ASPIRATION / Unknown 08/26/2019 10:00 AM MEDIA LIBRARIAN 08/30/2019 10:08 AM MEDIA LIBRARIAN Miscellaneous samples (specimen) BONE MARROW CLOT SPECIMEN / Unknown 08/26/2019 10:00 AM MEDIA LIBRARIAN 08/30/2019 10:08 AM MEDIA LIBRARIAN Miscellaneous samples (specimen) PERIPHERAL BLOOD / Unknown 08/26/2019 10:00 AM MEDIA LIBRARIAN 08/30/2019 10:08 AM MEDIA LIBRARIAN Miscellaneous samples (specimen) SPECIMEN FROM BONE MARROW OBTAINED BY ASPIRATION / Unknown 08/26/2019 10:00 AM MEDIA LIBRARIAN 08/30/2019 10:08 AM MEDIA LIBRARIAN Romero Barraza MD LAB - PATHOLOGY/CYTOLOGY ORDER NIMO Final Result Performing Organization Address City/State/[facility] de Phone Number [facility] PATHOLOGY LAB [address] [phone] documented in this encounter Visit Diagnoses Not on filedocumented in this encounter Care Teams Business Support Coordinator Relationship Specialty Start Date End Date Darian Cueto MD [address] [place] [address] PCP - General 06/22/21 06/15/24 Zeyad Moreno MD [address] [place] [address] PCP - General Family Medicine 06/16/24 documented as of this encounter
--- OUTSIDE RECORDS SUMMARY | 2025-08-18 08:06 | XMS_ITS | Encounter Summary ---
Author Organization [facility] Address [facility] [place] [address] Care Team Providers Care Adult And Pediatric Neurologist Name Role Phone Zeyad Moreno MD Primary Care Provider [phone] Reason for Visit * Reason Onset Date Comments MEDICATION REFILL 01/20/2025 Encounter Details Date Type Department Care Team (Late st Contact Info) Description 01/20/2025 Refill [facility] - Neurology [address] [place] [phone] Brandyn Fischer APRN-MANAGER BIOSTATISTICS [facility]5 [facility] [address]L [place] [phone] MEDICATION REFILL Social History Tobacco Use Types Packs/Day Years Used Date Smoking Tobacco: Never Assessed Comments Unknown Sex and Gender Information Value Date Recorded Sex Assigned at Not on file Legal Sex Female 1:24 PM PALLET REPAIRER Gender Identity Not on file Sexual Orientation Not on file documented as of this encounter Plan of Treatment Upcoming Encounters Date Type Department Care Team (Late st Contact Info) Description 09/16/2025 2:00 PM PALLET REPAIRER Office Visit [facility] - Neurology [address] [place] [phone] Brandyn Fischer APRN-MANAGER BIOSTATISTICS [facility]5 [facility] [address]L [place] [phone] documented as of this encounter Visit Diagnoses Diagnosis Tremor, essential Essential and other specified forms of tremor documented in this encounter Care Teams Adult And Pediatric Neurologist Relationship Specialty Start Date End Date Zeyad Moreno MD [address] [place] [address] PCP - General Family Medicine 06/16/24 documented as of this encounter
--- OUTSIDE RECORDS SUMMARY | 2025-08-18 08:06 | XMS_ITS | Clinical Summary ---
Author Organization [facility] Address [address] [place] [address] Care Team Providers Care Underground Truck Operator Name Role Phone Unavailable Primary Care Provider Unavailabl e Immunizations Immunization Administration Dates Next Due Covid-19, Mrna, Lnp-s, Pf, 30 Mcg/0.3 Ml Dose (P fizer) 10/10/2021 Social History Tobacco Use Types Packs/Day Years Used Date Smoking Tobacco: Never Assessed Comments Unknown Sex and Gender Information Value Date Recorded Sex Assigned at Not on file Legal Sex Female 7:11 PM RN HOME CARE Gender Identity Not on file Sexual Orientation Not on file Plan of Treatment Health Maintenance Due Date Last Done Comments Hepatitis C Virus (HCV) Screening 1955 TdaP Immunization 1955 Cologuard 1998 Colonoscopy 1998 Colorectal Cancer Screening 1998 Immunochemical Fecal Occult Blood 1998 Pneumococcal Immunization (5 0+ years) (1 of 1 - PCV) 2003 Zoster Immunization (1 of 2) 2003 Influenza Immunization (#1) 2025 SARS-COV-2 Immunization ( season) 2025 10/10/2021, 12/21/2020, 11/28/2020 Respiratory Syncytial Virus (RSV) [...]
--- OUTSIDE RECORDS SUMMARY | 2025-08-18 08:06 | XMS_ITS | Encounter Summary ---
Author Organization [facility] Address [facility] [place] [address] Care Team Providers Care Windows Administrator Name Role Phone Zeyad Moreno MD Primary Care Provider [phone] Reason for Visit * Reason Onset Date Comments MEDICATION REFILL 01/20/2025 Encounter Details Date Type Department Care Team (Late st Contact Info) Description 01/20/2025 Refill [facility] - Neurology [address] [place] [phone] Brandyn Fischer APRN-PUBLISHING SYSTEMS ANALYST [facility]5 [facility] [address]L [place] [phone] MEDICATION REFILL Social History Tobacco Use Types Packs/Day Years Used Date Smoking Tobacco: Never Assessed Comments Unknown Sex and Gender Information Value Date Recorded Sex Assigned at Not on file Legal Sex Female 1:24 PM BUS AND RAIL OPERATOR Gender Identity Not on file Sexual Orientation Not on file documented as of this encounter Plan of Treatment Upcoming Encounters Date Type Department Care Team (Late st Contact Info) Description 09/16/2025 2:00 PM BUS AND RAIL OPERATOR Office Visit [facility] - Neurology [address] [place] [phone] Brandyn Fischer APRN-PUBLISHING SYSTEMS ANALYST [facility]5 [facility] [address]L [place] [phone] documented as of this encounter Visit Diagnoses Diagnosis Tremor, essential Essential and other specified forms of tremor documented in this encounter Care Teams Windows Administrator Relationship Specialty Start Date End Date Zeyad Moreno MD [address] [place] [address] PCP - General Family Medicine 06/16/24 documented as of this encounter
--- OUTSIDE RECORDS SUMMARY | 2025-08-18 08:06 | XMS_ITS | Encounter Summary ---
Author Organization [facility] Address [address] [place] [address] Care Team Providers Care Sow Farm Barn Technician Name Role Phone Darian Cueto MD Primary Care Provider [phone] Zeyad Moreno MD Primary Care Provider [phone] Encounter Details Date Type Department Care Team (Late Contact Info) Description 08/26/2019 Lab Requisition [facility] Care Pathology Lab [address] [place] [address] Romero Barraza MD [address] [address] Anemia, unspecified Social History Tobacco Use Types Packs/Day Years Used Date Smoking Tobacco: Never Assessed Comments Unknown Sex and Gender Information Value Date Recorded Sex Assigned at Not on file Legal Sex Female 1:24 PM HEALTHCARE MARKETER Gender Identity Not on file Sexual Orientation Not on file documented as of this encounter Plan of Treatment Upcoming Encounters Date Type Department Care Team (Late Contact Info) Description 09/16/2025 2:00 PM HEALTHCARE MARKETER Office Visit [facility] - Neurology [address] [facility], [place] [phone] Brandyn Fischer APRN-ASHLEY [address] [place] [address] [place] [phone] documented as of this encounter Procedures Procedure Name Priority Date/Time Associated Diagnosis Comments FLOW CYTOMETRY BONE MARROW Routine 08/26/2019 9:00 AM HEALTHCARE MARKETER Anemia, unspecified documented in this encounter Results * FLOW CYTOMETRY BONE MARROW (08/26/2019 9:00 AM [facility]) Case Report Flow Cytometry Case: [id number] Authorizing Provider: Romero Barraza MD Collected: 08/26/2019 09:00 AM Ordering Location: [facility] Pathology Lab Received: 08/26/2019 01:26 PM Pathologist: Millicent Dawson Mai, DO Specimen: Bone Marrow 08/26/2019 6:38 PM [facility] PATHOLOGY LAB Final Diagnosis Bone marrow, flow cytometric immunophenotypic analysis: - No evidence of non-Hodgkin lymphoma or high-grade myeloid neoplasm. - See interpretation. 08/26/2019 6:38 PM [facility] PATHOLOGY LAB at 1838 HEALTHCARE MARKETER Flow Cytometry Interpretation The bone marrow specimen [...] the flow cytometry specimen is reviewed for vice president quality improvement purposes. The bone marrow aspirate specimen shows no evidence of involvement by non-Hodgkin lymphoma or a high-grade myeloid neoplasm. Correlation with clinical findings, the concurrent bone marrow core biopsy, and relevant cytogenetic/molecu lar studies is required. 08/26/2019 6:38 PM [facility] PATHOLOG[facility] Flow Cytometry Results Differential Result Comment Flow Cell Count /uL 10,800 Total Viability % 97.0 Lymphocytes % 38 Dim CD45 Region % 8 Monocytes % 5 Granulocytes % 48 08/26/2019 6:38 PM [facility] Reason for test Anemia, unspecified 285.9 08/26/2019 6:38 PM [facility] Client Specimen ID # [id number] 08/26/2019 6:38 PM [facility] PATH[facility] Number of markers 10 were performed. A-2 Flow CD10 A-3 Flow CD13 A-5 Flow CD20 A-1 Flow CD5 A-4 Flow CD19 A-6 Flow CD33 A-7 Flow CD34 A-8 Flow CD45 A-9 [place]+CD19+ A-10 Lambda+CD19+ 08/26/2019 6:38 PM [facility] PATHOLOG[facility] Disclaimer Test performed at [facility], [address] [place], [place], [address]. *The established laboratory minimum viability is 70%. [...] high complexity clinical testing. 08/26/2019 6:38 PM [facility] PATHOLOG[facility] Embedded Images 9 6:38 PM [facility] PATH[facility] Pathology/Cytolo gy BONE MARROW SPECIMEN / Unknown 08/26/2019 9:00 AM HEALTHCARE MARKETER 08/26/2019 1:26 PM HEALTHCARE MARKETER us Romero Barraza MD LAB - PATHOLOGY/CYTOLOGY ORDER NIMO Final Result [facility] PATHOLOGY LAB [facility]. [address] [phone] documented in this encounter Visit Diagnoses Diagnosis Anemia, unspecified documented in this encounter Care Teams Sow Farm Barn Technician Relationship Specialty Start Date End Date Darian Cueto MD [address] [place] [address] PCP - General 06/22/21 06/15/24 Zeyad Moreno MD [address] [place] [phone] PCP - General Family Medicine 06/16/24 documented as of this encounter
--- OUTSIDE RECORDS SUMMARY | 2025-08-18 08:06 | XMS_ITS | Clinical Summary ---
Author Organization [facility] Address [address] [place] [address] Care Team Providers Care Press Operator Carbon Blocks Name Role Phone Zeyad Moreno MD Primary Care Provider [phone] Allergies Active Allergy Reactions Criticality Noted Date [...] DAY NEEDED FOR COUGH 03/29/20 22 Active carbidopa-levod opa (SINEMET) 25-100 mg tablet Take 1 Tablet by mouth. 05/17/20 24 Active primidone (MYSOLINE) 50 mg tablet Take 50 mg by mouth. 05/17/20 24 Active darbepoetin adonay (ARANESP) 500 mcg/mL SyringeIndicati ons:Myelodyspla stic syndrome, low grade (CMS/HCC) Inject 1 mL (500 mcg) by subcutaneous injection every 14 days. 6 mL 02/15/20 25 Active Evenity 210mg/2.34mL ( 105mg/1.17mLx2) Syringe Inject 210 mg by subcutaneous injection every 30 days. 03/10/20 25 Active zolpidem (AMBIEN) 5 mg tabletIndicatio ns:Insomnia, unspecified type Take 1 Tablet (5 mg) by mouth nightly as needed for Insomnia. 30 Tablet 07/29/20 25 Active zolpidem (AMBIEN) 5 mg tabletIndicatio ns:Insomnia, unspecified type Take 1 Tablet (5 mg) by mouth nightly as needed for Insomnia. 30 Tablet 06/29/20 25 025 Discontin ued(Reord er) Active Problems Problem Noted Date Diagnosed Date Myelodysplastic syndrome, low grade 09/09/2019 Macrocytic anemia 08/17/2019 Encounters Date Type Department Care Team Description 07/29/2025 Refill [facility] Oncology and Hematology [facility] [address] Lowell Billy MD Insomnia, unspecified type 07/27/2025 External Device Data STL ABSTRACTION Provider, Abstract 07/26/2025 External Device Data STL ABSTRACTION Provider, Abstract 06/29/2025 10:00 AM CDT Office Visit [facility] Oncology and Hematology [facility] [address] [place] [address] Lowell Billy MD Myelodysplastic syndrome, low grade (CMS/HCC) (Primary Dx); Insomnia, unspecified type 06/28/2025 External Device Data STL ABSTRACTION Provider, Abstract 06/21/2025 External Device Data STL ABSTRACTION Provider, Abstract 06/17/2025 Orders Only [facility] Oncology and Hematology [facility] [address] [place] [phone] Lowell Billy MD 06/14/2025 External Device Data STL ABSTRACTION Provider, Abstract 05/27/2025 Refill [facility] Oncology and Hematology [facility] [address] [place] [address] Lowell Billy MD Insomnia, unspecified type from [...] Sign Reading Time Taken Comments Blood Pressure 116/59 06/29/2025 9:43 AM CDT Pulse 63 06/29/2025 9:43 AM CDT Temperature 36.6 C (97.8 F) 06/29/2025 9:43 AM CDT Respiratory Rate 16 06/29/2025 9:43 AM CDT Oxygen Saturation 90% 06/29/2025 9:43 AM CDT Inhaled Oxygen Concentration - - Weight 65.4 kg (144 lb 3.2 oz) 06/29/2025 9:43 A M CDT Height 162.6 cm (5' 4) 05/15/2022 9:40 AM CDT Body Mass Index 24.75 05/15/2022 9:40 AM CDT Plan of Treatment Upcoming Encounters Date Type Department Care Team (Late st Contact Info) Description 10/13/2025 11:30 AM BALLISTIC EXPERT Office Visit [facility] Oncology and Hematology - [place] [address] [facility] [address] [place] [address] Lowell Billy MD [address] [facility] [address] [place] [address] Health Maintenance Due Date Last [...] 07/18/2016, Additional history exists INFLUENZA VACCINE (#1) 2025 COVID-19 Vaccine (2 - 2024-2 6 season) 2025 10/10/2021 RSV VACCINE (60+ or ) (1 - 1-dose 75+ series) 2028 Procedures Procedure Name Priority Date/Time Associated Diagnosis Comments COMPREHENSIVE METABOLIC PANEL Routine 06/16/2025 10:37 AM CDT CBC WITH AUTODIFFERENTIAL Routine 2024 10:28 AM CDT from Last 3 Months Results * COMPREHENSIVE METABOLIC PANEL (06/16/2025 10:37 AM CDT) Blood us Lowell Billy MD CHEMISTRY ORDERABLES Final Resu lt * CBC WITH AUTODIFFERENTIAL (06/16/2025 10:28 AM CDT) Blood us Lowell Billy MD HEMATOLOGY ORDERABLES Final Res ult from Last 3 Months Insurance [facility] Address: [place] [address] Care Teams Press Operator Carbon Blocks Relationship Specialty Start Date End Date Zeyad Moreno MD PCP - General Family Practice 02/26/23
== END 2025-08-18 08:03 | disposition home or self-care (01) ==
PROVIDERS: PCP Family Medicine; Visit Provider Family Medicine
DX: Z13.6 Encounter for screening for cardiovascular disorders (principal); Z82.49 Family history of ischemic heart disease and other diseases of the circulatory system
CPT/HCPCS: 76706

== ENCOUNTER 2025-09-20 08:06 | Outpatient (CLI) | payer OTHER, SELFPAY ==
--- OUTSIDE RECORDS SUMMARY | 2025-09-20 08:18 | XMS_ITS | Encounter Summary ---
Author Organization [facility] Address [address] [place] [address] Care Team Providers Care Accessories Repairer Name Role Phone Zeyad Moreno MD Primary Care Provider [phone] Reason for Visit * Reason Onset Date Comments MEDICATION REFILL 01/20/2025 Encounter Details Date Type Department Care Team (Late st Contact Info) Description 01/20/2025 Refill [facility] - Neurology [address] [place] [phone] Brandyn Fischer APRN-FIVE ROLL REFINER BATCH MIXER [facility] [facility] 1L [place] [phone] MEDICATION REFILL Social History Tobacco Use Types Packs/Day Years Used Date Smoking Tobacco: Never Assessed Comments Unknown Sex and Gender Information Value Date Recorded Sex Assigned at Not on file Legal Sex Female 1:24 PM CREATIVE SERVICES DIRECTOR Gender Identity Not on file Sexual Orientation Not on file documented as of this encounter Plan of Treatment Upcoming Encounters Date Type Department Care Team (Late st Contact Info) Description 01/30/2026 8:30 AM CDT Office Visit [facility] - Neurology [address] [place] [phone] Brandyn Fischer APRN-FIVE ROLL REFINER BATCH MIXER [facility] [facility] [address]L [place] [phone] documented as of this encounter Visit Diagnoses Diagnosis Tremor, essential Essential and other specified forms of tremor documented in this encounter Care Teams Accessories Repairer Relationship Specialty Start Date End Date Zeyad Moreno MD [address] [place] [address] PCP - General Family Medicine 06/16/24 documented as of this encounter
--- OUTSIDE RECORDS SUMMARY | 2025-09-20 08:18 | XMS_ITS | Encounter Summary ---
Author Organization [facility] Address [address] [place] [address] Care Team Providers Care Bilingual Receptionist Name Role Phone Darian Cueto MD Primary Care Provider [phone] Zeyad Moreno MD Primary Care Provider [phone] Encounter Details Date Type Department Care Team (Late st Contact Info) Description 08/30/2019 Lab Requisition [facility] Care Pathology Lab [address] [place] [address] Romero Barraza MD [address] [address] Social History Tobacco Use Types Packs/Day Years Used Date Smoking Tobacco: Never Assessed Comments Unknown Sex and Gender Information Value Date Recorded Sex Assigned at Not on file Legal Sex Female 1:24 PM LOG CUTTER Gender Identity Not on file Sexual Orientation Not on file documented as of this encounter Plan of Treatment Upcoming Encounters Date Type Department Care Team (Late Contact Info) Description 01/30/2026 8:30 AM CDT Office Visit [facility] - Neurology [address] [facility], [place] [address] Brandyn Fischer APRN-ASHLEY [address] [place] [address] [place] [phone] documented as of this encounter Procedures Procedure Name Priority Date/Time Associated Diagnosis Comments BONE MARROW BIOPSY (STL) Routine 08/26/2019 10:00 AM LOG CUTTER documented in this encounter Results * BONE MARROW BIOPSY (STL) (08/26/2019 10:00 AM LOG CUTTER) Case Report Bone Marrow Patholog y Report Case: [id number] Authorizing Provider: Romero Barraza MD Collected: 08/26/2019 10:00 AM Ordering Location: [facility] Pathology Lab Received: 08/30/2019 10:08 AM Pathologist: Crissy Carlson MD Specimens: A) - Bone Marrow Core, [id number] B) - Bone Marrow Clot, [id number] C) - Blood Peripheral, [id number] D) - Bone Marrow Aspirate, [id number] 08/30/2019 3:12 PM LOG CUTTER [facility] PATHOLOGY LAB Final Diagnosis Bone marrow, aspirate, clot section, and core biopsy: - Hypercellular marrow with maturing trilineage hematopoiesis and trilineage dyspoiesis - No evidence of lymphoma or high-grade myeloid neoplasm. - See description. Peripheral blood smear: - Leukopenia. - Hypochromic, macrocytic anemia. - See description. 08/30/2019 3:12 PM [facility] PATHOLOGY LAB at 1512 LOG CUTTER AP Comment Overall, the bone marrow is hypercellular with trilineage hematopoiesis and trilineage dyspoiesis with no increased blasts both by morphology and concurrent flow cytometry ([id number]). In the correct clinical context it could represent low grade Myelodysplastic syndrome (MDS), however rule out other causes of dyspoiesis such as infection, vitamin deficiency and medication induced toxicity is ruled out. Correlation with clinical findings and any previous bone marrow biopsy results is required. AQ/NK 08/30/2019 3:12 PM LOG CUTTER [facility] PATHOLOGY LAB Peripheral Smear Description Manual Differential Count (100 cells): 48 % neutrophils, 44 % lymphocytes, 3 % metamyelocytes, 2 % bands. 1 nRBCs / 100 WBCs. Leukocyte number: decreased. Granulocyte morphology: mild shift to immaturity. Lymphocyte morphology: normal. Erythrocyte number: decreased. Erythrocyte morphology: macrocytic. Anisopoikilocytosis: mild. Polychromasia: not significant. Platelet number: normal. Platelet morphology: normal. 08/30/2019 3:12 PM LOG CUTTER [facility] PATHOLOGY LAB Bone Marrow [...] seen. Controls worked appropriately. 08/30/2019 3:12 PM [facility] PATHOLOGY LAB Bone Marrow Core [...] adequate reticuloendothelial storage iron 08/30/2019 3:12 PM [facility] PATHOLOGY LAB Clinical History 08/30/2019 3:12 PM [facility] PATHOLOG[facility] Materials Received Received are 15 slides and 2 blocks labeled as [id number] along with the outside pathology report. [place] [address]. All materials are returned to the referring institution, along with a copy of our final report. 08/30/2019 3:12 PM [facility] PATHOLOGY LAB Disclaimer The performance characteristics of all immunohistochemical and indirect immunofluorescence stains (if any) cited in this report were determined by the Histopathology Laboratory of [facility]. Some of these tests were developed [...] the attending (teaching) pathologist. 08/30/2019 3:12 PM LOG CUTTER [facility] PATHOLOGY LAB Embedded Images 08/30/2019 3:12 PM LOG CUTTER [facility] PATHOLOGY LAB Pathology/Cytology SPECIMEN FROM BONE MARROW OBTAINED BY ASPIRATION / Unknown 08/26/2019 10:00 AM LOG CUTTER 08/30/2019 10:08 AM LOG CUTTER Miscellaneous samples (specimen) BONE MARROW CLOT SPECIMEN / Unknown 08/26/2019 10:00 AM LOG CUTTER 08/30/2019 10:08 AM LOG CUTTER Miscellaneous samples (specimen) PERIPHERAL BLOOD / Unknown 08/26/2019 10:00 AM LOG CUTTER 08/30/2019 10:08 AM LOG CUTTER Miscellaneous samples (specimen) SPECIMEN FROM BONE MARROW OBTAINED BY ASPIRATION / Unknown 08/26/2019 10:00 AM LOG CUTTER 08/30/2019 10:08 AM LOG CUTTER Romero Barraza MD LAB - PATHOLOGY/CYTOLOGY ORDER NIMO Final Result Performing Organization Address City/State/[facility] Co de Phone Number [facility] PATHOLOGY LAB [address] [phone] documented in this encounter Visit Diagnoses Not on filedocumented in this encounter Care Teams Bilingual Receptionist Relationship Specialty Start Date End Date Darian Cueto MD [address] [place] [address] PCP - General 06/22/21 06/15/24 Zeyad Moreno MD [address] [place] [address] PCP - General Family Medicine 06/16/24 documented as of this encounter
--- OUTSIDE RECORDS SUMMARY | 2025-09-20 08:18 | XMS_ITS | Clinical Summary ---
Author Organization [facility] Address [address] [place] [address] Care Team Providers Care Turning Machine Set Up Operator Name Role Phone Unavailable Primary Care Provider Unavailabl e Immunizations Immunization Administration Dates Next Due Covid-19, Mrna, Lnp-s, Pf, 30 Mcg/0.3 Ml Dose (P fizer) 10/10/2021 Social History Tobacco Use Types Packs/Day Years Used Date Smoking Tobacco: Never Assessed Comments Unknown Sex and Gender Information Value Date Recorded Sex Assigned at Not on file Legal Sex Female 7:11 PM BOTTOM CRANE OPERATOR Gender Identity Not on file Sexual [...] complete this topic Human Papillomavirus (HPV) Immunization (No Doses Required) Completed Meningococcal Immunization (ACWY) Aged Out No longer eligible b ased on patient's age to complete this topic Rotavirus Immunization Aged Out No lo nger eligible based on patient's age to complete this topic
--- OUTSIDE RECORDS SUMMARY | 2025-09-20 08:18 | XMS_ITS | Encounter Summary ---
Author Organization [facility] Address [address] [place] [address] Care Team Providers Care Oil And Gas Well Treatment Operator Name Role Phone Darian Cueto MD Primary Care Provider [phone] Zeyad Moreno MD Primary Care Provider [phone] Encounter Details Date Type Department Care Team (Late Contact Info) Description 08/26/[address] [facility] Care Pathology Lab [address] [place] [address] Romero Barraza MD [address] [address] Anemia, unspecified Social History Tobacco Use Types Packs/Day Years Used Date Smoking Tobacco: Never Assessed Comments Unknown Sex and Gender Information Value Date Recorded Sex Assigned at Not on file Legal Sex Female 1:24 PM DIRECTOR OF PUBLIC SAFETY Gender Identity Not on file Sexual Orientation Not on file documented as of this encounter Plan of Treatment Upcoming Encounters Date Type Department Care Team (Late Contact Info) Description 01/30/2026 8:30 AM CDT Office Visit [facility] - Neurology [address] [facility], [place] [address] Brandyn Fischer APRN-ASHLEY [address] [place] [address] [place] [phone] documented as of this encounter Procedures Procedure Name Priority Date/Time Associated Diagnosis Comments FLOW CYTOMETRY BONE MARROW Routine 08/26/2019 9:00 AM DIRECTOR OF PUBLIC SAFETY Anemia, unspecified documented in this encounter Results * FLOW CYTOMETRY BONE MARROW (08/26/2019 9:00 AM [facility]) Case Report Flow Cytometry Case: [id number] Authorizing Provider: Romero Barraza MD Collected: 08/26/2019 09:00 AM Ordering Location: [facility] Pathology Lab Received: 08/26/2019 01:26 PM Pathologist: Millicent Dawson Mai, DO Specimen: Bone Marrow 08/26/2019 6:38 PM [facility] PATHOLOGY LAB Final Diagnosis Bone marrow, flow cytometric immunophenotypic analysis: - No evidence of non-Hodgkin lymphoma or high-grade myeloid neoplasm. - See interpretation. 08/26/2019 6:38 PM [facility] PATHOLOGY LAB at 1838 DIRECTOR OF PUBLIC SAFETY Flow Cytometry Interpretation The bone marrow specimen [...] flow cytometry specimen is reviewed for quality audit representative purposes. The bone marrow aspirate specimen shows no evidence of involvement by non-Hodgkin lymphoma or a high-grade myeloid neoplasm. Correlation with clinical findings, the concurrent bone marrow core biopsy, and relevant cytogenetic/molecu lar studies is required. 08/26/2019 6:38 PM [facility] PATHOLOGY LAB Flow Cytometry Results Differential Result Comment Flow Cell Count /uL 10,800 Total Viability % 97.0 Lymphocytes % 38 Dim CD45 Region % 8 Monocytes % 5 Granulocytes % 48 08/26/2019 6:38 PM [facility] Reason for test Anemia, unspecified 285.9 08/26/2019 6:38 PM [facility] PATH[facility] Client Specimen ID # [id number] 08/26/2019 6:38 PM [facility] PATH[facility] Number of markers 10 were performed. A-2 Flow CD10 A-3 Flow CD13 A-5 Flow CD20 A-1 Flow CD5 A-4 Flow CD19 A-6 Flow CD33 A-7 Flow CD34 A-8 Flow CD45 A-9 Basehor+CD19+ A-10 Lambda+CD19+ 08/26/2019 6:38 PM [facility] PATHOLOGY LAB Disclaimer Test performed at [facility], [address] [place], [place], [address]. *The established laboratory minimum viability is 70%. [...] high complexity clinical testing. 08/26/2019 6:38 PM [facility] PATHOLOGY LAB Embedded Images 9 6:38 PM [facility] PATHOLOGY LAB Pathology/Cytolo gy BONE MARROW SPECIMEN / Unknown 08/26/2019 9:00 AM DIRECTOR OF PUBLIC SAFETY 08/26/2019 1:26 PM DIRECTOR OF PUBLIC SAFETY us Romero Barraza MD LAB - PATHOLOGY/CYTOLOGY ORDER NIMO Final Result [facility] PATHOLOGY LAB [facility]. [address] [phone] documented in this encounter Visit Diagnoses Diagnosis Anemia, unspecified documented in this encounter Care Teams Oil And Gas Well Treatment Operator Relationship Specialty Start Date End Date Darian Cueto MD [address] [place] [phone] PCP - General 06/22/21 06/15/24 Zeyad Moreno MD [address] [place] [place] [phone] PCP - General Family Medicine 06/16/24 documented as of this encounter
--- OUTSIDE RECORDS SUMMARY | 2025-09-20 08:18 | XMS_ITS | Clinical Summary ---
Author Organization [facility] [employer] Address [address] [facility] [place] [address] Care Team Providers Care Certified Teacher Assistant Name Role Phone Zeyad Moreno MD Primary Care Provider [phone] Source Comments [facility] [employer],non-owned Affiliates and Associated Physician Practices is amultiple site organization consisting of ambulatory clinics and hospital sitesin [place], [place], [place] and [place]. This disclosure is being madepursuant to the Care Everywhere program and may not contain all information available regarding this patient. Last updated 18.[facility] [employer] Allergies Active Allergy Reactions Criticality Noted Date Comments Red Dye Unknown 08/05/2019 Red dye from erythromycin Sulfamethoxazole W-Trimethoprim Nausea and/or Vomiting Low 08/05/2019 Medications * Be aware that medications may not be up to date on this document. Alwaysverify current medications with the patient. temazepam (Restoril) 15 MG capsule Take 1 (one) capsule by mouth nightly as needed 09/25/20 23 Active propranolol (Inderal) 40 MG tablet TAKE 1 TABLET BY MOUTH TWICE A DAY FOR 90 DAYS 12/26/19 24 Active cholestyramine light (Questran Light) 4 GM/DOSE powder PLEASE SEE ATTACHED FOR DETAILED DIRECTIONS 04/06/20 24 Active Aranesp, Albumin Free, 500 MCG/ML prefilled syringe INJECT 500MCG SUBCUTANEOUSLY EVERY 3 WEEKS 09/11/20 23 Active primidone (Mysoline) 50 MG tabletIndicati ons:Tremor, essential Take 1 (one) tablet by mouth at bedtime 90 tablet 3 09/16/20 25 Active carbidopa-levo dopa (Sinemet) 25-100 MG tabletIndicati ons:Tremor, essential,Idio pathic Parkinson's disease (HCC) Take 2 (two) tablets by mouth 3 times daily 540 tablet 3 09/16/20 25 Active zonisamide (Zonegran) 25 MG capsuleIndicat ions:Tremor, essential Take 1 (one) capsule by mouth once daily 30 capsule 11 09/16/20 25 Active primidone (Mysoline) 50 MG tabletIndicati ons:Tremor, essential Take 1 (one) tablet by mouth at bedtime 90 tablet 3 01/21/20 25 025 Discontin ued(Reord er) carbidopa-levo dopa (Sinemet) 25-100 MG tabletIndicati ons:Tremor, essential,Idio pathic Parkinson's disease (HCC) Take 2 (two) tablets by mouth 3 times daily 540 tablet 3 03/17/20 25 025 Discontin ued(Reord er) Active Problems No known active problems Encounters Date Type Department Care Team Description 09/16/2025 2:00 PM PIPEFITTER Office Visit [facility] - Neurology [address] [place] [phone] Brandyn Fischer APRN-ASHLEY Tremor, essential (Primary Dx); Idiopathic Parkinson's disease (HCC) 09/16/2025 Travel from Last 3 Months Social History Tobacco Use Types Packs/Day Years Used Date Smoking Tobacco: Never Assessed Comments Unknown Sex and Gender Information Value Date Recorded Sex Assigned at Not on file Legal Sex Female 1:24 PM PIPEFITTER Gender Identity Not on file Sexual Orientation Not on file Last Filed Vital Signs Vital Sign Reading Time Taken Comments Blood Pressure 136/63 09/16/2025 1:45 PM PIPEFITTER Pulse 71 09/16/2025 1:45 PM PIPEFITTER Temperature 35.8 C (96.5 F) 05/17/2024 8:07 AM CDT Respiratory Rate - - Oxygen Saturation 97% 09/16/2025 1:45 PM PIPEFITTER Inhaled Oxygen Concentration - - Weight 66.2 kg (146 lb) 09/16/2025 1:45 PM PIPEFITTER Height 162.6 cm (5' 4) 09/16/2025 1:45 PM PIPEFITTER Body Mass Index 25.06 09/16/2025 1:45 PM PIPEFITTER Plan of Treatment Upcoming Encounters Date Type Department Care Team (Late st Contact Info) Description 01/30/2026 8:30 AM CDT Office Visit [facility] - Neurology [address] [facility] [place] [phone] Aaliyah Rohitmarinamulugeta, MAIL TELLER-MOP WORKER [address] [facility] [address] [place] [phone] Health Maintenance Due Date Last Done Comments [...] 2) 2003 DEPRESSION SCREENING 10/06/2024 COVID-19 VACCINE (4 - 2024-2 6 season) 2025 10/10/2021, 12/21/2020, 11/28/2020 INFLUENZA VACCINE (#1) 2025 Respiratory Syncytial Virus [...] complete this topic MENINGOCOCCAL (Group B) VACCINE SHARED DECISION-MAKING Aged Out No longer eligible based on patient's age to complete this topic MENINGOCOCCAL GROUPS A/C/Y/W VACCINE Aged Out No longer eligible b ased on patient's age to complete this topic Insurance [employer] MED[employer]ARE E[employer]ENCE MEDICARE Care Teams Certified Teacher Assistant Relationship Specialty Start Date End Date Zeyad Moreno MD [address] [place] [address] PCP - General Family Medicine 06/16/24
--- OUTSIDE RECORDS SUMMARY | 2025-09-20 08:18 | XMS_ITS | Clinical Summary ---
Author Organization [facility] Address [address] [facility] [address] Care Team Providers Care Crystallizer Operator Name Role Phone Zeyad Moreno MD Primary Care Provider [phone] Allergies Active Allergy Reactions Criticality Noted Date Comments Red Dye Unknown 08/05/2019 Red dye from erythromycin Sulfamethoxazole-Tr imethoprim Nausea and Vomiting Low 08/05/2019 Medications propranoloL (INDERAL) 40 mg tablet TAKE 1 TABLET BY MOUTH EVERY 12 HOURS 021 Active predniSONE (DELTASONE) 20 mg tablet TAKE 2 TABLETS BY MOUTH EVERY DAY FOR 5 DAYS 022 Active doxycycline hyclate (VIBRAMYCIN) 100 mg capsule TAKE 1 CAPSULE BY MOUTH TWICE A DAY FOR 10 DAYS Active benzonatate (TESSALON) 100 mg capsule TAKE 1 CAPSULE BY MOUTH TWICE A DAY NEEDED FOR COUGH 022 Active carbidopa-levo dopa (SINEMET) 25-100 mg tablet Take 1 Tablet by mouth. Active primidone (MYSOLINE) 50 mg tablet Take 50 mg by mouth. 024 Active Evenity 210mg/2.34mL ( 105mg/1.17mLx2 ) Syringe Inject 210 mg by subcutaneous injection every 30 days. Active zolpidem (AMBIEN) 5 mg tabletIndicati ons:Insomnia, unspecified type Take 1 Tablet (5 mg) by mouth nightly as needed for Insomnia. 30 Tablet 025 Active darbepoetin adonay (Aranesp, Polysorbate,) 500 mcg/mL SyringeIndicat ions:Myelodysp lastic syndrome, low grade (CMS/HCC) INJECT 500 MCG (1 ML) SUBCUTANEOUSLY EVERY 14 DAYS. 2 mL 4 025 Active darbepoetin adonay (ARANESP) 500 mcg/mL SyringeIndicat ions:Myelodysp lastic syndrome, low grade (CMS/HCC) Inject 1 mL (500 mcg) by subcutaneous injection every 14 days. 6 mL 025 2024 Discontinued Active Problems Problem Noted Date Diagnosed Date Myelodysplastic syndrome, low grade 09/09/2019 Macrocytic anemia 08/17/2019 Encounters Date Type Department Care Team Description 08/24/2025 Refill [facility] Oncology and Hematology [facility] [address] [place] [address] Lowell Billy MD Myelodysplastic syndrome, low grade (CMS/HCC) 07/29/2025 Refill [facility] Oncology and Hematology [place] [address] [place] [address] Lowell Billy MD Insomnia, unspecified type 07/27/2025 External Device Data STL ABSTRACTION Provider, Abstract 07/26/2025 External Device Data STL ABSTRACTION Provider, Abstract 06/29/2025 10:00 AM CDT Office Visit [facility] Oncology and Hematology [facility] [address] [place] [address] Lowell Billy MD Myelodysplastic syndrome, low grade [...] st Contact Info) Description 10/13/2025 11:30 AM SEWER SYSTEM SUPERVISOR Office Visit [facility] Oncology and Hematology - [place] [address] [facility] [address] [place] [address] Lowell Billy MD [address] [facility] [address] [place] [address] Health Maintenance Due Date Last [...] 08/11/20 18, 07/28/2017, 07/18/2016, Additional history exists Medicare [place]) Preventative Visit/Annual Wellness Visit 10/06/2024 INFLUENZA VACCINE (#1) 2025 COVID-19 Vaccine (2 - 2024-2 6 season) 2025 10/10/2021 RSV VACCINE (60+ or ) (1 - 1-dose 75+ series) 2028 Insurance [facility] Address: [facility] [address] [place] [id number] Care Teams Crystallizer Operator Relationship Specialty Start Date End Date Zeyad Moreno MD PCP - General Family Practice 02/26/23
--- OUTSIDE RECORDS SUMMARY | 2025-09-20 08:18 | XMS_ITS | Encounter Summary ---
Author Organization [facility] Address [address] [place] [address] Care Team Providers Care Structural Steel Equipment Erector Name Role Phone Zeyad Moreno MD Primary Care Provider [phone] Reason for Visit * Reason Onset Date Comments MEDICATION REFILL 01/20/2025 Encounter Details Date Type Department Care Team (Late st Contact Info) Description 01/20/2025 Refill [facility] - Neurology [address] [place] [phone] Brandyn Fischer APRN-SEISMIC ENGINEER [facility] [facility] [address] [place] [phone] MEDICATION REFILL Social History Tobacco Use Types Packs/Day Years Used Date Smoking Tobacco: Never Assessed Comments Unknown Sex and Gender Information Value Date Recorded Sex Assigned at Not on file Legal Sex Female 1:24 PM GEOSPATIAL PROGRAM MANAGEMENT OFFICER Gender Identity Not on file Sexual Orientation Not on file documented as of this encounter Plan of Treatment Upcoming Encounters Date Type Department Care Team (Late st Contact Info) Description 01/30/2026 8:30 AM CDT Office Visit [facility] - Neurology [address] [place] [phone] Brandyn Fischer APRN-SEISMIC ENGINEER [facility] [facility] [address] [place] [phone] documented as of this encounter Visit Diagnoses Diagnosis Tremor, essential Essential and other specified forms of tremor documented in this encounter Care Teams Structural Steel Equipment Erector Relationship Specialty Start Date End Date Zeyad Moreno [place] [address] PCP - General Family Medicine 06/16/24 documented as of this encounter
[2025-09-20 08:38] LABS: Hematocrit 35.7 % (37.0-47.0); Hemoglobin 10.7 g/dL (12.0-15.0); Immature Granulocyte Percent A 0.0 % (0-0.5); Lymphocytes Absolute Auto 0.82 K/mm3 (0.9-3.2); Mean Corpuscular HGB Conc 30.0 g/dl (32-36); Mean Corpuscular Hemoglobin 38.2 pg (26-34); Mean Corpuscular Volume 127.5 fl (80-100); Nucleated Red Blood Cells Absolute Auto 0.000 K/mm3 (0.0-0.012); Nucleated Red Blood Cells Perc 0.0 % (0.0-0.2); Platelet Count Result 176 k/mm3 (150-375); Red Blood Count 2.80 M/mm3 (4.2-5.4); White Blood Count 2.7 K/mm3 (4.5-10.0)
[2025-09-20 10:10] LABS: Alanine Aminotransferase 8 U/L (6-35); Albumin Level 4.5 g/dL (3.5-5.1); Alkaline Phosphatase 88 U/L (38-126); Anion Gap 5 mmol/L (4-12); Aspartate Amino Transferase 32 U/L (14-36); Bilirubin,Total 3.2 mg/dL (0.2-1.3); Blood Urea Nitrogen 11 mg/dL (7-17); Calcium 9.1 mg/dL (8.4-10.2); Carbon Dioxide 29 mmol/L (22-30); Chloride 107 mmol/L (98-107); Cholesterol 142 mg/dL (0-200); Estimated Glomerular Filt Rate > 60; Glucose 81 mg/dL (65-110); HDL Direct 44 mg/dL; Potassium 4.3 mmol/L (3.4-5.0); Sodium 141 mmol/L (137-145); Total Protein 7.5 g/dL (6.3-8.2); Triglycerides 137 mg/dL (<150)
== END 2025-09-20 08:07 | disposition home or self-care (01) ==
LOC: ANHLAB 08:07
PROVIDERS: PCP Family Medicine; Visit Provider Family Medicine
DX: D46.9 Myelodysplastic syndrome, unspecified (principal); M81.0 Age-related osteoporosis without current pathological fracture; E55.9 Vitamin D deficiency, unspecified; R79.89 Other specified abnormal findings of blood chemistry; Z79.899 Other long term (current) drug therapy
CPT/HCPCS: 36415; 80053; 80061; 82172; 82306; 85025